=== PATIENT | male | born 1940 | race Caucasian/White ===

== ENCOUNTER → 2019-01-29 11:36 | Outpatient (CLI) | payer MEDICARE, OTHER, SELFPAY ==
--- NOTE | 2019-01-29 11:38 | DI.RAD.S_ITS ---
PROCEDURE: XR WRIST LT MIN 3V INDICATIONS: left wrist pain s/p injury 3 mos ago TECHNIQUE: 4 views of the wrist were acquired. COMPARISON: None. FINDINGS: Bones: No fractures or dislocations. No suspicious bony lesions. There is severe first metacarpal phalangeal joint degeneration. Small ossicles are noted in the ulna aspect of the first metacarpal phalangeal joint, suspicious for small joint bodies or synovial osteochondromatosis. There is mild degenerative disease at the radiocarpal joint, triscaphe joint and first carpal metacarpal joint. Scaphoid view: Scaphoid is intact. Soft tissues: No suspicious soft tissue calcifications. IMPRESSION: 1. No fractures. 1. Severe first metacarpophalangeal joint degeneration. Small ossicles are noted in the ulnar aspect of the first metacarpophalangeal joint, which may be small joint bodies or synovial osteochondromatosis. Dictated by: Lul Cross M.D. on 01/29/2019 at 12:55 Approved by: Lul Cross M.D. on 01/29/2019 at 13:02
== END ==
PROVIDERS: Family Provider Family Medicine; PCP Family Medicine; Visit Provider Nurse Practitioner
DX: M25.532 Pain in left wrist (principal); M19.042 Primary osteoarthritis, left hand; M19.032 Primary osteoarthritis, left wrist
CPT/HCPCS: 73110

== ENCOUNTER → 2019-04-11 09:28 | Outpatient (CLI) | payer MEDICARE, OTHER, SELFPAY ==
[2019-04-11 10:04] LABS: Hematocrit 42.5 % (41-53); Hemoglobin 14.3 g/dL (13.5-17.5); Mean Corpuscular HGB Conc 33.6 % (30-36); Mean Corpuscular Volume 86.4 fL (80-100); Platelet Count 150 X10^3/uL (150-400); Red Blood Cell Count 4.92 X10^6/uL (4.5-5.9); Red Cell Distribution Width 15.1 % (11.6-14.8); White Blood Cell Count 7.3 X10^3/uL (4.5-11.0)
[2019-04-11 10:53] LABS: Alanine Aminotransferase 25 IU/L (21-72); Albumin 4.3 g/dL (3.5-5.0); Albumin Globulin Ratio 1.4 (1.0-2.8); Alkaline Phosphatase 111 U/L (38-126); Aspartate Aminotransferase 22 IU/L (17-59); BUN Creatinine Ratio 11.7 (6-22); Bilirubin Total 0.7 mg/dL (0.2-1.3); Blood Urea Nitrogen 21 mg/dL (9-20); Calcium 9.5 mg/dL (8.4-10.2); Carbon Dioxide 20 mmol/L (22-32); Chloride 106 mmol/L (98-107); Cholesterol 181 mg/dL (140-199); Estimated Glomerular Filt Rate 36.9 mL/min (>60); Globulin 3.1 g/dL (1.7-4.1); Glucose 112 mg/dL (80-110); HDL Cholesterol 45 mg/dL (40-60); HEMOLYSIS < 15 (0-50); LDL Cholesterol Calculated 106 mg/dL (<100); Potassium 5.3 mmol/L (3.4-5.1); Sodium 136 mmol/L (137-145); Total Protein 7.4 g/dL (6.3-8.2); Triglycerides 149 mg/dL (35-150)
[2019-04-11 11:25] LABS: Prostate Specific Antigen Scrn 0.124 ng/mL (0.1-4.0)
[2019-04-11 11:28] LABS: TSH w/ Reflex to FT4 2.48 uIU/mL (0.47-4.68)
== END ==
PROVIDERS: Family Provider Family Medicine; PCP Family Medicine; Visit Provider Nurse Practitioner
DX: I10 Essential (primary) hypertension (principal); N40.0 Benign prostatic hyperplasia without lower urinary tract symptoms; Z00.00 Encounter for general adult medical examination without abnormal findings; Z95.0 Presence of cardiac pacemaker
CPT/HCPCS: 36415; 80053; 80061; 84153; 84443; 85027; G0103

== ENCOUNTER → 2019-05-07 09:56 | Outpatient (CLI) | payer MEDICARE, OTHER, SELFPAY ==
[2019-05-07 11:43] LABS: Microalbumin Urine Random 1.3 mg/dL (0-1.6)
[2019-05-07 11:45] LABS: Creatinine Urine Random 70.6 mg/dL; Microalbumi Creatinin Ratio Ur 18.4 ug/mg CR (<30)
[2019-05-07 11:47] LABS: BUN Creatinine Ratio 15.3 (6-22); Blood Urea Nitrogen 23 mg/dL (9-20); Estimated Glomerular Filt Rate 45.4 mL/min (>60)
== END ==
PROVIDERS: Family Provider Family Medicine; PCP Family Medicine; Visit Provider Nurse Practitioner
DX: I10 Essential (primary) hypertension (principal); N19 Unspecified kidney failure; N18.9 Chronic kidney disease, unspecified
CPT/HCPCS: 36415; 82043; 82565; 82570; 84520

== ENCOUNTER → 2019-06-13 10:01 | Outpatient (CLI) | payer MEDICARE, OTHER, SELFPAY ==
[2019-06-13 11:00] LABS: Hematocrit 42.8 % (41-53); Hemoglobin 14.2 g/dL (13.5-17.5); Mean Corpuscular HGB Conc 33.1 % (30-36); Mean Corpuscular Hemoglobin 29.4 PG (26-34); Mean Corpuscular Volume 88.7 fL (80-100); Platelet Count 146 X10^3/uL (150-400); Red Blood Cell Count 4.82 X10^6/uL (4.5-5.9); Red Cell Distribution Width 14.6 % (11.6-14.8); White Blood Cell Count 7.3 X10^3/uL (4.5-11.0)
[2019-06-13 11:21] LABS: Creatinine Urine Random 80.9 mg/dL; Protein (Total) Urine Random 16 mg/dL (0-12); Protein Creatinine Ratio Urine 0.19 GRAM/24H
[2019-06-13 11:22] LABS: BUN Creatinine Ratio 12.1 (6-22); Blood Urea Nitrogen 17 mg/dL (9-20); Calcium 9.2 mg/dL (8.4-10.2); Carbon Dioxide 21 mmol/L (22-32); Chloride 106 mmol/L (98-107); Estimated Glomerular Filt Rate 49.1 mL/min (>60); Glucose 100 mg/dL (80-110); HEMOLYSIS < 15 (0-50); Potassium 4.1 mmol/L (3.4-5.1); Sodium 139 mmol/L (137-145)
== END ==
PROVIDERS: Family Provider Family Medicine; PCP Family Medicine; Visit Provider Internal Medicine Nephrology
DX: N05.9 Unspecified nephritic syndrome with unspecified morphologic changes (principal); D63.1 Anemia in chronic kidney disease; D70.9 Neutropenia, unspecified; R80.9 Proteinuria, unspecified
CPT/HCPCS: 36415; 80048; 82570; 84156; 85027

== ENCOUNTER → 2019-07-23 08:25 | Outpatient (CLI) | payer MEDICARE, OTHER, SELFPAY ==
--- NOTE | 2019-07-23 08:27 | DI.US.S_ITS ---
PROCEDURE: US MARYSOL LIMITED SINGLE LEVEL INDICATIONS: cladication lower extermity TECHNIQUE: Ankle-brachial indices were obtained bilaterally and recorded. COMPARISONS: FINDINGS: Right ankle brachial index (MARYSOL): 0.91 Left ankle brachial index (MARYSOL): 0.7 IMPRESSION: Abnormal ankle brachial indices bilaterally suggesting mild to moderate disease consistent with claudication, left greater than right; duplex imaging warranted. Dictated by: Kp DOMINGUEZ Interpreted: Lyndsey Parnell MD on 07/23/2019 at 10:02 Approved by: Lyndsey Parnell M.D. on 07/23/2019 at 12:09
--- NOTE | 2019-07-23 08:27 | DI.RAD.S_ITS ---
PROCEDURE: XR LUMBAR SPINE 2-3V INDICATIONS: spinal arthritis TECHNIQUE: 3 views of the lumbar spine were acquired. COMPARISON: None. FINDINGS: Bones: 5 [id number] vertebrae are present. There is normal bony alignment. No vertebral body compression fractures. No suspicious bony lesions. There is degenerative disc disease, moderate to severe at L5-S1, and mild to moderate at other levels. [id number] facet arthropathy at L4-L5 and L5-S1. Soft tissues: Overlying bowel gas pattern is normal. No suspicious soft tissue calcifications. IMPRESSION: Moderate to severe degenerative disc and facet disease. Dictated by: Lul Cross M.D. on 07/23/2019 at 14:41 Approved by: Lul Cross M.D. on 07/23/2019 at 14:42
== END ==
PROVIDERS: Family Provider Family Medicine; PCP Family Medicine; Visit Provider Family Medicine
DX: I70.213 Atherosclerosis of native arteries of extremities with intermittent claudication, bilateral legs (principal); M47.816 Spondylosis without myelopathy or radiculopathy, lumbar region; M47.817 Spondylosis without myelopathy or radiculopathy, lumbosacral region; M51.36 Other intervertebral disc degeneration, lumbar region; M51.37 Other intervertebral disc degeneration, lumbosacral region
CPT/HCPCS: 72100; 93922

== ENCOUNTER → 2019-09-03 11:35 | Outpatient (CLI) | payer MEDICARE, OTHER, SELFPAY | PROVIDERS: PCP Family Medicine; Visit Provider Family Medicine | DX: M79.606 Pain in leg, unspecified (principal); R20.0 Anesthesia of skin; Z53.9 Procedure and treatment not carried out, unspecified reason ==

== ENCOUNTER → 2019-09-05 07:33 | Outpatient (CLI) | payer MEDICARE, OTHER, SELFPAY ==
--- NOTE | 2019-09-05 07:34 | DI.US.S_ITS ---
PROCEDURE: US ARTERIAL DUPLEX LE BI INDICATIONS: Left calf claudication after 3 or 4 blocks. Clinical concern for PERIPHERAL ARTERIAL DISEASE TECHNIQUE: Color and pulse Doppler interrogation was performed of both lower extremity arterial systems, with image documentation. COMPARISON: [facility], , US MARYSOL LIMITED SINGLE LEVEL, 07/23/2019, 8:45. FINDINGS: Right lower extremity: Common femoral artery: 178 cm/sec, with triphasic flow. Deep femoral artery: 161 cm/sec, with monophasic flow. Proximal superficial femoral artery: 164 cm/sec, with biphasic flow. Mid superficial femoral artery: 83 cm/sec, with biphasic flow. Distal superficial femoral artery: 68 cm/sec, with biphasic flow. Popliteal artery: 76 cm/sec, with biphasic flow. Posterior tibial artery: Within its midportion 22 cm/sec, with biphasic flow. The distal right posterior tibial artery is occluded. Anterior tibial artery/dorsalis pedis: Distally 49 cm/sec, with biphasic flow. Pan-scale imaging description: There is occlusion of the distal right posterior tibial artery. Minimal thickening can be seen. Left lower extremity: Common femoral artery proximally: 138 cm/sec, with triphasic flow. Common femoral artery distally: 75 cm/s, with biphasic flow. Deep femoral artery: 139 cm/sec, with biphasic flow. Proximal superficial femoral artery: 69 cm/sec, with biphasic flow. Mid superficial femoral artery: 26 cm/sec, with monophasic flow. Distal superficial femoral artery: 16 cm/sec, with monophasic flow. Popliteal artery: 29 cm/sec, with monophasic flow. Posterior tibial artery: Within its midportion 11 cm/sec, with monophasic flow. The distal left posterior tibial artery is occluded. Anterior tibial artery/dorsalis pedis: Distally 24 cm/sec, with monophasic flow. Pan-scale imaging description: Minimal thickening can be seen. The distal left posterior tibial artery is occluded. 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 Poor flow is seen throughout the left lower extremity. Dictated by: Helio Grande M.D. on 09/05/2019 at 10:14 Approved by: Helio Grande M.D. on 09/05/2019 at 10:18
== END ==
PROVIDERS: PCP Family Medicine; Visit Provider Family Medicine
DX: I70.203 Unspecified atherosclerosis of native arteries of extremities, bilateral legs (principal); R20.0 Anesthesia of skin; M79.606 Pain in leg, unspecified
CPT/HCPCS: 93925

== ENCOUNTER → 2019-09-12 08:13 | Outpatient (CLI) | payer MEDICARE, OTHER, SELFPAY ==
[2019-09-12 09:37] LABS: BUN Creatinine Ratio 16.7 (6-22); Blood Urea Nitrogen 35 mg/dL (9-20); Calcium 9.3 mg/dL (8.4-10.2); Carbon Dioxide 27 mmol/L (22-32); Chloride 103 mmol/L (98-107); Estimated Glomerular Filt Rate 30.8 mL/min (>60); Glucose 113 mg/dL (80-110); HEMOLYSIS < 15 (0-50); Phosphorous 3.3 mg/dL (2.3-3.7); Potassium 4.5 mmol/L (3.4-5.1); Sodium 137 mmol/L (137-145)
[2019-09-12 09:57] LABS: B Type Natriuretic Peptide < 100 (<100)
[2019-09-14 15:09] LABS: Parathyroid Hormone Int 43 pg/mL (14-64)
== END ==
PROVIDERS: PCP Family Medicine; Visit Provider Internal Medicine Nephrology
DX: N05.9 Unspecified nephritic syndrome with unspecified morphologic changes (principal); I50.32 Chronic diastolic (congestive) heart failure; E83.30 Disorder of phosphorus metabolism, unspecified; N25.81 Secondary hyperparathyroidism of renal origin
CPT/HCPCS: 36415; 80048; 83880; 83970; 84100

== ENCOUNTER → 2019-09-19 12:54 | Outpatient (CLI) | payer MEDICARE, OTHER, SELFPAY ==
[2019-09-21 15:49] LABS: Complement C3 137 mg/dL (82-185)
[2019-09-21 19:40] LABS: Albumin 3.7 g/dL (3.8-4.8); Alpha 1 Globulin 0.4 g/dL (0.2-0.3); Beta 1 Globulin 0.4 g/dL (0.4-0.6); Gamma Globulin 0.8 g/dL (0.8-1.7); Protein, Total 6.7 g/dL (6.1-8.1)
[2019-09-22 21:05] LABS: ANCA Screen NEGATIVE (NEGATIVE)
[2019-09-23 09:56] LABS: ANA Screen, IFA NEGATIVE (NEGATIVE)
[2019-09-23 15:00] LABS: Albumin 100 %; Protein/ Creatinine Ratio 169 mg/g creat (22-128); Total Urine Protein 10 mg/dL (5-25); Urine Creatinine, Random 59 mg/dL (20-320)
[2019-09-23 21:46] LABS: DNA (DS) Antibody <1 IU/mL
== END ==
PROVIDERS: Family Provider Family Medicine; PCP Family Medicine; Visit Provider Internal Medicine Nephrology
DX: M31.30 Wegener's granulomatosis without renal involvement (principal); M32.10 Systemic lupus erythematosus, organ or system involvement unspecified; N00.9 Acute nephritic syndrome with unspecified morphologic changes; D89.89 Other specified disorders involving the immune mechanism, not elsewhere classified
CPT/HCPCS: 36415; 83520; 84155; 84156; 84165; 84166; 86021; 86038; 86160; 86225

== ENCOUNTER → 2019-09-19 13:49 | Outpatient (CLI) | payer MEDICARE, OTHER, SELFPAY ==
--- NOTE | 2019-09-19 14:16 | DI.US.S_ITS ---
PROCEDURE: US RENAL COMPLETE INDICATIONS: ACUTE RENAL FAILURE TECHNIQUE: Real-time scanning was performed of the kidneys and bladder, with image documentation. COMPARISON: None. FINDINGS: Kidneys: Kidneys are normal in size. Right kidney measures 8.9 cm long; left kidney measures 12.4 cm long. Right renal cortical thickness is 1.1 cm; left renal cortical thickness is 1.7 cm. Renal cortical echotexture is normal. No hydronephrosis or nephrolithiasis. No suspicious solid mass lesions. 4.3 cm superior pole left renal cyst. Bladder: Pre-void bladder volume is 79 mL. Post-void residual is 60 mL. Pre-void images demonstrate no intraluminal masses or stones. On pre-void images, left ureteral jets are noted with color Doppler interrogation. (Of note, ureteral jets may not be detectable in up to 25% of cases due to insufficient differences in specific gravity between ureteral and bladder urine). Miscellaneous: No free pelvic fluid. IMPRESSION: Left renal cyst; otherwise normal appearance of the kidneys. Dictated by: Kp Hughes [facility] Interpreted: Braeden Vail MD on 09/19/2019 at 14:58 Approved by: Braeden Vail M.D. on 09/19/2019 at 17:23
== END ==
PROVIDERS: PCP Family Medicine; Visit Provider Internal Medicine Nephrology
DX: N17.9 Acute kidney failure, unspecified (principal); N28.1 Cyst of kidney, acquired; M31.30 Wegener's granulomatosis without renal involvement; M32.10 Systemic lupus erythematosus, organ or system involvement unspecified; N00.9 Acute nephritic syndrome with unspecified morphologic changes; D47.2 Monoclonal gammopathy
CPT/HCPCS: 36415; 76770; 83520; 84155; 84156; 84165; 84166; 86021; 86038; 86160; 86225

== ENCOUNTER → 2019-10-02 09:40 | Outpatient (CLI) | payer MEDICARE, OTHER, SELFPAY ==
[2019-10-02 11:13] LABS: Blood Urea Nitrogen 28 mg/dL (9-20); Calcium 9.7 mg/dL (8.4-10.2); Carbon Dioxide 24 mmol/L (22-32); Chloride 104 mmol/L (98-107); Estimated Glomerular Filt Rate 32.6 mL/min (>60); Glucose 109 mg/dL (80-110); HEMOLYSIS < 15 (0-50); Potassium 4.6 mmol/L (3.4-5.1); Sodium 138 mmol/L (137-145)
== END ==
PROVIDERS: PCP Family Medicine; Visit Provider Internal Medicine Nephrology
DX: N05.9 Unspecified nephritic syndrome with unspecified morphologic changes (principal)
CPT/HCPCS: 36415; 80048

== ENCOUNTER → 2019-10-31 10:29 | Outpatient (CLI) | payer MEDICARE, OTHER, SELFPAY ==
[2019-10-31 11:14] LABS: BUN Creatinine Ratio 19.5 (6-22); Blood Urea Nitrogen 37 mg/dL (9-20); Calcium 8.7 mg/dL (8.4-10.2); Carbon Dioxide 25 mmol/L (22-32); Chloride 101 mmol/L (98-107); Estimated Glomerular Filt Rate 34.5 mL/min (>60); Glucose 132 mg/dL (80-110); HEMOLYSIS < 15 (0-50); Potassium 3.9 mmol/L (3.4-5.1); Sodium 137 mmol/L (137-145)
== END ==
PROVIDERS: PCP Family Medicine; Visit Provider Internal Medicine Nephrology
DX: N05.9 Unspecified nephritic syndrome with unspecified morphologic changes (principal)
CPT/HCPCS: 36415; 80048

== ENCOUNTER → 2019-11-29 12:18 | Outpatient (CLI) | payer MEDICARE, OTHER, SELFPAY ==
[2019-11-29 13:20] LABS: BUN Creatinine Ratio 15.8 (6-22); Blood Urea Nitrogen 30 mg/dL (9-20); Calcium 8.7 mg/dL (8.4-10.2); Carbon Dioxide 19 mmol/L (22-32); Chloride 108 mmol/L (98-107); Estimated Glomerular Filt Rate 34.5 mL/min (>60); Glucose 105 mg/dL (80-110); HEMOLYSIS < 15 (0-50); Sodium 138 mmol/L (137-145)
== END ==
PROVIDERS: PCP Family Medicine; Visit Provider Internal Medicine Nephrology
DX: N05.9 Unspecified nephritic syndrome with unspecified morphologic changes (principal); I77.6 Arteritis, unspecified
CPT/HCPCS: 36415; 80048

== ENCOUNTER → 2019-12-25 09:56 | Outpatient (CLI) | payer MEDICARE, OTHER, SELFPAY ==
[2019-12-25 11:48] LABS: BUN Creatinine Ratio 16.8 (6-22); Blood Urea Nitrogen 32 mg/dL (9-20); Calcium 8.9 mg/dL (8.4-10.2); Carbon Dioxide 22 mmol/L (22-32); Chloride 104 mmol/L (98-107); Estimated Glomerular Filt Rate 34.5 mL/min (>60); Glucose 126 mg/dL (80-110); HEMOLYSIS < 15 (0-50); Potassium 4.1 mmol/L (3.4-5.1); Sodium 136 mmol/L (137-145)
== END ==
PROVIDERS: PCP Family Medicine; Referring Provider Internal Medicine Nephrology; Visit Provider Internal Medicine Nephrology
DX: N05.9 Unspecified nephritic syndrome with unspecified morphologic changes (principal)
CPT/HCPCS: 36415; 80048

== ENCOUNTER → 2020-03-05 12:36 | Outpatient (CLI) | payer MEDICARE, OTHER, SELFPAY ==
[2020-03-05 15:58] LABS: BUN Creatinine Ratio 14.8 (6-22); Blood Urea Nitrogen 25 mg/dL (9-20); Calcium 9.4 mg/dL (8.4-10.2); Carbon Dioxide 26 mmol/L (22-32); Chloride 102 mmol/L (98-107); Estimated Glomerular Filt Rate 39.5 mL/min (>60); Glucose 107 mg/dL (80-110); HEMOLYSIS < 15 (0-50); Potassium 3.5 mmol/L (3.4-5.1); Sodium 137 mmol/L (137-145)
== END ==
PROVIDERS: PCP Family Medicine; Referring Provider Internal Medicine Nephrology; Visit Provider Internal Medicine Nephrology
DX: N05.9 Unspecified nephritic syndrome with unspecified morphologic changes (principal)
CPT/HCPCS: 36415; 80048

== ENCOUNTER → 2020-04-13 10:05 | Outpatient (CLI) | payer MEDICARE, OTHER, SELFPAY ==
[2020-04-13 12:49] LABS: BUN Creatinine Ratio 18.9 (6-22); Blood Urea Nitrogen 31 mg/dL (9-20); Calcium 9.3 mg/dL (8.4-10.2); Carbon Dioxide 22 mmol/L (22-32); Chloride 103 mmol/L (98-107); Estimated Glomerular Filt Rate 40.9 mL/min (>60); Glucose 106 mg/dL (80-110); HEMOLYSIS < 15 (0-50); Potassium 4.5 mmol/L (3.4-5.1); Sodium 136 mmol/L (137-145)
== END ==
PROVIDERS: PCP Family Medicine; Referring Provider Internal Medicine Nephrology; Visit Provider Internal Medicine Nephrology
DX: N05.9 Unspecified nephritic syndrome with unspecified morphologic changes (principal)
CPT/HCPCS: 36415; 80048

== ENCOUNTER → 2020-06-11 09:45 | Outpatient (CLI) | payer MEDICARE, OTHER, SELFPAY ==
[2020-06-11 10:51] LABS: BUN Creatinine Ratio 11.1 (6-22); Blood Urea Nitrogen 16 mg/dL (9-20); Calcium 8.8 mg/dL (8.4-10.2); Carbon Dioxide 25 mmol/L (22-32); Chloride 108 mmol/L (98-107); Estimated Glomerular Filt Rate 47.4 mL/min (>60); Glucose 107 mg/dL (80-110); HEMOLYSIS < 15 (0-50); Potassium 4.5 mmol/L (3.4-5.1); Sodium 138 mmol/L (137-145)
== END ==
PROVIDERS: PCP Family Medicine; Referring Provider Internal Medicine Nephrology; Visit Provider Internal Medicine Nephrology
DX: N05.9 Unspecified nephritic syndrome with unspecified morphologic changes (principal)
CPT/HCPCS: 36415; 80048

== ENCOUNTER → 2020-08-17 10:08 | Outpatient (CLI) | payer MEDICARE, OTHER, SELFPAY ==
[2020-08-17 10:27] LABS: Add Manual Diff / Slide Review NO; Basophils Absolute Auto 0 /uL (0-100); Basophils Percent Auto 0.4 % (0-2); Eosinophils Absolute Auto 200 /uL (0-450); Eosinophils Percent Auto 1.8 % (2-4); Hematocrit 41.2 % (41-53); Hemoglobin 13.9 g/dL (13.5-17.5); Lymphocytes Absolute Auto 1400 /uL (1100-4500); Lymphocytes Percent Auto 15.3 % (25-40); Mean Corpuscular HGB Conc 33.8 % (30-36); Mean Corpuscular Hemoglobin 29.3 PG (26-34); Mean Corpuscular Volume 86.8 fL (80-100); Monocytes Absolute Auto 800 /uL (0-900); Monocytes Percent Auto 8.3 % (3-14); Neutrophils Absolute Auto 7000 /uL (1500-7000); Neutrophils Percent Auto 74.2 % (50-75); Platelet Count 199 X10^3/uL (150-400); Red Blood Cell Count 4.75 X10^6/uL (4.5-5.9); Red Cell Distribution Width 14.1 % (11.6-14.8); White Blood Cell Count 9.4 X10^3/uL (4.5-11.0)
[2020-08-17 10:40] LABS: Alanine Aminotransferase 24 IU/L (<50); Albumin 3.7 g/dL (3.5-5.0); Albumin Globulin Ratio 1.2 (1.0-2.8); Alkaline Phosphatase 93 U/L (38-126); Aspartate Aminotransferase 35 IU/L (17-59); BUN Creatinine Ratio 10.3 (6-22); Bilirubin Total 0.4 mg/dL (0.2-1.3); Blood Urea Nitrogen 14 mg/dL (9-20); Calcium 8.6 mg/dL (8.4-10.2); Carbon Dioxide 24 mmol/L (22-32); Chloride 109 mmol/L (98-107); Estimated Glomerular Filt Rate 50.7 mL/min (>60); Globulin 3.1 g/dL (1.7-4.1); Glucose 115 mg/dL (80-110); HEMOLYSIS < 15 (0-50); Potassium 3.9 mmol/L (3.4-5.1); Sodium 136 mmol/L (137-145); Total Protein 6.8 g/dL (6.3-8.2)
== END ==
PROVIDERS: PCP Family Medicine; Referring Provider Family Medicine; Visit Provider Family Medicine
DX: R10.9 Unspecified abdominal pain (principal); R19.7 Diarrhea, unspecified
CPT/HCPCS: 36415; 80053; 85025

== ENCOUNTER → 2021-01-07 11:40 | Outpatient (CLI) | payer MEDICARE, OTHER, SELFPAY ==
[2021-01-07] MEDS: COVID-19 VACC, Ad26(JANSSEN)/PF 0.5 ML IM (12:09)
== END ==
PROVIDERS: PCP Family Medicine; Visit Provider Internal Medicine
DX: Z23 Encounter for immunization (principal)
CPT/HCPCS: 0031A; 91303

== ENCOUNTER → 2021-04-19 11:17 | Outpatient (CLI) | payer MEDICARE, OTHER, SELFPAY ==
[2021-04-19 12:25] LABS: Add Manual Diff / Slide Review NO; Basophils Absolute Auto 0 /uL (0-100); Basophils Percent Auto 0.3 % (0-2); Eosinophils Absolute Auto 200 /uL (0-450); Eosinophils Percent Auto 2.1 % (2-4); Hemoglobin 10.6 g/dL (13.5-17.5); Lymphocytes Absolute Auto 1400 /uL (1100-4500); Lymphocytes Percent Auto 18.9 % (25-40); Mean Corpuscular HGB Conc 33.1 % (30-36); Mean Corpuscular Volume 87.5 fL (80-100); Monocytes Absolute Auto 700 /uL (0-900); Monocytes Percent Auto 8.9 % (3-14); Neutrophils Absolute Auto 5200 /uL (1500-7000); Neutrophils Percent Auto 69.8 % (50-75); Platelet Count 129 X10^3/uL (150-400); Red Blood Cell Count 3.65 X10^6/uL (4.5-5.9); Red Cell Distribution Width 15.6 % (11.6-14.8); White Blood Cell Count 7.4 X10^3/uL (4.5-11.0)
[2021-04-19 12:43] LABS: Alanine Aminotransferase 30 IU/L (<50); Albumin Globulin Ratio 1.4 (1.0-2.8); Alkaline Phosphatase 121 U/L (38-126); Aspartate Aminotransferase 27 IU/L (17-59); BUN Creatinine Ratio 22.3 (6-22); Bilirubin Total 0.4 mg/dL (0.2-1.3); Blood Urea Nitrogen 27 mg/dL (9-20); Calcium 8.8 mg/dL (8.4-10.2); Carbon Dioxide 20 mmol/L (22-32); Chloride 110 mmol/L (98-107); Globulin 2.9 g/dL (1.7-4.1); Glucose 109 mg/dL (80-110); HEMOLYSIS < 15 (0-50); Potassium 4.1 mmol/L (3.4-5.1); Sodium 139 mmol/L (137-145); Total Protein 6.9 g/dL (6.3-8.2)
[2021-04-19 13:18] LABS: TSH w/ Reflex to FT4 2.03 uIU/mL (0.47-4.68)
== END ==
PROVIDERS: PCP Family Medicine; Referring Provider Family Medicine; Visit Provider Family Medicine
DX: K62.5 Hemorrhage of anus and rectum (principal)
CPT/HCPCS: 36415; 80053; 84443; 85025

== ENCOUNTER → 2021-04-23 14:33 | Outpatient (CLI) | payer MEDICARE, OTHER, SELFPAY ==
[2021-04-23 15:02] LABS: COVID19 -Nasal RAPID Negative (Negative)
== END ==
PROVIDERS: PCP Family Medicine; Visit Provider Specialist
DX: Z20.822 Contact with and (suspected) exposure to COVID-19 (principal)
CPT/HCPCS: 87635; 99214

== ENCOUNTER 2021-04-26 06:40 | Observation (INO) | payer MEDICARE, OTHER, SELFPAY ==
[2021-04-26] VITALS (18 sets, daily range): BP systolic 109–154; BP diastolic 43–69; PULSE 59–76; RESP 12–24; TEMP 36.1–37.2; O2SAT 95–100; BMI 25.4
--- NOTE | 2021-04-26 | PATH_ITS ---
[facility] Accession Number: [id number] . 01 Material submitted: . PART A: gastrointestinal site - GASTRIC ANTRUM PART B: colon - CECAL POLYP . 01 Clinical history: . SDC . 02 Diagnosis: A. Stomach, Antrum, Biopsy: Antral mucosa with mild chronic gastritis. Negative for Helicobacter by immunohistochemistry. Negative for intestinal metaplasia. Negative for dysplasia and malignancy. . B. Cecum, Polyp, Biopsy: Tubular adenoma. MRV 04/30/2021 1453 Local . 02 Electronically signed: . Rebecca Carr MD, Pathologist NPI- [id number] . 01 Gross description: . Part A: GASTRIC ANTRUM: Received in formalin is 1 fragment(s) of castillo, soft tissue measuring 0.4 x 0.3 x 0.3 cm submitted entirely in 1 cassette(s) Part B: CECAL POLYP: Received in formalin are multiple fragment(s) of castillo, soft tissue measuring 1.0 x 0.4 x 0.2 cm in aggregate submitted entirely in 1 cassette(s) /UCHE 04/27/2021 0427 Local . 02 Microscopic: . A. An immunohistochemical stain was performed to evaluate for Helicobacter organisms and is negative. The control stain showed appropriate reactivity. . * This test was developed and its performance characteristics determined by [facility]. It has not been cleared or approved by the U.S. Food and Drug Administration. The FDA has determined that such clearance or approval is not necessary. This test is used for clinical purposes. It should not be regarded as investigational or for research. . 02 Pathologist provided ICD-10: R19.5, D12.0 . 02 CPT . 673228, 918106, U05219 Performed at: 01 [facility] [address] [place] [address], [place], [place] [id number] MD Maikel Goff MD Phone: [phone] Performed at: 02 [facility] [address] [place] [id number] MD Rebecca Carr MD Phone: [phone]
[2021-04-26] MEDS: LACTATED RINGERS 1,000 ML 42 ML IV (07:28)
--- NOTE | 2021-04-26 07:51 | PM.PREOP ---
Pre-operative Note COVID-19 COVID-19 status: Negative Result date/Date tested (Pos, Neg/Pending): 04/23/21 Interval Note History & Physical reviewed/Exam performed by Physician: Yes Changes to H&P: No ASA Class (for procedural sedation): III
[2021-04-26] MEDS: fentaNYL 250 MCG/5 ML INJ IV (08:15)
[2021-04-26] MEDS: MIDAZOLAM 5 MG/5 ML VIAL IV (08:15)
[2021-04-26] MEDS: LIDOCAINE 4% SOLN 50 ML 20 ML TOP (08:48)
--- NOTE | 2021-04-26 08:50 | P.OP.ENDO_ITS ---
Operative Date/Time/Diagnoses Date of procedure: 04/26/21 Time of procedure: 08:50 Pre-op diagnosis: Acute blood loss Anemia. Blood per rectum. Post-op diagnosis: same ( mild inflammation of the antrum. Thrombosed external hemorrhoid. Extensive diverticulosis. Small polypoid lesions cecum) Procedure & Clinicians Study performed: EGD with cold biopsy. Colonoscopy with cold biopsy. Same procedure as scheduled: Yes Indications: Determine cause of intestinal bleeding and anemia. Patient had melena and bright red blood per rectum. Surgeon: Luis Salazar Procedure Notes SCOAP/Timeout: performed Procedure in detail: The patient was placed in left lateral decubitus position underwent IV sedation directed by the surgeon consisting fentanyl and Versed. He had gargled with topical lidocaine. A bite block was inserted and the scope was advanced through it into the esophagus. The esophagus was normal. GE junction at 44 cm from the incisors. The stomach insufflated well. The antrum had inflammation but I did not see any ruel ulceration. I passed through it into the duodenum. The duodenum was unremarkable 4th part. The scope was brought back into the stomach and retroflexed. The proximal stomach was normal in appearance. There was a small hiatal hernia. Biopsies were taken in the antrum to rule out H pylori. No blood was noted in the upper tract. The patient was then repositioned. The patient underwent additional IV sedation directed by the surgeon consisting of fentanyl and Versed. Digital exam was remarkable for an increased sphincter tone.. The scope was inserted and advanced through the rectum into the sigmoid, descending, transverse, and ascending colon The patient was noted to have extensive diverticulosis especially in the sigmoid colon but also scattered elsewhere including the cecum. pressure had to be applied and a stiffener inserted to reach the cecum.. The cecum was reached identified by the ileocecal valve and the appendiceal opening. The ileocecal valve was unable to be cannulated despite multiple attempts to do so. the ileocecal valve itself was normal in appearance. There were 2 small polypoid lesions in the cecum which were biopsied and removed. These are very unlikely to be the source of blood loss. The scope was gradually brought out. No other polyps were found. The scope ultimately was retroflexed in the rectum. The appearance was normal. The scope was removed and the patient tolerated the procedure well. The prep was good. There was a small clot in the thrombosed hemorrhoid which was visible and I evacuated it simply by pulling it out. Light maroon colored blood was noted throughout the colon, Making an upper GI source of this blood loss less likely. If bleeding persists consider a small bowel evaluation. If his renal function would allow it would consider an angiogram but certainly a Nuclear medicine bleeding scan might be indicated. Scope withdrawal time: 10 minutes Sedation minutes: 41 Findings: diverticulosis, gastritis and polyp Specimen(s): other ( biopsies of the antrum and cecal polyps.) Complications: none Post-procedure Recommendations: Colonscopy in 5 years, Continue medication(s) ( Omeprazole) a nd Other recommendation ( Do not take Eliquis Until instructed by your family physician to resume it.) Follow up: as needed Disposition: PACU
[2021-04-26 09:20] LABS: Add Manual Diff / Slide Review NO; Basophils Absolute Auto 0 /uL (0-100); Basophils Percent Auto 0.4 % (0-2); Eosinophils Absolute Auto 100 /uL (0-450); Eosinophils Percent Auto 1.2 % (2-4); Lymphocytes Absolute Auto 1000 /uL (1100-4500); Lymphocytes Percent Auto 16.7 % (25-40); Mean Corpuscular HGB Conc 32.3 % (30-36); Mean Corpuscular Hemoglobin 28.3 PG (26-34); Mean Corpuscular Volume 87.7 fL (80-100); Monocytes Absolute Auto 600 /uL (0-900); Monocytes Percent Auto 9.8 % (3-14); Neutrophils Absolute Auto 4400 /uL (1500-7000); Neutrophils Percent Auto 71.9 % (50-75); Platelet Count 119 X10^3/uL (150-400); Red Blood Cell Count 2.33 X10^6/uL (4.5-5.9); White Blood Cell Count 6.1 X10^3/uL (4.5-11.0)
--- NOTE | 2021-04-26 09:21 | SUR.PHASEII ---
critical lab value on H/H 6.6/20.5 received from Mabel in Lab. Dr Salazar notified.
[2021-04-26 09:22] LABS: Hematocrit 20.5 % (41-53); Hemoglobin 6.6 g/dL (13.5-17.5)
--- NOTE | 2021-04-26 10:47 | PC.NURSE ---
Day shift: Pt on unit from PACU at approx 1030. Denies any pain or nausea. Denies any chest pain. HR reg. VS WNL. RA 98%. Spouse in room for support. Awaitng PRBC's to be ready. Oriented to room and call light. Call light in reach.
--- NOTE | 2021-04-26 12:31 | P.HP_ITS ---
History of Present Illness History of Present Illness Date Patient Seen: 04/26/21 Time Patient Seen: 12:31 [place] [facility] [place]: 80-year-old male with a history of atrial fibrillation on chronic anticoagulation pacemaker implantation hypertension BPH and diverticulosis. Patient presented to my office last week complaining of dark colored stools. Patient is on anticoagulation for atrial fibrillation he describes the blue blood is dark stools but also bright red blood. He noticed staining in the toilet. It started just a few days before the office visit. He was healing no dynamically stable and relatively asymptomatic from the standpoint of dizziness lightheadedness. Patient had blood work done which showed a hemoglobin of 10 which was down from his previous normal hemoglobin. He was expedited visit to see the surgeons for a colonoscopy as it had been many years since his last colonoscopy procedure. He is evaluated by them and was scheduled today for a colonoscopy and endoscopy which was done. Patient continued to have rectal bleeding over the we can. Because he was hemodynamically stable because of his atrial fibrillation his blood thinner was not held by me when he saw the surgeons he before his procedure was asked to hold his blood thinner appropriately as he was on Eliquis. Patient did the procedure for clean out yesterday. He says once he had the hard stool removed. He had lots of bright red blood per rectum. Which was pretty consistent throughout the day during the clean out procedure. Other than feeling weak he has no chest pain dizziness lightheadedness no shortness of breath. Patient had the procedure done today. Was called by his surgeon after the colonoscopy and EGD. EGD did not show any significant sources of bleeding. H pylori biopsies were done. During the colonoscopy part patient had extensive sigmoid diverticulosis as well as cecal diverticulosis. There was maroon- colored blood in the colon. Patient had 2 polyps removed from the cecum. Patient had repeat evaluation of his hemoglobin and hematocrit which was quite low. At 6 which was a considerable drop from his last 1 just a few days ago. Due to the recent biopsies in his low hemoglobin hematocrit patient was brought in to the hospital for blood and further evaluation and workup. Patient seen at bedside. He is started on a clear liquid diet. We discussed the findings of the procedure with him. He has not had any further bleeding. He is on his 1st units of blood. His blood pressure and vital signs are stable. Patient History Medical History BPH (benign prostatic hyperplasia) Chronic atrial fibrillation Claudication Diverticular disease Hemorrhoids Lower extremity pain Lumbar spine pain Numbness of foot Urinary incontinence Surgical History History of vasectomy Presence of cardiac pacemaker Family & Social History Family History Father Pneumonia Mother Hypertension Social History: household members spouse Safety & Behavioral: Feels Safe in Current No Environment Been Physically Hurt or No Threatened By a Person Suicidal Ideation Description None Suicide Plan Description No Plan Tobacco & Substance use: Tobacco type cigarettes Smoking Status Current every day smoker alcohol intake former Substance Use Type does not use Meds Home Medications and Allergies Home Medications Medication Instructions Recorded Confirmed Type apixaban 5 mg tablet (Eliquis) 5 mg PO BID 05/06/19 04/26/21 History acetaminophen 650 mg 650 mg PO ONCE PRN 07/15/19 04/26/21 History tablet,extended release (Tylenol Arthritis Pain) atorvastatin 20 mg tablet 20 mg PO DAILY #90 tab 08/01/19 04/26/21 Rx amlodipine 10 mg tablet 10 mg PO DAILY 04/19/21 04/26/21 History carvedilol 25 mg tablet 25 mg PO BID 04/19/21 04/26/21 History omeprazole 40 mg capsule,delayed 40 mg PO BID #60 cap 04/24/21 04/26/21 Rx release Allergies Allergy/AdvReac Type Severity Reaction Status Date / Time Penicillins [PENICILLINS] Allergy Mild RASH Verified 04/26/21 07:06 Exam Vital Signs (past 8 hours): - 04/26/21 07:29 04/26/21 08:52 04/26/21 08:57 Temperature 97.5 F L 97.1 F L Pulse Rate 65 62 60 Respiratory Rate 14 24 12 Blood Pressure 146/66 H 109/59 L 109/59 L Pulse Oximetry 100 97 95 04/26/21 09:01 04/26/21 09:07 04/26/21 09:11 Temperature 97.2 F L Pulse Rate 60 60 60 Respiratory Rate 22 15 20 Blood Pressure 121/56 L 125/43 L 126/49 L Pulse Oximetry 96 97 96 04/26/21 09:16 04/26/21 10:16 04/26/21 10:42 Temperature 97 F L 97.2 F L Pulse Rate 64 67 76 Respiratory Rate 12 14 16 Blood Pressure 120/56 L 124/56 L 133/67 Pulse Oximetry 95 97 95 04/26/21 11:49 04/26/21 12:04 Temperature 97.0 F L 97.3 F L Pulse Rate 60 60 Respiratory Rate 14 14 Blood Pressure 149/65 H 133/56 L Pulse Oximetry Oxygen Delivery Method Room Air Oxygen Flow Rate 0 Narrative Exam Narrative: Gen.: Alert good historian somewhat pale HEENT: pupils equal round and reactive or mucosa is moist neck is supple Cardio: S1-S2 irregular rate and rhythm Respiratory: lungs are clear no wheezes or crackles Abdomen: soft nontender mild distension Extremities: Full range of motion no appreciable weakness no cyanosis or edema Objective Labs Result Diagrams: 04/26/21 09:00 Labs: Laboratory Results - last 24 hr 04/26/21 04/26/21 09:00 09:00 WBC 6.1 RBC 2.33 L Hgb 6.6 L* Hct 20.5 L* MCV 87.7 MCH 28.3 MCHC 32.3 RDW 15.0 H Plt Count 119 L Neut % (Auto) 71.9 Lymph % (Auto) 16.7 L [place] % (Auto) 9.8 Eos % (Auto) 1.2 L Baso % (Auto) 0.4 Neut # (Auto) 4400 Lymph # (Auto) 1000 L [place] # (Auto) 600 Eos # (Auto) 100 Baso # (Auto) 0 Blood Type B Positive Antibody Screen Negative Crossmatch See Detail Assessment & Plan Assessment & Plan narrative: acute gastrointestinal bleed: patient with gastrointestinal bleeding. Acute blood loss anemia. Patient underwent EGD and colonoscopy today. No definitive source found on exam valuation. Hemoglobin his cricket done dipstick. Patient is symptomatic with some weakness and fatigue. Had quite a lot of bright red blood per rectum During the preparation for the colonoscopy and EGD clean out.. Patient is agreed and consented to 2 units of packed red blood cells he is where of the risks of this. Does not have a history of heart failure. Will hold off on Lasix between his units. Will check his hemoglobin hematocrit tomorrow morning. His blood thinner at has been held. It was held before the surgical procedure. Type and screen done. Patient receiving 1 unit of blood as we speak. Blood pressure stable. Tolerating transfusion well. Questionable source of gastrointestinal bleeding diverticular versus other. Acute blood-loss anemia. 2 units of packed red blood cells. Source is gastrointestinal. Anticoagulation on hold. recheck hemoglobin hematocrit after 2 units of packed red blood cells. Essential hypertension patient is on antihypertensive medication will continue his current antihypertensive medications and monitor for extreme elevation of blood pressure or low blood pressure. Chronic atrial fibrillation. Heart rate controlled. Patient is has an irregular rhythm on evaluation. His anticoagulation is held due to the bleeding. BPH. Chronic and stable. Medications will be continued to help control his symptoms. Disposition and plan. Patient is admitted the hospital for symptomatic blood loss anemia and ongoing bleeding from what sounds like a lower gastrointestinal source. 2 units of packed red blood cells. Monitoring vitals. And serial checking of his hemoglobin hematocrit. Quality VTE Deep Vein Thrombosis/Pulmonary Embolism Present on Admission: No
[2021-04-26] MEDS: ATORVASTATIN 20 MG TABLET PO (18:09)
[2021-04-26] MEDS: carvediloL 12.5 MG TABLET 25 MG PO (20:16)
[2021-04-26] MEDS: PANTOPRAZOLE DR 20 MG TABLET PO (20:16)
[2021-04-27 05:17] LABS: Add Manual Diff / Slide Review NO; Basophils Absolute Auto 0 /uL (0-100); Basophils Percent Auto 0.4 % (0-2); Eosinophils Absolute Auto 100 /uL (0-450); Hematocrit 27.8 % (41-53); Hemoglobin 9.3 g/dL (13.5-17.5); Lymphocytes Absolute Auto 1200 /uL (1100-4500); Lymphocytes Percent Auto 16.9 % (25-40); Mean Corpuscular HGB Conc 33.5 % (30-36); Mean Corpuscular Hemoglobin 28.9 PG (26-34); Mean Corpuscular Volume 86.3 fL (80-100); Monocytes Absolute Auto 800 /uL (0-900); Monocytes Percent Auto 10.9 % (3-14); Neutrophils Absolute Auto 4900 /uL (1500-7000); Neutrophils Percent Auto 69.8 % (50-75); Platelet Count 131 X10^3/uL (150-400); Red Blood Cell Count 3.23 X10^6/uL (4.5-5.9); Red Cell Distribution Width 14.4 % (11.6-14.8); White Blood Cell Count 7.1 X10^3/uL (4.5-11.0)
[2021-04-27 05:41] VITALS: BP 137/56; PULSE 64; RESP 16; TEMP 36.9; O2SAT 99
[2021-04-27] MEDS: PANTOPRAZOLE DR 20 MG TABLET PO (06:27)
--- NOTE | 2021-04-27 07:51 | PM.DS.1 ---
History of Present Illness History of Present Illness Chief complaint: [facility] [place] Narrative: 80-year-old male with a history of atrial fibrillation on chronic anticoagulation pacemaker implantation hypertension BPH and diverticulosis. Patient presented to my office last week complaining of dark colored stools. Patient is on anticoagulation for atrial fibrillation he describes the blue blood is dark stools but also bright red blood. He noticed staining in the toilet. It started just a few days before the office visit. He was healing no dynamically stable and relatively asymptomatic from the standpoint of dizziness lightheadedness. Patient had blood work done which showed a hemoglobin of 10 which was down from his previous normal hemoglobin. He was expedited visit to see the surgeons for a colonoscopy as it had been many years since his last colonoscopy procedure. He is evaluated by them and was scheduled today for a colonoscopy and endoscopy which was done. Patient continued to have rectal bleeding over the we can. Because he was hemodynamically stable because of his atrial fibrillation his blood thinner was not held by me when he saw the surgeons he before his procedure was asked to hold his blood thinner appropriately as he was on Eliquis. Patient did the procedure for clean out yesterday. He says once he had the hard stool removed. He had lots of bright red blood per rectum. Which was pretty consistent throughout the day during the clean out procedure. Other than feeling weak he has no chest pain dizziness lightheadedness no shortness of breath. Patient had the procedure done today. Was called by his surgeon after the colonoscopy and EGD. EGD did not show any significant sources of bleeding. H pylori biopsies were done. During the colonoscopy part patient had extensive sigmoid diverticulosis as well as cecal diverticulosis. There was maroon-colored blood in the colon. Patient had 2 polyps removed from the cecum. Patient had repeat evaluation of his hemoglobin and hematocrit which was quite low. At 6 which was a considerable drop from his last 1 just a few days ago. Due to the recent biopsies in his low hemoglobin hematocrit patient was brought in to the hospital for blood and further evaluation and workup. Patient seen at bedside. He is started on a clear liquid diet. We discussed the findings of the procedure with him. He has not had any further bleeding. He is on his 1st units of blood. His blood pressure and vital signs are stable. Discharge Providers Provider Discharge Date: 04/27/21 Primary care physician: Zak Peace MD Discharge provider: Zak Peace MD Summary Hospital Course Discharge Diagnosis: Acute gastrointestinal bleed assumed lower source possible diverticular Acute blood loss anemia requiring 2 units of packed red blood cells Chronic Atrial fibrillation on chronic anticoagulation rate well controlled Essential hypertension blood pressure well controlled Hyperlipidemia on a statin Hospital Course: Patient was admitted to the hospital after an outpatient scheduled endoscopy and colonoscopy for evaluation of rectal bleeding. Patient on anticoagulation due to chronic atrial fibrillation. Patient had had fairly stable hemoglobin and hematocrit. His blood thinners were stopped before the procedure. During the procedure patient was found to have maroon colored blood in his colon. Two polyps were removed and diverticular disease was found throughout his colon. No identifiable bowel source of bleeding identified on colonoscopy. Patient had repeat evaluation of his up blood work. Showed hemoglobin of 6. Patient was quite fatigued. Had no chest pain or shortness of breath Patient was admitted to the hospital after his endoscopy and colonoscopy for blood. Patient received 2 units of packed red blood cells he was tolerating his diet he was eating well. Patient was ambulating well. [place] much better after his blood transfusion. Patient after the procedure had no significant: Output of bright red blood dark red blood. His hemoglobin hematocrit and vital signs are stable at the time of discharge. Exam Vital Signs (past 8 hours): - 04/27/21 05:41 Temperature 98.5 F Pulse Rate 64 Respiratory Rate 16 Blood Pressure 137/56 L Pulse Oximetry 99 Oxygen Delivery Method Room Air Oxygen Flow Rate 0 Objective Labs Result Diagrams: 04/27/21 05:02 Labs: Laboratory Results - last 24 hr 04/26/21 04/26/21 04/27/21 09:00 09:00 05:02 WBC 6.1 7.1 RBC 2.33 L 3.23 L Hgb 6.6 L* 9.3 L Hct 20.5 L* 27.8 L MCV 87.7 86.3 MCH 28.3 28.9 MCHC 32.3 33.5 RDW 15.0 H 14.4 Plt Count 119 L 131 L Neut % (Auto) 71.9 69.8 Lymph % (Auto) 16.7 L 16.9 L [place] % (Auto) 9.8 10.9 Eos % (Auto) 1.2 L 2.0 Baso % (Auto) 0.4 0.4 Neut # (Auto) 4400 4900 Lymph # (Auto) 1000 L 1200 [place] # (Auto) 600 800 Eos # (Auto) 100 100 Baso # (Auto) 0 0 Blood Type B Positive Antibody Screen Negative Crossmatch See Detail PFSH Medical History BPH (benign prostatic hyperplasia) Chronic atrial fibrillation Claudication Diverticular disease Hemorrhoids Lower extremity pain Lumbar spine pain Numbness of foot Urinary incontinence Surgical History History of vasectomy Presence of cardiac pacemaker Family History Father Pneumonia Mother Hypertension Social History marital status: household members: spouse occupational status: previously employed Smoking Status: Current every day smoker quit status: not considering quitting second hand exposure: No alcohol intake: former substance use type: does not use Discharge Plan Discharge Plan Patient Disposition: Home Discharge orders & Medications Discharge Orders: Discharge (Order); Ordered 04/27/21 Ordered By: Zak Peace Prescriptions: Continued acetaminophen [Tylenol Arthritis Pain] 650 mg tablet extended release 650 mg PO ONCE PRN (Reason: pain) RF: 0 atorvastatin 20 mg tablet 20 mg PO DAILY Qty: 90 RF: 0 amlodipine 10 mg tablet 10 mg PO DAILY RF: 0 carvedilol 25 mg tablet 25 mg PO BID RF: 0 Discontinued Eliquis 5 mg tablet 5 mg PO BID RF: 0 omeprazole 40 mg capsule,delayed release(DR/EC) 40 mg PO BID Qty: 60 RF: 0 Follow up/Referrals: Zak Peace MD [Primary Care Provider] - Visit Report/Discharge Packet Stand Alone Forms: Colonoscopy Result: [facility], EGD Result: [facility] Discharge Data Primary Care Provider: Zak Peace Attending Provider: Zak Peace Quality VTE Deep Vein Thrombosis/Pulmonary Embolism Present on Admission: No
[2021-04-27 08:00] VITALS: BP 150/70; PULSE 61; RESP 17; TEMP 37; O2SAT 96
[2021-04-27] MEDS: carvediloL 12.5 MG TABLET 25 MG PO (10:12)
[2021-04-27] MEDS: AMLODIPINE 5 MG TABLET 10 MG PO (10:12)
--- NOTE | 2021-04-27 10:17 | PC.NURSE ---
Day shift: Pt left unit at approx 1025. Paperwork signed and all questions answered. Pt has all personal belongings. Taken to car via WC by CARLEEN Crooks. Pt is driving himself home today. Pt stated I'm happy to be going home today.
--- NOTE | 2021-04-27 10:24 | CM.DANOTE ---
DCP/Assessment: Reviewed chart. Patient is a 80yr old male admitted to [facility] with possible SBO. PCP is Dr. Peace. Primary payor is 1)Medicare 2)[employer]. Met with patient this AM explained CM/SW role. Patient reports that he has been discharged and will be leaving soon. Patient denies any d/c planning needs and reports that he is completely I with all ADL's. P: Home today. KIM Contreras Discharge Planning/Care Management Advanced directive, confirm from FAMILY Start: 04/26/21 10:41 Freq: Q24H Status: Discharge Protocol: Document 04/26/21 10:41 SFP (Rec: 04/26/21 10:41 SFP [id number]) Advance Directive, confirm on record Time 10:41 Person contacted Marcela Ramses received No CM Discharge Assessment Start: 04/27/21 09:26 Freq: Status: Discharge Protocol: Document 04/27/21 10:20 KJS (Rec: 04/27/21 10:24 KJS [id number]) Discharge Planning Assessment Assigned Us Marketing Director KIM Contreras Contact Information Marcela Villareal (spouse) # [phone] Advance Directives? Yes Advance Directives on File No History Provided By Patient Household Members spouse Type of transporation used prior to Drives own vehicle admit Independent with ADL's Yes Is patient alert and oriented? Yes Caregiver for Another No Barriers to Discharge No Discharge Plan Home Transportation Arrangement Spouse to provide transport. Referrals Initiated None needed Whiteboard Updated in Patient Room with Yes name and ext. # of Us Marketing Director Review Status In Process Next Review Type Continued Stay Review
== END 2021-04-27 10:24 | disposition home or self-care (01) ==
LOC: ENDO 06:41 → AC 10:06
PROVIDERS: Specialist; Admitting Provider Family Medicine; PCP Family Medicine; Referring Provider Family Medicine; Visit Provider Family Medicine
PROC: 0DJ08ZZ Inspection of Upper Intestinal Tract, Via Natural or Artificial Opening Endoscopic (ICD-10-PCS; CPT 43235; principal; 2021-04-26 07:45)
PROC: 0DJD8ZZ Inspection of Lower Intestinal Tract, Via Natural or Artificial Opening Endoscopic (ICD-10-PCS; CPT 45378; 2021-04-26 07:45)
DX: K62.5 Hemorrhage of anus and rectum (principal); D62 Acute posthemorrhagic anemia; D12.0 Benign neoplasm of cecum; K64.8 Other hemorrhoids; K29.50 Unspecified chronic gastritis without bleeding; K57.30 Diverticulosis of large intestine without perforation or abscess without bleeding
CPT/HCPCS: 45380; 43239; 36415; 36430; 85025; 86850; 86900; 86901; G0378; P9016; J2250; J3010

== ENCOUNTER → 2021-05-10 11:37 | Outpatient (CLI) | payer MEDICARE, OTHER, SELFPAY ==
[2021-04-26 10:35] VITALS: BMI 25.4
[2021-05-10 13:41] LABS: Add Manual Diff / Slide Review NO; Basophils Absolute Auto 0 /uL (0-100); Basophils Percent Auto 0.3 % (0-2); Eosinophils Absolute Auto 100 /uL (0-450); Eosinophils Percent Auto 1.8 % (2-4); Hemoglobin 10.3 g/dL (13.5-17.5); Lymphocytes Absolute Auto 1200 /uL (1100-4500); Lymphocytes Percent Auto 16.2 % (25-40); Mean Corpuscular HGB Conc 33.1 % (30-36); Mean Corpuscular Volume 84.6 fL (80-100); Monocytes Absolute Auto 600 /uL (0-900); Monocytes Percent Auto 8.1 % (3-14); Neutrophils Absolute Auto 5300 /uL (1500-7000); Neutrophils Percent Auto 73.6 % (50-75); Platelet Count 198 X10^3/uL (150-400); Red Blood Cell Count 3.66 X10^6/uL (4.5-5.9); Red Cell Distribution Width 14.1 % (11.6-14.8); White Blood Cell Count 7.2 X10^3/uL (4.5-11.0)
[2021-05-10 13:59] LABS: BUN Creatinine Ratio 14.4 (6-22); Blood Urea Nitrogen 19 mg/dL (9-20); Calcium 8.8 mg/dL (8.4-10.2); Carbon Dioxide 23 mmol/L (22-32); Chloride 109 mmol/L (98-107); Estimated Glomerular Filt Rate 52.3 mL/min (>60); Glucose 153 mg/dL (80-110); HEMOLYSIS < 15 (0-50); Potassium 3.6 mmol/L (3.4-5.1); Sodium 138 mmol/L (137-145)
[2021-05-10 16:07] LABS: Creatinine Urine Random 139.2 mg/dL; Protein (Total) Urine Random 23 mg/dL (0-12); Protein Creatinine Ratio Urine 0.16 GRAM/24H
== END ==
PROVIDERS: PCP Family Medicine; Referring Provider Internal Medicine Nephrology; Visit Provider Internal Medicine Nephrology
DX: N05.9 Unspecified nephritic syndrome with unspecified morphologic changes (principal); D70.9 Neutropenia, unspecified; D63.1 Anemia in chronic kidney disease; R80.9 Proteinuria, unspecified
CPT/HCPCS: 36415; 80048; 82570; 84156; 85025

== ENCOUNTER → 2021-06-03 08:55 | Outpatient (CLI) | payer MEDICARE, OTHER, SELFPAY ==
[2021-04-26 10:35] VITALS: BMI 25.4
[2021-06-03 09:59] LABS: Hematocrit 36.6 % (41-53); Hemoglobin 11.8 g/dL (13.5-17.5); Mean Corpuscular HGB Conc 32.2 % (30-36); Mean Corpuscular Hemoglobin 26.9 PG (26-34); Mean Corpuscular Volume 83.6 fL (80-100); Platelet Count 144 X10^3/uL (150-400); Red Blood Cell Count 4.38 X10^6/uL (4.5-5.9); White Blood Cell Count 7.4 X10^3/uL (4.5-11.0)
[2021-06-03 11:13] LABS: Ferritin 10 ng/mL (18-464)
== END ==
PROVIDERS: PCP Family Medicine; Referring Provider Family Medicine; Visit Provider Family Medicine
DX: D64.9 Anemia, unspecified (principal); K62.5 Hemorrhage of anus and rectum
CPT/HCPCS: 36415; 82728; 85027

== ENCOUNTER → 2021-08-19 09:53 | Outpatient (CLI) | payer MEDICARE, OTHER, SELFPAY ==
[2021-04-26 10:35] VITALS: BMI 25.4
[2021-08-19 10:46] LABS: Add Manual Diff / Slide Review NO; Basophils Absolute Auto 0 /uL (0-100); Basophils Percent Auto 0.3 % (0-2); Eosinophils Absolute Auto 100 /uL (0-450); Eosinophils Percent Auto 1.6 % (2-4); Hematocrit 37.6 % (41-53); Hemoglobin 12.1 g/dL (13.5-17.5); Lymphocytes Absolute Auto 1300 /uL (1100-4500); Lymphocytes Percent Auto 17.4 % (25-40); Mean Corpuscular HGB Conc 32.1 % (30-36); Monocytes Absolute Auto 700 /uL (0-900); Monocytes Percent Auto 9.5 % (3-14); Neutrophils Absolute Auto 5200 /uL (1500-7000); Neutrophils Percent Auto 71.2 % (50-75); Platelet Count 165 X10^3/uL (150-400); Red Blood Cell Count 4.64 X10^6/uL (4.5-5.9); Red Cell Distribution Width 17.8 % (11.6-14.8); White Blood Cell Count 7.2 X10^3/uL (4.5-11.0)
[2021-08-19 11:08] LABS: BUN Creatinine Ratio 12.6 (6-22); Blood Urea Nitrogen 19 mg/dL (9-20); Calcium 8.9 mg/dL (8.4-10.2); Carbon Dioxide 25 mmol/L (22-32); Chloride 105 mmol/L (98-107); Estimated Glomerular Filt Rate 44.8 mL/min (>60); Glucose 120 mg/dL (80-110); HEMOLYSIS < 15 (0-50); Sodium 139 mmol/L (137-145)
== END ==
PROVIDERS: PCP Family Medicine; Referring Provider Internal Medicine Cardiovascular Disease; Visit Provider Internal Medicine Cardiovascular Disease
DX: I10 Essential (primary) hypertension (principal); I48.0 Paroxysmal atrial fibrillation
CPT/HCPCS: 36415; 80048; 85025

== ENCOUNTER → 2021-10-04 13:47 | Outpatient (CLI) | payer MEDICARE, OTHER, SELFPAY ==
[2021-04-26 10:35] VITALS: BMI 25.4
[2021-10-04 17:05] LABS: COVID19 -Nasal RAPID Negative (Negative)
== END ==
PROVIDERS: PCP Family Medicine; Visit Provider Nurse Practitioner Family
DX: Z20.822 Contact with and (suspected) exposure to COVID-19 (principal)
CPT/HCPCS: 87635; C9803

== ENCOUNTER 2021-10-05 12:44 | Day surgery (SDC) | payer MEDICARE, OTHER, SELFPAY ==
[2021-04-26 10:35] VITALS: BMI 25.4
[2021-10-05 14:58] VITALS: BP 153/78; PULSE 64; RESP 16; TEMP 36.4; O2SAT 99; BMI 25.8
[2021-10-05] MEDS: SODIUM CHLORIDE 0.9% 1,000 ML 84 ML IV (15:16)
--- NOTE | 2021-10-05 16:07 | PM.HP.1 ---
History of Present Illness History of Present Illness Date Patient Seen: 10/05/21 Time Patient Seen: 16:08 Chief complaint: SDC Narrative: Here for push enteroscopy. Unfortunately he has not had the additionally ordered capsule endoscopy. I explained to the patient that I would typically get a capsule endoscopy 1st and then only order an push enteroscopy if there was a proximal lesion identified at capsule endoscopy. Otherwise there is a reasonable chance that the patient will be indicated for double balloon small bowel enteroscopy. He is not having any melena at present and is quite content to wait and get the capsule endoscopy 1st. For the time being he will continue to hold his Eliquis. Patient History Medical History BPH (benign prostatic hyperplasia) Chronic atrial fibrillation Claudication Hemorrhoids Lower extremity pain Lumbar spine pain Numbness of foot Urinary incontinence Surgical History History of vasectomy Presence of cardiac pacemaker Family & Social History Family History Father Pneumonia Mother Hypertension Social History: household members spouse Tobacco & Substance use: Tobacco type cigarettes Smoking Status Current every day smoker Smoking packs per day 8 alcohol intake former Substance Use Type does not use Meds Home Medications and Allergies Home Medications Medication Instructions Recorded Confirmed Type acetaminophen 650 mg 650 mg PO Q6H PRN 07/15/19 10/05/21 History tablet,extended release (Tylenol Arthritis Pain) amlodipine 10 mg tablet 10 mg PO DAILY 04/19/21 10/05/21 History carvedilol 25 mg tablet 25 mg PO BID 04/19/21 10/05/21 History atorvastatin 20 mg tablet 40 mg PO DAILY 10/05/21 10/05/21 History Allergies Allergy/AdvReac Type Severity Reaction Status Date / Time Penicillins [PENICILLINS] Allergy Mild RASH Verified 08/25/21 11:25 Review of Systems Review of Systems ROS: Yes All systems reviewed with the patient and are negative except as otherwise documented Exam Vital Signs (past 8 hours): - 10/05/21 14:58 Temperature 97.6 F Pulse Rate 64 Respiratory Rate 16 Blood Pressure 153/78 H Pulse Oximetry 99 Oxygen Delivery Method Room Air Oxygen Flow Rate 0 Const General: cooperative and comfortable Orientation: alert HENMT Head: normocephalic Ears: external ears normal Nose: external nose normal Face and sinus: normal facial exam Eyes General: appearance normal, both eyes and all related structures Neck Neck: normal visual inspection Chest Chest: normal inspection of the chest Resp Effort & Inspection: normal respiratory effort Cardio Rate: regular rate GI Inspection: normal to inspection Skin General: no rashes or lesions noted and No jaundice Neuro General: patient alert Cognition: normal cognition Speech: speech normal Extrem General: normal to inspection Psych Appearance: grossly normal Assessment & Plan Assessment & Plan narrative: 81-year-old male with atrial fibrillation historically on Eliquis who experienced melena. Conventional EGD colonoscopy did not explain his symptoms. In follow-up he was set to proceed with capsule endoscopy and push enteroscopy. I explained to the patient that from my perspective I would typically get the capsule endoscopy 1st and only pursue a push enteroscopy if there appeared to be a proximal lesion that would be within the reach of a push enteroscope. Otherwise if a bleeding source is identified in mid small bowel or further downstream and alternate procedure such as a double balloon small bowel enteroscopy would be more appropriate. After explaining this to the patient in reviewing the risks of the push enteroscopy the patient declined to proceed with the procedure today he wishes to obtain a capsule endoscopy 1st and has been told this will be made available to him in October. He is not having any melena at this time and I think it is reasonable for him to therefore proceed with a capsule 1st and and decision over push enteroscopy versus double balloon enteroscopy can be made thereafter. The patient expressed excellent understanding of the plan today. Push enteroscopy was therefore canceled for this afternoon. Time Spent With Patient Critical Care time: I spent a total of [] minutes of critical care time on this patient's care today; this time is exclusive of procedural time.
--- NOTE | 2021-10-05 16:16 | SUR.PREOP ---
Procedure dc'ed by . Pt IV dc'ed and leaving ED ambulatory with no difficulty.
== END 2021-10-05 16:17 | disposition home or self-care (01) ==
LOC: ENDO 12:46
PROVIDERS: PCP Family Medicine; Referring Provider Internal Medicine Gastroenterology; Visit Provider Internal Medicine Gastroenterology
DX: Z53.09 Procedure and treatment not carried out because of other contraindication (principal); K92.2 Gastrointestinal hemorrhage, unspecified; Z95.0 Presence of cardiac pacemaker
CPT/HCPCS: 43235

== ENCOUNTER → 2022-01-24 12:20 | Outpatient (CLI) | payer MEDICARE, OTHER, SELFPAY ==
[2021-04-26 10:35] VITALS: BMI 25.4
[2022-01-24 13:23] LABS: Add Manual Diff / Slide Review NO; Basophils Absolute Auto 0 /uL (0-100); Basophils Percent Auto 0.4 % (0-2); Eosinophils Absolute Auto 100 /uL (0-450); Eosinophils Percent Auto 1.5 % (2-4); Hematocrit 39.7 % (41-53); Hemoglobin 13.1 g/dL (13.5-17.5); Lymphocytes Absolute Auto 1600 /uL (1100-4500); Lymphocytes Percent Auto 19.3 % (25-40); Mean Corpuscular HGB Conc 32.9 % (30-36); Mean Corpuscular Hemoglobin 26.8 PG (26-34); Mean Corpuscular Volume 81.4 fL (80-100); Monocytes Absolute Auto 800 /uL (0-900); Monocytes Percent Auto 9.3 % (3-14); Neutrophils Absolute Auto 5600 /uL (1500-7000); Neutrophils Percent Auto 69.5 % (50-75); Platelet Count 140 X10^3/uL (150-400); Red Blood Cell Count 4.88 X10^6/uL (4.5-5.9); Red Cell Distribution Width 16.6 % (11.6-14.8); White Blood Cell Count 8.1 X10^3/uL (4.5-11.0)
[2022-01-24 13:44] LABS: Iron 56 ug/dL (49-181)
[2022-01-24 13:55] LABS: Percent Iron Saturation 19 % (20-50); Total Iron Binding Capacity 294 ug/dL (261-462); Transferrin 231 mg/dL (206-381)
[2022-01-24 14:11] LABS: Ferritin 34 ng/mL (18-464)
== END ==
PROVIDERS: PCP Family Medicine; Referring Provider Physician Assistant; Visit Provider Physician Assistant
DX: K92.2 Gastrointestinal hemorrhage, unspecified (principal)
CPT/HCPCS: 36415; 82728; 83540; 83550; 84466; 85025

== ENCOUNTER → 2022-03-30 09:42 | Outpatient (CLI) | payer MEDICARE, OTHER, SELFPAY ==
[2021-04-26 10:35] VITALS: BMI 25.4
--- NOTE | 2022-03-30 09:45 | DI.RAD.S_ITS ---
PROCEDURE: XR KUB INDICATIONS: Mid lower abdominal pain; possible mass vs stool TECHNIQUE: One view of the abdomen acquired. COMPARISON: None. FINDINGS: Surgical changes and devices: None. Bowel: Moderate amount of stool noted throughout the colon in the rectum. Soft tissues: No suspicious abdominal calcifications. Visualized solid organ contours appear normal in size. Bones: No suspicious bony lesions. IMPRESSION: Moderate colorectal fecal loading concerning for constipation. Dictated by: Kathrine Live MD, PhD on 03/30/2022 at 11:05 Approved by: Kathrine Live MD, PhD on 03/30/2022 at 11:07
[2022-03-30 10:48] LABS: Add Manual Diff / Slide Review NO; Basophils Absolute Auto 100 /uL (0-100); Basophils Percent Auto 0.4 % (0-2); Eosinophils Absolute Auto 0 /uL (0-450); Eosinophils Percent Auto 0.2 % (2-4); Hematocrit 34.4 % (41-53); Hemoglobin 11.1 g/dL (13.5-17.5); Lymphocytes Absolute Auto 700 /uL (1100-4500); Mean Corpuscular HGB Conc 32.2 % (30-36); Mean Corpuscular Hemoglobin 25.6 PG (26-34); Mean Corpuscular Volume 79.3 fL (80-100); Monocytes Absolute Auto 1000 /uL (0-900); Monocytes Percent Auto 7.1 % (3-14); Neutrophils Absolute Auto 12400 /uL (1500-7000); Neutrophils Percent Auto 87.3 % (50-75); Platelet Count 225 X10^3/uL (150-400); Red Blood Cell Count 4.34 X10^6/uL (4.5-5.9); Red Cell Distribution Width 14.9 % (11.6-14.8); White Blood Cell Count 14.2 X10^3/uL (4.5-11.0)
[2022-03-30 11:20] LABS: Alanine Aminotransferase 26 IU/L (<50); Albumin 3.2 g/dL (3.5-5.0); Alkaline Phosphatase 158 U/L (38-126); Aspartate Aminotransferase 25 IU/L (17-59); BUN Creatinine Ratio 13.5 (6-22); Bilirubin Total 0.5 mg/dL (0.2-1.3); Blood Urea Nitrogen 19 mg/dL (9-20); Calcium 8.5 mg/dL (8.4-10.2); Carbon Dioxide 21 mmol/L (22-32); Chloride 103 mmol/L (98-107); Estimated Glomerular Filt Rate 51 mL/min (>60); Globulin 3.1 g/dL (1.7-4.1); Glucose 121 mg/dL (80-110); HEMOLYSIS < 15 (0-50); Potassium 4.4 mmol/L (3.4-5.1); Sodium 134 mmol/L (137-145); Total Protein 6.3 g/dL (6.3-8.2)
== END ==
PROVIDERS: PCP Family Medicine; Referring Provider Physician Assistant; Visit Provider Physician Assistant
DX: K59.00 Constipation, unspecified (principal); R10.31 Right lower quadrant pain; R10.32 Left lower quadrant pain; R11.2 Nausea with vomiting, unspecified
CPT/HCPCS: 36415; 74018; 80053; 85025

== ENCOUNTER 2022-03-30 11:18 | Emergency (ER) | payer MEDICARE, OTHER, SELFPAY ==
[2021-04-26 10:35] VITALS: BMI 25.4
[2022-03-30] VITALS (16 sets, daily range): BP systolic 156–173; BP diastolic 68–83; PULSE 59–86; RESP 14–33; TEMP 36.1; O2SAT 91–99; BMI 25.2
[2022-03-30 12:27] LABS: Add Manual Diff / Slide Review NO; Basophils Absolute Auto 0 /uL (0-100); Basophils Percent Auto 0.3 % (0-2); Eosinophils Absolute Auto 0 /uL (0-450); Eosinophils Percent Auto 0.2 % (2-4); Hematocrit 32.8 % (41-53); Hemoglobin 10.6 g/dL (13.5-17.5); Lymphocytes Absolute Auto 800 /uL (1100-4500); Mean Corpuscular HGB Conc 32.4 % (30-36); Mean Corpuscular Hemoglobin 25.5 PG (26-34); Mean Corpuscular Volume 78.9 fL (80-100); Monocytes Absolute Auto 1300 /uL (0-900); Monocytes Percent Auto 8.6 % (3-14); Neutrophils Absolute Auto 13400 /uL (1500-7000); Neutrophils Percent Auto 85.9 % (50-75); Platelet Count 237 X10^3/uL (150-400); Red Blood Cell Count 4.16 X10^6/uL (4.5-5.9); Red Cell Distribution Width 15.1 % (11.6-14.8); White Blood Cell Count 15.6 X10^3/uL (4.5-11.0)
[2022-03-30 12:44] LABS: Alanine Aminotransferase 27 IU/L (<50); Albumin 3.5 g/dL (3.5-5.0); Alkaline Phosphatase 152 U/L (38-126); Aspartate Aminotransferase 29 IU/L (17-59); BUN Creatinine Ratio 13.8 (6-22); Bilirubin Total 0.5 mg/dL (0.2-1.3); Blood Urea Nitrogen 20 mg/dL (9-20); Calcium 8.5 mg/dL (8.4-10.2); Carbon Dioxide 24 mmol/L (22-32); Chloride 99 mmol/L (98-107); Estimated Glomerular Filt Rate 49 mL/min (>60); Globulin 3.6 g/dL (1.7-4.1); Glucose 134 mg/dL (80-110); HEMOLYSIS < 15 (0-50); Lipase 60 U/L (23-300); Potassium 4.4 mmol/L (3.4-5.1); Sodium 133 mmol/L (137-145); Total Protein 7.1 g/dL (6.3-8.2)
--- NOTE | 2022-03-30 16:06 | ED_ITS ---
HPI - Abdominal Pain General Chief Complaint: Abdominal Pain Stated Complaint: No bowel movement for 5 days- last one was black Time Seen by Provider: 03/30/22 15:02 Source: patient Mode of arrival: Ambulatory Limitations: no limitations History of Present Illness HPI narrative: This is a 81-year-old male who comes emergency department with complaint of lower abdominal discomfort, midline. Patient states it has been several weeks it has been intermittent. Nothing seems to make it worse or better. He has had intermittent constipation is last bowel movement was 5 days ago. He states he had a black stool which was very hard 5 days ago, no bright red blood. Patient has at any syncope. He feels lightheaded when he stands up all the sudden, that is been going on for several months. He has had nausea but no active vomiting. No chest pain or shortness of breath. He has not had similar symptoms in the p ast. He has been and drinking chicken broth and soup but nothing stronger in order to not exacerbate the pain in his abdomen. He denies any thinners, he is has a history of hypertension, dyslipidemia, and is taking appropriate to stop smoking. He denies prior strokes, heart attacks but has had a pacemaker placed. Patient states he had a colonoscopy 2 or 3 years ago he states there were polyps but that they were benign. He lives independently. He is accompanied by his . Related Data Home Medications Medication Instructions Recorded Confirmed acetaminophen 650 mg 650 mg PO Q6H PRN 07/15/19 03/30/22 tablet,extended release (Tylenol Arthritis Pain) amlodipine 10 mg tablet 10 mg PO DAILY 04/19/21 03/30/22 carvedilol 25 mg tablet 25 mg PO BID 04/19/21 03/30/22 atorvastatin 20 mg tablet 40 mg PO DAILY 10/05/21 03/30/22 Previous Rx's Medication Instructions Recorded amoxicillin 875 mg-potassium 1 tab PO Q12H #20 tab 03/30/22 clavulanate 125 mg tablet Allergies Allergy/AdvReac Type Severity Reaction Status Date / Time Penicillins [PENICILLINS] Allergy Mild RASH Verified 03/30/22 11:30 Review of Systems Review of Systems ROS Unobtainable: All systems reviewed & are unremarkable except as noted in HPI and below Patient History Medical History BPH (benign prostatic hyperplasia) Chronic atrial fibrillation Claudication Hemorrhoids Lower extremity pain Lumbar spine pain Numbness of foot Urinary incontinence Surgical History History of vasectomy Presence of cardiac pacemaker Family History Father Pneumonia Mother Hypertension Social History marital status: household members: spouse occupational status: previously employed Smoking Status: Former smoker quit status: not considering quitting second hand exposure: No alcohol intake: former substance use type: does not use Smoking Status: Former smoker alcohol intake frequency: holidays/special occasions only Substance Use Type: does not use Exam Narrative Exam Narrative: GENERAL: Alert and oriented x three, male in mild distress. HEENT: Head normocephalic, atraumatic, EOMI, pupils reactive, face symmetric, moist mucous membranes NECK: Supple, full range of motion CARDIOVASCULAR: Regular rate and rhythm without murmurs, rubs or gallops. RESPIRATORY: Breath sounds equal bilaterally, no wheezes rales or rhonchi. ABDOMEN: Soft, positive for left lower quadrant tenderness.. Normoactive bowel sounds all 4 quadrants. No guarding or rebound, rigidity, no mass : No CVA tenderness EXTREMITIES: Normal range of motion, no clubbing or edema. Neurovascularly intact NEUROLOGICAL: Cranial nerves II through XII grossly intact. Moving all extremities SKIN: Warm, dry, no petechiae, no rashes or lesions. Initial Vital Signs Initial Vital Signs: Vital Signs Temperature 97.0 F L 03/30/22 11:30 Pulse Rate 86 03/30/22 11:30 Respiratory Rate 15 03/30/22 11:30 Blood Pressure 170/75 H 03/30/22 11:30 Pulse Oximetry 99 03/30/22 11:30 Course Orders Ordered: ED Orders 03/30/22 11:33 EKG-12 Lead Stat 03/30/22 12:16 Complete Blood Count AUTO DIFF Stat Comprehensive Metabolic Panel Stat Lipase Stat 03/30/22 16:37 CT abdomen pelvis w con Stat 03/30/22 16:40 Urine Microscopic Stat Discontinued Medications Amoxicillin/Clavulanate Potassium (Amoxicillin/Clav 875/125 Mg) 1 tab PO NOW ONE Stop: 03/30/22 18:02 Last Admin: 03/30/22 18:27 Dose: 1 tab Documented by: WILY Reevaluation(s) Reevaluation #1: Patient's findings today were reviewed. Plan to cover with antibiotics, and have patient follow-up for colonoscopy and repeat imaging to evaluate for underlying malignancy. Patient and I discussed that he will need to call to set up colonscopy. Referral was given. Patient aware of importance of follow up. Time: 17:48 Consultations Consultation #1: Dr. Escalona, PCP with help with follow up and referral if needed. Vital Signs Vital signs: Vital Signs - 8 hr 03/30/22 11:30 03/30/22 12:19 03/30/22 12:30 Temperature 97.0 F L Pulse Rate 86 59 L 61 Respiratory Rate 15 20 Blood Pressure 170/75 H 156/69 H 163/71 H Pulse Oximetry 99 91 97 03/30/22 13:00 03/30/22 13:30 03/30/22 14:00 Temperature Pulse Rate 61 62 60 Respiratory Rate 20 19 14 Blood Pressure 167/72 H 159/70 H 157/68 H Pulse Oximetry 96 99 99 03/30/22 14:30 03/30/22 15:00 03/30/22 15:01 Temperature Pulse Rate 62 67 67 Respiratory Rate 24 27 H 21 Blood Pressure 172/74 H 163/83 H Pulse Oximetry 97 99 98 03/30/22 15:30 03/30/22 16:00 03/30/22 17:15 Temperature Pulse Rate 62 64 74 Respiratory Rate 17 25 H Blood Pressure 159/71 H 157/70 H Pulse Oximetry 98 97 99 03/30/22 17:30 03/30/22 18:00 03/30/22 18:30 Temperature Pulse Rate 63 67 63 Respiratory Rate 21 33 H Blood Pressure 173/76 H Pulse Oximetry 96 97 91 03/30/22 18:31 Temperature Pulse Rate Respiratory Rate 16 Blood Pressure 173/76 H Pulse Oximetry 99 MDM - Abdominal Pain Lab Data Result diagrams: 03/30/22 12:16 03/30/22 12:16 Labs: Lab Results 03/30/22 03/30/22 03/30/22 Range/Units 12:16 12:16 16:40 WBC 15.6 H (4.5-11.0) X10^3/uL RBC 4.16 L (4.5-5.9) X10^6/uL Hgb 10.6 L (13.5-17.5) g/dL Hct 32.8 L (41-53) % MCV 78.9 L (80-100) fL MCH 25.5 L (26-34) PG MCHC 32.4 (30-36) % RDW 15.1 H (11.6-14.8) % Plt Count 237 (150-400) X10^3/uL Neut % (Auto) 85.9 H (50-75) % Lymph % (Auto) 5.0 L (25-40) % [place] % (Auto) 8.6 (3-14) % Eos % (Auto) 0.2 L (2-4) % Baso % (Auto) 0.3 (0-2) % Neut # (Auto) 25413 H (2771-3453) /uL Lymph # (Auto) 800 L (7284-7667) /uL [place] # (Auto) 1300 H (0-900) /uL Eos # (Auto) 0 (0-450) /uL Baso # (Auto) 0 (0-100) /uL Sodium 133 L (137-145) mmol/L Potassium 4.4 (3.4-5.1) mmol/L Chloride 99 (98-107) mmol/L Carbon Dioxide 24 (22-32) mmol/L BUN 20 (9-20) mg/dL Creatinine 1.45 H (0.66-1.25) mg/dL Estimated GFR 49 L (>60) mL/min BUN/Creatinine Ratio 13.8 (6-22) Glucose 134 H (80-110) mg/dL Calcium 8.5 (8.4-10.2) mg/dL Total Bilirubin 0.5 (0.2-1.3) mg/dL AST 29 (17-59) IU/L ALT 27 (<50) IU/L Alkaline Phosphatase 152 H (38-126) U/L Total Protein 7.1 (6.3-8.2) g/dL Albumin 3.5 (3.5-5.0) g/dL Globulin 3.6 (1.7-4.1) g/dL Albumin/Globulin Ratio 1.0 (1.0-2.8) Lipase 60 (23-300) U/L Urine RBC None seen (0-5/HPF) Urine WBC None seen (0-5/HPF) Ur Squamous Epith Cells None seen (0-5/HPF) Urine Bacteria None seen (None) Urine Mucus 1+ H (Negative) Ur Culture Indicated? Cult not indicated Point of care testing: Urine Dip Bedside Urine Glucose Negative Bedside Urine Bilirubin - Negative Bedside Urine Ketone - Negative Urine Specific [place] 1.015 Bedside Urine Occult Blood - Negative Bedside Urine pH 6.5 Bedside Urine Protein + 30 Bedside Urine Urobilinogen 0.2 Bedside Urine Nitrite - Negative Bedside Urine Leukocytes - Negative Esterase Imaging Data Abdominal x-ray: Radiologist's Impression: Launch?[address] [address] XRay Report Signed Patient: Peter Villareal MR#: [id number] : 1940 Acct:[id number] Age/Sex: 81 / M Date of Service: 03/30/22 Loc: RAD Accession Number: [id number] ?? Procedure: XR KUB Ordering Provider: Delia Crump P.A-C PROCEDURE:? XR KUB ? INDICATIONS:? Mid lower abdominal pain; possible mass vs stool ? TECHNIQUE:? One view of the abdomen acquired.? ? COMPARISON:? None. ? FINDINGS:? ? Surgical changes and devices:? None.? ? Bowel:? Moderate amount of stool noted throughout the colon in the rectum. ? Soft tissues:? No suspicious abdominal calcifications.? Visualized solid organ contours appear normal in size.? ? Bones:? No suspicious bony lesions.? ? IMPRESSION:? Moderate colorectal fecal loading concerning for constipation. ? ? Dictated by: Kathrine Live MD, PhD on 03/30/2022 at 11:05 ? ? Approved by: Kathrine Live MD, PhD on 03/30/2022 at 11:07?? ECG Data Attestation: I personally reviewed and interpreted this ECG as follows: Interpretation: This is atrial paced rhythm, rate of 60 2p are 188 QRS 82 and QTC of 418. No acute ST elevation depression noted. No priors for comparison. MDM Narrative Medical decision making narrative: This is a pleasant 81-year-old male comes in with complaint of left-sided and central lower abdominal pain for the past several days and intermittently even before. Patient has diverticulitis on CT imaging, he does not have any significant changes to his anemia. There is concern for underlying malignancy with his imaging and recommended to have colonoscopy and follow-up, patient and family is aware of the importance of this follow-up. He had colonoscopy here [facility] in the last several years and he can follow up with the same group. Referral was given again and I spoke with his primary care service who will also help with follow-up. He is allergic to penicillin, his allergy is rash with no other involvement. Patient is unsure if he has had amoxicillin or Augmentin in the past. Discussed that he would be taking 1 tablet twice daily versus 2 different antibiotic prescriptions and he prefers to attempt the Augmentin. Discussed if he has any symptoms to stop the antibiotics, take a dose of Benadryl and come to the emergency department if it is continuing to worsen or has any airway involvement. Discharge Plan Departure Patient Disposition: Home Clinical Impression: Diverticulitis, Abdominal pain Instructions: Diverticulitis Activity Restrictions/Additional Instructions: Follow up with your physician for recheck. Your imaging today shows diverticulitis but is also concerning for potential malignancy and you need a colonoscopy to fully evaluate. I spoke with Dr. Escalona today for your physician and they can help with follow up. Call to set up colonoscopy, referrals below with the General surgery team. Take antibiotics until gone. You may take Tylenol up to a 1000 mg every 6 hours as needed. Prescription sent to [facility] in [place]. Please return for fevers, worsening abdominal, back or flank pain, persistent vomiting, recurrent black or bloody stools, passing out or other new or concerning symptoms. Prescriptions: New amoxicillin-pot clavulanate 875-125 mg tablet 1 tab PO Q12H Qty: 20 0RF No Action acetaminophen [Tylenol Arthritis Pain] 650 mg tablet extended release 650 mg PO Q6H PRN (Reason: pain) 0RF amlodipine 10 mg tablet 10 mg PO DAILY 0RF carvedilol 25 mg tablet 25 mg PO BID 0RF Rx Instructions: must administer with a meal/food atorvastatin 20 mg tablet 40 mg PO DAILY 0RF Referrals: Maik Bowman MD [Physician] - Zak Peace MD [Primary Care Provider] - Visit Report Forms: Patient Portal/API
--- NOTE | 2022-03-30 16:37 | DI.CT.S_ITS ---
PROCEDURE: CT ABDOMEN PELVIS W CON INDICATIONS: LLQ/central pain TECHNIQUE: After the administration of intravenous contrast, axial sections acquired from the lung bases to the pubic symphysis. Coronal and sagittal reformats were performed. For radiation dose reduction, the following was used: automated exposure control, adjustment of mA and/or kV according to patient size. COMPARISON: None. FINDINGS: Image quality: Excellent. Lung bases: Unremarkable. Heart: No significant findings. ABDOMEN: Liver: Multiple heterogeneously enhancing somewhat lobulated hypodense masses within the liver measuring up to 6.8 x 5.3 cm in axial cross-sectional dimension (image 14/series 2) within the left hepatic lobe. These are incompletely characterized and may represent hemangiomas versus possible primary neoplastic or metastatic lesions. Gallbladder: Unremarkable. Biliary ducts:No intrahepatic or extrahepatic biliary ductal dilatation identified. Pancreas:Homogeneous enhancement without focal lesions or pancreatic ductal dilatation. No peripancreatic inflammation or organized fluid collections. Spleen: Unremarkable. Adrenal Glands: Unremarkable. Kidneys and Ureters: Right kidney appears atrophic. Small incompletely characterized right renal hypodensities likely representing cysts. Right ureter is normal in course and caliber. Left ureter is normal in course and caliber. No right-sided hydronephrosis. Multiple cortical and partially exophytic hypodense lesions are noted in the left kidney measuring up to 4.5 cm in diameter and measuring fluid attenuation. These likely represent renal cysts. Stomach and Bowel: Stomach, small bowel loops are unremarkable. Scattered colonic diverticulosis with moderate circumferential thickening of the proximal sigmoid colon extending to the mid sigmoid colon with associated inflammatory stranding. Suggestion of possible areas of more asymmetric wall thickening. No evidence for perforation or organized fluid collection. Large amount of fecal material noted in the distal sigmoid colon and rectum. Peritoneum: No abnormal intraperitoneal fluid. No free air. Ventral Wall: No hernias. Abdominal Nodes: No retroperitoneal or mesenteric adenopathy by size criteria. Vessels: Scattered atherosclerotic calcifications of the abdominal aorta and iliac vessels without aneurysmal dilatation. The inferior vena cava appears patent. Intramural hematoma noted. No evidence for penetrating ulcers or periaortic inflammatory changes. Findings are most pronounced in the distal abdominal aorta and aortic bifurcation at the proximal common iliac arteries. PELVIS: Pelvic Organs: Unremarkable. Bladder: Unremarkable. Pelvic Nodes: No enlarged lymph nodes. Miscellaneous: No hernias are seen. Bones: No acute vertebral body compression fractures. Multilevel spondylitic changes throughout the imaged spine. No suspicious osseous lesions. IMPRESSION: 1. Scattered colonic diverticulosis most prominent in the sigmoid colon. There is associated acute diverticulitis without evidence for perforation or abscess formation. Additionally, there is moderate wall thickening of the involved segment of sigmoid colon with a few areas demonstrating possible asymmetric wall thickening. Recommend outpatient colonoscopy to exclude underlying neoplastic process as there are numerous heterogeneously enhancing hypodense masses within the liver. These are incompletely characterized and may represent hemangiomas versus possible primary or metastatic liver masses. No evidence for adenopathy. 2. Moderate atherosclerotic vascular disease. 3. Large amount of fecal material noted in the distal sigmoid colon and rectum. Findings were discussed with Dr. Akers at 1740hrs. Dictated by: Pancho Du M.D. on 03/30/2022 at 17:28 Approved by: Pancho Du M.D. on 03/30/2022 at 17:40
[2022-03-30 17:39] LABS: Bacteria Urine None Seen; Culture Indicated Urine Cult Not Indicated; Mucus Urine 1+ (Negative); RBC Urine None Seen (0-5/HPF); Squamous Epithelial Cell Urine None Seen (0-5/HPF); WBC Urine None Seen (0-5/HPF)
[2022-03-30] MEDS: AMOXICILLIN/CLAV 875/125 MG 1 TAB PO (18:27)
== END 2022-03-30 18:36 | disposition home or self-care (01) ==
PROVIDERS: Emergency Provider Emergency Medicine; PCP Family Medicine; Referring Provider Physician Assistant
DX: K57.92 Diverticulitis of intestine, part unspecified, without perforation or abscess without bleeding (principal); K59.00 Constipation, unspecified; R10.31 Right lower quadrant pain; R10.32 Left lower quadrant pain; R11.2 Nausea with vomiting, unspecified
CPT/HCPCS: 36415; 74018; 74177; 80053; 81003; 81015; 83690; 85025; 93005; 99284; Q9967

== ENCOUNTER 2022-04-21 08:22 | Emergency (ER) | payer MEDICARE, OTHER, SELFPAY ==
[2022-04-15 15:18] VITALS: BMI 25.4
[2022-04-21] VITALS (15 sets, daily range): BP systolic 129–148; BP diastolic 62–66; PULSE 61–86; RESP 17–26; TEMP 36.7; O2SAT 95–100; BMI 23.9
[2022-04-21 09:11] LABS: Add Manual Diff / Slide Review NO; Basophils Absolute Auto 100 /uL (0-100); Basophils Percent Auto 0.4 % (0-2); Eosinophils Absolute Auto 0 /uL (0-450); Eosinophils Percent Auto 0.1 % (2-4); Hematocrit 23.8 % (41-53); Hemoglobin 7.7 g/dL (13.5-17.5); Lymphocytes Absolute Auto 600 /uL (1100-4500); Mean Corpuscular HGB Conc 32.6 % (30-36); Mean Corpuscular Hemoglobin 25.3 PG (26-34); Mean Corpuscular Volume 77.7 fL (80-100); Monocytes Absolute Auto 1300 /uL (0-900); Monocytes Percent Auto 8.1 % (3-14); Neutrophils Absolute Auto 14300 /uL (1500-7000); Neutrophils Percent Auto 87.4 % (50-75); Platelet Count 276 X10^3/uL (150-400); Red Blood Cell Count 3.06 X10^6/uL (4.5-5.9); Red Cell Distribution Width 15.9 % (11.6-14.8); White Blood Cell Count 16.4 X10^3/uL (4.5-11.0)
--- NOTE | 2022-04-21 09:16 | ED_ITS ---
HPI - General Adult General Chief complaint: Abdominal Pain Stated complaint: Abd pain not going away Time Seen by Provider: 04/21/22 08:28 Source: patient Mode of arrival: Ambulatory Limitations: no limitations History of Present Illness HPI narrative: Patient is a 81-year-old male who earlier this month was seen here in this department for lower abdominal discomfort. He had a CT scan performed was diagnosed with diverticulitis. He completed a course of antibiotics. He states since that time his abdominal pain has not worsened but also has not gone away. He was also told he was constipated at that time. He did take some MiraLax afterwards and had several large bowel movements. He now states he is having normal bowel movements. No fevers. Since his last visit he did have a vascular surgery to his left lower extremity which is why he has not followed up with his primary care doctor. He does state he is having urinary issues and does not empty his bladder completely but this is not new for him. No fevers. Related Data Home Medications Medication Instructions Recorded Confirmed acetaminophen 650 mg 650 mg PO Q6H PRN pain 07/15/19 04/21/22 tablet,extended release (Tylenol Arthritis Pain) amlodipine 10 mg tablet 10 mg PO DAILY 04/19/21 04/21/22 carvedilol 25 mg tablet 25 mg PO BID 04/19/21 04/21/22 atorvastatin 20 mg tablet 40 mg PO DAILY 10/05/21 04/21/22 Previous Rx's Medication Instructions Recorded amoxicillin 875 mg-potassium 1 tab PO Q12H #20 tabs 03/30/22 clavulanate 125 mg tablet amoxicillin-potassium clavulanate 1 tab PO BID 10 days #20 tabs 04/21/22 1,000 mg-62.5 mg tablet,ext.rel 12hr (Augmentin XR) Allergies Allergy/AdvReac Type Severity Reaction Status Date / Time Penicillins [PENICILLINS] Allergy Mild RASH Verified 04/21/22 08:03 Review of Systems Review of Systems ROS Unobtainable: All systems reviewed & are unremarkable except as noted in HPI and below Patient History Medical History BPH (benign prostatic hyperplasia) Chronic atrial fibrillation Claudication Hemorrhoids Lower extremity pain Lumbar spine pain Numbness of foot Urinary incontinence Surgical History History of vasectomy Presence of cardiac pacemaker Family History Father Pneumonia Mother Hypertension Social History marital status: household members: spouse occupational status: previously employed Smoking Status: Former smoker quit status: not considering quitting second hand exposure: No alcohol intake: former substance use type: does not use Smoking Status: Former smoker alcohol intake frequency: holidays/special occasions only Substance Use Type: does not use Exam Initial Vital Signs Initial Vital Signs: Vital Signs Blood Pressure 135/64 04/21/22 08:27 Const General: cooperative and comfortable HENMT Head: normal to inspection and normocephalic Resp Effort & Inspection: normal respiratory effort Cardio Rate: regular rate GI Inspection: normal to inspection Palpation: soft, No firm and tender (Lower abdomen, left lower quadrant) Skin General: no rashes or lesions noted Neuro General: patient alert, patient awake, patient oriented x3 and moves all extremities Extrem General: normal to inspection and capillary refill normal Psych Appearance: grossly normal and well kempt Course Orders Ordered: ED Orders 04/21/22 09:18 CT abdomen pelvis wo con Stat 04/21/22 10:58 Urine Culture Stat Urine Microscopic Stat Vital Signs Vital signs: Vital Signs - 8 hr 04/21/22 10:30 04/21/22 10:31 04/21/22 10:31 Pulse Rate 77 75 Respiratory Rate 26 H Blood Pressure 144/65 H Pulse Oximetry 98 98 04/21/22 11:02 04/21/22 11:18 04/21/22 11:19 Pulse Rate 65 Respiratory Rate Blood Pressure 141/64 H Pulse Oximetry 98 99 Medical Decision Making Lab Data Lab results reviewed: Yes I reviewed the patient's lab results. Result diagrams: 04/21/22 09:00 04/21/22 09:00 Labs: Lab Results 04/21/22 04/21/22 04/21/22 Range/Units 09:00 09:00 10:58 WBC 16.4 H (4.5-11.0) X10^3/uL RBC 3.06 L (4.5-5.9) X10^6/uL Hgb 7.7 L (13.5-17.5) g/dL Hct 23.8 L (41-53) % MCV 77.7 L (80-100) fL MCH 25.3 L (26-34) PG MCHC 32.6 (30-36) % RDW 15.9 H (11.6-14.8) % Plt Count 276 (150-400) X10^3/uL Neut % (Auto) 87.4 H (50-75) % Lymph % (Auto) 4.0 L (25-40) % Monona % (Auto) 8.1 (3-14) % Eos % (Auto) 0.1 L (2-4) % Baso % (Auto) 0.4 (0-2) % Neut # (Auto) 30595 H (2618-0112) /uL Lymph # (Auto) 600 L (4150-3191) /uL Monona # (Auto) 1300 H (0-900) /uL Eos # (Auto) 0 (0-450) /uL Baso # (Auto) 100 (0-100) /uL Sodium 130 L (137-145) mmol/L Potassium 4.1 (3.4-5.1) mmol/L Chloride 100 (98-107) mmol/L Carbon Dioxide 23 (22-32) mmol/L BUN 15 (9-20) mg/dL Creatinine 1.07 (0.66-1.25) mg/dL Estimated GFR > 60 (>60) mL/min BUN/Creatinine Ratio 14.0 (6-22) Glucose 130 H (80-110) mg/dL Calcium 7.6 L (8.4-10.2) mg/dL Total Bilirubin 0.6 (0.2-1.3) mg/dL AST 36 (17-59) IU/L ALT 40 (<50) IU/L Alkaline Phosphatase 189 H (38-126) U/L Total Protein 6.3 (6.3-8.2) g/dL Albumin 3.0 L (3.5-5.0) g/dL Globulin 3.3 (1.7-4.1) g/dL Albumin/Globulin Ratio 0.9 L (1.0-2.8) Lipase 89 (23-300) U/L Urine RBC None seen (0-5/HPF) Urine WBC 1-5/hpf (0-5/HPF) Ur Squamous Epith Cells 0-1 /hpf (0-5/HPF) Ur Transition Epith Cell 0-1/hpf (0-5/HPF) Urine Bacteria None seen (None) Urine Mucus 1+ H (Negative) Ur Culture Indicated? Specimen cultured Urine Dip Bedside Urine Glucose Negative Bedside Urine Bilirubin - Negative Bedside Urine Ketone - Negative Urine Specific [place] 1.020 Bedside Urine Occult Blood - Negative Bedside Urine pH 6 Bedside Urine Protein + 30 Bedside Urine Urobilinogen +/- 1mg Bedside Urine Nitrite - Negative Bedside Urine Leukocytes - Negative Esterase Point of care testing: Urine Dip Bedside Urine Glucose Negative Bedside Urine Bilirubin - Negative Bedside Urine Ketone - Negative Urine Specific [place] 1.020 Bedside Urine Occult Blood - Negative Bedside Urine pH 6 Bedside Urine Protein + 30 Bedside Urine Urobilinogen +/- 1mg Bedside Urine Nitrite - Negative Bedside Urine Leukocytes - Negative Esterase Imaging Data CT scan - abdomen/pelvis: Radiologist's Impression: [address] [address] [address] Scan Report Signed Patient: Peter Villareal MR#: [id number] : 1940 Acct:[id number] Age/Sex: 81 / M Date of Service: 04/21/22 Loc: ED Accession Number: [id number] ?? Procedure: CT abdomen pelvis wo con Ordering Provider: Toni Kamara D.O. PROCEDURE:? CT ABDOMEN PELVIS WO CON ? INDICATIONS:? Left lower quadrant abdominal pain history of diverticulitis ? TECHNIQUE:? Noncontrast 5 mm thick sections acquired from the diaphragms to the symphysis.? 5 mm coronal and sagittal reformats were then performed.? For radiation dose reduction, the following was used:? automated exposure control, adjustment of mA and/or kV according to patient size.? ? COMPARISON:? [facility], CT, CT ABDOMEN PELVIS W CON, 03/30/2022, 17:06. ? FINDINGS:? Image quality:? Excellent.? ? ABDOMEN:? Lung bases:? Lung bases are clear.? Heart size is normal.? Partially visualized cardiac pacer leads.? ? Solid organs:? Multiple hypoattenuating lesions noted in the liver concerning have increased slightly in size compared to March 30, 2022 and are concerning for me tastatic lesions.? Gallbladder is within normal limits.? Pancreas is normal in contours.? Spleen is normal in size.? No adrenal nodules.? Right renal atrophy.? Left renal cyst is stable. ? Peritoneum and bowel:? Numerous diverticuli noted in the colon.? Circumferential wall thickening involving the sigmoid colon and inflammatory stranding in the sigmoid mesocolon in the region of multiple diverticuli most compatible with diverticulitis.? No Camille diverticular abscess.? Metallic density foreign body identified in the distal left colon which is stable compared to the prior exam and of uncertain etiology.? Moderate amount of stool noted in the left colon, sigmoid colon and rectum.? No free fluid or air. ?The appendix is normal.? ? Nodes and vessels:? No retroperitoneal or mesenteric adenopathy by size criteria.? Aorta and inferior vena cava are normal in caliber. Scattered atherosclerotic soft plaque and calcifications involving the abdominal and pelvic vasculature. ? ? Miscellaneous:? No ventral hernias.? ? ? PELVIS:? Genitourinary:? Bladder wall thickness is normal.? Single air locule noted in the urinary bladder which could be related to recent catheterization, infection with gas-fo rming organism or fistulous connection with bowel.? ? Miscellaneous:? No inguinal hernias 2.9 x 4.3 centimeter left belkis mass is developed in the interval since the prior exam. ? Bones:? No suspicious bony lesions.? No vertebral body compression fractures. Spine degenerative disc disease and facet arthropathy. ? IMPRESSION:? ? 1. Sigmoid colon circumferential wall thickening and sigmoid mesocolon inflammatory stranding.? Findings may be related to diverticulitis, however underlying neoplastic process is not excluded by this study.? Recommend gastroenterology consultation for colonoscopy evaluation. ? 2. Multiple hepatic hypoattenuating lesions slightly increased in size compared to March 30, 2022 concerning for metastatic disease. ? 3. New 2.9 by 4.3 centimeter left inguinal belkis mass concerning for metastatic disease. ? 4. Metallic density foreign body in the distal left colon of uncertain etiology.? Object is unchanged in position compared to March 30, 2022. ? 5. No free intraperitoneal fluid or air. ? 6. Right renal atrophy.? ? ? Dictated by: Kathrine Live MD, PhD on 04/21/2022 at 9:32 ? ? Approved by: Kathrine Live MD, PhD on 04/21/2022 at 9:42?? MDM Narrative Medical decision making narrative: Patient's CT scan today is concerning for potential diverticulitis. He does have a leukocytosis. Plan will be is to treat with another course of antibiotics however I do have a very strong concern that this may be malignancy given the other findings on his CT scan. He has a follow-up scheduled next week with his primary doctor. We did discuss the findings of the CT scan of the importance of following up with his primary doctor regarding this. He expressed understanding of this. His is at bedside for this discussion. There is no indication for emergent surgical consultation however he was also given a phone number that he can contact for this. He once again expressed understand ing and agreement. He is anemic today but he did just recently have a vascular procedure to his left lower extremity which sounds somewhat like a fem-pop however I am not 100% sure this. No indication for emergent blood transfusion. Discharge Plan Departure Patient Disposition: Home Clinical Impression: Abdominal pain, Anemia, Diverticulitis, Lesion of liver Activity Restrictions/Additional Instructions: The findings of the CT scan today could be the result of diverticulitis however there is also a very high concern that this may be malignancy. It is important that you keep your follow-up appointment with your primary doctor next . Also recommend that you contact the general surgery department at the number provided below for a follow-up. We will start you on another course of antibiotics. Please take it as directed. Return to the emergency department for any new or worsening symptoms. Prescriptions: New amoxicillin-pot clavulanate [Augmentin XR] 1,000-62.5 mg tablet extended release 12 hr 1 tab PO BID 10 Days Qty: 20 0RF No Action acetaminophen [Tylenol Arthritis Pain] 650 mg tablet extended release 650 mg PO Q6H PRN (Reason: pain) amlodipine 10 mg tablet 10 mg PO DAILY carvedilol 25 mg tablet 25 mg PO BID Rx Instructions: must administer with a meal/food atorvastatin 20 mg tablet 40 mg PO DAILY amoxicillin-pot clavulanate 875-125 mg tablet 1 tab PO Q12H Qty: 20 0RF Referrals: Maik Bowman MD [Physician] - Zak Peace MD [Primary Care Provider] - Visit Report Forms: Patient Portal/API
--- NOTE | 2022-04-21 09:18 | DI.CT.S_ITS ---
PROCEDURE: CT ABDOMEN PELVIS WO CON INDICATIONS: Left lower quadrant abdominal pain history of diverticulitis TECHNIQUE: Noncontrast 5 mm thick sections acquired from the diaphragms to the symphysis. 5 mm coronal and sagittal reformats were then performed. For radiation dose reduction, the following was used: automated exposure control, adjustment of mA and/or kV according to patient size. COMPARISON: [facility], CT, CT ABDOMEN PELVIS W CON, 03/30/2022, 17:06. FINDINGS: Image quality: Excellent. ABDOMEN: Lung bases: Lung bases are clear. Heart size is normal. Partially visualized cardiac pacer leads. Solid organs: Multiple hypoattenuating lesions noted in the liver concerning have increased slightly in size compared to March 30, 2022 and are concerning for metastatic lesions. Gallbladder is within normal limits. Pancreas is normal in contours. Spleen is normal in size. No adrenal nodules. Right renal atrophy. Left renal cyst is stable. Peritoneum and bowel: Numerous diverticuli noted in the colon. Circumferential wall thickening involving the sigmoid colon and inflammatory stranding in the sigmoid mesocolon in the region of multiple diverticuli most compatible with diverticulitis. No Camille diverticular abscess. Metallic density foreign body identified in the distal left colon which is stable compared to the prior exam and of uncertain etiology. Moderate amount of stool noted in the left colon, sigmoid colon and rectum. No free fluid or air. The appendix is normal. Nodes and vessels: No retroperitoneal or mesenteric adenopathy by size criteria. Aorta and inferior vena cava are normal in caliber. Scattered atherosclerotic soft plaque and calcifications involving the abdominal and pelvic vasculature. Miscellaneous: No ventral hernias. PELVIS: Genitourinary: Bladder wall thickness is normal. Single air locule noted in the urinary bladder which could be related to recent catheterization, infection with gas-forming organism or fistulous connection with bowel. Miscellaneous: No inguinal hernias 2.9 x 4.3 centimeter left belkis mass is developed in the interval since the prior exam. Bones: No suspicious bony lesions. No vertebral body compression fractures. Spine degenerative disc disease and facet arthropathy. IMPRESSION: 1. Sigmoid colon circumferential wall thickening and sigmoid mesocolon inflammatory stranding. Findings may be related to diverticulitis, however underlying neoplastic process is not excluded by this study. Recommend gastroenterology consultation for colonoscopy evaluation. 2. Multiple hepatic hypoattenuating lesions slightly increased in size compared to March 30, 2022 concerning for metastatic disease. 3. New 2.9 by 4.3 centimeter left inguinal belkis mass concerning for metastatic disease. 4. Metallic density foreign body in the distal left colon of uncertain etiology. Object is unchanged in position compared to March 30, 2022. 5. No free intraperitoneal fluid or air. 6. Right renal atrophy. Dictated by: Kathrine Live MD, PhD on 04/21/2022 at 9:32 Approved by: Kathrine Live MD, PhD on 04/21/2022 at 9:42
[2022-04-21 09:25] LABS: Alanine Aminotransferase 40 IU/L (<50); Albumin Globulin Ratio 0.9 (1.0-2.8); Alkaline Phosphatase 189 U/L (38-126); Aspartate Aminotransferase 36 IU/L (17-59); Bilirubin Total 0.6 mg/dL (0.2-1.3); Blood Urea Nitrogen 15 mg/dL (9-20); Calcium 7.6 mg/dL (8.4-10.2); Carbon Dioxide 23 mmol/L (22-32); Chloride 100 mmol/L (98-107); Estimated Glomerular Filt Rate > 60 mL/min (>60); Globulin 3.3 g/dL (1.7-4.1); Glucose 130 mg/dL (80-110); HEMOLYSIS < 15 (0-50); Lipase 89 U/L (23-300); Potassium 4.1 mmol/L (3.4-5.1); Sodium 130 mmol/L (137-145); Total Protein 6.3 g/dL (6.3-8.2)
[2022-04-21 11:41] LABS: Bacteria Urine None Seen; Culture Indicated Urine Specimen Cultured; Mucus Urine 1+ (Negative); RBC Urine None Seen (0-5/HPF); Squamous Epithelial Cell Urine 0-1 /HPF (0-5/HPF); Transitional Epi Cells Urine 0-1/HPF (0-5/HPF); WBC Urine 1-5/HPF (0-5/HPF)
== END 2022-04-21 11:25 | disposition home or self-care (01) ==
PROVIDERS: Emergency Provider Emergency Medicine; PCP Family Medicine
DX: R10.30 Lower abdominal pain, unspecified (principal); D64.9 Anemia, unspecified; K57.92 Diverticulitis of intestine, part unspecified, without perforation or abscess without bleeding; K76.9 Liver disease, unspecified
CPT/HCPCS: 36415; 51798; 74176; 80053; 81003; 81015; 83690; 85025; 87086; 99283; 99284

== ENCOUNTER → 2022-04-25 15:59 | Outpatient (CLI) | payer MEDICARE, OTHER, SELFPAY ==
[2022-04-15 15:18] VITALS: BMI 25.4
[2022-04-25 16:39] LABS: Add Manual Diff / Slide Review NO; Basophils Absolute Auto 100 /uL (0-100); Basophils Percent Auto 0.3 % (0-2); Eosinophils Absolute Auto 100 /uL (0-450); Eosinophils Percent Auto 0.5 % (2-4); Hematocrit 27.9 % (41-53); Lymphocytes Absolute Auto 800 /uL (1100-4500); Lymphocytes Percent Auto 4.6 % (25-40); Mean Corpuscular HGB Conc 32.2 % (30-36); Mean Corpuscular Hemoglobin 25.2 PG (26-34); Mean Corpuscular Volume 78.4 fL (80-100); Monocytes Absolute Auto 1200 /uL (0-900); Monocytes Percent Auto 6.6 % (3-14); Neutrophils Absolute Auto 15300 /uL (1500-7000); Platelet Count 340 X10^3/uL (150-400); Red Blood Cell Count 3.56 X10^6/uL (4.5-5.9); Red Cell Distribution Width 16.5 % (11.6-14.8); White Blood Cell Count 17.4 X10^3/uL (4.5-11.0)
[2022-04-25 17:03] LABS: Alanine Aminotransferase 31 IU/L (<50); Albumin 3.3 g/dL (3.5-5.0); Albumin Globulin Ratio 0.9 (1.0-2.8); Alkaline Phosphatase 176 U/L (38-126); Aspartate Aminotransferase 27 IU/L (17-59); BUN Creatinine Ratio 11.1 (6-22); Bilirubin Total 0.8 mg/dL (0.2-1.3); Blood Urea Nitrogen 15 mg/dL (9-20); Calcium 8.2 mg/dL (8.4-10.2); Carbon Dioxide 21 mmol/L (22-32); Chloride 103 mmol/L (98-107); Estimated Glomerular Filt Rate 53 mL/min (>60); Globulin 3.6 g/dL (1.7-4.1); Glucose 111 mg/dL (80-110); HEMOLYSIS < 15 (0-50); Potassium 4.2 mmol/L (3.4-5.1); Sodium 134 mmol/L (137-145); Total Protein 6.9 g/dL (6.3-8.2)
== END ==
PROVIDERS: PCP Family Medicine; Referring Provider Surgery; Visit Provider Surgery
DX: K57.92 Diverticulitis of intestine, part unspecified, without perforation or abscess without bleeding (principal)
CPT/HCPCS: 36415; 80053; 85025; 99215

== ENCOUNTER → 2022-04-29 11:15 | Outpatient (CLI) | payer MEDICARE, OTHER, SELFPAY ==
[2022-04-15 15:18] VITALS: BMI 25.4
--- NOTE | 2022-04-29 11:16 | DI.CT.S_ITS ---
PROCEDURE: CT ABDOMEN PELVIS W CON INDICATIONS: Diverticulitis TECHNIQUE: After the administration of intravenous contrast, axial sections acquired from the lung bases to the pubic symphysis. Coronal and sagittal reformats were performed. For radiation dose reduction, the following was used: automated exposure control, adjustment of mA and/or kV according to patient size. COMPARISON: [facility], CT, CT ABDOMEN PELVIS WO CON, 04/21/2022, 9:19. [facility], CT, CT ABDOMEN PELVIS W CON, 03/30/2022, 17:06. FINDINGS: Lower thorax: The lung bases are clear. Heart size normal. No hiatal hernia. Liver: Multiple irregular hepatic mass lesions, strongly suspicious for metastatic disease is again noted, similar to the prior. Largest lesion is in the left hepatic lobe measuring 6.7 cm Biliary system: No calcified cholelithiasis or pericholecystic inflammation. No intra or extrahepatic bile duct dilatation. Pancreas: Unremarkable without mass or inflammation evident. Spleen: Normal in size and density. Adrenals: Normal morphology and density. Reproductive system: Unremarkable as visualized. Urinary system: Right renal atrophy. Left renal simple cyst measures 5.2 cm. No hydronephrosis. Gastrointestinal system: Bulky circumferential irregular wall thickening noted in the mid sigmoid with upstream fecal retention mild. No local mesenteric adenopathy present. There is mild pericolonic edema, similar to the prior. Superimposed colonic diverticula noted. Persistent moderate rectal fecal bolus present. Previously described metallic density in the distal colon has resolved Appendix: Normal appendix identified. No evidence of appendicitis. Peritoneal spaces: No mesenteric or retroperitoneal adenopathy. No free air. No free fluid. Vasculature: Aortic atherosclerotic vascular calcification noted without evidence of aneurysm. Abdominal wall: Abdominal wall intact without evidence of ventral or inguinal hernias. Musculoskeletal: Normal bone mineralization. No acute fractures. Inguinal seroma has improved from the most recent prior. Some skin graeme noted overlying. IMPRESSION: 1. 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 Hepatic lesions would be amendable to percutaneous image-guided biopsy. Less likely differential would include diverticulitis with multifocal cryptogenic hepatic abscesses. 2. Superimposed colonic diverticulosis. 3. Persistent but resolving left inguinal james-vascular seroma Approved by: Buddy Moore M.D. on 04/29/2022 at 15:37
== END ==
PROVIDERS: PCP Family Medicine; Referring Provider Surgery; Visit Provider Surgery
DX: C18.7 Malignant neoplasm of sigmoid colon (principal); C78.7 Secondary malignant neoplasm of liver and intrahepatic bile duct; K57.90 Diverticulosis of intestine, part unspecified, without perforation or abscess without bleeding
CPT/HCPCS: 74177

== ENCOUNTER → 2022-05-09 09:23 | Outpatient (CLI) | payer MEDICARE, OTHER, SELFPAY ==
[2022-04-15 15:18] VITALS: BMI 25.4
[2022-05-09 12:45] LABS: COVID19 -Nasal RAPID Negative (Negative)
== END ==
PROVIDERS: PCP Family Medicine; Visit Provider Surgery
DX: Z20.822 Contact with and (suspected) exposure to COVID-19 (principal); Z01.812 Encounter for preprocedural laboratory examination
CPT/HCPCS: 87635

== ENCOUNTER 2022-05-11 06:24 | Inpatient (IN) | payer MEDICARE, OTHER, SELFPAY ==
[2022-04-15 15:18] VITALS: BMI 25.4
[2022-05-04 12:57] VITALS: BMI 23.9
[2022-05-11] VITALS (15 sets, daily range): BP systolic 98–149; BP diastolic 47–78; PULSE 59–95; RESP 15–27; TEMP 35.4–37.9; O2SAT 92–98; BMI 23.9
--- NOTE | 2022-05-11 | PATH_ITS ---
[facility] Accession Number: [id number] . 01 Material submitted: . PART A: liver - LIVER MASS PART B: colon - SIGMOID COLON . 01 Diagnosis: A. 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 . B. Sigmoid Colon, Segmental Resection: Invasive adenocarcinoma, moderately differentiated. Please see summary data below. Diverticulitis. . Procedure: Segmental resection. Tumor site: Sigmoid colon. Histologic type: Adenocarcinoma. Histologic grade: G2-G3 moderately to poorly differentiated. Tumor size: Cannot be determined due to extensive inflammation. Measures up to 9 mm on microscopic slide. Tumor extent: Invades through muscularis propria into the pericolonic tissue. Macroscopic tumor perforation: Not identified. Lymphovascular invasion: Not identified. Perineural invasion: Not identified. Type of polyp in which invasive carcinoma arose: Not identified. Treatment effect: No known presurgical therapy. . Margins Margin status for invasive carcinoma: All margins negative for invasive carcinoma. Regional lymph node status: Regional lymph nodes present. All regional lymph nodes negative for tumor. Number of lymph nodes examined: Four. Tumor deposits: Not identified. Regional lymph node comment: Only four small regional lymph nodes are identified. The pericolonic fat is reexamined, and no additional lymph nodes are identified. Distant metastasis: Liver (part A). . Pathologic stage classification (AJCC 8th ed.) pT category: pT3. pN category: pN0. pM category: pM1a. . Additional findings: Diverticulosis and diverticulitis with pericolonic abscesses. . Special studies: No loss of expression of mismatch repair proteins MLH1, MSH2, PMS2, or MSH6. MR 05/16/2022 1646 Local . 01 Comment: A part of routine supervisor type disk quality control, Dr. Goff reviewed H/E slides on A and B, and agrees with the diagnosis. Dr. Carr discussed preliminary results with Lisette in Dr. Bowman's office on 05/13/2022. . 01 Electronically signed: . Rebecca Carr MD, Pathologist NPI- [id number] . 01 Gross description: . A. Received in formalin in a specimen container labeled with the patient's name and medical record number, liver mass, is an aggregate of four cylindrical castillo-pink needle biopsies that measure in aggregate 2.0 x 0.4 x 0.1 cm. The specimen is entirely submitted in cassette A1. A6-A19 - Additional phlebotomy services representative of colon surrounded by fibrotic soft tissue. . B. Received in formalin in a specimen container labeled with the patient's name and medical record number, sigmoid colon, is an unoriented segment of colon with stapled resection margin that measures 23.0 cm in length and 6.5 cm in maximum dimension. The attached mesentery measures 19.0 x 4.0 x 2.0 cm. The serosal surface is focally hyperemic, rigid on touch with multiple slightly hemorrhagic fibrinous exudate adhesions. The specimen is opened to reveal ligated pink, focally hyperemic mucosa with a focally thickened, rigid wall that measures in maximum thickness 0.8 cm. Multiple diverticula are identified within the rigid aspect of the colonic wall, and some of the diverticula are extending to mesentery. No distinct perforations are identified present in the colonic wall or on the mesentery surface. The colonic mucosa is castillo-pink There is a 0.2 cm in diameter castillo-pink polyp identified within the colonic mucosa. Wallpaperer sections are submitted as follows: B1: Both resection margins en face. B2-B4: Diverticula phlebotomy services representative. B5: Polyp in random full-thickness colonic wall grossly unremarkable, phlebotomy services representative. (KV:[id number]) B6-19: Additional phlebotomy services representative sections, including pericolonic adipose tissue. /R 05/16/2022 1646 Local . 01 Microscopic: . A. Immunohistochemical stains were performed to characterize cells of interest. Call control stains showed appropriate reactivity. . RESULTS: CDX2: Positive. SATB2: Positive. CK20: Rare cells positive. . INTERPRETATION: This limited immunophenotype is compatible with metastatic colonic adenocarcinoma. . Block B: IMMUNOHISTOCHEMISTRY TESTING FOR MISMATCH REPAIR PROTEINS: . MLH1: Intact nuclear expression. MSH2: Intact nuclear expression. MSH6: Intact nuclear expression. PMS2: Intact nuclear expression. Background nonneoplastic tissue/internal control with intact nuclear expression. . INTERPRETATION: No loss of nuclear expression of MMR proteins: low probability of microsatellite instability-high (MSI-H)* . * There are exceptions to the above IHC interpretations. These results should not be considered in isolation, and clinical correlation with genetic counseling is recommended to assess the need for germline testing. . * This test was developed and its performance characteristics determined by [employer]. It has not been cleared or approved by the U.S. Food and Drug Administration. The FDA has determined that such clearance or approval is not necessary. This test is used for clinical purposes. It should not be regarded as investigational or for research. . 01 Pathologist provided ICD-10: C18.9 . 01 CPT . 404368, 780598, [id number], [id number] Specimen Comment: A courtesy copy of this report has been sent to [phone] Performed at: 01 [facility] [address] [place] [address], [place], [place] [id number] MD Maikel Goff MD Phone: [phone]
--- NOTE | 2022-05-11 | DI.RAD.S_ITS ---
PROCEDURE: XR CHEST 1V INDICATIONS: INTRA-OP PORT A CATH PLACEMENT TECHNIQUE: One view of the chest was acquired. COMPARISON: None. FINDINGS: Intraoperative fluoroscopic image demonstrates a right port placement with distal tip projecting over the proximal SVC. Endotracheal tube is noted. IMPRESSION: Port placement as above. Dictated by: Lyndsey Parnell M.D. on 05/11/2022 at 10:19 Approved by: Lyndsey Parnell M.D. on 05/11/2022 at 10:29
--- NOTE | 2022-05-11 | DI.RAD.S_ITS ---
PROCEDURE: XR CHEST 1V INDICATIONS: POST OPERATIVE PORT A CATH PLACEMENT TECHNIQUE: One view of the chest was acquired. COMPARISON: [facility], CR, XR CHEST 1V, 05/11/2022, 9:55. FINDINGS: Surgical changes and devices: Right chest wall Port-A-Cath tip is in SVC. Left chest wall pacemaker leads are in the region of right atrium and right ventricle. Lungs and pleura: Lungs are clear. No pleural effusions or pneumothorax. Mediastinum: Mediastinal contours appear normal. Heart size is normal. Bones and chest wall: No suspicious bony lesions. Overlying soft tissues appear unremarkable. IMPRESSION: Right-sided Port-A-Cath tip is in SVC. No focal infiltrate, pleural effusion or pneumothorax. Dictated by: Braeden Vail M.D. on 05/11/2022 at 13:24 Approved by: Braeden Vail M.D. on 05/11/2022 at 13:25
[2022-05-11] MEDS: LACTATED RINGERS 1,000 ML 42 ML IV ×2 (07:07→09:20)
--- NOTE | 2022-05-11 07:47 | PM.PREOP ---
Pre-operative Note COVID-19 COVID-19 status: Negative Result date/Date tested (Pos, Neg/Pending): 05/10/22 Interval Note History & Physical reviewed/Exam performed by Physician: Yes Changes to H&P: No ASA Class (for procedural sedation): III
[2022-05-11] MEDS: AMPICILLIN/SULBACTAM 3 GM 3 GM in SODIUM CHLORIDE 0.9% 100 ML IV (09:22)
[2022-05-11] MEDS: FENT 2MCG/ML BUPIV 0.125% EPI 200 MCG/100 ML PLAST..BAG 8 MCG EPIDURAL ×3 (10:30→18:37)
--- NOTE | 2022-05-11 11:04 | SUR.OPER ---
Kelly inserted with ease, no resistance experienced, coude placed due to medical Hx. Clear yellow urine was visualized in tubing prior to balloon inflation. Secured during surgery.
--- NOTE | 2022-05-11 11:07 | SUR.OPER ---
Port A Cath procedure completed first Start: 923 End: 952 Positioning: Supine with arms padded with foam and tucked at sides. Head on gel donut. Heels on gelpad. Safety strap at thighs. Directed and approved by surgeon. Exploratory lap completed second Start: 9 Site confirmed prior to second site start Positioning: Low lithotomy on pink pad positioner. Head on gel donut. Arms padded with foam and tucked at sides. Legs in yellow fins at appropriate angle/position per surgeon preference. Jean Claude hugger applied to upper torso. Shoulder and neck alignment approved by anesthesia. Positioning directed and approved by surgeon.
[2022-05-11] MEDS: BUPIVACAINE 0.5% (PF) VIAL 30 ML INJ (11:28)
[2022-05-11] MEDS: LIDOCAINE 1% W/EPI 20 ML INJ (11:28)
--- NOTE | 2022-05-11 12:43 | PM.OP.1 ---
Operative Date/Time/Diagnoses Date of procedure: 05/11/22 Time of procedure: 12:43 Pre-op diagnosis: Metastatic colon cancer Post-op diagnosis: same Procedure & Clinicians Procedure: 1. Port-A-Cath 2. Open sigmoid colon resection with end colostomy 3. Splenic flexure mobilization 4. Liver biopsy Same procedure as scheduled: Yes Surgeon: Maik Bowman Customer Service Representative Teller: Jud Romero Anesthesia Type: General, Epidural and Local Operative Notes Procedure in detail: The patient was brought to the operating room, placed on the table in the supine position with the arms tucked. Unasyn was administered. An epidural catheter was placed. General endotracheal anesthesia was induced. A Kelly catheter was placed. A time-out was performed. The right chest and neck were prepped and draped in the usual fashion. An ultrasound was used to identify the right internal jugular vein. The vein was noted to be patent. An image was saved and printed and placed in the chart. The right internal jugular vein was accessed via the Seldinger technique under ultrasound guidance. The guidewire was inserted into the superior vena cava. C-arm was used to confirm proper position of the guidewire in the superior vena cava and no ectopy was noted. The needle was removed and the wire was clamped to the drape. Next, a port pocket was created just inferior to the right clavicle using a 15 blade scalpel. Dissection was carried down to the pectoral fascia. A subcutaneous pocket was created using a combination of cautery and blunt dissection. Next, the port which was primed with injectable saline, was secured to the fascia with 3-0 PDS sutures left untied and clamped. The neck incision was extended with an 11 blade scalpel to approximately 5 mm. The dilator and peel-away sheath were inserted over the wire without resistance. The catheter was passed from the neck incision to the chest incision in the subcutaneous tissue using the tunnelling device. The wire and dilator were then removed and the catheter inserted through the peel-away sheath to deliver it into the superior vena cava. The depth of the device was checked using the C-arm and the tip of the device was noted to be in the distal superior vena cava. The exterior portion of the catheter was then trimmed and attached to the port using the strain relief collar. A final image showed good position of the catheter with no kinks. The port was then tucked into the subcutaneous pocket and the sutures were tied to secure the device. The port was then accessed using the Minaya needle and it was noted that the device debbie and flushed easily without resistance. Approximately 4 mL of heparinized saline were injected into the device. The skin incisions were closed with 3-0 Vicryl and 4-0 Monocryl. Steri-Strips were applied patient was awakened and brought to recovery room Ultrasound: The right internal jugular vein was patent. The right carotid artery was visualized adjacent to the vein. Venipuncture was visualized in real-time using the ultrasound. Fluoroscopy: The device was positioned appropriately with the distal end of the catheter near the atriocaval junction. There were no kinks in the catheter. Next the patient was positioned in low lithotomy and the abdomen was prepped and draped in the usual fashion. Midline incision was made from 4 fingerbreadths above the umbilicus to the pubis. We entered the abdomen under direct vision. There was a large mass in the proximal sigmoid colon. Mass appeared to be invading directly into the peritoneum in the left lower quadrant. There was a loop of small bowel that was adherent the mass which was finger fractured off of the mass. The small bowel appeared to be intact with no leakage of enteric contents despite manipulation. These sigmoid mass had some necrotic tissue which drained from small hole where the small bowel had been adherent. This was suctioned until it stopped draining. We then focused on resecting the sigmoid colon the mass. Some of the peritoneum was resected along with the mass and we seemed to be coming through tumor-like material while excising the mass from the left lower quadrant abdominal wall. Once the mass was dissected off the abdominal wall we were able to finger fracture the mass until we were able to get to the white line of Toldt and dissect the mesentery off the retroperitoneum. The left ureter was visualized and protected. We then created a window in the mesentery in the distal sigmoid colon and divided the colon here with a single firing of the 75 mm linear JOHNATHAN cutting stapler with a blue load. We used the LigaSure to take down the mesentery around the mass and divided the proximal sigmoid just above the mass with another firing of the 75 mm linear JOHNATHAN cutting stapler. The mass was passed off the field. We then mobilized the descending colon all the way up to the splenic flexure and take down the splenic flexure using a combination of cautery, blunt dissection and LigaSure. The colon was noted to easily reach the anterior abdominal wall. We brought out the colostomy through the left abdominal wall just superior to the umbilicus. We placed a 19 round Rick drain along the left lower quadrant abdominal wall and brought it out through a right lower quadrant stab incision. The drain was secured to the skin with a stitch. We felt some large, hard white masses in the liver. We performed 2 biopsies of a liver mass in the inferior left lobe of liver with a Jameel-Cut needle. There was no bleeding or visible bile leak. We then changed gloves and closed the fascia with running 0 PDS suture reinforced with multiple interrupted 0 Vicryl internal retention sutures. We irrigated the wound and closed the skin with graeme. We then covered they wounds and matured the colostomy in a Kavya fashion with 3-0 Vicryl sutures. A colostomy appliance was applied The patient was then awakened and brought to recovery. EBL: 50 mL Specimens: Sigmoid colon, liver mass Post-operative Condition: stable Disposition: PACU
--- NOTE | 2022-05-11 13:14 | SUR.PHASEI ---
1230: Handoff of Epidural drip from Dr. Allred. Fentanyl2 mcg/ml with Bupivacaine 125mg/100mL Cont rate 8mL PCEA: 4 mL PCEA LO: 15 min 1 hour limit: 20mL
--- NOTE | 2022-05-11 13:20 | SUR.PHASEI ---
1315: Pt drowsy, but responding appropriately. VSS, appears comfortable and ready to transfer to room. Attempt to call report RN busy at this time, will return call when available. CARLEEN Lockhart x [phone]
--- NOTE | 2022-05-11 13:29 | SUR.PHASEI ---
Report given to receiving RN using SBAR with time allowed for questions, pt to be transferred to room 229.
[2022-05-11] MEDS: LACTATED RINGERS 1,000 ML 75 ML IV (13:59)
--- NOTE | 2022-05-11 14:46 | PC.NURSE ---
Addendum entered by Nancy Beck R.N. 05/11/22 19:26: No sensation loss for dermatone assessment. Pt in having worse pain this afternoon. PO and IV pain control started, Dr Dewey into see Pt and believes epidural is potentially dislodged and will leave in overnight, for any pain control benefit, but turn off @ 0600 with plan to DC. Kelly is to stay in as Pt has not ambulated OOB yet. Increased pain control ordered. Instruction for splinting given for coughing. Original Note: Admit: Pt arrived from PACU with 3L NC reporting pain, epidural in place Fent/bupivicaine at 8mls/hr. Able to move all ext. Midline dressing is CDI, scant shadow outlined at proximal end of dressing. Colostomy to L ABD with beefy stoma serosang. drainage to bag. Pt Spo2 3L 94% VSS, bandiaid to R chest portacath placed. Epidural started downstairs for pain control Fent/bupivicaine @ 8mls/hr. Pt is moving all ext. well. Some c/o nausea/heartburn. HOB elevated with some improvement. Skin check completed. Pt easy to wake, cont pulse ox in place. Call light in reach.
[2022-05-11] MEDS: ONDANSETRON 4 MG/2 ML INJ IV (15:31)
[2022-05-11] MEDS: LACTATED RINGERS 1,000 ML 100 ML IV (16:07)
[2022-05-11] MEDS: HYDROCODONE/ACET 5/325 TABLET 1 TAB PO (16:08)
[2022-05-11] MEDS: IBUPROFEN 600 MG TABLET PO (17:21)
[2022-05-11] MEDS: HYDROMORPHONE 0.5 MG INJ 0.25 MG IV (17:28)
[2022-05-11] MEDS: carvediloL 12.5 MG TABLET 25 MG PO (22:12)
[2022-05-11] MEDS: AMLODIPINE 5 MG TABLET 10 MG PO (22:12)
[2022-05-12] VITALS (25 sets, daily range): BP systolic 83–125; BP diastolic 45–60; PULSE 60–75; RESP 15–20; TEMP 35.9–37; O2SAT 90–98
[2022-05-12] MEDS: LACTATED RINGERS 1,000 ML 100 ML IV ×3 (00:17→20:15)
[2022-05-12 05:29] LABS: Add Manual Diff / Slide Review NO; Basophils Absolute Auto 0 /uL (0-100); Basophils Percent Auto 0.2 % (0-2); Eosinophils Absolute Auto 0 /uL (0-450); Eosinophils Percent Auto 0.3 % (2-4); Hematocrit 22.6 % (41-53); Hemoglobin 7.2 g/dL (13.5-17.5); Lymphocytes Absolute Auto 800 /uL (1100-4500); Mean Corpuscular HGB Conc 32.1 % (30-36); Mean Corpuscular Hemoglobin 25.1 PG (26-34); Mean Corpuscular Volume 78.2 fL (80-100); Monocytes Absolute Auto 500 /uL (0-900); Monocytes Percent Auto 3.3 % (3-14); Neutrophils Absolute Auto 14100 /uL (1500-7000); Neutrophils Percent Auto 91.2 % (50-75); Platelet Count 200 X10^3/uL (150-400); Red Blood Cell Count 2.88 X10^6/uL (4.5-5.9); Red Cell Distribution Width 18.1 % (11.6-14.8); White Blood Cell Count 15.5 X10^3/uL (4.5-11.0)
[2022-05-12 05:34] LABS: BUN Creatinine Ratio 14.8 (6-22); Blood Urea Nitrogen 17 mg/dL (9-20); Calcium 7.1 mg/dL (8.4-10.2); Carbon Dioxide 27 mmol/L (22-32); Chloride 100 mmol/L (98-107); Estimated Glomerular Filt Rate > 60 mL/min (>60); Glucose 101 mg/dL (80-110); HEMOLYSIS < 15 (0-50); Potassium 3.2 mmol/L (3.4-5.1); Sodium 135 mmol/L (137-145)
[2022-05-12] MEDS: carvediloL 12.5 MG TABLET 25 MG PO (08:27)
[2022-05-12] MEDS: HYDROMORPHONE 0.5 MG INJ IV ×2 (09:51→17:34)
[2022-05-12] MEDS: POTASSIUM CHLORIDE 20 MEQ/15 ML UDC 40 MEQ PO ×2 (09:54→15:44)
[2022-05-12] MEDS: OXYCODONE/ACETAMINOPHEN 5/325 TABLET 1 TAB PO ×2 (12:14→16:47)
--- NOTE | 2022-05-12 13:18 | CM.DANOTE ---
Initial DCP Assessment Note Pt is an 82 yo male, resident of [place], presents w/suspected metastatic colon cancer now POD#1 from: 1. Port-A-Cath 2. Open sigmoid colon resection with end colostomy 3. Splenic flexure mobilization 4. Liver biopsy by Dr Bowman PCP: Zak Peace Payer: MEHNAZ/Collin Reviewed chart, pt discussed in multidisciplinary rounds this morning. Patient expected to return home w/spouse once medically stable. Patient/spouse would benefit from teaching bedside by wound CARLEEN Haque. Likely HH and close outpatient f/u w/surgery and oncology CM team will plan to follow closely as medical plan of care unfolds, will discuss above w/patient/family KIM Demarco Discharge Planning/Care Management CM Discharge Assessment Start: 05/12/22 13:03 Freq: Status: Active Protocol: Document 05/12/22 13:07 PEDRO (Rec: 05/12/22 13:18 PEDRO [id number]) Discharge Planning Assessment Assigned Fish Rod Maker KIM Mcclendon DPOA/Assigned Designee Name Marcela Villareal spouse Contact Information [phone] Advance Directives? Yes Advance Directives on File No History Provided By Patient,Medical Record Comment ER visits 6.1.22 and 6.23.22 Prior Living Arrangements House Household Members spouse Type of transportation used prior to Drives own vehicle admit Independent with ADL's Yes Is patient alert and oriented? Yes Barriers to Discharge No Comment At this time, expecting patient will return home w/ spouse and HH. Patient/spouse will benefit from teaching from wound CARLEEN Haque re caring for new colostomy Discharge Plan Home with Home Health Transportation Arrangement Spouse to provide transport. Referrals Initiated Home Health Additional Comment Will discuss with patient and spouse. Patient is POD#1 from: Procedure: 1. Port-A-Cath 2. Open sigmoid colon resection with end colostomy 3. Splenic flexure mobilization 4. Liver biopsy
--- NOTE | 2022-05-12 13:41 | PC.RNWOUND ---
Patient resting in bed, colostomy stoma is reddish pink, moist, edematous, small amount of serosanguineous drainage in pouch, which is intact at this time with no leakage. Patient is given [facility] new ostomy booklet, [facility] pamphlet and ostomy home skills kit. Ostomy nurse encourages patient to look over materials in the next couple days. Patient is receptive. Plan is to check back and give more education Monday, 05/23.
--- NOTE | 2022-05-12 16:09 | P.PN_ITS ---
Subjective Subjective Date Patient Seen: 05/12/22 Time Patient Seen: 16:09 Interval history: Doing well. Minimal complaints of pain. Tolerating some clear liquids. The epidural was removed today. Exam Vital Signs (past 8 hours): - 05/12/22 08:38 05/12/22 08:27 05/12/22 08:26 Temperature Pulse Rate 75 Respiratory Rate Blood Pressure 121/60 121/60 Pulse Oximetry 94 Oxygen Delivery Method Nasal Cannula Oxygen Flow Rate 1 05/12/22 08:26 05/12/22 12:17 05/12/22 12:30 Temperature Pulse Rate 75 70 61 Respiratory Rate Blood Pressure Pulse Oximetry 92 90 L 92 Oxygen Delivery Method Oxygen Flow Rate 05/12/22 13:00 05/12/22 13:43 Temperature 97.8 F Pulse Rate 61 63 Respiratory Rate 15 Blood Pressure 88/52 L Pulse Oximetry 93 93 Oxygen Delivery Method Oxygen Flow Rate 1 Oxygen Delivery Method Nasal Cannula Oxygen Flow Rate 1 Narrative Exam Narrative: Abdomen soft Drain output is serous Colostomy is well perfused with no output yet Objective Labs Result Diagrams: 05/12/22 04:59 05/12/22 04:59 Labs: Laboratory Results - last 24 hr 05/12/22 05/12/22 04:59 04:59 WBC 15.5 H RBC 2.88 L Hgb 7.2 L Hct 22.6 L MCV 78.2 L MCH 25.1 L MCHC 32.1 RDW 18.1 H Plt Count 200 Neut % (Auto) 91.2 H Lymph % (Auto) 5.0 L Schuyler % (Auto) 3.3 Eos % (Auto) 0.3 L Baso % (Auto) 0.2 Neut # (Auto) 51940 H Lymph # (Auto) 800 L Schuyler # (Auto) 500 Eos # (Auto) 0 Baso # (Auto) 0 Sodium 135 L Potassium 3.2 L Chloride 100 Carbon Dioxide 27 BUN 17 Creatinine 1.15 Estimated GFR > 60 BUN/Creatinine Ratio 14.8 Glucose 101 Calcium 7.1 L PFSH Medical History (Updated 05/12/22 @ 16:10 by Maik Bowman MD) BPH (benign prostatic hyperplasia) Chronic atrial fibrillation Claudication Enlarged prostate Hemorrhoids Lower extremity pain Lumbar spine pain Numbness of foot Urinary incontinence Surgical History (Updated 05/04/22 @ 13:19 by Teri De La Cruz RN) History of vasectomy Hx of bilateral cataract extraction Hx of vascular surgery (04/11/22) Presence of cardiac pacemaker (11/24/11) Family History Father Pneumonia Mother Hypertension Social History marital status: household members: spouse occupational status: previously employed Smoking Status: Current every day smoker quit status: not considering quitting second hand exposure: No alcohol intake: former substance use type: does not use Assessment & Plan Assessment and plan (1) Postoperative examination: Status: Acute Plan Doing well postop day 1 following sigmoid colon resection with end colostomy, port placement and liver biopsy Epidural is out DC Kelly Advanced to full liquids Awaiting bowel function Will start Lovenox tonight. Time Spent With Patient Critical Care time: I spent a total of [] minutes of critical care time on this patient's care today; this time is exclusive of procedural time.
[2022-05-12] MEDS: IBUPROFEN 600 MG TABLET PO (16:46)
--- NOTE | 2022-05-12 17:07 | DIET.CONS2 ---
Dietary Inpatient Consultation Note Admission Date: 05/11/2022 06:24 82y M admitted for planned hemicolectamy with colostomy for colon cancer. Pt seen by RD for ERAS prior to surgery. Pt tolerating clear liquid diet with ONS last evening and today without s/sx N/V. Met c pt at bedside with d/c Colostomy Nutrition Therapy packet. Educated pt on foods to consume and those to avoid c new colostomy. Left packet for pts spouse to review. Pt inquiring about the use of protein drinks once home. Pt appropriate for daily ONS at home to support nutrition status and teaching. Please request low fiber diet c no skins/seeds once pt advanced to textured diet. Diet: 05/12/22 Dinner Full Liquid Diet Diet Modifications: ensure surgery bid Nutrition Percent Meal Consumed 100% 05/12/22 13:00 Percent Meal Consumed 100% 05/12/22 09:55 Percent Meal Consumed 100% 05/11/22 18:48 Electronically Signed by: Josefina Cevallos 05/12/22 17:07 Clinical Dietitian [address] [id number]
[2022-05-13] VITALS (10 sets, daily range): BP systolic 111–138; BP diastolic 53–87; PULSE 63–85; RESP 18–20; TEMP 36.1–37.1; O2SAT 92–96
[2022-05-13] MEDS: carvediloL 12.5 MG TABLET 25 MG PO (08:58)
[2022-05-13] MEDS: ENOXAPARIN 40 MG/0.4 ML SYRINGE SUBCUT (08:59)
[2022-05-13 12:21] LABS: Add Manual Diff / Slide Review NO; Basophils Absolute Auto 0 /uL (0-100); Basophils Percent Auto 0.2 % (0-2); Eosinophils Absolute Auto 100 /uL (0-450); Eosinophils Percent Auto 0.8 % (2-4); Hematocrit 24.2 % (41-53); Hemoglobin 7.6 g/dL (13.5-17.5); Lymphocytes Absolute Auto 400 /uL (1100-4500); Lymphocytes Percent Auto 2.8 % (25-40); Mean Corpuscular HGB Conc 31.5 % (30-36); Mean Corpuscular Volume 79.4 fL (80-100); Monocytes Absolute Auto 500 /uL (0-900); Monocytes Percent Auto 3.4 % (3-14); Neutrophils Absolute Auto 14500 /uL (1500-7000); Neutrophils Percent Auto 92.8 % (50-75); Platelet Count 233 X10^3/uL (150-400); Red Blood Cell Count 3.05 X10^6/uL (4.5-5.9); Red Cell Distribution Width 18.6 % (11.6-14.8); White Blood Cell Count 15.7 X10^3/uL (4.5-11.0)
--- NOTE | 2022-05-13 13:11 | PM.PNPO.1 ---
Subjective Subjective Date Patient Seen: 05/13/22 Time Patient Seen: 13:11 Interval history: Epidural is out. Stool measured in chart. Exam Vital Signs (past 8 hours): - 05/13/22 07:00 05/13/22 08:58 05/13/22 09:12 Temperature 97.1 F L Pulse Rate 75 75 Respiratory Rate 20 Blood Pressure 127/64 127/62 Pulse Oximetry 92 Oxygen Delivery Method Nasal Cannula Oxygen Flow Rate 2 05/13/22 10:47 Temperature Pulse Rate Respiratory Rate Blood Pressure Pulse Oximetry 93 Oxygen Delivery Method Nasal Cannula Oxygen Flow Rate 2 Oxygen Delivery Method Nasal Cannula Oxygen Flow Rate 2 Narrative Exam Narrative: abdomen is soft, not distended. wound intact Objective Labs Result Diagrams: 05/13/22 12:11 05/12/22 04:59 Labs: Laboratory Results - last 24 hr 05/13/22 12:11 WBC 15.7 H RBC 3.05 L Hgb 7.6 L Hct 24.2 L MCV 79.4 L MCH 25.0 L MCHC 31.5 RDW 18.6 H Plt Count 233 Neut % (Auto) 92.8 H Lymph % (Auto) 2.8 L Centre % (Auto) 3.4 Eos % (Auto) 0.8 L Baso % (Auto) 0.2 Neut # (Auto) 65739 H Lymph # (Auto) 400 L Centre # (Auto) 500 Eos # (Auto) 100 Baso # (Auto) 0 PFSH Medical History (Updated 05/12/22 @ 16:10 by Maik Bowman MD) BPH (benign prostatic hyperplasia) Chronic atrial fibrillation Claudication Enlarged prostate Hemorrhoids Lower extremity pain Lumbar spine pain Numbness of foot Urinary incontinence Surgical History (Updated 05/04/22 @ 13:19 by Teri De La Cruz RN) History of vasectomy Hx of bilateral cataract extraction Hx of vascular surgery (04/11/22) Presence of cardiac pacemaker (11/24/11) Family History Father Pneumonia Mother Hypertension Social History marital status: household members: spouse occupational status: previously employed Smoking Status: Current every day smoker quit status: not considering quitting second hand exposure: No alcohol intake: former substance use type: does not use Assessment & Plan Post-op Postoperative Procedures: Procedures Operation Date: 05/11/22 07:45 Actual Procedure Side Surgeon p Exploratory Laparotomy, partial colon resection colostomy, liver mass biopsy Miak Bowman MD p Port-A-Cath Insertion Maik Bowman MD Postoperative status: doing well Postoperative status narrative: urinary incontinence. Postoperative plan: routine post-op care and ambulate Time Spent With Patient Time with patient: 15-24 minutes
[2022-05-13] MEDS: PRENATAL VIT,CALC/IRON/FOLIC 1 TABLET 1 TAB PO (14:09)
[2022-05-13] MEDS: SIMETHICONE 80 MG TABLET PO (14:10)
[2022-05-13] MEDS: CELECOXIB 200 MG CAPSULE PO ×2 (14:10→22:17)
[2022-05-13] MEDS: OXYCODONE/ACETAMINOPHEN 5/325 TABLET 1 TAB PO ×2 (14:29→21:09)
[2022-05-13] MEDS: SODIUM CHLORIDE 0.9% FLUSH 10 ML IV (21:08)
[2022-05-13] MEDS: ACETAMINOPHEN 325 MG TABLET 650 MG PO (21:09)
[2022-05-13] MEDS: HYDROMORPHONE 0.5 MG INJ IV (22:17)
[2022-05-14] VITALS (8 sets, daily range): BP systolic 109–146; BP diastolic 51–77; PULSE 61–74; RESP 16–19; TEMP 36.6–38; O2SAT 95–98
[2022-05-14] MEDS: SIMETHICONE 80 MG TABLET PO (01:21)
[2022-05-14] MEDS: ACETAMINOPHEN 325 MG TABLET 650 MG PO (06:24)
[2022-05-14] MEDS: OXYCODONE/ACETAMINOPHEN 5/325 TABLET 1 TAB PO ×2 (06:24→19:49)
[2022-05-14] MEDS: CELECOXIB 200 MG CAPSULE PO ×2 (08:54→19:50)
[2022-05-14] MEDS: carvediloL 12.5 MG TABLET 25 MG PO (08:54)
[2022-05-14] MEDS: PRENATAL VIT,CALC/IRON/FOLIC 1 TABLET 1 TAB PO (08:54)
[2022-05-14] MEDS: ENOXAPARIN 40 MG/0.4 ML SYRINGE SUBCUT (08:55)
[2022-05-14] MEDS: HYDROMORPHONE 0.5 MG INJ IV (08:56)
[2022-05-14] MEDS: SODIUM CHLORIDE 0.9% FLUSH 10 ML IV ×2 (08:56→19:52)
--- NOTE | 2022-05-14 10:09 | PM.PNPO.1 ---
Subjective Subjective Date Patient Seen: 05/14/22 Time Patient Seen: 10:09 Interval history: s/p Ryan's for metastatic colon cancer. No issues except pain with cough. Exam Vital Signs (past 8 hours): - 05/14/22 05:00 05/14/22 07:00 05/14/22 08:47 Temperature 98.3 F 98 F Pulse Rate 62 66 Respiratory Rate 18 17 Blood Pressure 132/63 125/59 L Pulse Oximetry 96 97 Oxygen Delivery Method Room Air Nasal Cannula Oxygen Flow Rate 2 0 05/14/22 08:54 Temperature Pulse Rate 74 Respiratory Rate Blood Pressure 125/51 L Pulse Oximetry Oxygen Delivery Method Oxygen Flow Rate Oxygen Delivery Method Room Air,Nasal Cannula Oxygen Flow Rate 0 Narrative Exam Narrative: Stoma functional. Incision intact. No evidence of infection. Persistent WBC. Objective Labs Result Diagrams: 05/13/22 12:11 05/12/22 04:59 Labs: Laboratory Results - last 24 hr 05/13/22 12:11 WBC 15.7 H RBC 3.05 L Hgb 7.6 L Hct 24.2 L MCV 79.4 L MCH 25.0 L MCHC 31.5 RDW 18.6 H Plt Count 233 Neut % (Auto) 92.8 H Lymph % (Auto) 2.8 L Labette % (Auto) 3.4 Eos % (Auto) 0.8 L Baso % (Auto) 0.2 Neut # (Auto) 48447 H Lymph # (Auto) 400 L Labette # (Auto) 500 Eos # (Auto) 100 Baso # (Auto) 0 PFSH Medical History (Updated 05/12/22 @ 16:10 by Maik Bowman MD) BPH (benign prostatic hyperplasia) Chronic atrial fibrillation Claudication Enlarged prostate Hemorrhoids Lower extremity pain Lumbar spine pain Numbness of foot Urinary incontinence Surgical History (Updated 05/04/22 @ 13:19 by Teri De La Cruz RN) History of vasectomy Hx of bilateral cataract extraction Hx of vascular surgery (04/11/22) Presence of cardiac pacemaker (11/24/11) Family History Father Pneumonia Mother Hypertension Social History marital status: household members: spouse occupational status: previously employed Smoking Status: Current every day smoker quit status: not considering quitting second hand exposure: No alcohol intake: former substance use type: does not use Assessment & Plan Post-op Postoperative Procedures: Procedures Operation Date: 05/11/22 07:45 Actual Procedure Side Surgeon p Exploratory Laparotomy, partial colon resection colostomy, liver mass biopsy aMik Bowman MD p Port-A-Cath Insertion Maik Bowman MD Postoperative status: doing well Postoperative status narrative: Elevated WBC is concerning. O/w doing well. Postoperative plan narrative: Restart Zosyn Anemia is stable CXR Time Spent With Patient Time with patient: less than 15 minutes
--- NOTE | 2022-05-14 10:12 | DI.RAD.S_ITS ---
PROCEDURE: XR CHEST 1V INDICATIONS: cough TECHNIQUE: One view of the chest was acquired. COMPARISON: [facility], CR, XR CHEST 1V, 05/11/2022, 13:00. FINDINGS: Surgical changes and devices: Right-sided Port-A-Cath and left-sided dual-chamber pacemaker present. Lungs and pleura: Lungs are clear. No pleural effusions or pneumothorax. Mediastinum: Mediastinal contours appear normal. Heart size is normal. Atherosclerotic vascular calcification noted in the aortic arch. Generalized decrease in osseous mineralization noted. Bones and chest wall: No suspicious bony lesions. Overlying soft tissues appear unremarkable. IMPRESSION: No acute cardiopulmonary findings Osteopenia and aortic atherosclerosis Approved by: Buddy Moore M.D. on 05/14/2022 at 14:00
[2022-05-14] MEDS: GABAPENTIN 300 MG CAPSULE PO ×2 (10:44→19:50)
[2022-05-14] MEDS: PIPERACILLIN/TAZO 3.375 GM in SODIUM CHLORIDE 0.9% 100 ML IV ×2 (10:44→18:32)
--- NOTE | 2022-05-14 13:35 | PT.IIE ---
Current Diagnoses Diverticulitis of large intestine without perforation or abscess without bleeding (05/11/22) Disease of intestine, unspecified (05/11/22) Encounter for follow-up examination after completed treatment for conditions other than malignant neoplasm (05/11/22) Surgery Performed Operation Date: 05/11/22 07:45 Actual Procedures p Exploratory Laparotomy, partial colon resection colostomy, liver mass biopsy - Maik Bowman MD p Port-A-Cath Insertion - Maik Bowman MD Surgical History (Last Updated 05/04/22 @ 13:19 by Teri De La Cruz RN) History of vasectomy Hx of bilateral cataract extraction Hx of vascular surgery (04/11/22) Presence of cardiac pacemaker (11/24/11) Medical History (Last Reviewed 05/11/22 @ 07:03 by Jose C Chance RN) BPH (benign prostatic hyperplasia) Chronic atrial fibrillation Claudication Enlarged prostate Hemorrhoids Lower extremity pain Lumbar spine pain Numbness of foot Urinary incontinence Physical Therapy Inpatient Evaluation/Re-Eval M1 PT/OT-IP Prior Functional Status Start: 05/14/22 14:06 Freq: NEEDED Status: Active Protocol: Document 05/14/22 13:35 AB (Rec: 05/14/22 14:16 AB [id number]) Medical Review Prior Functional Status Medical History Reviewed Yes Communication able to make needs known Mobility and Gait pt stated that he is modified independent with all mobilities and ambulation without AD; had vascular sx last march and used a SPC but now does not use any AD Social History Household Members spouse Living Arrangements House Number of Floors (Floors) One Floor Number of Stairs To Enter/Railing? 3 steps B rails to enter Home Environment High Toilet,Walk in Shower Home Equipment Straight Cane,Shower Seat without Backrest M2 PT-IP Current Condition Start: 05/14/22 14:06 Freq: NEEDED Status: Active Protocol: Document 05/14/22 13:35 AB (Rec: 05/14/22 14:16 AB [email or web address]) Physical Therapy Current Condition Current Condition Evaluation Date 05/14/22 Treatment Diagnosis Colon CA s/p colostomy; difficulty in walking Onset Date 05/11/22 M3 PT-IP Subjective Start: 05/14/22 14:06 Freq: NEEDED Status: Active Protocol: Document 05/14/22 13:35 AB (Rec: 05/14/22 14:16 [email or web address]) Subjective Physical Therapy Visit Type Type Initial Evaluation Visit Start Time 13:35 Visit Stop Time 14:05 Total Visit Minutes 30 Number of CAPACITOR REPAIRER Visits 0 Physical Therapy Visit Comments Patient Comments agreeable to do PT Therapy Pain Assessment Pain When Pain Assessed coughing Pain Present Pain Present Pain Reported Location Abdomen Intensity 9 Scale Used 2/10 at rest Pain Management Techniques Modification of Treatment,Re- positioning,Timing of Activity with Medications M4 PT-IP Mobility and Gait Start: 05/14/22 14:06 Freq: NEEDED Status: Active Protocol: Document 05/14/22 13:35 AB (Rec: 05/14/22 14:16 [email or web address]) PT-Bed Mobility Assessment Rolling Type of Rolling Log Rolling Level of Assist Standby Assistance Supine to Sit Supine to Sit Standby Assistance Sit to Supine Sit to Supine Standby Assistance PT-Transfer Assessment Sit to and From Stand Sit to and from Stand Contact Guard Assistance,1 Person Assistance,Use of Upper Extremities Equipment Transfer Assistive Device Gait Belt,Front Wheeled Walker Orthotic/Prosthetic Devices or Brace: No Comments Mobility Comments educated pt on abdominal precautions and log roll bed mobility. BP: 132/69 ; O2 sat with o2 on 94% at room air: 94 % completed supine to sit log roll SBA. able to sit on EOB SBA. completed sit to stand CGA and ambulated in room ~ 75 ft using FWW CGA to min A with unsteady gait and decrease step width. pt requested to go back to bed. O2 sat after ambulation: 90% after a few deep breaths 93%. pt stated it is hard to take a deep breath without coughing and coughing increases abdominal pain. completed log roll sit to supine SBA. positioned pt in bed. call light and table placed within reach. Gait Assessment Gait Gait Assistance Required: Contact Guard Assist,Minimum Assistance Distance (Feet) 75 Able to Maintain Weight Bearing Status Yes During Gait Assistive Devices Assistive Device Gait Belt,Front Wheeled Walker Orthotic/Prosthetic Devices or Brace: No Gait Deviations General Gait Pattern Decreased Stride Length, Decreased Feet Clearance,Step- to Gait Factors Limiting Gait Function Factors Limiting Gait Function Decreased Activity Tolerance, Decreased Strength,Limited Range of Motion,Pain,Poor Balance,Poor Safety Awareness, Respiratory Distress PT-Balance Assessment Sitting Balance and Reactions Static Sitting Balance Ability Normal Dynamic Sitting Balance Ability Good Standing Balance and Reactions Static Standing Balance Ability Fair Dynamic Standing Balance Ability Fair Device Used FWW M5 PT-IP Objective Assessments Start: 05/14/22 14:06 Freq: NEEDED Status: Active Protocol: Document 05/14/22 13:35 AB (Rec: 05/14/22 14:16 AB [email or web address]) Orientation Orientation/Cognition Level of Alertness Alert Orientation Name,Place,Situation Language Function Ability No Deficits Noted Safety Awareness Understands Safety Issues Memory Description No Deficits Noted Gross Range of Motion Lower Extremity ROM Assessment Within Functional Limits Strength Lower Extremity Strength Assessment Within Functional Limits Coordination Assessment Gross Coordination Gross Coordination WNL Sensation Assessment Sensation Gross Sensation WNL Muscle Tone Muscle Tone WNL Yes M6 PT-IP Treatment Start: 05/14/22 14:06 Freq: NEEDED Status: Active Protocol: Document 05/14/22 13:35 AB (Rec: 05/14/22 14:16 AB [email or web address]) Physical Therapy Treatment Education Education Provided Precautions,Post-Op Packet, Safety M7 PT-IP Assessment and Plan Start: 05/14/22 14:06 Freq: NEEDED Status: Active Protocol: Document 05/14/22 13:35 AB (Rec: 05/14/22 14:16 AB [email or web address]) PT Summary Assessment and Plan Potential Rehabilitation Potential Good Status of Condition at Evaluation Stable Summary Impairments Pain,ROM,Strength,Balance, Coordination,Sensation,Tone, Cognition,Bed Mobility, Transfers,Gait,Activity Tolerance Assessment Summary pt requiring CGA to min A with ambulation using FWW but with decrease activity tolerance affecting mobility independence. pt plans to go home and spouse to assist him. will continue to assess progress. pt will benefit from HHPT vs outpt PT depending on progress. pt also needs to complete stair climbing training prior to dc and if appropriate, conduct caregiver training. Goals Bed Mobility Goal Independent Transfer Goal Independent,Front Wheeled Walker Gait Goal Independent,Front Wheel Walker Gait Distance 200 Other Goals improve ambulation SPC/without AD 300 ft SBA up/down 3 steps B rails SBA Days to Meet Goals 10 Frequency of Treatment Frequency Of Treatment Once a Day Treatment Plan Physical Therapy Treatment Plan Bed Mobility Training,Transfer Training,Gait Training, Therapeutic Exercise,Balance Retraining,Post Op Education, Discharge Planning,Hot or Cold Pack,Neuromuscular Re-ed, Coordination Retraining,Manual Therapy Precautions Abdominal Surgery Precautions Log Roll,Lifting Restrictions, Gait Belt above Incisional Area Recommendations To Nursing Amount of Assist Needed 1 Person Assist Discharge Recommendations PT Discharge Recommendations Home with Assistance,Home Health,Outpatient PT Equipment Needed for Home Before FWW if not safe with SPC/ Discharge without AD Transportation Needs at Discharge Private Vehicle
--- NOTE | 2022-05-14 13:45 | CM.DPNOTE ---
DCP Note Met w/patient to review DCP; patient finishing up his lunch. Patient lives with spouse Marcela, patient states she has stage 2 Alzheimer's and stage 4 pancreatic cancer. Spouse is currently undergoing chemo therapy and patient says she doesn't like people in the house. 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 Patient's sister lives a few blocks away, she is able bodied, and patient thinks she can assist patient/spouse upon DC Overall, patient is not forthcoming with information during this visit and difficult to plan with Patient unsure how he or his spouse will care for patient's new Ostomy. Patient unsure whether spouse will allow home health RN because she doesn't like people in the house In addition- Patient doesn't know how his would be cared for if patient was not capable. 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
[2022-05-15] VITALS (9 sets, daily range): BP systolic 134–166; BP diastolic 60–73; PULSE 65–69; RESP 15–17; TEMP 36–37.6; O2SAT 96–99
[2022-05-15] MEDS: PIPERACILLIN/TAZO 3.375 GM in SODIUM CHLORIDE 0.9% 100 ML IV ×3 (02:24→18:56)
[2022-05-15] MEDS: CELECOXIB 200 MG CAPSULE PO (08:50)
[2022-05-15] MEDS: carvediloL 12.5 MG TABLET 25 MG PO ×2 (08:50→21:07)
[2022-05-15] MEDS: PRENATAL VIT,CALC/IRON/FOLIC 1 TABLET 1 TAB PO (08:50)
[2022-05-15] MEDS: ENOXAPARIN 40 MG/0.4 ML SYRINGE SUBCUT (08:51)
[2022-05-15] MEDS: SODIUM CHLORIDE 0.9% FLUSH 10 ML IV (08:51)
[2022-05-15] MEDS: GABAPENTIN 300 MG CAPSULE PO (08:51)
--- NOTE | 2022-05-15 09:34 | P.PN_ITS ---
Subjective Subjective Date Patient Seen: 05/15/22 Time Patient Seen: 09:34 Interval history: Patient reports hurting only when he coughs. CXR is WNL. Exam Vital Signs (past 8 hours): - 05/15/22 05:56 05/15/22 08:35 05/15/22 08:50 Temperature 99.1 F 97.8 F Pulse Rate 69 68 Respiratory Rate 17 16 Blood Pressure 148/65 H 148/67 H 148/67 H Pulse Oximetry 97 98 Oxygen Flow Rate 2 2 Oxygen Delivery Method Nasal Cannula Oxygen Flow Rate 2 Narrative Exam Narrative: Abdomen is soft, stoma is healthy and working. Drain is serous. Objective Labs Result Diagrams: 05/13/22 12:11 05/12/22 04:59 PFS Medical History (Updated 05/12/22 @ 16:10 by Maik Bowman MD) BPH (benign prostatic hyperplasia) Chronic atrial fibrillation Claudication Enlarged prostate Hemorrhoids Lower extremity pain Lumbar spine pain Numbness of foot Urinary incontinence Surgical History (Updated 05/04/22 @ 13:19 by Teri De La Cruz RN) History of vasectomy Hx of bilateral cataract extraction Hx of vascular surgery (04/11/22) Presence of cardiac pacemaker (11/24/11) Family History Father Pneumonia Mother Hypertension Social History marital status: household members: spouse occupational status: previously employed Smoking Status: Current every day smoker quit status: not considering quitting second hand exposure: No alcohol intake: former substance use type: does not use Assessment & Plan Post-op Postoperative Procedures: Procedures Operation Date: 05/11/22 07:45 Actual Procedure Side Surgeon p Exploratory Laparotomy, partial colon resection colostomy, liver mass biopsy Maik Bowman MD p Port-A-Cath Insertion Maik Bowman MD Postoperative status: doing well Postoperative plan: routine post-op care Postoperative plan narrative: Needs ostomy training tomorrow with the e xpectation he will go home tomorrow.
--- NOTE | 2022-05-15 12:40 | PC.RNWOUND ---
Patient resting in bed, colostomy putting out soft brown effluent into pouch. Patient is shown/ given education on removing appliance, cleansing stoma and peristomal skin, applying new appliance, showering with appliance, emptying appliance, diet after discharge. Patient verbalizes understanding of instruction- return demonstrates applying pouch onto barrier and closing pouch. Patient says he has not looked over printed materials given previously, but says my took them home to read over them. Colostomy stoma is red and moist, edematous, MCJ is intact, periwound skin intact. Stoma measures 1 and 1/2 inches or 38mm, is round, os in center, effluent comes out at about 10clock and patient is instructed to make sure of a good seal around stoma with barrier to protect skin at this area. Midline sutures are intact and well-approximated, no drainage noted. Patient says he does not need home health for continued ostomy teaching. Ostomy nurse recommends home health for continued teaching and patient says he would be open to that.
--- NOTE | 2022-05-15 15:41 | CM.DPC ---
DCP Cont: It is noted that patient should be medically ready for discharge tomorrow. Shabnam, wound nurse, was in to see patient. Met with patient. Asked him if he would be interested in home health nurse coming to his home to assess stoma, as originally, he was worried about his spouse letting anyone in the home. Patient indicated he is interested in home health. He resides in [place], has no preference on agencies. [facility] is listed on calendar for this week, but they do not go to [place]. Spoke to Loki at [facility], and they are booked until the . Was unable to reach Stacey at [facility], but can fax referral and follow up tomorrow as far as when they can see patient. P: DCP to follow. Plan is home with home health, will need signature on face to face from surgeon, and will start with [facility] referral. Mildred Barker RN/Addictions Counselor Assistant
--- NOTE | 2022-05-15 16:18 | PT.IPTN ---
Current Diagnoses Diverticulitis of large intestine without perforation or abscess without bleeding (05/11/22) Disease of intestine, unspecified (05/11/22) Encounter for follow-up examination after completed treatment for conditions other than malignant neoplasm (05/11/22) Surgery Performed Operation Date: 05/11/22 07:45 Actual Procedures p Exploratory Laparotomy, partial colon resection colostomy, liver mass biopsy - Maik Bowman MD p Port-A-Cath Insertion - Maik Bowman MD Physical Therapy Treatment Note M2 PT-IP Current Condition Start: 05/14/22 14:06 Freq: NEEDED Status: Active Protocol: Document 05/14/22 13:35 AB (Rec: 05/14/22 14:16 AB [id number]) Physical Therapy Current Condition Current Condition Evaluation Date 05/14/22 Treatment Diagnosis Colon CA s/p colostomy; difficulty in walking Onset Date 05/11/22 M3 PT-IP Subjective Start: 05/14/22 14:06 Freq: NEEDED Status: Active Protocol: Document 05/15/22 16:18 AW (Rec: 05/15/22 17:08 AW [id number]) Subjective Physical Therapy Visit Type Type Treatment Note Visit Start Time 16:04 Visit Stop Time 16:18 Total Visit Minutes 14 Number of CHIEF LIBRARIAN CIRCULATION DEPARTMENT Visits 0 Physical Therapy Visit Comments Patient Comments agreeable to do PT Patient Goals Pt hopes to return home tomorrow Therapy Pain Assessment Pain When Pain Assessed During Mobility Pain Present Pain Present Allowed to Sleep Location Abdomen Intensity 2 Scale Used Numeric (0 - 10) M4 PT-IP Mobility and Gait Start: 05/14/22 14:06 Freq: NEEDED Status: Active Protocol: Document 05/15/22 16:18 AW (Rec: 05/15/22 17:08 AW [id number]) PT-Bed Mobility Assessment Rolling Type of Rolling Log Rolling Level of Assist Standby Assistance Supine to Sit Supine to Sit Standby Assistance Scooting Scooting to Edge of Bed Standby Assistance PT-Transfer Assessment Sit to and From Stand Sit to and from Stand Standby Assistance,1 Person Assistance,Use of Upper Extremities Equipment Transfer Assistive Device Gait Belt,Front Wheeled Walker Orthotic/Prosthetic Devices or Brace: No Transfers Transfer Destination Bed,Toilet Transfer Technique pt ambulated with FWW Comments Mobility Comments Pt completed log roll to his right side SBA and stood from the bed. Using FWW, he ambulated the halls a total of 180 feet SBA. Gait was notable for slight forward lean at the hips but pt responded well to cues for upright posture. He completed stairs assessment before returning to the room. He used the toilet, transferring SBA, and then sat EOB to make some phone calls. Gait Assessment Gait Gait Assistance Required: Standby Assistance Distance (Feet) 180 Able to Maintain Weight Bearing Status Yes During Gait Assistive Devices Assistive Device Gait Belt,Front Wheeled Walker Gait Deviations General Gait Pattern Decreased Stride Length, Decreased Feet Clearance, Flexed Trunk,Step-to Gait Factors Limiting Gait Function Factors Limiting Gait Function Decreased Activity Tolerance, Decreased Strength,Limited Range of Motion,Pain,Poor Safety Awareness Comments Gait Comments See mobility comments for details. Stair Climbing Assessment Evaluation Level of Assist On Stairs Standby Assistance Devices Stair Climbing Assistive Devices Left Railing,Right Railing Technique/Endurance Stair Climbing Direction Ascend and Descend Stair Climbing Technique Step Over Step Number of Steps Climbed 10 Stair Climbing Set # Repetitions (reps) 1 Comments Stair Climbing Comments Pt descended and ascended ICU stairs with B rails SBA. M5 PT-IP Objective Assessments Start: 05/14/22 14:06 Freq: NEEDED Status: Active Protocol: Document 05/14/22 13:35 AB (Rec: 05/14/22 14:16 AB [id number]) Orientation Orientation/Cognition Level of Alertness Alert Orientation Name,Place,Situation Language Function Ability No Deficits Noted Safety Awareness Understands Safety Issues Memory Description No Deficits Noted Gross Range of Motion Lower Extremity ROM Assessment Within Functional Limits Strength Lower Extremity Strength Assessment Within Functional Limits Coordination Assessment Gross Coordination Gross Coordination WNL Sensation Assessment Sensation Gross Sensation WNL Muscle Tone Muscle Tone WNL Yes M6 PT-IP Treatment Start: 05/14/22 14:06 Freq: NEEDED Status: Active Protocol: Document 05/15/22 16:18 AW (Rec: 05/15/22 17:08 AW [id number]) Physical Therapy Treatment Education Education Provided Precautions,Safety M7 PT-IP Assessment and Plan Start: 05/14/22 14:06 Freq: NEEDED Status: Active Protocol: Document 05/15/22 16:18 AW (Rec: 05/15/22 17:08 AW [id number]) PT Summary Assessment and Plan Summary Impairments Pain,ROM,Strength,Balance, Coordination,Sensation,Tone, Cognition,Bed Mobility, Transfers,Gait,Activity Tolerance Progress Towards Goals Progressing Toward Goals Assessment Summary Pt requiring only SBA today with all mobilities including stair navigation. Pt plans to go home with spouse assist. Pt would benefit from HH vs OP PT to progress strength and mobility independence. Goals Bed Mobility Goal Independent Transfer Goal Independent,Front Wheeled Walker Gait Goal Independent,Front Wheel Walker Gait Distance 200 Other Goals improve ambulation SPC/without AD 300 ft SBA up/down 3 steps B rails SBA Days to Meet Goals 10 Frequency of Treatment Frequency Of Treatment Once a Day Treatment Plan Physical Therapy Treatment Plan Bed Mobility Training,Transfer Training,Gait Training, Therapeutic Exercise,Balance Retraining,Post Op Education, Discharge Planning,Hot or Cold Pack,Neuromuscular Re-ed, Coordination Retraining,Manual Therapy Precautions Abdominal Surgery Precautions Log Roll,Lifting Restrictions, Gait Belt above Incisional Area Recommendations To Nursing Amount of Assist Needed Standby Assistance Discharge Recommendations PT Discharge Recommendations Home with Assistance, Outpatient PT Equipment Needed for Home Before FWW if not safe with SPC/ Discharge without AD Transportation Needs at Discharge Private Vehicle
[2022-05-15] MEDS: AMLODIPINE 5 MG TABLET 10 MG PO (21:06)
[2022-05-16 01:00] VITALS: BP 152/67; PULSE 63; RESP 14; TEMP 37.1; O2SAT 92
[2022-05-16] MEDS: PIPERACILLIN/TAZO 3.375 GM in SODIUM CHLORIDE 0.9% 100 ML IV (03:08)
[2022-05-16 03:20] VITALS: BP 145/67; PULSE 73; RESP 16; O2SAT 93
[2022-05-16 05:14] LABS: Add Manual Diff / Slide Review NO; Basophils Absolute Auto 0 /uL (0-100); Basophils Percent Auto 0.3 % (0-2); Eosinophils Absolute Auto 100 /uL (0-450); Eosinophils Percent Auto 1.3 % (2-4); Hematocrit 22.9 % (41-53); Hemoglobin 7.1 g/dL (13.5-17.5); Lymphocytes Absolute Auto 700 /uL (1100-4500); Lymphocytes Percent Auto 5.5 % (25-40); Mean Corpuscular HGB Conc 30.9 % (30-36); Mean Corpuscular Hemoglobin 24.7 PG (26-34); Mean Corpuscular Volume 80.1 fL (80-100); Monocytes Absolute Auto 600 /uL (0-900); Monocytes Percent Auto 4.9 % (3-14); Neutrophils Absolute Auto 10400 /uL (1500-7000); Platelet Count 169 X10^3/uL (150-400); Red Blood Cell Count 2.86 X10^6/uL (4.5-5.9); Red Cell Distribution Width 19.2 % (11.6-14.8); White Blood Cell Count 11.8 X10^3/uL (4.5-11.0)
--- NOTE | 2022-05-16 08:28 | PC.RNWOUND ---
Patient sitting up in bed eating breakfast. Patient is given three appliance changes to take home to use as needed around home health coming out, verbalizes understanding of ostomy care instructions already given and denies any questions at this time.
[2022-05-16 09:00] VITALS: BP 161/70; PULSE 69; RESP 26; TEMP 35.7; O2SAT 95
[2022-05-16 09:25] VITALS: BP 145/67; PULSE 73
[2022-05-16] MEDS: carvediloL 12.5 MG TABLET 25 MG PO (09:25)
[2022-05-16] MEDS: CELECOXIB 200 MG CAPSULE PO (09:25)
[2022-05-16] MEDS: PRENATAL VIT,CALC/IRON/FOLIC 1 TABLET 1 TAB PO (09:25)
[2022-05-16] MEDS: GABAPENTIN 300 MG CAPSULE PO (09:25)
[2022-05-16] MEDS: AMOXICILLIN/CLAV 875/125 MG 1 TAB PO (09:25)
[2022-05-16] MEDS: ENOXAPARIN 40 MG/0.4 ML SYRINGE SUBCUT (09:25)
[2022-05-16] MEDS: SODIUM CHLORIDE 0.9% FLUSH 10 ML IV (09:27)
--- NOTE | 2022-05-16 10:51 | CM.DPC ---
DCP Discharge Home with HH Per Surgeon, pt medically stable to d/c home today with no ostomy and will be bedside later this AM and agreeable with signing F2F for HH RN for new ostomy and wound care. PEG placed F2F on pt chart for signature and referral faxed yesterday to [facility]. SW spoke to Wound RN Shabnam and she confirms that she already completed teaching with pt and provided a couple days worth of supplies and comfortable with plan of home with HH. PEG also placed FWW orders per PT request. PT recommending home with assist and HH vs Outpt PT. Plan: SW following for Surgeon signature on F2F and then to fax F2F, HH orders, and d/c summary to [facility] today for discharge home today. KIM Manzanares
--- NOTE | 2022-05-16 11:28 | PT-IP ANOTE ---
Cleared with RN to see pt (H&H low) - pt declined PT. Offered FWW DME which pt declined stating he has a walker at home.
--- NOTE | 2022-05-16 11:53 | PC.NURSE ---
Pt is dressed and ready for discharge home with Family Member. IV has been removed. Home Health has been set up for Pt and they will be contacting Pt to set up visits. Went over d/c instructions-discussed d/c meds, time of last dose, reviewed stroke education, no lifting greater than 15 pounds, observe surgical site for signs of infection, drink plenty of fluids to prevent constipation or dehydration, no driving while on narcotics, and follow up as directed. Pt denied further questions and was taken out via w/c by RN to pov with family member and all belongings.
--- NOTE | 2022-05-16 15:28 | P.DS_ITS ---
History of Present Illness History of Present Illness Date Patient Seen: 05/16/22 Time Patient Seen: 11:00 Chief complaint: INPT Narrative: S/p Angelo's and port a cath placement. No complications post op. Pathology still pending. Anemia of chronic disease. Discharge Providers Provider Date of admission: 05/11/22 06:24 Discharge Date: 05/16/22 Primary care physician: Zak Peace MD Consults: 05/11/22 07:03 Consult to Respiratory Therapy Evaluate & Treat Comment: Physician Instructions: Evaluate and treat 05/11/22 15:44 Consult to Respiratory Therapy Evaluate & Treat Comment: Physician Instructions: Evaluate and treat 05/12/22 13:19 Consult to Inpatient Wound Care Nurse Routine Comment: Reason for consultation: new colostomy 05/12/22 17:20 Consult to Home Health Routine Comment: Reason For Exam: colostomy 05/14/22 10:12 Consult to Physical Therapy Evaluate & Treat Comment: weakness Physician Instructions: Evaluate and Treat 05/16/22 10:39 Consult to Home Health Routine Comment: new colostomy, metastatic colon cancer Reason For Exam: FWW for home use Discharge provider: Jud Romero MD Summary Hospital Course Discharge Diagnosis: Gross appearance of metastatic colon cancer. locally advance as well as liver mets. Pathology pending. Anemia of chronic disease Hospital Course: S/p Angelo's and port a cath placement. No complications post op. Needs H/h for continued colostomy and port care teaching MVI w iron for anemia 5 days Augmentin for leukocytosis postop w/o etiology that resolved with antibiotics No heavy lifting for 2 weeks Status at Discharge Cognitive/behavioral status at discharge: at baseline, oriented Functional status at discharge: independent ambulation Overall status at discharge: patient is progressing back to baseline Time Spent with Patient Time spent: Less than 30 minutes Exam Vital Signs (past 8 hours): - 05/16/22 09:25 05/16/22 09:00 Temperature 96.3 F L Pulse Rate 73 69 Respiratory Rate 26 H Blood Pressure 145/67 H 161/70 H Pulse Oximetry 95 Oxygen Flow Rate 0 Oxygen Delivery Method Nasal Cannula Oxygen Flow Rate 0 Narrative Exam Narrative: Wound intact w/o infection. Stoma is healthy and functioning. Port site normal. Minimal pain. Objective Labs Result Diagrams: 05/16/22 04:45 05/12/22 04:59 Labs: Laboratory Results - last 24 hr 05/16/22 04:45 WBC 11.8 H RBC 2.86 L Hgb 7.1 L Hct 22.9 L MCV 80.1 MCH 24.7 L MCHC 30.9 RDW 19.2 H Plt Count 169 Neut % (Auto) 88.0 H Lymph % (Auto) 5.5 L [place] % (Auto) 4.9 Eos % (Auto) 1.3 L Baso % (Auto) 0.3 Neut # (Auto) 31461 H Lymph # (Auto) 700 L [place] # (Auto) 600 Eos # (Auto) 100 Baso # (Auto) 0 PFSH Medical History (Updated 05/12/22 @ 16:10 by Maik Bowman MD) BPH (benign prostatic hyperplasia) Chronic atrial fibrillation Claudication Enlarged prostate Hemorrhoids Lower extremity pain Lumbar spine pain Numbness of foot Urinary incontinence Surgical History (Updated 05/04/22 @ 13:19 by Teri De La Cruz RN) History of vasectomy Hx of bilateral cataract extraction Hx of vascular surgery (04/11/22) Presence of cardiac pacemaker (11/24/11) Family History Father Pneumonia Mother Hypertension Social History marital status: household members: spouse occupational status: previously employed Smoking Status: Current every day smoker quit status: not considering quitting second hand exposure: No alcohol intake: former substance use type: does not use Discharge Assessment & Plan Assessment and Plan Assessment: s/p angelo's and port a cath placement. Awaiting final pathology Plan of Treatment: Home with H/H, follow up [place] 1-2 weeks. No restrictions on diet but needs high protein MVI w iron No heavy lifting for 2-4 weeks Discharge Plan Discharge Plan Patient Disposition: Home Provider Discharge Comment: after colostomy teaching is complete Discharge orders & Medications Prescriptions: New celecoxib [Celebrex] 200 mg Capsule 200 mg PO BID Qty: 10 0RF amoxicillin-pot clavulanate 875-125 mg Tablet 1 tab PO BID Qty: 10 0RF Prenatabs Rx 29 mg iron- 1 mg Tablet 1 tab PO DAILY Qty: 30 0RF oxycodone 5 mg tablet 5 mg PO Q4H PRN (Reason: pain) Qty: 20 0RF Continued acetaminophen [Tylenol Arthritis Pain] 650 mg tablet extended release 650 mg PO Q6H PRN (Reason: pain) amlodipine 10 mg tablet 10 mg PO BEDTIME carvedilol 25 mg tablet 25 mg PO BID Rx Instructions: must administer with a meal/food aspirin 81 mg Tablet,Delayed Release (Dr/Ec) 81 mg PO DAILY Discontinued neomycin 500 mg tablet 1 g PO TID Qty: 6 0RF Rx Instructions: administer at 1 PM, 2 PM, and 10 PM the day prior to surgery metronidazole 500 mg tablet 500 mg PO TID Qty: 3 0RF Rx Instructions: administer at 1 PM, 2 PM, and 10 PM the day prior to surgery Follow up/Referrals: Maik Bowman MD [Physician] - Zak Peace MD [Primary Care Provider] - Diet/Activity/Treatments Diet: Diet as Tolerated Activity: no lifting greater than 15 lbs for 2 weeks Skin/Wound/Dressing Care Dressing: may remove dressing and replace for comfort or drainage Visit Report/Discharge Packet Instructions: DI for Colectomy, DI for Prescription Opioid Use, Oxycodone, DI for Implanted Venous Access Port, [facility]: Wound Care Stand Alone Forms: Surgery Discharge Discharge Data Primary Care Provider: Zak Peace
== END 2022-05-16 11:58 | disposition home health service (06) | DRG 330 ==
LOC: AC 08:00 → ICU 08:48
PROVIDERS: Surgery; Admitting Provider Surgery; PCP Family Medicine; Referring Provider Surgery; Visit Provider Surgery
PROC: 0DTN0ZZ Resection of Sigmoid Colon, Open Approach (ICD-10-PCS; CPT 44140; principal; 2022-05-11 07:45)
PROC: 0DTN0ZZ Resection of Sigmoid Colon, Open Approach (ICD-10-PCS; 2022-05-11 07:45)
DX: C18.7 Malignant neoplasm of sigmoid colon (principal); C78.7 Secondary malignant neoplasm of liver and intrahepatic bile duct; I48.20 Chronic atrial fibrillation, unspecified; D63.0 Anemia in neoplastic disease; I10 Essential (primary) hypertension; F17.200 Nicotine dependence, unspecified, uncomplicated; N40.0 Benign prostatic hyperplasia without lower urinary tract symptoms; Z20.822 Contact with and (suspected) exposure to COVID-19
CPT/HCPCS: 00790; 36415; 36561; 44139; 44146; 47000; 71045; 76000; 80048; 85025; 87635; 87797; 94762; 97116; 97161; 99406; C9803; C1788; J0295; J1170; J1644; J1650; J2250; J2405; J2543; J2704; J3010

== ENCOUNTER 2022-08-14 08:29 | Inpatient (IN) | payer MEDICARE, OTHER, SELFPAY ==
[2022-05-11 06:34] VITALS: BMI 23.9
[2022-08-14] VITALS (27 sets, daily range): BP systolic 121–199; BP diastolic 42–88; PULSE 59–107; RESP 15–22; TEMP 35.8–37.7; O2SAT 98–100; BMI 23.1
--- NOTE | 2022-08-14 09:13 | ED.GIBLEED ---
HPI - GI Bleed General Chief complaint: GI Bleed Stated complaint: colstomy bag is filling w/blood Time Seen by Provider: 08/14/22 09:07 Source: patient Mode of arrival: Ambulatory Limitations: no limitations History of Present Illness HPI Narrative: This is an 82-year-old male who has known colon cancer. Patient has had chemotherapy, he is had colostomy he did not have radiation. He has also medication for hypertension and has a pacemaker. Patient presents today with 24 hours of black stool with small amounts of dark red. Patient states no syncope, occasional dizziness but he states that is normal for him when he stands up too quickly, no chest pain, no shortness of breath, no nausea or vomiting. He feels like his stool output has a little bit increased it is black and discoloration, patient denies any dysuria urgency or frequency. He notes that he just started a new medication, Plavix and has had 3 doses. He is on aspirin daily, Plavix, amlodipine and carvedilol. Patient did have some bleeding in the past he had a video scope and was found to have some blood vessels in his stomach at that time. Patient states Dr. Peace is his primary care, Dr. Massey is his oncologist and Dr. Bowman did his colostomy here at [facility]. Patient has had blood transfusions in the past. Related Data Home Medications Medication Instructions Recorded Confirmed acetaminophen 650 mg 650 mg PO QPM PRN Pain (Scale 07/15/19 08/14/22 tablet,extended release (Tylenol Score 1-3) Arthritis Pain) amlodipine 10 mg tablet 10 mg PO BEDTIME 04/19/21 08/14/22 carvedilol 25 mg tablet 25 mg PO BID 04/19/21 08/14/22 aspirin 81 mg tablet,delayed 81 mg PO DAILY 05/04/22 08/14/22 release Previous Rx's Medication Instructions Recorded fluorouracil 2.5 gram/50 mL See Rx Instructions .Route 05/30/22 intravenous solution .COMPLEX CHEMOTHERAPY #1 device lidocaine-prilocaine 2.5 %-2.5 % 1 applic topical PRN PRN 06/08/22 topical cream Port/Catheter Care #300 grams fluorouracil 2.5 gram/50 mL See Rx Instructions .Route 06/20/22 intravenous solution .COMPLEX CHEMOTHERAPY #1 device fluorouracil 2.5 gram/50 mL See Rx Instructions .Route 07/11/22 intravenous solution .COMPLEX CHEMOTHERAPY #1 device fluorouracil 2.5 gram/50 mL See Rx Instructions .Route 07/25/22 intravenous solution .COMPLEX CHEMOTHERAPY #1 device fluorouracil 2.5 gram/50 mL See Rx Instructions .Route 08/08/22 intravenous solution .COMPLEX CHEMOTHERAPY #1 device Allergies Allergy/AdvReac Type Severity Reaction Status Date / Time Penicillins [PENICILLINS] Allergy Mild RASH Verified 05/23/22 16:12 Review of Systems Review of Systems ROS Unobtainable: All systems reviewed & are unremarkable except as noted in HPI and below Patient History Medical History BPH (benign prostatic hyperplasia) Chronic atrial fibrillation Claudication Enlarged prostate Hemorrhoids Lower extremity pain Lumbar spine pain Numbness of foot Urinary incontinence Surgical History History of vasectomy Hx of bilateral cataract extraction Hx of vascular surgery (04/11/22) Presence of cardiac pacemaker (11/24/11) Family History Father Pneumonia Mother Hypertension Social History marital status: household members: spouse occupational status: previously employed Smoking Status: Current every day smoker quit status: not considering quitting second hand exposure: No alcohol intake: former substance use type: does not use Smoking Status: Current every day smoker alcohol intake frequency: holidays/special occasions only Substance Use Type: does not use Exam Narrative Exam Narrative: GENERAL: Alert and oriented x three, male in mild distress. Patient does appear pale. HEENT: Head normocephalic, atraumatic, EOMI, pupils reactive, face symmetric, moist mucous membranes NECK: Supple, full range of motion CARDIOVASCULAR: Regular rate and rhythm without murmurs, rubs or gallops. RESPIRATORY: Breath sounds equal bilaterally, no wheezes rales or rhonchi. Patient has colostomy on the left lower, there is blackish discolored stool which is guaiac positive no bright red blood or large clots. ABDOMEN: Soft, nontender. Normoactive bowel sounds all 4 quadrants. No guarding or rebound, rigidity, no mass : No CVA tenderness EXTREMITIES: Normal range of motion, no clubbing or edema. Neurovascularly intact NEUROLOGICAL: Cranial nerves II through XII grossly intact. Moving all extremities SKIN: Warm, dry, no petechiae, no rashes or lesions. Initial Vital Signs Initial Vital Signs: Vital Signs Temperature 97.6 F 08/14/22 08:30 Pulse Rate 106 H 08/14/22 08:30 Respiratory Rate 18 08/14/22 08:30 Blood Pressure 196/81 H 08/14/22 08:30 Pulse Oximetry 100 08/14/22 08:30 Oxygen Delivery Method 08/14/22 08:30 Course Orders Ordered: ED Orders 08/14/22 08:45 CBC Auto Diff [Complete Blood Count AUTO DIFF] Stat CMP [Comprehensive Metabolic Panel] Stat Lactate (Lactic Acid) Stat Lipase Stat PRBC [Packed Cells] Stat Type and Screen Stat 08/14/22 08:48 COVID19 -Nasal RAPID/Pre-Proc Stat 08/14/22 09:14 CT abdomen pelvis w con Stat Carvedilol (Carvedilol 12.5 Mg Tablet) 25 mg PO BID [facility] Last Admin: 08/14/22 12:25 Dose: 25 mg Documented By: EM Discontinued Medications Sodium Chloride (Normal Saline 0.9%) 1,000 mls @ 1,000 mls/hr IV BOLUS ONE Stop: 08/14/22 10:13 Last Infusion: 08/14/22 10:58 Dose: 0 mls/hr Documented By: Admin: 08/14/22 09:40 Dose: 1,000 mls/hr Documented By: JUANA(2) Pantoprazole Sodium (Pantoprazole 40 Mg Vial) 80 mg IV NOW ONE Stop: 08/14/22 09:30 Last Admin: 08/14/22 09:38 Dose: 80 mg Documented By: JUANA(2) Pantoprazole Sodium (Pantoprazole 40 Mg Vial) 40 mg IV DAILY [facility] Consultations Consultation #1: Dr. Romero, will see patient. Reviewed recent medical issues and current findings. Being transfused but appears hemodynamically stable at the moment. Plan for admisison to medicine. Time: 10:33 Consultation #2: Dr. Umanzor, accepts for admission. Vital Signs Vital signs: Vital Signs - 8 hr 08/14/22 08:30 08/14/22 08:36 08/14/22 08:37 Temperature 97.6 F Pulse Rate 106 H 107 H 102 H Respiratory Rate 18 Blood Pressure 196/81 H Pulse Oximetry 100 100 100 Oxygen Delivery Method Room Air 08/14/22 08:37 08/14/22 09:00 08/14/22 09:01 Temperature Pulse Rate 87 Respiratory Rate Blood Pressure 196/81 H 167/75 H Pulse Oximetry 99 Oxygen Delivery Method 08/14/22 09:01 08/14/22 09:30 08/14/22 09:30 Temperature Pulse Rate 80 78 Respiratory Rate Blood Pressure 175/73 H Pulse Oximetry 99 100 Oxygen Delivery Method 08/14/22 09:41 08/14/22 09:41 08/14/22 09:44 Temperature Pulse Rate 78 75 Respiratory Rate Blood Pressure 170/74 H Pulse Oximetry 99 99 Oxygen Delivery Method 08/14/22 09:45 08/14/22 10:21 08/14/22 10:38 Temperature 97.0 F L 100 F H Pulse Rate 74 74 Respiratory Rate 18 18 Blood Pressure 185/84 H 184/79 H 170/74 H Pulse Oximetry Oxygen Delivery Method 08/14/22 10:38 08/14/22 09:45 08/14/22 10:00 Temperature 97.4 F L Pulse Rate 75 78 80 Respiratory Rate 20 17 Blood Pressure 170/76 H Pulse Oximetry 100 100 Oxygen Delivery Method 08/14/22 10:01 08/14/22 10:01 08/14/22 10:16 Temperature Pulse Rate 79 Respiratory Rate 15 Blood Pressure 195/79 H 199/81 H Pulse Oximetry 100 Oxygen Delivery Method 08/14/22 10:16 08/14/22 10:22 08/14/22 10:22 Temperature Pulse Rate 76 75 Respiratory Rate 15 16 Blood Pressure 184/79 H Pulse Oximetry 100 100 Oxygen Delivery Method 08/14/22 10:30 08/14/22 10:30 Temperature Pulse Rate 75 Respiratory Rate 21 Blood Pressure 182/79 H Pulse Oximetry 100 Oxygen Delivery Method MDM - GI Bleed Lab Data Result diagrams: 08/14/22 08:45 08/14/22 08:45 Labs: Lab Results 08/14/22 08/14/22 08/14/22 Range/Units 08:45 08:45 08:45 WBC 5.7 (4.5-11.0) X10^3/uL RBC 2.28 L (4.5-5.9) X10^6/uL Hgb 5.8 L* (13.5-17.5) g/dL Hct 18.6 L* (41-53) % MCV 81.2 (80-100) fL MCH 25.3 L (26-34) PG MCHC 31.2 (30-36) % RDW 22.3 H (11.6-14.8) % Plt Count 253 (150-400) X10^3/uL Neut % (Auto) 66.9 (50-75) % Lymph % (Auto) 17.6 L (25-40) % Mineral % (Auto) 13.4 (3-14) % Eos % (Auto) 1.3 L (2-4) % Baso % (Auto) 0.8 (0-2) % Neut # (Auto) 3800 (7398-6989) /uL Lymph # (Auto) 1000 L (1622-0314) /uL Mineral # (Auto) 800 (0-900) /uL Eos # (Auto) 100 (0-450) /uL Baso # (Auto) 0 (0-100) /uL RBC Morphology See below Anisocytosis 1+ H Sodium 138 (137-145) mmol/L Potassium 3.9 (3.4-5.1) mmol/L Chloride 106 (98-107) mmol/L Carbon Dioxide 22 (22-32) mmol/L BUN 20 (9-20) mg/dL Creatinine 1.21 (0.66-1.25) mg/dL Estimated GFR > 60 (>60) mL/min BUN/Creatinine Ratio 16.5 (6-22) Glucose 116 H (80-110) mg/dL Lactate 1.5 (0.7-2.1) mmol/L Calcium 8.1 L (8.4-10.2) mg/dL Total Bilirubin 0.2 (0.2-1.3) mg/dL AST 22 (17-59) IU/L ALT 13 (<50) IU/L Alkaline Phosphatase 137 H (38-126) U/L Total Protein 7.0 (6.3-8.2) g/dL Albumin 3.3 L (3.5-5.0) g/dL Globulin 3.7 (1.7-4.1) g/dL Albumin/Globulin Ratio 0.9 L (1.0-2.8) Lipase 276 (23-300) U/L SARS-CoV-2 (PCR) (Negative) Blood Type Antibody Screen Crossmatch 08/14/22 08/14/22 Range/Units 08:45 08:48 WBC (4.5-11.0) X10^3/uL RBC (4.5-5.9) X10^6/uL Hgb (13.5-17.5) g/dL Hct (41-53) % MCV (80-100) fL MCH (26-34) PG MCHC (30-36) % RDW (11.6-14.8) % Plt Count (150-400) X10^3/uL Neut % (Auto) (50-75) % Lymph % (Auto) (25-40) % Mineral % (Auto) (3-14) % Eos % (Auto) (2-4) % Baso % (Auto) (0-2) % Neut # (Auto) (4700-8939) /uL Lymph # (Auto) (2728-0842) /uL Mineral # (Auto) (0-900) /uL Eos # (Auto) (0-450) /uL Baso # (Auto) (0-100) /uL RBC Morphology Anisocytosis Sodium (137-145) mmol/L Potassium (3.4-5.1) mmol/L Chloride (98-107) mmol/L Carbon Dioxide (22-32) mmol/L BUN (9-20) mg/dL Creatinine (0.66-1.25) mg/dL Estimated GFR (>60) mL/min BUN/Creatinine Ratio (6-22) Glucose (80-110) mg/dL Lactate (0.7-2.1) mmol/L Calcium (8.4-10.2) mg/dL Total Bilirubin (0.2-1.3) mg/dL AST (17-59) IU/L ALT (<50) IU/L Alkaline Phosphatase (38-126) U/L Total Protein (6.3-8.2) g/dL Albumin (3.5-5.0) g/dL Globulin (1.7-4.1) g/dL Albumin/Globulin Ratio (1.0-2.8) Lipase (23-300) U/L SARS-CoV-2 (PCR) Negative (Negative) Blood Type B Positive Antibody Screen Negative Crossmatch See Detail Point of Care Testing Stool Occult Blood Positive Imaging Data CT scan - abdomen/pelvis: Radiologist's Impression: Close Abdomen/Pelvis CT (Signed) Helio Grande - 08/14/22 Launch?Image [address] [address] [address] Scan Report Signed Patient: Peter Villareal MR#: [id number] : 1940 Acct:[id number] Age/Sex: 82 / M Date of Service: 08/14/22 Loc: ED Accession Number: [id number] ?? Procedure: CT abdomen pelvis w con Ordering Provider: Vita Akers D.O. PROCEDURE:? CT ABDOMEN PELVIS W CON ? INDICATIONS:? bleeding into colstomy, hx colon ca ? TECHNIQUE:? After the administration of oral and IV contrast, axial sections were acquired from the lung bases to the pubic symphysis.? Coronal and sagittal reformats were performed.? For radiation dose reduction, the following was used:? automated exposure control, adjustment of mA and/or kV according to patient size. ? COMPARISON:? [facility], CT, CT ABDOMEN PELVIS WO CON, 04/21/2022, 9:19.? [facility], CT, CT ABDOMEN PELVIS W CON, 03/30/2022, 17:06.? [facility], CT, CT ABDOMEN PELVIS W CON, 04/29/2022, 12:54. ? FINDINGS:? Image quality:? Excellent.? ? Lung bases:? Unremarkable.? ? Heart:? No significant findings. ? ? ABDOMEN: Liver:? Numerous liver metastases are seen, which are similar to the 04/29/2022 examination. Gallbladder:? A gallstone is seen within the gallbladder.? ? Biliary ducts:? Unremarkable.? ? Pancreas:? Unremarkable.? ? Spleen:? Unremarkable.? ? Adrenal Glands:? Unremarkable.? ? Kidneys and Ureters:? The right kidney is atrophic.? The left kidney demonstrates simple appearing cysts.? No hydronephrosis is seen on either side. ? Stomach and Bowel:? There is a distal colectomy, with a left-sided colostomy.? No colonic masses or focal inflammatory change is seen to explain the patient's presenting history of bleeding into the colostomy. Colonic diverticulosis is seen, without findings of active diverticulitis. No dilated loops of small bowel are seen. The stomach is relatively decompressed Peritoneum:? No abnormal intraperitoneal fluid.? No free air.? ? Ventral Wall: ? No hernia.? Abdominal Nodes:? No retroperitoneal or mesenteric adenopathy by size criteria.? Vessels:? Aorta and inferior vena cava are normal in size.? Atherosclerotic calcification and irregularity can be seen.? Mural thrombus is seen involving the distal aorta, with approximately 50% luminal narrowing, as on series 2, image 35. There is a patent left common iliac stent. ? PELVIS: Pelvic Organs:? Unremarkable.? ? Bladder:? Unremarkable.? ? Pelvic Nodes: No enlarged lymph nodes.? Miscellaneous: No inguinal hernias are seen. ? ? Postoperative change of the left groin is seen.? The previously seen left groin seroma has resolved. ? Bones:? Focal L5-S1 degenerative change is seen.? Milder degenerative changes are seen elsewhere.? ? ? IMPRESSION:? No imaging explanation is found for this patient's presenting symptoms.? ? Distal colectomy with left-sided colostomy. ? Numerous stable liver metastases are seen. ? Approximately 50% narrowing seen of the distal aorta.? ? ? Incidental note is made of: Gallstone Atrophic right kidney Simple left renal cysts Patent left common iliac stent Diverticulosis, without active diverticulitis Focal L5-S1 degenerative change Postoperative change of the left groin ? Dictated by: Helio Grande M.D. on 08/14/2022 at 9:03 ? ? Approved by: Helio Grande M.D. on 08/14/2022 at 9:09?? [facility] Narrative Medical decision making narrative: This is an 82-year-old male who presents with melanotic stools from his colostomy bag 3 days after starting Plavix. Patient states he was started on Plavix for vascular issues in his legs and is supposed to follow-up to have a stent placed in his leg to open up 1 of the vessels. Patient's hemoglobin today is in the 5 range he was most recently in the 7, slice asymptomatic with dizziness, he is not hypotensive or tachycardic at this time. Suspect be on aspirin Plavix combination increase his likelihood for bleed he is never had an EGD but had video camera in the past which showed possible vessels in his stomach. Plan for CT abdomen pelvis as patient has had a colostomy and has known colon cancer to check for any obvious bleeding lesions or changes. He currently appears to be hemodynamically stable at the moment. Critical Care Time Critical Care Time Critical Care Time: Yes Total Critical Care Time: 25 Attestation: The high probability of a clinically significant, sudden or life threatening deterioration of the [] system(s) required my full and direct attention, intervention and personal management. The aggregate critical care time was [] minutes. This time is in addition to time spent performing reported procedures but includes the following: [x] Data Review and interpretation [x] Patient assessment and monitoring of vital signs [x] Documentation [x] Medication orders and management Discharge Plan Departure Patient Disposition: Admitted As Inpatient Clinical Impression: GI bleed, Symptomatic anemia, Malignant neoplasm metastatic to colon Admit Date/Time: 08/14/22 10:38 Admit Provider: Mario Gray
--- NOTE | 2022-08-14 09:14 | DI.CT.S_ITS ---
PROCEDURE: CT ABDOMEN PELVIS W CON INDICATIONS: bleeding into colstomy, hx colon ca TECHNIQUE: After the administration of oral and IV contrast, axial sections were acquired from the lung bases to the pubic symphysis. Coronal and sagittal reformats were performed. For radiation dose reduction, the following was used: automated exposure control, adjustment of mA and/or kV according to patient size. COMPARISON: [facility], CT, CT ABDOMEN PELVIS WO CON, 04/21/2022, 9:19. [facility], CT, CT ABDOMEN PELVIS W CON, 03/30/2022, 17:06. [facility], CT, CT ABDOMEN PELVIS W CON, 04/29/2022, 12:54. FINDINGS: Image quality: Excellent. Lung bases: Unremarkable. Heart: No significant findings. ABDOMEN: Liver: Numerous liver metastases are seen, which are similar to the 04/29/2022 examination. Gallbladder: A gallstone is seen within the gallbladder. Biliary ducts: Unremarkable. Pancreas: Unremarkable. Spleen: Unremarkable. Adrenal Glands: Unremarkable. Kidneys and Ureters: The right kidney is atrophic. The left kidney demonstrates simple appearing cysts. No hydronephrosis is seen on either side. Stomach and Bowel: There is a distal colectomy, with a left-sided colostomy. No colonic masses or focal inflammatory change is seen to explain the patient's presenting history of bleeding into the colostomy. Colonic diverticulosis is seen, without findings of active diverticulitis. No dilated loops of small bowel are seen. The stomach is relatively decompressed Peritoneum: No abnormal intraperitoneal fluid. No free air. Ventral Wall: No hernia. Abdominal Nodes: No retroperitoneal or mesenteric adenopathy by size criteria. Vessels: Aorta and inferior vena cava are normal in size. Atherosclerotic calcification and irregularity can be seen. Mural thrombus is seen involving the distal aorta, with approximately 50% luminal narrowing, as on series 2, image 35. There is a patent left common iliac stent. PELVIS: Pelvic Organs: Unremarkable. Bladder: Unremarkable. Pelvic Nodes: No enlarged lymph nodes. Miscellaneous: No inguinal hernias are seen. Postoperative change of the left groin is seen. The previously seen left groin seroma has resolved. Bones: Focal L5-S1 degenerative change is seen. Milder degenerative changes are seen elsewhere. IMPRESSION: No imaging explanation is found for this patient's presenting symptoms. Distal colectomy with left-sided colostomy. Numerous stable liver metastases are seen. Approximately 50% narrowing seen of the distal aorta. Incidental note is made of: Gallstone Atrophic right kidney Simple left renal cysts Patent left common iliac stent Diverticulosis, without active diverticulitis Focal L5-S1 degenerative change Postoperative change of the left groin Dictated by: Helio Grande M.D. on 08/14/2022 at 9:03 Approved by: Helio Grande M.D. on 08/14/2022 at 9:09
[2022-08-14 09:27] LABS: Add Manual Diff / Slide Review NO; Basophils Absolute Auto 0 /uL (0-100); Basophils Percent Auto 0.8 % (0-2); Eosinophils Absolute Auto 100 /uL (0-450); Eosinophils Percent Auto 1.3 % (2-4); Lymphocytes Absolute Auto 1000 /uL (1100-4500); Lymphocytes Percent Auto 17.6 % (25-40); Mean Corpuscular HGB Conc 31.2 % (30-36); Mean Corpuscular Hemoglobin 25.3 PG (26-34); Mean Corpuscular Volume 81.2 fL (80-100); Monocytes Absolute Auto 800 /uL (0-900); Monocytes Percent Auto 13.4 % (3-14); Neutrophils Absolute Auto 3800 /uL (1500-7000); Neutrophils Percent Auto 66.9 % (50-75); Platelet Count 253 X10^3/uL (150-400); Red Blood Cell Count 2.28 X10^6/uL (4.5-5.9); Red Cell Distribution Width 22.3 % (11.6-14.8); White Blood Cell Count 5.7 X10^3/uL (4.5-11.0)
[2022-08-14 09:29] LABS: Lactate (Lactic Acid) 1.5 mmol/L (0.7-2.1)
[2022-08-14 09:30] LABS: Alanine Aminotransferase 13 IU/L (<50); Albumin 3.3 g/dL (3.5-5.0); Albumin Globulin Ratio 0.9 (1.0-2.8); Alkaline Phosphatase 137 U/L (38-126); Aspartate Aminotransferase 22 IU/L (17-59); BUN Creatinine Ratio 16.5 (6-22); Bilirubin Total 0.2 mg/dL (0.2-1.3); Blood Urea Nitrogen 20 mg/dL (9-20); Calcium 8.1 mg/dL (8.4-10.2); Carbon Dioxide 22 mmol/L (22-32); Chloride 106 mmol/L (98-107); Estimated Glomerular Filt Rate > 60 mL/min (>60); Globulin 3.7 g/dL (1.7-4.1); Glucose 116 mg/dL (80-110); HEMOLYSIS < 15 (0-50); Hematocrit 18.6 % (41-53); Hemoglobin 5.8 g/dL (13.5-17.5); Lipase 276 U/L (23-300); Potassium 3.9 mmol/L (3.4-5.1); Sodium 138 mmol/L (137-145)
[2022-08-14] MEDS: PANTOPRAZOLE 40 MG VIAL 80 MG IV (09:38)
[2022-08-14] MEDS: SODIUM CHLORIDE 0.9% 1,000 ML 1000 ML IV (09:40)
[2022-08-14 10:08] LABS: Anisocytosis 1+
[2022-08-14 10:15] LABS: COVID19 -Nasal RAPID Negative (Negative)
--- NOTE | 2022-08-14 11:01 | PC.NURSE ---
Blood continues to transfuse upon transferring pt to acute care bed 216. Report given to Arlene @ 1100.
--- NOTE | 2022-08-14 11:47 | PM.HP.1 ---
History of Present Illness History of Present Illness Date Patient Seen: 08/14/22 Time Patient Seen: 11:48 Date of Onset of Symptoms: 08/13/22 Chief complaint: colstomy bag is filling w/blood Narrative: Patient is an 82-year-old male patient of Dr. Peace with recent diagnosis of metastatic colon cancer with colostomy in April. No other significant new complaints or problems. Patient was feeling relatively well has a longstanding history of anemia secondary to his chemotherapy. Has been getting transfusions intermittently. But has never had active bleeding. Apparently patient also was diagnosed with peripheral vascular disease this year had vascular procedure earlier this year. Recently saw his vascular surgeon who placed him on Plavix and baby aspirin. Patient had already been on aspirin. Patient had started the Plavix approximately 3 days ago and then noticed yesterday he was starting to have black probable blood. Had 3 episodes last night and came to the emergency room today. Drove himself. His overall feeling well. Having no abdominal pain. No nausea no vomiting no other changes. No fevers. Did have some chills but no other complaint. Urinary symptoms have been normal. No other changes. Patient History Medical History BPH (benign prostatic hyperplasia) Chronic atrial fibrillation Claudication Enlarged prostate Hemorrhoids Lower extremity pain Lumbar spine pain Numbness of foot Urinary incontinence Surgical History History of vasectomy Hx of bilateral cataract extraction Hx of vascular surgery (04/11/22) Presence of cardiac pacemaker (11/24/11) Family & Social History Family History Father Pneumonia Mother Hypertension Social History: household members spouse Safety & Behavioral: Feels Safe in Current Yes Environment Been Physically Hurt or No Threatened By a Person Tobacco & Substance use: Tobacco type cigarettes Smoking Status Current every day smoker alcohol intake former alcohol intake frequency holiday/special occasion Substance Use Type does not use Meds Home Medications and Allergies Home Medications Medication Instructions Recorded Confirmed Type acetaminophen 650 mg 650 mg PO Q6H PRN pain 07/15/19 08/08/22 History tablet,extended release (Tylenol Arthritis Pain) amlodipine 10 mg tablet 10 mg PO BEDTIME 04/19/21 08/08/22 History carvedilol 25 mg tablet 25 mg PO BID 04/19/21 08/08/22 History aspirin 81 mg tablet,delayed 81 mg PO DAILY 05/04/22 08/08/22 History release fluorouracil 2.5 gram/50 mL See Rx Instructions .Route 05/30/22 08/08/22 Rx intravenous solution .COMPLEX CHEMOTHERAPY #1 device lidocaine-prilocaine 2.5 %-2.5 % 1 applic topical PRN PRN 06/08/22 08/08/22 Rx topical cream Port/Catheter Care #300 grams fluorouracil 2.5 gram/50 mL See Rx Instructions .Route 06/20/22 08/08/22 Rx intravenous solution .COMPLEX CHEMOTHERAPY #1 device fluorouracil 2.5 gram/50 mL See Rx Instructions .Route 07/11/22 08/08/22 Rx intravenous solution .COMPLEX CHEMOTHERAPY #1 device fluorouracil 2.5 gram/50 mL See Rx Instructions .Route 07/25/22 08/08/22 Rx intravenous solution .COMPLEX CHEMOTHERAPY #1 device fluorouracil 2.5 gram/50 mL See Rx Instructions .Route 08/08/22 Rx intravenous solution .COMPLEX CHEMOTHERAPY #1 device Allergies Allergy/AdvReac Type Severity Reaction Status Date / Time Penicillins [PENICILLINS] Allergy Mild RASH Verified 05/23/22 16:12 Review of Systems Review of Systems Narrative: See above Exam Vital Signs (past 8 hours): - 08/14/22 08:30 08/14/22 08:36 08/14/22 08:37 Temperature 97.6 F Pulse Rate 106 H 107 H 102 H Respiratory Rate 18 Blood Pressure 196/81 H Pulse Oximetry 100 100 100 Oxygen Delivery Method Room Air 08/14/22 08:37 08/14/22 09:00 08/14/22 09:01 Temperature Pulse Rate 87 Respiratory Rate Blood Pressure 196/81 H 167/75 H Pulse Oximetry 99 Oxygen Delivery Method 08/14/22 09:01 08/14/22 09:30 08/14/22 09:30 Temperature Pulse Rate 80 78 Respiratory Rate Blood Pressure 175/73 H Pulse Oximetry 99 100 Oxygen Delivery Method 08/14/22 09:41 08/14/22 09:41 08/14/22 09:44 Temperature Pulse Rate 78 75 Respiratory Rate Blood Pressure 170/74 H Pulse Oximetry 99 99 Oxygen Delivery Method 08/14/22 09:45 08/14/22 10:21 08/14/22 10:38 Temperature 97.0 F L 100 F H Pulse Rate 74 74 Respiratory Rate 18 18 Blood Pressure 185/84 H 184/79 H 170/74 H Pulse Oximetry Oxygen Delivery Method 08/14/22 10:38 08/14/22 09:45 08/14/22 10:00 Temperature 97.4 F L Pulse Rate 75 78 80 Respiratory Rate 20 17 Blood Pressure 170/76 H Pulse Oximetry 100 100 Oxygen Delivery Method 08/14/22 10:01 08/14/22 10:01 08/14/22 10:16 Temperature Pulse Rate 79 Respiratory Rate 15 Blood Pressure 195/79 H 199/81 H Pulse Oximetry 100 Oxygen Delivery Method 08/14/22 10:16 08/14/22 10:22 08/14/22 10:22 Temperature Pulse Rate 76 75 Respiratory Rate 15 16 Blood Pressure 184/79 H Pulse Oximetry 100 100 Oxygen Delivery Method 08/14/22 10:30 08/14/22 10:30 08/14/22 10:41 Temperature Pulse Rate 75 75 Respiratory Rate 21 22 Blood Pressure 182/79 H Pulse Oximetry 100 100 Oxygen Delivery Method 08/14/22 10:41 08/14/22 10:45 08/14/22 10:45 Temperature Pulse Rate 73 Respiratory Rate 19 Blood Pressure 170/76 H 170/74 H Pulse Oximetry 100 Oxygen Delivery Method Oxygen Delivery Method Room Air Narrative Exam Narrative: Alert elderly male in no acute distress. Mucous membranes moist. Bulbar conjunctiva pale. Neck supple without adenopathy lungs are clear heart regular rate and rhythm abdomen with positive bowel sounds. No definitive tenderness or masses. Previous surgical scar in ostomy appears normal. Extremities normal. Neurologic exam unremarkable Objective Labs Result Diagrams: 08/14/22 08:45 08/14/22 08:45 Labs: Laboratory Results - last 24 hr 08/14/22 08/14/22 08/14/22 08:45 08:45 08:45 WBC 5.7 RBC 2.28 L Hgb 5.8 L* Hct 18.6 L* MCV 81.2 MCH 25.3 L MCHC 31.2 RDW 22.3 H Plt Count 253 Neut % (Auto) 66.9 Lymph % (Auto) 17.6 L [place] % (Auto) 13.4 Eos % (Auto) 1.3 L Baso % (Auto) 0.8 Neut # (Auto) 3800 Lymph # (Auto) 1000 L [place] # (Auto) 800 Eos # (Auto) 100 Baso # (Auto) 0 RBC Morphology See below Anisocytosis 1+ H Sodium 138 Potassium 3.9 Chloride 106 Carbon Dioxide 22 BUN 20 Creatinine 1.21 Estimated GFR > 60 BUN/Creatinine Ratio 16.5 Glucose 116 H Lactate 1.5 Calcium 8.1 L Total Bilirubin 0.2 AST 22 ALT 13 Alkaline Phosphatase 137 H Total Protein 7.0 Albumin 3.3 L Globulin 3.7 Albumin/Globulin Ratio 0.9 L Lipase 276 SARS-CoV-2 (PCR) Blood Type Antibody Screen Crossmatch 08/14/22 08/14/22 08:45 08:48 WBC RBC Hgb Hct MCV MCH MCHC RDW Plt Count Neut % (Auto) Lymph % (Auto) [place] % (Auto) Eos % (Auto) Baso % (Auto) Neut # (Auto) Lymph # (Auto) [place] # (Auto) Eos # (Auto) Baso # (Auto) RBC Morphology Anisocytosis Sodium Potassium Chloride Carbon Dioxide BUN Creatinine Estimated GFR BUN/Creatinine Ratio Glucose Lactate Calcium Total Bilirubin AST ALT Alkaline Phosphatase Total Protein Albumin Globulin Albumin/Globulin Ratio Lipase SARS-CoV-2 (PCR) Negative Blood Type B Positive Antibody Screen Negative Crossmatch See Detail Assessment & Plan Assessment & Plan narrative: GI bleed. Probably upper. Probably secondary to Plavix. Will place on Protonix. Dr. Romero consulted. Seems to have slowed down as per patient and will follow. NPO for now. Blood-loss anemia complicated by chronic anemia. Significantly low. 2 units given. Recheck hematocrit later this afternoon. After his 2 units given. Re-evaluate and decide at that point whether he needs more blood given some of which will be dictated by whether he continues to bleed. Patient understands. Questions answered. Metastatic colon cancer. Appears stable. Peripheral vascular disease. Will need to stop both his aspirin and his Plavix for now. Patient is stable and will follow. Hypertension. Blood pressure stable. Will hold Norvasc but add and continue metoprolol. DVT prophylaxis will use mechanics. Contraindicated at this time for medication treatment. Code status no code. Patient very comfortable with this decision. GI prophylaxis will be on Protonix. Disposition. Will depend on how quickly stops breathing and how quickly his hematocrit is stable. At least be here 24 hours. Maybe longer will see. Patient understands questions answered Time Spent With Patient Critical Care time: I spent a total of [] minutes of critical care time on this patient's care today; this time is exclusive of procedural time.
[2022-08-14] MEDS: carvediloL 12.5 MG TABLET 25 MG PO ×2 (12:25→20:34)
--- NOTE | 2022-08-14 12:48 | TAR.TRANSNT ---
patient vitals were already entered prev. for start of second transfusion. Step was skipped while verifying and beginning second unit.
[2022-08-14 17:14] LABS: Hematocrit 21.5 % (41-53)
--- NOTE | 2022-08-14 20:09 | PC.NURSE ---
Received call from lab stating there is no B+ blood available in lab until delivery tomorrow between [id number], but have O+. Notified Dr Waleska Gray of above, stated to wait on blood transfusion until we receive the B+ tomorrow, unless pt's condition worsens then call. Lab notified of MDs decision.
[2022-08-15] VITALS (15 sets, daily range): BP systolic 125–158; BP diastolic 45–78; PULSE 62–79; RESP 15–17; TEMP 35.9–37.2; O2SAT 97–100
[2022-08-15 06:13] LABS: Add Manual Diff / Slide Review NO; Basophils Absolute Auto 0 /uL (0-100); Basophils Percent Auto 0.8 % (0-2); Eosinophils Absolute Auto 100 /uL (0-450); Eosinophils Percent Auto 1.4 % (2-4); Hematocrit 21.5 % (41-53); Lymphocytes Absolute Auto 1100 /uL (1100-4500); Lymphocytes Percent Auto 25.6 % (25-40); Mean Corpuscular HGB Conc 32.1 % (30-36); Mean Corpuscular Hemoglobin 26.8 PG (26-34); Mean Corpuscular Volume 83.6 fL (80-100); Monocytes Absolute Auto 600 /uL (0-900); Monocytes Percent Auto 13.5 % (3-14); Neutrophils Absolute Auto 2500 /uL (1500-7000); Neutrophils Percent Auto 58.7 % (50-75); Platelet Count 185 X10^3/uL (150-400); Red Blood Cell Count 2.57 X10^6/uL (4.5-5.9); Red Cell Distribution Width 20.6 % (11.6-14.8); White Blood Cell Count 4.3 X10^3/uL (4.5-11.0)
[2022-08-15 06:17] LABS: Alanine Aminotransferase 11 IU/L (<50); Albumin 2.9 g/dL (3.5-5.0); Albumin Globulin Ratio 0.9 (1.0-2.8); Alkaline Phosphatase 110 U/L (38-126); Aspartate Aminotransferase 21 IU/L (17-59); BUN Creatinine Ratio 14.8 (6-22); Bilirubin Total 0.3 mg/dL (0.2-1.3); Blood Urea Nitrogen 18 mg/dL (9-20); Calcium 7.8 mg/dL (8.4-10.2); Carbon Dioxide 21 mmol/L (22-32); Chloride 111 mmol/L (98-107); Estimated Glomerular Filt Rate 60 mL/min (>60); Globulin 3.3 g/dL (1.7-4.1); Glucose 86 mg/dL (80-110); HEMOLYSIS < 15 (0-50); Sodium 139 mmol/L (137-145); Total Protein 6.2 g/dL (6.3-8.2)
[2022-08-15 06:26] LABS: Hemoglobin 6.9 g/dL (13.5-17.5)
[2022-08-15 06:36] LABS: Anisocytosis 1+
--- NOTE | 2022-08-15 07:53 | PM.PN.1 ---
Subjective Subjective Date Patient Seen: 08/15/22 Time Patient Seen: 07:53 Interval history: Patient seen and evaluated this morning. Patient resting comfortably in bed. Patient seen and evaluated this morning. Patient doing well and resting comfortably in bed. Said he slept well last night no pain or discomfort. No fevers or chills. Received 2 units of packed red blood cells. Hemoglobin hematocrit still quite low. Trying to get additional blood for him for blood services today. He is not actively be bleeding. He is NPO General surgery Dr. Romero was consulted over the weekend. Exam Vital Signs (past 8 hours): - 08/15/22 05:00 Temperature 98.7 F Pulse Rate 67 Respiratory Rate 15 Blood Pressure 137/58 L Pulse Oximetry 98 Oxygen Flow Rate 0 Oxygen Delivery Method Room Air Oxygen Flow Rate 0 Narrative Exam Narrative: Gen.: Alert arousable good historian HEENT: Pupils equal round and reactive or mucosa is moist Cardio: Regular rate and rhythm Respiratory: Normal respiratory effort lungs are clear Abdomen: Soft nontender Extremities: No edema warm dry perfused Objective Labs Result Diagrams: 08/15/22 05:35 08/15/22 05:35 Labs: Laboratory Results - last 24 hr 08/14/22 08/14/22 08/14/22 08:45 08:45 08:45 WBC 5.7 RBC 2.28 L Hgb 5.8 L* Hct 18.6 L* MCV 81.2 MCH 25.3 L MCHC 31.2 RDW 22.3 H Plt Count 253 Neut % (Auto) 66.9 Lymph % (Auto) 17.6 L [place] % (Auto) 13.4 Eos % (Auto) 1.3 L Baso % (Auto) 0.8 Neut # (Auto) 3800 Lymph # (Auto) 1000 L [place] # (Auto) 800 Eos # (Auto) 100 Baso # (Auto) 0 RBC Morphology See below Anisocytosis 1+ H Sodium 138 Potassium 3.9 Chloride 106 Carbon Dioxide 22 BUN 20 Creatinine 1.21 Estimated GFR > 60 BUN/Creatinine Ratio 16.5 Glucose 116 H Lactate 1.5 Calcium 8.1 L Total Bilirubin 0.2 AST 22 ALT 13 Alkaline Phosphatase 137 H Total Protein 7.0 Albumin 3.3 L Globulin 3.7 Albumin/Globulin Ratio 0.9 L Lipase 276 SARS-CoV-2 (PCR) Blood Type Antibody Screen Crossmatch 08/14/22 08/14/22 08/14/22 08:45 08:48 17:05 WBC RBC Hgb 7.0 L Hct 21.5 L MCV MCH MCHC RDW Plt Count Neut % (Auto) Lymph % (Auto) [place] % (Auto) Eos % (Auto) Baso % (Auto) Neut # (Auto) Lymph # (Auto) [place] # (Auto) Eos # (Auto) Baso # (Auto) RBC Morphology Anisocytosis Sodium Potassium Chloride Carbon Dioxide BUN Creatinine Estimated GFR BUN/Creatinine Ratio Glucose Lactate Calcium Total Bilirubin AST ALT Alkaline Phosphatase Total Protein Albumin Globulin Albumin/Globulin Ratio Lipase SARS-CoV-2 (PCR) Negative Blood Type B Positive Antibody Screen Negative Crossmatch See Detail 08/15/22 08/15/22 05:35 05:35 WBC 4.3 L RBC 2.57 L Hgb 6.9 L* Hct 21.5 L MCV 83.6 MCH 26.8 MCHC 32.1 RDW 20.6 H Plt Count 185 Neut % (Auto) 58.7 Lymph % (Auto) 25.6 [place] % (Auto) 13.5 Eos % (Auto) 1.4 L Baso % (Auto) 0.8 Neut # (Auto) 2500 Lymph # (Auto) 1100 [place] # (Auto) 600 Eos # (Auto) 100 Baso # (Auto) 0 RBC Morphology See below Anisocytosis 1+ H Sodium 139 Potassium 4.0 Chloride 111 H Carbon Dioxide 21 L BUN 18 Creatinine 1.22 Estimated GFR 60 BUN/Creatinine Ratio 14.8 Glucose 86 Lactate Calcium 7.8 L Total Bilirubin 0.3 AST 21 ALT 11 Alkaline Phosphatase 110 Total Protein 6.2 L Albumin 2.9 L Globulin 3.3 Albumin/Globulin Ratio 0.9 L Lipase SARS-CoV-2 (PCR) Blood Type Antibody Screen Crossmatch COUNTS INCLUDE 234 BEDS AT THE [facility] Medical History BPH (benign prostatic hyperplasia) Chronic atrial fibrillation Claudication Enlarged prostate Hemorrhoids Lower extremity pain Lumbar spine pain Numbness of foot Urinary incontinence Surgical History History of vasectomy Hx of bilateral cataract extraction Hx of vascular surgery (04/11/22) Presence of cardiac pacemaker (11/24/11) Family History Father Pneumonia Mother Hypertension Social History marital status: household members: spouse occupational status: previously employed Smoking Status: Current every day smoker quit status: not considering quitting second hand exposure: No alcohol intake: former substance use type: does not use Assessment & Plan Assessment and plan (1) Anemia: Status: Chronic Plan Acute blood loss anemia with chronic anemia patient has chronic anemia due to colon cancer and chemotherapy presents with acute blood loss anemia and dark stools. Question upper GI source. Patient is on aspirin was recently recommended Plavix by his vascular surgeon. His hemoglobin hematocrit is quite low again today. Recommend 2 additional units of packed red blood cells. Evaluation by General surgery for potential upper endoscopy for evaluation of source.. Gastrointestinal bleeding. Patient with positive guaiac stools. Potential source upper gastrointestinal source. Patient has colon cancer as well as a colectomy with colostomy. Generally surgery consultation for possible endoscopy. Colon cancer metastatic to liver stage IV. Currently being evaluated by General surgery and Oncology. Undergoing chemotherapy. Requiring outpatient blood transfusions to support hemoglobin hematocrit. Peripheral arterial disease with bypass graft of left leg. Patient has narrowing of his sick grafting site. Recently saw vascular surgery who recommended further angiogram procedure. His aspirin and Plavix are on hold. Will continue with his statin. Patient with sick sinus syndrome permanent dual-chamber pacemaker with short bursts of atrial fibrillation. Off his Eliquis due to gastrointestinal bleeding. Continue with beta-rocío. Chronic kidney disease stage 3. Stable at this point with no significant changes. Monitor closely electrolytes hypotension and kidney function. History of atrial fibrillation currently not on anticoagulation heart rhythm is normal sinus rhythm. Hypertension. Reinstitute his calcium channel rocío continued on his beta-rocío. Monitor closely his blood pressure. Hyperlipidemia. Moderate dose statin will be started he will be started at Lipitor 40 mg daily. DVT prophylaxis with SCDs Time Spent With Patient Critical Care time: I spent a total of [] minutes of critical care time on this patient's care today; this time is exclusive of procedural time.
[2022-08-15] MEDS: carvediloL 12.5 MG TABLET 25 MG PO ×2 (08:31→21:40)
[2022-08-15] MEDS: PANTOPRAZOLE 40 MG VIAL IV ×3 (08:32→21:40)
[2022-08-15] MEDS: FUROSEMIDE 20 MG/2 ML VIAL IV (08:32)
[2022-08-15] MEDS: AMLODIPINE 5 MG TABLET PO (08:32)
--- NOTE | 2022-08-15 09:28 | CM.DANOTE ---
DCP: Case received, EMR reviewed and met with patient. Introduced self and role. Was able to obtain information regarding patient's baseline activity level at home prior to hospitalization. DCP assessment completed with information currently available. Patient is an 82 year old male who admitted yesterday morning to the care of the hospitalist team. PCP: Dr. Peace. Payer: confirmed: Medicare/[employer]. Patient came to the hospital via private vehicle secondary to having 24 hours of black stool with amounts of red stools. Patient has a colostomy, he has history of colon cancer, and is getting treatment from oncology, his oncologist is Dr. Bourgeois. Patient did start a new medication, Plavix. He is also on daily aspirin. Patient was admitted for GI Bleed, also, blood-loss anemia complicated by chronic anemia, low H&H. Patient has been transfused. Met with patient in his room. He is alert and oriented, and resides in [place] with his spouse, Marcela. Patient is independent, drives, had driven himself here. He confirmed that he does go to [facility] for [facility]. P: DCP to continue to follow. Patient should be able to go home when deemed medically stable. Mildred Barker RN/[facility] Practitioner Discharge Planning/Care Management Advanced directive, confirm from FAMILY Start: 08/14/22 11:23 Freq: Q24H Status: Active Protocol: Document 08/14/22 11:27 EM (Rec: 08/14/22 11:28 EM [id number]) Advance Directive, confirm on record Time 11:28 Person contacted self Copy received No CM Discharge Assessment Start: 08/15/22 09:20 Freq: Status: Active Protocol: Document 08/15/22 09:21 (Rec: 08/15/22 09:22 [id number]) Discharge Planning Assessment Assigned Warehouse Hand Mildred Barker RN/[facility] Practitioner Advance Directives? Yes Advance Directives on File No History Provided By Patient,Medical Record Prior Living Arrangements House Household Members spouse Type of transporation used prior to Drives own vehicle admit Independent with ADL's Yes Is patient alert and oriented? Yes Caregiver for Another No Barriers to Discharge No Discharge Plan Home Transportation Arrangement Spouse to provide transport. Referrals Initiated Home Health Whiteboard Updated in Patient Room with Yes name and ext. # of Warehouse Hand Review Status In Process Next Review Type Continued Stay Review
--- NOTE | 2022-08-15 13:20 | DIET.CONS2 ---
Dietary Inpatient Consultation Note Admission Date: 08/14/2022 10:38 RD and kitchen aware of colostomy though pt currently NPO awaiting surgical consult. RD following for surgical plan. Pt with non-severe weight loss, 5% in 4mo and 13% in 10mo with BMI 22.7 adequate for age. Pt at high risk for malnutrition secondary to metastatic colon cancer. Diet: 08/14/22 11:47 NPO Diet Diet Modifications: May Advance Diet as Tolerated: No Safety Tray needed?: No NPO Type: Strict Electronically Signed by: Josefina Cevallos 08/15/22 13:20 Clinical Dietitian [address] [id number]
[2022-08-15 14:23] LABS: Hematocrit 22.8 % (41-53); INR 1.1 (0.9-1.3)
--- NOTE | 2022-08-15 15:23 | PM.CN ---
History of Present Illness Consult details Date Patient Seen: 08/15/22 Time Patient Seen: 12:00 Chief complaint: colstomy bag is filling w/blood Reason for consult: GI bleed Requesting provider: Zak Peace Narrative: Recent Ryan's with sigmoid colon resection for metastatic colon cancer. Now in chemo, sudden onset of blood filling his colostomy bag. Anemia w/o tachycardia or hypotension. No pain. Started on PPI daily and continues to have dark stool output, no ruel blood. Labs show neutropenia Meds Home Medications and Allergies Home Medications Medication Instructions Recorded Confirmed Type acetaminophen 650 mg 650 mg PO QPM PRN Pain (Scale 07/15/19 08/14/22 History tablet,extended release (Tylenol Score 1-3) Arthritis Pain) amlodipine 10 mg tablet 10 mg PO BEDTIME 04/19/21 08/14/22 History carvedilol 25 mg tablet 25 mg PO BID 04/19/21 08/14/22 History aspirin 81 mg tablet,delayed 81 mg PO DAILY 05/04/22 08/14/22 History release fluorouracil 2.5 gram/50 mL See Rx Instructions .Route 05/30/22 08/14/22 Rx intravenous solution .COMPLEX CHEMOTHERAPY #1 device lidocaine-prilocaine 2.5 %-2.5 % 1 applic topical PRN PRN 06/08/22 08/14/22 Rx topical cream Port/Catheter Care #300 grams fluorouracil 2.5 gram/50 mL See Rx Instructions .Route 06/20/22 08/14/22 Rx intravenous solution .COMPLEX CHEMOTHERAPY #1 device fluorouracil 2.5 gram/50 mL See Rx Instructions .Route 07/11/22 08/14/22 Rx intravenous solution .COMPLEX CHEMOTHERAPY #1 device fluorouracil 2.5 gram/50 mL See Rx Instructions .Route 07/25/22 08/14/22 Rx intravenous solution .COMPLEX CHEMOTHERAPY #1 device fluorouracil 2.5 gram/50 mL See Rx Instructions .Route 08/08/22 08/14/22 Rx intravenous solution .COMPLEX CHEMOTHERAPY #1 device Allergies Allergy/AdvReac Type Severity Reaction Status Date / Time Penicillins [PENICILLINS] Allergy Mild RASH Verified 05/23/22 16:12 Review of Systems Review of Systems ROS: Yes All systems reviewed with the patient and are negative except as otherwise documented Exam Vital Signs (past 8 hours): - 08/15/22 08:22 08/15/22 08:31 08/15/22 11:29 Temperature 97.2 F L 96.8 F L Pulse Rate 65 65 66 Respiratory Rate 16 16 Blood Pressure 158/68 H 158/68 H 132/60 Pulse Oximetry 98 99 Oxygen Delivery Method Oxygen Flow Rate 0 0 08/15/22 11:51 Temperature Pulse Rate Respiratory Rate Blood Pressure Pulse Oximetry 99 Oxygen Delivery Method Room Air Oxygen Flow Rate Oxygen Delivery Method Room Air Oxygen Flow Rate 0 Const General: cooperative and disheveled Orientation: alert and oriented x3 HENMT Head: normocephalic and atraumatic Eyes General: appearance normal, both eyes and all related structures Sclera: sclerae normal Neck Neck: trachea midline Chest Chest: normal inspection of the chest Resp Effort & Inspection: normal respiratory effort and able to speak in complete sentences Cardio Rate: regular rate Rhythm: abnormal rhythm GI Palpation: soft Other: non tender. Dark stool in bag Skin General: atrophy and ecchymosis Hair: brittle and general thinning Neuro General: patient alert, patient awake and patient oriented x3 Cognition: normal cognition Extrem General: normal to inspection Psych Mental Status: mental status grossly normal Affect: normal affect Judgment: judgment good Objective Labs Result Diagrams: 08/15/22 14:06 08/15/22 05:35 Labs: Laboratory Results - last 24 hr 08/14/22 08/14/22 08/15/22 08:45 17:05 05:35 WBC 4.3 L RBC 2.57 L Hgb 7.0 L 6.9 L* Hct 21.5 L 21.5 L MCV 83.6 MCH 26.8 MCHC 32.1 RDW 20.6 H Plt Count 185 Neut % (Auto) 58.7 Lymph % (Auto) 25.6 [place] % (Auto) 13.5 Eos % (Auto) 1.4 L Baso % (Auto) 0.8 Neut # (Auto) 2500 Lymph # (Auto) 1100 [place] # (Auto) 600 Eos # (Auto) 100 Baso # (Auto) 0 RBC Morphology See below Anisocytosis 1+ H PT INR Sodium Potassium Chloride Carbon Dioxide BUN Creatinine Estimated GFR BUN/Creatinine Ratio Glucose Calcium Total Bilirubin AST ALT Alkaline Phosphatase Total Protein Albumin Globulin Albumin/Globulin Ratio Crossmatch See Detail 08/15/22 08/15/22 08/15/22 05:35 14:06 14:06 WBC RBC Hgb Hct 22.8 L MCV MCH MCHC RDW Plt Count Neut % (Auto) Lymph % (Auto) [place] % (Auto) Eos % (Auto) Baso % (Auto) Neut # (Auto) Lymph # (Auto) [place] # (Auto) Eos # (Auto) Baso # (Auto) RBC Morphology Anisocytosis PT 13.0 H INR 1.1 Sodium 139 Potassium 4.0 Chloride 111 H Carbon Dioxide 21 L BUN 18 Creatinine 1.22 Estimated GFR 60 BUN/Creatinine Ratio 14.8 Glucose 86 Calcium 7.8 L Total Bilirubin 0.3 AST 21 ALT 11 Alkaline Phosphatase 110 Total Protein 6.2 L Albumin 2.9 L Globulin 3.3 Albumin/Globulin Ratio 0.9 L Crossmatch [facility] Medical History BPH (benign prostatic hyperplasia) Chronic atrial fibrillation Claudication Enlarged prostate Hemorrhoids Lower extremity pain Lumbar spine pain Numbness of foot Urinary incontinence Surgical History History of vasectomy Hx of bilateral cataract extraction Hx of vascular surgery (04/11/22) Presence of cardiac pacemaker (11/24/11) Family History Father Pneumonia Mother Hypertension Social History marital status: household members: spouse occupational status: previously employed Tobacco & Substance Use Smoking Status: Current every day smoker quit status: not considering quitting second hand exposure: No alcohol intake: former substance use type: does not use Assessment & Plan Assessment & Plan narrative: Upper GI bleed. Neutropenic Plan: try to avoid EGD due to neutopenia and treat medically with BID PPI. restart clear diet. Hct stable for now. If stool doesn't turn to brown in a reasonable time, consider proceding with EGD. Time Spent With Patient Critical Care time: I spent a total of [] minutes of critical care time on this patient's care today; this time is exclusive of procedural time.
[2022-08-15] MEDS: ATORVASTATIN 20 MG TABLET 40 MG PO (21:40)
[2022-08-16] VITALS (19 sets, daily range): BP systolic 122–154; BP diastolic 48–83; PULSE 60–71; RESP 15–18; TEMP 36.1–36.7; O2SAT 95–100
[2022-08-16 00:44] LABS: Hematocrit 25.1 % (41-53); Hemoglobin 8.2 g/dL (13.5-17.5)
[2022-08-16 06:24] LABS: Add Manual Diff / Slide Review NO; Basophils Absolute Auto 0 /uL (0-100); Basophils Percent Auto 0.8 % (0-2); Eosinophils Absolute Auto 100 /uL (0-450); Eosinophils Percent Auto 1.7 % (2-4); Hematocrit 26.5 % (41-53); Hemoglobin 8.5 g/dL (13.5-17.5); Lymphocytes Absolute Auto 900 /uL (1100-4500); Lymphocytes Percent Auto 20.6 % (25-40); Mean Corpuscular HGB Conc 32.1 % (30-36); Mean Corpuscular Hemoglobin 27.2 PG (26-34); Mean Corpuscular Volume 84.7 fL (80-100); Monocytes Absolute Auto 600 /uL (0-900); Monocytes Percent Auto 12.7 % (3-14); Neutrophils Absolute Auto 2800 /uL (1500-7000); Neutrophils Percent Auto 64.2 % (50-75); Platelet Count 154 X10^3/uL (150-400); Red Blood Cell Count 3.13 X10^6/uL (4.5-5.9); Red Cell Distribution Width 19.4 % (11.6-14.8); White Blood Cell Count 4.3 X10^3/uL (4.5-11.0)
[2022-08-16 06:25] LABS: INR 1.1 (0.9-1.3); Prothrombin Time 12.8 SECONDS (10.1-12.7)
[2022-08-16 06:28] LABS: PTT Partial Thromboplastin Tim 24 SECONDS (26-36)
[2022-08-16 06:32] LABS: Alanine Aminotransferase 11 IU/L (<50); Albumin 2.9 g/dL (3.5-5.0); Albumin Globulin Ratio 0.9 (1.0-2.8); Alkaline Phosphatase 106 U/L (38-126); Aspartate Aminotransferase 25 IU/L (17-59); BUN Creatinine Ratio 14.7 (6-22); Bilirubin Total 0.4 mg/dL (0.2-1.3); Blood Urea Nitrogen 17 mg/dL (9-20); Calcium 7.7 mg/dL (8.4-10.2); Carbon Dioxide 20 mmol/L (22-32); Chloride 111 mmol/L (98-107); Estimated Glomerular Filt Rate > 60 mL/min (>60); Globulin 3.4 g/dL (1.7-4.1); Glucose 87 mg/dL (80-110); HEMOLYSIS < 15 (0-50); Sodium 138 mmol/L (137-145); Total Protein 6.3 g/dL (6.3-8.2)
[2022-08-16] MEDS: carvediloL 12.5 MG TABLET 25 MG PO ×2 (09:23→22:02)
[2022-08-16] MEDS: PANTOPRAZOLE 40 MG VIAL IV ×2 (09:24→22:03)
[2022-08-16] MEDS: AMLODIPINE 5 MG TABLET PO (09:25)
--- NOTE | 2022-08-16 09:34 | PM.PN.1 ---
Subjective Subjective Date Patient Seen: 08/16/22 Time Patient Seen: 09:34 Interval history: Still having bloody BMs. Hemodynamics are stable. No pain. Got 3 units PRBC last night. Had a recent pill camera in [place] that just showed PUD. (received 30 days of PPI treatment). Exam Vital Signs (past 8 hours): - 08/16/22 04:20 08/16/22 08:25 Temperature 97.4 F L 97.5 F L Pulse Rate 71 65 Respiratory Rate 18 18 Blood Pressure 136/64 143/56 H Pulse Oximetry 100 98 Oxygen Flow Rate 0 0 Oxygen Delivery Method Room Air Oxygen Flow Rate 0 Narrative Exam Narrative: abdomen is soft and non tender, bloody stool in bag. CBC has continued neutropenia, hct 21 went up to 26% with 3 units. Objective Labs Result Diagrams: 08/16/22 05:46 08/16/22 05:46 Labs: Laboratory Results - last 24 hr 08/14/22 08/15/22 08/15/22 08:45 14:06 14:06 WBC RBC Hgb Hct 22.8 L MCV MCH MCHC RDW Plt Count Neut % (Auto) Lymph % (Auto) [place] % (Auto) Eos % (Auto) Baso % (Auto) Neut # (Auto) Lymph # (Auto) [place] # (Auto) Eos # (Auto) Baso # (Auto) PT 13.0 H INR 1.1 APTT Sodium Potassium Chloride Carbon Dioxide BUN Creatinine Estimated GFR BUN/Creatinine Ratio Glucose Calcium Total Bilirubin AST ALT Alkaline Phosphatase Total Protein Albumin Globulin Albumin/Globulin Ratio Blood Type B Positive Antibody Screen Negative Crossmatch See Detail 08/16/22 08/16/22 08/16/22 00:22 05:46 05:46 WBC 4.3 L RBC 3.13 L Hgb 8.2 L 8.5 L Hct 25.1 L 26.5 L MCV 84.7 MCH 27.2 MCHC 32.1 RDW 19.4 H Plt Count 154 Neut % (Auto) 64.2 Lymph % (Auto) 20.6 L [place] % (Auto) 12.7 Eos % (Auto) 1.7 L Baso % (Auto) 0.8 Neut # (Auto) 2800 Lymph # (Auto) 900 L [place] # (Auto) 600 Eos # (Auto) 100 Baso # (Auto) 0 PT 12.8 H INR 1.1 APTT 24 L Sodium Potassium Chloride Carbon Dioxide BUN Creatinine Estimated GFR BUN/Creatinine Ratio Glucose Calcium Total Bilirubin AST ALT Alkaline Phosphatase Total Protein Albumin Globulin Albumin/Globulin Ratio Blood Type Antibody Screen Crossmatch 08/16/22 05:46 WBC RBC Hgb Hct MCV MCH MCHC RDW Plt Count Neut % (Auto) Lymph % (Auto) [place] % (Auto) Eos % (Auto) Baso % (Auto) Neut # (Auto) Lymph # (Auto) [place] # (Auto) Eos # (Auto) Baso # (Auto) PT INR APTT Sodium 138 Potassium 4.0 Chloride 111 H Carbon Dioxide 20 L BUN 17 Creatinine 1.16 Estimated GFR > 60 BUN/Creatinine Ratio 14.7 Glucose 87 Calcium 7.7 L Total Bilirubin 0.4 AST 25 ALT 11 Alkaline Phosphatase 106 Total Protein 6.3 Albumin 2.9 L Globulin 3.4 Albumin/Globulin Ratio 0.9 L Blood Type Antibody Screen Crossmatch [facility] Medical History BPH (benign prostatic hyperplasia) Chronic atrial fibrillation Claudication Enlarged prostate Hemorrhoids Lower extremity pain Lumbar spine pain Numbness of foot Urinary incontinence Surgical History History of vasectomy Hx of bilateral cataract extraction Hx of vascular surgery (04/11/22) Presence of cardiac pacemaker (11/24/11) Family History Father Pneumonia Mother Hypertension Social History marital status: household members: spouse occupational status: previously employed Smoking Status: Current every day smoker quit status: not considering quitting second hand exposure: No alcohol intake: former substance use type: does not use Assessment & Plan Assessment & Plan narrative: Continued GI bleed most likely gastric origins, remains neutropenic. Plan: Suppliment his coagulation system with 2 units FFP and 2 pkt platelets. TXA injection and continue PPI. Tums for the Calcium needed in coagulation. Still trying to avoid EGD due to neutropenia and a slow ooze GI bleed. Time Spent With Patient Time with patient: 30 to 49 minutes with 50% spent counseling/coordinating care Critical Care time: I spent a total of [] minutes of critical care time on this patient's care today; this time is exclusive of procedural time.
--- NOTE | 2022-08-16 11:19 | PM.PN.1 ---
Subjective Subjective Date Patient Seen: 08/16/22 Time Patient Seen: 11:20 Interval history: Patient seen this morning. Says he is doing fine. On a liquid diet says he would like some food more substantial. Still having dark red blood output from his colostomy. Hemoglobin hematocrit stable at this point. Received 3 units of packed red blood cells last evening. Vital signs are stable. Afebrile. Discussed case with patient. Reviewed unknown source of bleeding at this point presumed upper gastrointestinal. Discussed about EGD procedure and why were holding off. Reviewed additional medication will be provided today. Discussed case with Dr. Romero surgeon. Exam Vital Signs (past 8 hours): - 08/16/22 04:20 08/16/22 08:25 Temperature 97.4 F L 97.5 F L Pulse Rate 71 65 Respiratory Rate 18 18 Blood Pressure 136/64 143/56 H Pulse Oximetry 100 98 Oxygen Flow Rate 0 0 Oxygen Delivery Method Room Air Oxygen Flow Rate 0 Narrative Exam Narrative: General: Alert good historian mildly pale HEENT: Pupils equal round and reactive or mucosa is moist neck is supple Cardio: S1-S2 regular rate and rhythm systolic murmur present Respiratory: Lungs are clear to auscultation no wheezes or crackles normal respiratory effort Abdomen: Soft nontender colostomy functioning Extremities: warm dry perfused Objective Labs Result Diagrams: 08/16/22 05:46 08/16/22 05:46 Labs: Laboratory Results - last 24 hr 08/14/22 08/15/22 08/15/22 08:45 14:06 14:06 WBC RBC Hgb Hct 22.8 L MCV MCH MCHC RDW Plt Count Neut % (Auto) Lymph % (Auto) [place] % (Auto) Eos % (Auto) Baso % (Auto) Neut # (Auto) Lymph # (Auto) [place] # (Auto) Eos # (Auto) Baso # (Auto) PT 13.0 H INR 1.1 APTT Sodium Potassium Chloride Carbon Dioxide BUN Creatinine Estimated GFR BUN/Creatinine Ratio Glucose Calcium Total Bilirubin AST ALT Alkaline Phosphatase Total Protein Albumin Globulin Albumin/Globulin Ratio Blood Type B Positive Antibody Screen Negative Crossmatch See Detail 08/16/22 08/16/22 08/16/22 00:22 05:46 05:46 WBC 4.3 L RBC 3.13 L Hgb 8.2 L 8.5 L Hct 25.1 L 26.5 L MCV 84.7 MCH 27.2 MCHC 32.1 RDW 19.4 H Plt Count 154 Neut % (Auto) 64.2 Lymph % (Auto) 20.6 L [place] % (Auto) 12.7 Eos % (Auto) 1.7 L Baso % (Auto) 0.8 Neut # (Auto) 2800 Lymph # (Auto) 900 L [place] # (Auto) 600 Eos # (Auto) 100 Baso # (Auto) 0 PT 12.8 H INR 1.1 APTT 24 L Sodium Potassium Chloride Carbon Dioxide BUN Creatinine Estimated GFR BUN/Creatinine Ratio Glucose Calcium Total Bilirubin AST ALT Alkaline Phosphatase Total Protein Albumin Globulin Albumin/Globulin Ratio Blood Type Antibody Screen Crossmatch 08/16/22 05:46 WBC RBC Hgb Hct MCV MCH MCHC RDW Plt Count Neut % (Auto) Lymph % (Auto) [place] % (Auto) Eos % (Auto) Baso % (Auto) Neut # (Auto) Lymph # (Auto) [place] # (Auto) Eos # (Auto) Baso # (Auto) PT INR APTT Sodium 138 Potassium 4.0 Chloride 111 H Carbon Dioxide 20 L BUN 17 Creatinine 1.16 Estimated GFR > 60 BUN/Creatinine Ratio 14.7 Glucose 87 Calcium 7.7 L Total Bilirubin 0.4 AST 25 ALT 11 Alkaline Phosphatase 106 Total Protein 6.3 Albumin 2.9 L Globulin 3.4 Albumin/Globulin Ratio 0.9 L Blood Type Antibody Screen Crossmatch [facility] Medical History BPH (benign prostatic hyperplasia) Chronic atrial fibrillation Claudication Enlarged prostate Hemorrhoids Lower extremity pain Lumbar spine pain Numbness of foot Urinary incontinence Surgical History History of vasectomy Hx of bilateral cataract extraction Hx of vascular surgery (04/11/22) Presence of cardiac pacemaker (11/24/11) Family History Father Pneumonia Mother Hypertension Social History marital status: household members: spouse occupational status: previously employed Smoking Status: Current every day smoker quit status: not considering quitting second hand exposure: No alcohol intake: former substance use type: does not use Assessment & Plan Assessment and plan (1) GI bleed: Status: Acute Plan Ongoing acute blood loss anemia patient received 3 additional packed units of red blood cell. Discussed with Dr. Romero this morning. Additional packed red blood cells. And hep provide FFP. Patient had tranexamic acid ordered. Monitoring serial hemoglobin hematocrit PT and INR. Patient care complicated by chemotherapy for metastatic colon cancer. Still neutropenia good. Continue with 40 mg of IV proton pump inhibitor twice a day. Clear liquid diet. Monitor closely for acute decompensation with blood pressure monitoring and monitoring closely output from colostomy. Appreciate Dr. Romero's help. Anticipate needing additional blood today. Gastrointestinal bleeding presumably from stomach. Dark blood in colostomy. Ongoing. General surgery evaluation underway. Colon cancer stage IV with liver metastases. He was anticipating chemotherapy this week. This has been changed obviously. Certainly complicating his underlying care. Required outpatient blood transfusions to keep his hemoglobin hematocrit stable during the chemotherapy process. Peripheral arterial disease. Left leg stenting. With minor inclusion. Anticipation of stent angiogram procedure as an outpatient. Was started on aspirin and Plavix may have contributed to his gastrointestinal bleeding these are on hold. Certainly concerning for stent occlusion. Also with all the blood products that he is receiving and active cancer concerning thrombosis risk. Mechanical compression stockings. Certainly not a candidate for heparin or Lovenox. Sick sinus syndrome history with permanent pacemaker implantation. Pulse rate is good here in the hospital. Chronic kidney disease stage 3. Stable at this point no significant changes. Atrial fibrillation. Patient risk of atrial fibrillation history of. No currently in atrial fibrillation off anticoagulation because of his bleeding and history of bleeding. Hypertension. Blood pressure is moderately well controlled continue with calcium channel rocío and beta-rocío Hyperlipidemia. Patient needs to be on a statin because of peripheral arterial disease and he was started on this. Disposition and plan. Patient still requiring hospitalization due to active ongoing bleeding. Additional blood products will be provided today including blood FFP trans hemic acid. EGD on hold due to neutropenia status due to recent chemotherapy. Antiplatelets on hold. Continue IV proton pump inhibitor. Time Spent With Patient Critical Care time: I spent a total of [] minutes of critical care time on this patient's care today; this time is exclusive of procedural time.
[2022-08-16] MEDS: CALCIUM CARBONATE 500 MG TAB PO (11:23)
[2022-08-16] MEDS: TRANEXAMIC ACID 1,000 MG in SODIUM CHLORIDE 0.9% 100 ML 200 MG IV (12:41)
--- NOTE | 2022-08-16 16:15 | DIET.CONS ---
Dietary Consultation Note Admission Date: 08/14/2022 10:38 Assessment: 82y M admitted for bleeding colostomy c anemia requiring transfusion referred to nutrition for malnutrition and supplements while on clear liquid diet. RD met c pt at bedside. Pt reports significant unintentional weight loss since March 2022, pt had 22% unintentional weight loss but over the past month has been drinking 3-4 ONS daily in addition to regular diet but remains 11% below his UBW. Pt with metastatic colon cancer s/p sigmoid resection with colostomy from May 2022. Pt currently on clear liquid diet but reports to RD he is hungry hope to eat a whopper. Ht: 175.26 cm Wt: 69.6 kg BMI: 23.1 UBW: 84.5kg Last BM: 08/16/22 (08/16/22 11:54) MNA: 11 Favio Score: 15 Diet: 08/15/22 Dinner Clear Liquid Diet Diet Modifications: ensure clear tid + xtra chix broth c collagen tid Nutrition Percent Meal Consumed 100% 08/16/22 12:56 Labs: RBC 3.13 X10^6/uL (4.5-5.9) L 08/16/22 05:46 Hgb 8.5 g/dL (13.5-17.5) L 08/16/22 05:46 Hct 26.5 % (41-53) L 08/16/22 05:46 Creatinine 1.16 mg/dL (0.66-1.25) 08/16/22 05:46 Lactate 1.5 mmol/L (0.7-2.1) 08/14/22 08:45 Interventions: 1. To support protein and kcal needs while on clear liquid diet sending ONS Ensure Clear tid as well as an extra chicken broth with collagen protein added. 2. Educated pt on slow advancement of diet with high pro low residue choices for first day or two. Pt understands and agrees. Electronically Signed by: Josefina Cevallos 08/16/22 16:15 Clinical Diet[address] [id number]
--- NOTE | 2022-08-16 18:33 | PC.NURSE ---
continues to have blood in stool via ostomy. self-managing ostomy. independant BRP, has steady gait. denies dizziness. TXA IV ordered, infusing RFA PIV infiltrated. this was d/c'd. new PIV placed in LFA, TXA infused. R chest port-0-cath accessed, per Dr Romero order. (not to have TXA put thru it, blood products are ok.) FFP 2 units ordered, 1 is complete, 2nd is currently transfusing via Port-cath.
[2022-08-16] MEDS: ATORVASTATIN 20 MG TABLET 40 MG PO (22:02)
[2022-08-17] VITALS (14 sets, daily range): BP systolic 140–158; BP diastolic 57–78; PULSE 61–85; RESP 16–18; TEMP 36.1–37; O2SAT 97–100
[2022-08-17 06:00] LABS: Add Manual Diff / Slide Review NO; Basophils Absolute Auto 0 /uL (0-100); Basophils Percent Auto 0.6 % (0-2); Eosinophils Absolute Auto 100 /uL (0-450); Eosinophils Percent Auto 2.2 % (2-4); Hematocrit 25.8 % (41-53); Hemoglobin 8.4 g/dL (13.5-17.5); Lymphocytes Absolute Auto 800 /uL (1100-4500); Lymphocytes Percent Auto 18.4 % (25-40); Mean Corpuscular HGB Conc 32.5 % (30-36); Mean Corpuscular Hemoglobin 27.3 PG (26-34); Mean Corpuscular Volume 84.1 fL (80-100); Monocytes Absolute Auto 500 /uL (0-900); Monocytes Percent Auto 12.6 % (3-14); Neutrophils Absolute Auto 2800 /uL (1500-7000); Neutrophils Percent Auto 66.2 % (50-75); Platelet Count 161 X10^3/uL (150-400); Red Blood Cell Count 3.07 X10^6/uL (4.5-5.9); Red Cell Distribution Width 18.6 % (11.6-14.8); White Blood Cell Count 4.3 X10^3/uL (4.5-11.0)
[2022-08-17 06:07] LABS: INR 1.1 (0.9-1.3); Prothrombin Time 12.9 SECONDS (10.1-12.7)
[2022-08-17 06:10] LABS: PTT Partial Thromboplastin Tim 30 SECONDS (26-36)
[2022-08-17 06:19] LABS: Alanine Aminotransferase 15 IU/L (<50); Albumin Globulin Ratio 0.9 (1.0-2.8); Alkaline Phosphatase 107 U/L (38-126); Aspartate Aminotransferase 26 IU/L (17-59); BUN Creatinine Ratio 11.3 (6-22); Bilirubin Total 0.5 mg/dL (0.2-1.3); Blood Urea Nitrogen 12 mg/dL (9-20); Calcium 7.7 mg/dL (8.4-10.2); Carbon Dioxide 20 mmol/L (22-32); Chloride 112 mmol/L (98-107); Estimated Glomerular Filt Rate > 60 mL/min (>60); Globulin 3.4 g/dL (1.7-4.1); Glucose 94 mg/dL (80-110); HEMOLYSIS < 15 (0-50); Potassium 3.4 mmol/L (3.4-5.1); Sodium 140 mmol/L (137-145); Total Protein 6.4 g/dL (6.3-8.2)
[2022-08-17] MEDS: carvediloL 12.5 MG TABLET 25 MG PO ×2 (08:17→20:42)
[2022-08-17] MEDS: AMLODIPINE 5 MG TABLET PO (08:17)
[2022-08-17] MEDS: PANTOPRAZOLE 40 MG VIAL IV ×2 (08:17→20:43)
[2022-08-17] MEDS: CALCIUM CARBONATE 500 MG TAB PO (08:17)
--- NOTE | 2022-08-17 08:51 | P.PN_ITS ---
Subjective Subjective Date Patient Seen: 08/17/22 Time Patient Seen: 08:51 Interval history: Patient seen and evaluated this morning says he is feeling good. Still a clear liquid diet. Significant decrease of output of blood from his colostomy. Really he says he has not had any significant problem since yesterday afternoon. Hemoglobin hematocrit stable. Feeling strong wants to get up and move a little bit. Would like to talk about advancing his diet. Urination is doing well. No complaints of pain. Exam Vital Signs (past 8 hours): - 08/17/22 01:16 08/17/22 01:31 08/17/22 01:54 Temperature 97.8 F 97.8 F 97.5 F L Pulse Rate 61 63 65 Respiratory Rate 18 18 16 Blood Pressure 140/62 149/62 H 151/68 H Pulse Oximetry Oxygen Delivery Method Oxygen Flow Rate 08/17/22 03:55 08/17/22 08:06 08/17/22 08:17 Temperature 98.6 F Pulse Rate 70 74 Respiratory Rate 16 Blood Pressure 158/75 H 150/78 H Pulse Oximetry 98 Oxygen Delivery Method Room Air Oxygen Flow Rate 0 08/17/22 07:59 Temperature 98.2 F Pulse Rate 74 Respiratory Rate 18 Blood Pressure 150/78 H Pulse Oximetry 98 Oxygen Delivery Method Oxygen Flow Rate 0 Oxygen Delivery Method Room Air Oxygen Flow Rate 0 Narrative Exam Narrative: Gen.: Alert no apparent distress HEENT: Pupils equal round and reactive or mucosa is moist Cardio: Regular rate and rhythm systolic murmur present Respiratory: Normal respiratory effort Abdomen: Soft no significant tenderness colostomy bag in place mild amount a red liquid in his colostomy but he says that it has been there since yesterday. Extremities: Warm dry perfused Neurologic: Grossly intact Objective Labs Result Diagrams: 08/17/22 05:15 08/17/22 05:15 Labs: Laboratory Results - last 24 hr 08/14/22 08/17/22 08/17/22 08:45 05:15 05:15 WBC 4.3 L RBC 3.07 L Hgb 8.4 L Hct 25.8 L MCV 84.1 MCH 27.3 MCHC 32.5 RDW 18.6 H Plt Count 161 Neut % (Auto) 66.2 Lymph % (Auto) 18.4 L [place] % (Auto) 12.6 Eos % (Auto) 2.2 Baso % (Auto) 0.6 Neut # (Auto) 2800 Lymph # (Auto) 800 L [place] # (Auto) 500 Eos # (Auto) 100 Baso # (Auto) 0 PT 12.9 H INR 1.1 APTT 30 D Sodium Potassium Chloride Carbon Dioxide BUN Creatinine Estimated GFR BUN/Creatinine Ratio Glucose Calcium Total Bilirubin AST ALT Alkaline Phosphatase Total Protein Albumin Globulin Albumin/Globulin Ratio Blood Type B Positive Antibody Screen Negative Crossmatch See Detail 08/17/22 05:15 WBC RBC Hgb Hct MCV MCH MCHC RDW Plt Count Neut % (Auto) Lymph % (Auto) [place] % (Auto) Eos % (Auto) Baso % (Auto) Neut # (Auto) Lymph # (Auto) [place] # (Auto) Eos # (Auto) Baso # (Auto) PT INR APTT Sodium 140 Potassium 3.4 Chloride 112 H Carbon Dioxide 20 L BUN 12 Creatinine 1.06 Estimated GFR > 60 BUN/Creatinine Ratio 11.3 Glucose 94 Calcium 7.7 L Total Bilirubin 0.5 AST 26 ALT 15 Alkaline Phosphatase 107 Total Protein 6.4 Albumin 3.0 L Globulin 3.4 Albumin/Globulin Ratio 0.9 L Blood Type Antibody Screen Crossmatch [facility] Medical History BPH (benign prostatic hyperplasia) Chronic atrial fibrillation Claudication Enlarged prostate Hemorrhoids Lower extremity pain Lumbar spine pain Numbness of foot Urinary incontinence Surgical History History of vasectomy Hx of bilateral cataract extraction Hx of vascular surgery (04/11/22) Presence of cardiac pacemaker (11/24/11) Family History Father Pneumonia Mother Hypertension Social History marital status: household members: spouse occupational status: previously employed Smoking Status: Current every day smoker quit status: not considering quitting second hand exposure: No alcohol intake: former substance use type: does not use Assessment & Plan Assessment and plan (1) Gastrointestinal hemorrhage with melena: Status: Suspected Plan Gastrointestinal bleed presumed upper source. Seems to have decreased output from yesterday. Received high-dose proton pump inhibitor trexamic acid EGD on hold recommendation from General surgery due to neutropenia. Patient interested in advancing his diet. Continue with high-dose proton pump inhibitor dye recommendations per General surgery and further evaluation per General surgery. Acute blood loss anemia due to gastrointestinal bleed. Received multiple units of blood FFP. Seems to be decreased bleeding output in hemoglobin hematocrit stable at this point. Stage IV colon cancer with metastatic disease to the liver. Patient undergoing chemotherapy. This is on hold due to his recent hospitalization following closely with Hematology-Oncology. Patient previously required out plate since blood transfusion to maintain his hemoglobin hematocrit. Prefer arterial disease with left leg bypass grafting. Patient may need further stenting. Continue with statin. Off his aspirin and Plavix at this time due to intestinal bleeding. Certainly at risk for reocclusion of stent but critical bleeding needed to be addressed 1st. Sick sinus syndrome with pacemaker implantation. Heart rhythm looks good history of atrial fibrillation currently not on anticoagulation in normal sinus rhythm due to underlying gastrointestinal bleeding. Chronic kidney disease stage 3 stable. Hypertension blood pressure is well controlled Hyperlipidemia on a statin. Disposition plan. Last blood transfusion 24 hours ago. Hemoglobin hematocrit stable at this point. Continue high-dose proton pump inhibitor. Continue observation for further bleeding hopefully it stopped. Time Spent With Patient Critical Care time: I spent a total of [] minutes of critical care time on this patient's care toda y; this time is exclusive of procedural time.
--- NOTE | 2022-08-17 08:57 | PM.EVENT ---
Event Note Date Patient Seen: 08/17/22 Time Patient Seen: 08:57 Event Note (Rapid Response, Code, or fall): Chart review, patient not seen. Stable Hct/Hgb. Advanced to soft diet.
--- NOTE | 2022-08-17 11:34 | CM.DPC ---
DCP Cont: Per MD, pt seems to be stabilizing with his bleed and yesterday received plasma but currently no signs of active bleed and prior scope did not identify source of bleed and pt and Surgeon likely would not want to scope again at this time. feels pt needs 1-2 days to confirm no active bleed due to his comorbidities prior to discharge. PEG spoke to Pt Navigator Hollie KIM at Oncology stating she is familiar with pt and his spouse as spouse also has cancer and receiving tx and pt is primary CG for spouse as she also has dementia. Hollie plans to have further termite inspector care discussion with pt and spouse for likely future need of including more family members or hiring caregivers. Hollie feels HH would be beneficial at d/c. SW met bedside with pt and explained role and he confirms he is feeling better and hopeful for d/c home tomorrow if stable and states his car is in the parking lot but likely spouse or friend would transport him home at d/c. SW discussed HH services and supports and pt states he used HH RN when he initially discharged home with new ostomy and does not feel that HH needed at this time. Pt states he is ambulating steady and independent and feels he will get d/c instructions from RN and MD prior to discharge to understand any medication changes and declines HH at this time. Plan: SW to follow for likely d/c home in 1-2 days if bleeding is stable and to confirm pt still declines HH and any further identified discharge planning needs. KIM Manzanares
[2022-08-17] MEDS: POTASSIUM CHLORIDE 20 MEQ TAB 40 MEQ PO (12:03)
[2022-08-17] MEDS: ATORVASTATIN 20 MG TABLET 40 MG PO (20:42)
[2022-08-18 00:38] VITALS: BP 138/66; PULSE 67; RESP 18; TEMP 36.7; O2SAT 98
[2022-08-18 04:00] VITALS: BP 155/70; PULSE 66; RESP 18; TEMP 36.5; O2SAT 98
[2022-08-18 05:55] LABS: BUN Creatinine Ratio 14.2 (6-22); Blood Urea Nitrogen 16 mg/dL (9-20); Calcium 7.7 mg/dL (8.4-10.2); Carbon Dioxide 18 mmol/L (22-32); Chloride 112 mmol/L (98-107); Estimated Glomerular Filt Rate > 60 mL/min (>60); Glucose 131 mg/dL (80-110); HEMOLYSIS < 15 (0-50); Potassium 3.6 mmol/L (3.4-5.1); Sodium 140 mmol/L (137-145)
[2022-08-18 07:00] VITALS: O2SAT 96
--- NOTE | 2022-08-18 07:45 | PM.DS.1 ---
History of Present Illness History of Present Illness Chief complaint: colstomy bag is filling w/blood Discharge Providers Provider Date of admission: 08/14/22 10:38 Discharge Date: 08/18/22 Primary care physician: Zak Peace MD Consults: 08/14/22 11:22 Consult to Dietitian, Adult Routine Comment: Reason For Exam: weight loss, colostomy placement 08/14/22 11:46 Consult to Physician Routine Comment: Consulting Provider: Jud Romero Reason for consultation: gi bleed Has provider been notified: Yes 08/15/22 08:06 Consult to General Surgery Routine Comment: Consulting Provider: Jud Romero Reason for consultation: ?? UGI bleed Has provider been notified: Yes 08/16/22 09:31 Consult to Dietitian, Adult Routine Comment: do you have a clear Ensure for this elisha. 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 Patient has a colostomy. Undergoing chemotherapy requiring outpatient blood transfusions. He is admitted to the hospital with acute gastrointestinal bleeding which has been present on and off over the last 6 months he has had an endoscopic evaluation previously and capsule study by GI. Source of bleeding has been on found. Patient's hemoglobin hematocrit was quite low requiring a blood transfusion x2 and FFP. General surgery is consulted for possible evaluation upper endoscopy. There was reluctance to do this due to his foot looked ongoing chemotherapy and previous workup. Patient was placed on proton pump inhibitor IV fluids his anti-platelet medication were unfortunately stopped. He previously was on anticoagulation as well this is been stopped. Certainly concerning at high risk for venous thromboembolism due to his active cancer. And also re occlusion of his left leg stent which has a mottled occlusion. During his hospital stay was started and continued on his antihypertensive medications statin medication. The time of discharge his hemoglobin had a good with stable. And patient will follow-up as an outpatient with Oncology me. Recommended to continue high-dose proton pump inhibitor. Status at Discharge Cognitive/behavioral status at discharge: oriented Time Spent with Patient Time spent: Greater than 30 minutes Exam Vital Signs (past 8 hours): - 08/18/22 00:38 08/18/22 04:00 Temperature 98.1 F 97.7 F Pulse Rate 67 66 Respiratory Rate 18 18 Blood Pressure 138/66 155/70 H Pulse Oximetry 98 98 Oxygen Flow Rate 0 0 Oxygen Delivery Method Room Air Oxygen Flow Rate 0 Objective Labs Result Diagrams: 08/17/22 05:15 08/18/22 05:26 Labs: Laboratory Results - last 24 hr 08/18/22 05:26 Sodium 140 Potassium 3.6 Chloride 112 H Carbon Dioxide 18 L BUN 16 Creatinine 1.13 Estimated GFR > 60 BUN/Creatinine Ratio 14.2 Glucose 131 H Calcium 7.7 L PFSH Medical History BPH (benign prostatic hyperplasia) Chronic atrial fibrillation Claudication Enlarged prostate Hemorrhoids Lower extremity pain Lumbar spine pain Numbness of foot Urinary incontinence Surgical History History of vasectomy Hx of bilateral cataract extraction Hx of vascular surgery (04/11/22) Presence of cardiac pacemaker (11/24/11) Family History Father Pneumonia Mother Hypertension Social History marital status: household members: spouse occupational status: previously employed Smoking Status: Current every day smoker quit status: not considering quitting second hand exposure: No alcohol intake: former substance use type: does not use Discharge Plan Discharge Plan Patient Disposition: Home Discharge orders & Medications Prescriptions: New atorvastatin [Lipitor] 20 mg Tablet 40 mg PO BEDTIME Qty: 30 0RF pantoprazole [Protonix] 40 mg tablet,delayed release (DR/EC) 40 mg PO BID Qty: 60 3RF Continued acetaminophen [Tylenol Arthritis Pain] 650 mg tablet extended release 650 mg PO QPM PRN (Reason: Pain (Scale Score 1-3)) amlodipine 10 mg tablet 10 mg PO BEDTIME carvedilol 25 mg tablet 25 mg PO BID Rx Instructions: must administer with a meal/food lidocaine-prilocaine 2.5-2.5 % Cream 1 applic topical PRN PRN (Reason: Port/Catheter Care) Qty: 300 1RF Rx Instructions: apply generous amount over port 1-2 hours prior to port use Discontinued fluorouracil 2.5 gram/50 mL Solution See Rx Instructions .ROUTE .COMPLEX Qty: 1 0RF Rx Instructions: continuous infusion over 46 hours every 3 weeks fluorouracil 2.5 gram/50 mL Solution See Rx Instructions .ROUTE .COMPLEX Qty: 1 0RF Rx Instructions: continuous infusion over 46 hours fluorouracil 2.5 gram/50 mL Solution See Rx Instructions .ROUTE .COMPLEX Qty: 1 0RF Rx Instructions: continuous infusion over 46 hours fluorouracil 2.5 gram/50 mL Solution See Rx Instructions .ROUTE .COMPLEX Qty: 1 0RF Rx Instructions: continuous infusion over 46 hours fluorouracil 2.5 gram/50 mL Solution See Rx Instructions .ROUTE .COMPLEX Qty: 1 0RF Rx Instructions: continuous infusion over 46 hours aspirin 81 mg Tablet,Delayed Release (Dr/Ec) 81 mg PO DAILY Follow up/Referrals: Zak Peace MD [Primary Care Provider] - Diet/Activity/Treatments Diet: Diet as Tolerated Skin/Wound/Dressing Care Dressing: Colostomy care as previously instructed Discharge Data Primary Care Provider: Zak Peace
[2022-08-18 08:01] LABS: Hematocrit 28.1 % (41-53); Hemoglobin 9.2 g/dL (13.5-17.5)
--- NOTE | 2022-08-18 08:37 | CM.DPC ---
DCP Cont: Pt medically stable for discharge per MD. Pt to discharge home via family POV. No other needs. Luzma Crump RN/DCP
[2022-08-18 09:07] VITALS: BP 158/63; PULSE 62; RESP 16; TEMP 36.4; O2SAT 99
[2022-08-18] MEDS: AMLODIPINE 5 MG TABLET PO (09:37)
[2022-08-18 09:38] VITALS: BP 158/63; PULSE 62
[2022-08-18] MEDS: CALCIUM CARBONATE 500 MG TAB PO (09:38)
[2022-08-18] MEDS: carvediloL 12.5 MG TABLET 25 MG PO (09:38)
[2022-08-18] MEDS: PANTOPRAZOLE 40 MG VIAL IV (09:39)
== END 2022-08-18 11:30 | disposition home or self-care (01) | DRG 812 ==
LOC: ED 10:37 → AC 10:41
PROVIDERS: Surgery; Admitting Provider Family Medicine; Emergency Provider Emergency Medicine; PCP Family Medicine; Referring Provider Emergency Medicine; Visit Provider Family Medicine
DX: D62 Acute posthemorrhagic anemia (principal); C18.9 Malignant neoplasm of colon, unspecified; K92.1 Melena; C78.7 Secondary malignant neoplasm of liver and intrahepatic bile duct; D63.0 Anemia in neoplastic disease; I49.5 Sick sinus syndrome; D70.9 Neutropenia, unspecified; I10 Essential (primary) hypertension; D64.81 Anemia due to antineoplastic chemotherapy; T45.1X5A Adverse effect of antineoplastic and immunosuppressive drugs, initial encounter; E78.5 Hyperlipidemia, unspecified; I77.9 Disorder of arteries and arterioles, unspecified; F17.210 Nicotine dependence, cigarettes, uncomplicated; Z93.3 Colostomy status; Z95.0 Presence of cardiac pacemaker; Z79.01 Long term (current) use of anticoagulants; Z20.822 Contact with and (suspected) exposure to COVID-19
CPT/HCPCS: 36415; 36430; 74177; 80048; 80053; 82272; 83605; 83690; 85014; 85018; 85025; 85610; 85730; 86850; 86900; 86901; 86927; 87635; 96374; 99231; 99232; 99233; 99238; 99284; 99285; C9803; P9016; C9113; J1642; J1940; P9035; Q9967

== ENCOUNTER 2022-12-10 20:30 | Emergency (ER) | payer MEDICARE, OTHER, SELFPAY ==
[2022-08-14 11:17] VITALS: BMI 23.1
[2022-12-10 20:43] VITALS: BP 138/63; PULSE 83; RESP 16; TEMP 36.8; O2SAT 99; BMI 25.1
[2022-12-10] MEDS: PROPARACAINE 0.5% OPHTH SOL 1 DROPS EYE-RIGHT (21:31)
--- NOTE | 2022-12-10 21:31 | ED.EYEPROB ---
HPI - Eye Problem General Chief complaint: Eye Problems Stated complaint: Rt eye pain Time Seen by Provider: 12/10/22 21:21 Source: patient Mode of arrival: Ambulatory History of Present Illness HPI Narrative: Patient is a 82-year-old male history of colon cancer, atrial fibrillation, peripheral vascular disease presenting today with right eye pain and swelling. Reports that it was little bit more swollen yesterday but he is having some gross drainage. His eyelid is swollen and painful. He denies any fever flu vision or double vision but is quite painful to touch. There is some mild erythema around the any feels like the bone around it hurts as well. Related Data Home Medications Medication Instructions Recorded Confirmed diphenhydramine 25 1 tab PO BEDTIME PRN 08/25/22 09/29/22 mg-acetaminophen 500 mg tablet (Tylenol PM Extra Strength) Previous Rx's Medication Instructions Recorded lidocaine-prilocaine 2.5 %-2.5 % 1 applic topical PRN PRN 06/08/22 topical cream Port/Catheter Care #300 grams amlodipine 10 mg tablet 10 mg PO BEDTIME #90 tabs 09/29/22 carvedilol 25 mg tablet 25 mg PO BID #180 tabs 09/29/22 clopidogrel 75 mg tablet (Plavix) 75 mg PO DAILY #90 tabs 09/29/22 fluorouracil 2.5 gram/50 mL See Rx Instructions .Route 09/29/22 intravenous solution .COMPLEX CHEMOTHERAPY #1 device atorvastatin 20 mg tablet (Lipitor) 20 mg PO BEDTIME #90 tabs 10/13/22 pantoprazole 40 mg tablet,delayed 40 mg PO BID #180 tabs 12/01/22 release (Protonix) cefdinir 300 mg capsule 300 mg PO Q12H #14 caps 12/10/22 erythromycin 5 mg/gram (0.5 %) eye 0.5 inch EYE-RIGHT Q4HRWA 7 days 12/10/22 ointment #3.5 grams Allergies Allergy/AdvReac Type Severity Reaction Status Date / Time Penicillins [PENICILLINS] Allergy Mild RASH Verified 09/29/22 13:34 Review of Systems Review of Systems ROS Unobtainable: All systems reviewed & are unremarkable except as noted in HPI and below Patient History Medical History BPH (benign prostatic hyperplasia) Chronic atrial fibrillation Claudication Enlarged prostate Hemorrhoids Lower extremity pain Lumbar spine pain Numbness of foot Urinary incontinence Surgical History History of vasectomy Hx of bilateral cataract extraction Hx of vascular surgery (04/11/22) Presence of cardiac pacemaker (11/24/11) Family History Father Pneumonia Mother Hypertension Social History marital status: household members: spouse occupational status: previously employed Smoking Status: Current every day smoker quit status: not considering quitting second hand exposure: No alcohol intake: former substance use type: does not use Smoking Status: Current every day smoker alcohol intake frequency: holidays/special occasions only Substance Use Type: does not use Exam Initial Vital Signs Initial Vital Signs: Vital Signs Temperature 98.2 F 12/10/22 20:43 Pulse Rate 83 12/10/22 20:43 Respiratory Rate 16 12/10/22 20:43 Blood Pressure 138/63 12/10/22 20:43 Pulse Oximetry 99 12/10/22 20:43 Oxygen Delivery Method 12/10/22 20:43 GENERAL: Alert very pleasant 82-year-old male EYE: Right eye mild erythema superior orbital area involving eyelid. Slightly tender around the periorbital bone able to open eye. There is gross drainage minimal irritation. Eyelid is inverted for exam no obvious stye. I stained with proparacaine and fluorescein there is no dye uptake. CARDIOVASCULAR: peripheral pulses in tact, cap refill <2 sec RESPIRATORY: No respiratory distress, speaks in full sentences without difficulty EXTREMITIES: Normal range of motion, no clubbing or edema. Neurovascularly intact NEUROLOGICAL: Cranial nerves II through XII grossly intact. Normal gait and speech. SKIN: Warm, dry, no petechiae, no rashes or lesions. Course Orders Ordered: Discontinued Medications Cefdinir (Cefdinir 300 Mg Capsule) 300 mg PO NOW ONE Stop: 12/10/22 21:33 Last Admin: 12/10/22 21:47 Dose: 300 mg Documented By: PEPIOT Erythromycin (Erythromycin Ophth 1 Gm Oint) 1 applic EYE-RIGHT NOW ONE Stop: 12/10/22 21:33 Last Admin: 12/10/22 21:40 Dose: 1 applic Documented By: PEPITO Fluorescein Sodium (Fluorescein 1 Mg Strip) 1 mg EYE-RIGHT NOW ONE Stop: 12/10/22 21:07 Last Admin: 12/10/22 21:32 Dose: 1 mg Documented By: PEPITO Proparacaine HCl (Proparacaine 0.5% Ophth Patricia) 1 drops EYE-RIGHT NOW ONE Stop: 12/10/22 21:07 Last Admin: 12/10/22 21:31 Dose: 1 drop Documented By: PEPITO Vital Signs Vital signs: Vital Signs - 8 hr 12/10/22 20:43 12/10/22 21:49 Temperature 98.2 F Pulse Rate 83 76 Respiratory Rate 16 18 Blood Pressure 138/63 133/60 Pulse Oximetry 99 99 Oxygen Delivery Method Room Air Room Air MDM - Eye Problem MDM Narrative Medical decision making narrative: Patient 82-year-old male history of colon cancer currently on chemotherapy atrial fibrillation cor peripheral vascular disease on Plavix presenting today with right eye pain swelling and irritation. He does have some some moderate swelling periorbital region especially superiorly tender to touch with gross discharge. Differential diagnosis will include conjunctivitis versus preseptal cellulitis at this time no sign of septal cellulitis. Due to his immunocompromised state would start him on antibiotics for preseptal cellulitis and antibiotic ointment. He is allergic to amoxicillin he is given cefdinir. He is a mild allergic reaction to penicillin causing rash only no anaphylaxis reactions. Discharge Plan Departure Patient Disposition: Home Clinical Impression: Preseptal cellulitis of right eye, Conjunctivitis Instructions: Conjunctivitis, Orbital Cellulitis Activity Restrictions/Additional Instructions: *You have been diagnosed with preseptal cellulitis and conjunctivitis *What to do: Expect IV a little bit more swollen in the morning while you are up swelling should improve. You can apply ice 20 minutes at a time to help with swelling. *Continue to take medications as directed Erythromycin ointment every 4 hours while awake Cefdinir 300 mg twice a day for 7 days *Follow up with your primary care provider in 2-3 days or call [phone] *Return to ER if you should have increasing redness swelling pain drainage or any new, worsening or concerning symptoms Prescriptions: New erythromycin 5 mg/gram (0.5 %) ointment 0.5 inch EYE-RIGHT Q4HRWA 7 Days Qty: 3.5 0RF cefdinir 300 mg capsule 300 mg PO Q12H Qty: 14 0RF No Action clopidogrel [Plavix] 75 mg tablet 75 mg PO DAILY Qty: 90 0RF amlodipine 10 mg tablet 10 mg PO BEDTIME Qty: 90 2RF carvedilol 25 mg tablet 25 mg PO BID Qty: 180 2RF Rx Instructions: must administer with a meal/food diphenhydramine-acetaminophen [Tylenol PM Extra Strength] 25-500 mg tablet 1 tab PO BEDTIME PRN atorvastatin [Lipitor] 20 mg tablet 20 mg PO BEDTIME Qty: 90 3RF pantoprazole [Protonix] 40 mg tablet,delayed release (DR/EC) 40 mg PO BID Qty: 180 3RF lidocaine-prilocaine 2.5-2.5 % Cream 1 applic topical PRN PRN (Reason: Port/Catheter Care) Qty: 300 1RF Rx Instructions: apply generous amount over port 1-2 hours prior to port use fluorouracil 2.5 gram/50 mL Solution See Rx Instructions .ROUTE .COMPLEX Qty: 1 0RF Rx Instructions: continuous infusion over 46 hours Referrals: Zak Peace MD [Primary Care Provider] - Stand Alone Forms: Patient Portal/API
[2022-12-10] MEDS: FLUORESCEIN 1 MG STRIP EYE-RIGHT (21:32)
[2022-12-10] MEDS: ERYTHROMYCIN OPHTH 1 GM OINT 1 APPLIC EYE-RIGHT (21:40)
[2022-12-10] MEDS: CEFDINIR 300 MG CAPSULE PO (21:47)
[2022-12-10 21:49] VITALS: BP 133/60; PULSE 76; RESP 18; O2SAT 99
== END 2022-12-10 21:52 | disposition home or self-care (01) ==
PROVIDERS: Emergency Provider Emergency Medicine; PCP Family Medicine
DX: L03.213 Periorbital cellulitis (principal)
CPT/HCPCS: 99283

== ENCOUNTER → 2022-12-28 09:53 | Outpatient (CLI) | payer MEDICARE, OTHER, SELFPAY ==
[2022-08-14 11:17] VITALS: BMI 23.1
--- NOTE | 2022-12-28 09:55 | DI.CT.S_ITS ---
PROCEDURE: CT ABDOMEN PELVIS W CON INDICATIONS: metastatic colon cancer TECHNIQUE: After the administration of oral and intravenous contrast, axial sections were acquired from the lung bases to the pubic symphysis. Coronal and sagittal reformats were performed. For radiation dose reduction, the following was used: automated exposure control, adjustment of mA and/or kV according to patient size. COMPARISON:[facility], CT, CT ABDOMEN PELVIS W CON, 08/14/2022, 9:51. FINDINGS: Image quality: Excellent. Lung bases: Lung bases are clear. Heart size is normal. Solid organs: Liver: Multiple ill-defined masses are seen, progressive since the prior CT on 08/14/2022 for example a right middle lobe mass which previously measured 1.8 cm now measures 2.6 cm. The largest masses measure 7 cm. The portal vein and hepatic veins are patent. Biliary: The gallbladder has no gallstones, pericholecystic fluid, gallbladder wall thickening, or surrounding inflammatory change. Previously seen gallstone is not seen. Pancreas: The pancreas has no mass or ductal dilatation. There is no surrounding inflammation. Spleen: Normal size. There are no masses. Adrenals: No hypertrophy or nodules. Kidneys: No obstructive calculus or hydronephrosis. The right kidney is atrophic. No solid mass. The left kidney measures 6 cm. Peritoneum and bowel: The distal esophagus and stomach are normal. The small bowel has a normal caliber and appearance. The large bowel has diverticulosis without evidence of diverticulitis. The appendix is normal. No free fluid or air. Nodes and vessels: No retroperitoneal or mesenteric adenopathy by size criteria. The aorta has atherosclerosis with no aneurysmal dilatation. There is stenosis of the aorta just proximal to the bifurcation of approximately 50%. A left common iliac stent is present. Miscellaneous: No abdominal wall mass or hernia. PELVIS: Genitourinary: The bladder has no wall thickening or mass. No bladder calcifications. Bones: No suspicious bony lesions. No vertebral body compression fractures. Degenerative disc disease at L5-S1. IMPRESSION: 1. Multiple ill-defined hepatic masses consistent with metastatic disease are larger compared to the prior CT on 08/14/2022. 2. Atrophy of the right kidney. 3. Simple left renal cyst. 4. Diverticulosis without evidence of diverticulitis. Dictated by: Diaz Hart M.D. on 12/28/2022 at 12:57 Approved by: Diaz Hart M.D. on 12/28/2022 at 13:10
== END ==
PROVIDERS: PCP Family Medicine; Referring Provider Internal Medicine Hematology & Oncology; Visit Provider Internal Medicine Hematology & Oncology
DX: C18.9 Malignant neoplasm of colon, unspecified (principal); C78.7 Secondary malignant neoplasm of liver and intrahepatic bile duct; K92.2 Gastrointestinal hemorrhage, unspecified; N26.1 Atrophy of kidney (terminal); N28.1 Cyst of kidney, acquired
CPT/HCPCS: 74177; 99214; Q9967

== ENCOUNTER → 2023-02-23 10:29 | Outpatient (CLI) | payer MEDICARE, OTHER, SELFPAY ==
[2022-08-14 11:17] VITALS: BMI 23.1
--- NOTE | 2023-02-23 10:30 | DI.CT.S_ITS ---
PROCEDURE: CT CHEST ABD PEL WO CON INDICATIONS: evaluation of disease progression TECHNIQUE: After the administration of oral contrast, 5 mm thick sections acquired from the lung apices to the symphysis pubis. 5 mm thick coronal and sagittal reformats acquired, with additional 7 mm coronal MIP reformats through the lungs. For radiation dose reduction, the following was used: automated exposure control, adjustment of mA and/or kV according to patient size. COMPARISON: [facility], CT, CT ABDOMEN PELVIS W CON, 03/30/2022, 17:06. [facility], CT, CT ABDOMEN PELVIS W CON, 12/28/2022, 11:37. FINDINGS: Image quality: Excellent. CHEST: Lungs and pleura: No acute pulmonary opacities. No pleural effusions or pneumothorax. Central and peripheral airways are patent are normal in caliber. Mediastinum: Heart size is normal. No pericardial effusion. No mediastinal adenopathy by CT size criteria. Thoracic aorta and central pulmonary arteries are normal in size. Esophagus is normal in caliber. No hiatal hernia. Chest wall: No axillary or supraclavicular adenopathy by size criteria. Thyroid gland is unremarkable . ABDOMEN: Solid organs: Liver demonstrates multiple low-attenuation hepatic foci. They are better delineated on prior exam of 12/28/2022 given presence of IV contrast. The largest focus in the mid aspect of the right lobe on series 2, image 78 measures approximately 9.8 x 5.6 cm compared to 8.6 x 5.8 cm. The posterior lateral right lobe lesion has also increased in size and become more confluent with also enlarging adjacent masses now measuring 8.2 x 4.9 cm with previous measurement of 5.2 x 4.6 cm of the more isolated focal mass. Overall, there does not appear to be new lesions identified. . Gallbladder is unremarkable . Pancreas is normal in contours. Spleen is normal in size. No adrenal nodules. There is marked atrophy of the right kidney. Bilateral simple renal cysts are present. Peritoneum and bowel: Left lower quadrant ostomy is present. Postsurgical changes reflecting left hemicolectomy is present. Colonic diverticula are noted. Nodes and vessels: No retroperitoneal or mesenteric adenopathy by size criteria. There is approximate 50% narrowing of the distal aorta immediately superior to the iliac bifurcation. Left common iliac stent is patent. Miscellaneous: No ventral hernias. PELVIS: Genitourinary: Bladder wall thickness is normal. Miscellaneous: No inguinal hernias or adenopathy. Bones: No suspicious bony lesions. No vertebral body compression fractures. IMPRESSION: Metastatic hepatic disease demonstrates interval increase in size of lesions suggestive of disease progression as above. Diverticulosis. Dictated by: Lyndsey Parnell M.D. on 02/23/2023 at 12:41 Approved by: Lyndsey Parnell M.D. on 02/23/2023 at 12:48
== END ==
PROVIDERS: PCP Family Medicine; Referring Provider Internal Medicine Hematology & Oncology; Visit Provider Internal Medicine Hematology & Oncology
DX: C18.7 Malignant neoplasm of sigmoid colon (principal); C78.7 Secondary malignant neoplasm of liver and intrahepatic bile duct; K57.90 Diverticulosis of intestine, part unspecified, without perforation or abscess without bleeding
CPT/HCPCS: 71250; 74176

== ENCOUNTER → 2023-03-13 11:21 | Outpatient (CLI) | payer MEDICARE, OTHER, SELFPAY ==
[2022-08-14 11:17] VITALS: BMI 23.1
--- NOTE | 2023-03-13 11:21 | DI.RAD.S_ITS ---
PROCEDURE: XR CHEST 2V INDICATIONS: shortness of breath TECHNIQUE: 2 views of the chest were acquired. COMPARISON: [facility], CT, CT CHEST ABD PEL WO CON, 02/23/2023, 12:14. [facility], CR, XR CHEST 1V, 05/14/2022, 10:32. [facility], CR, XR CHEST 1V, 05/11/2022, 13:00. FINDINGS: Surgical changes and devices: Left pacemaker. Right-sided port with the catheter tip at the upper 3rd of the SVC. Lungs and pleura: Prominent lung volumes. Increased pulmonary markings. No pleural effusions or pneumothorax. Mediastinum: Mediastinal contours are normal. Heart size is normal. Bones and chest wall: No suspicious bony abnormalities. Soft tissues appear unremarkable. IMPRESSION: Prominent pulmonary markings. Suspect pulmonary vasculature engorgement/mild fluid overload/CHF. Prominent lung volumes. Dictated by: Deep Brown M.D. on 03/13/2023 at 11:52 Approved by: Deep Brown M.D. on 03/13/2023 at 11:55
== END ==
PROVIDERS: PCP Family Medicine; Referring Provider Internal Medicine Hematology & Oncology; Visit Provider Internal Medicine Hematology & Oncology
DX: C18.9 Malignant neoplasm of colon, unspecified (principal); R06.02 Shortness of breath
CPT/HCPCS: 71046

== ENCOUNTER 2023-04-27 09:31 | Emergency (ER) | payer MEDICARE, OTHER, SELFPAY ==
[2022-08-14 11:17] VITALS: BMI 23.1
[2023-04-27] VITALS (12 sets, daily range): BP systolic 103–129; BP diastolic 51–60; PULSE 60–90; RESP 14–23; TEMP 35.9; O2SAT 96–100; BMI 22.8
--- NOTE | 2023-04-27 09:40 | DI.RAD.S_ITS ---
PROCEDURE: XR CHEST 1V INDICATIONS: chest pain TECHNIQUE: One view of the chest was acquired. COMPARISON: [facility], CR, XR CHEST 2V, 03/13/2023, 11:17. [facility], CT, CT CHEST ABD PEL WO CON, 02/23/2023, 12:14. FINDINGS: Surgical changes and devices: Pacemaker, Port-A-Cath Lungs and pleura: Lungs are clear. No pleural effusions or pneumothorax. Question new pulmonary nodule, right mid lung field. Mediastinum: Mediastinal contours appear normal. Heart size is normal. Bones and chest wall: No suspicious bony lesions. Overlying soft tissues appear unremarkable. IMPRESSION: Question new pulmonary nodule, right mid lung field. No acute infiltrates. Comment: It is noted that patient is scheduled to undergo CT chest abdomen and pelvis today. Dictated by: Herminio Smith M.D. on 04/27/2023 at 10:23 Approved by: Herminio Smith M.D. on 04/27/2023 at 10:24
--- NOTE | 2023-04-27 09:40 | DI.CT.S_ITS ---
PROCEDURE: CT CHEST ABD PEL W CON INDICATIONS: vomiting with colon cancer mets to liver TECHNIQUE: After the administration of intravenous contrast, axial sections acquired from the supraclavicular neck to the pubic symphysis. Coronal and sagittal reformats were performed. For radiation dose reduction, the following was used: automated exposure control, adjustment of mA and/or kV according to patient size. COMPARISON: [facility], CT, CT CHEST ABD PEL WO CON, 02/23/2023, 12:14. FINDINGS: Image quality: Excellent. CHEST: Lower Neck: No enlarged lymph nodes. Thyroid: Within normal limits. Axillae: No enlarged lymph nodes. Chest Wall: Right chest wall Port-A-Cath tip is in SVC.. Left chest wall pacemaker is seen. Lungs and Airways: There is [id number] centrilobular emphysema. Ill-defined airspace opacities are noted in anterior and medial aspect of right upper lobe new since 02/23/2023 study concerning for patchy right upper lobe infiltrates. Dependent atelectasis and scarring in posterior periphery of bilateral lower lobes are seen with mild associated bronchiectasis. Pleura: No pneumothorax or pleural effusions. Heart: Heart size is enlarged. No pericardial effusion. Pacemaker leads are in the region of right atrium and right ventricle. Thoracic Vessels: The aorta and pulmonary arteries demonstrate normal size. Moderate atherosclerotic calcifications are seen in coronary vessels and thoracic aorta. Mediastinum and Griselda: No enlarged lymph nodes. Esophagus: No wall thickening. No hiatal hernia. ABDOMEN: Liver: There is hepatomegaly. Multiple lobulated hypodense lesions are again seen scattered in liver parenchyma measures up to 6.7 x 7.2 cm in size in left hepatic lobe series 3, image 64 and 7.5 x 10 cm in size in right hepatic lobe series 3, image 76 increased in size compared to previous study. Gallbladder: Gallbladder is contracted and contains a calcified stone in its dependent portion. Trace amount of pericholecystic fluid is noted. Biliary ducts: No gross biliary ductal dilatation.. Pancreas: Unremarkable. Spleen: There is splenomegaly, no discrete splenic lesion.. Adrenal Glands: Unremarkable. Kidneys and Ureters: Atrophic right kidney is again seen. Multiple left renal cysts are noted measures up to 5.3 x 4.8 cm in size in upper pole left kidney. No hydronephrosis or hydroureter. No gross solid appearing renal mass. Stomach and Bowel: Again noted is prior partial colectomy with left-sided colostomy in place. There is suggestion of diffuse gastric wall thickening which may be due to under distension. Gastritis cannot be excluded. No evidence of bowel obstruction. No gross small bowel or colon wall thickening. No abscess collection. Peritoneum: No abnormal intraperitoneal fluid. No free air. Ventral Wall: Left peristomal hernia is noted containing fat only. Abdominal Nodes: No retroperitoneal or mesenteric adenopathy by size criteria. Vessels: Aorta and inferior vena cava are normal in size. PELVIS: Pelvic Organs: Mildly enlarged prostate gland is seen with mass effect on floor of urinary bladder. Bladder: Diffuse bladder wall thickening is noted. No discrete bladder wall mass is seen. Pelvic Nodes: No enlarged lymph nodes. Miscellaneous: No inguinal hernias are seen. Bones: No suspicious bony lesion. No acute vertebral body compression fracture. IMPRESSION: 1. Interval slight increase in size of patient's known liver metastases as described above. 2. Interval development of ill-defined patchy airspace opacities in anterior medial aspect of right upper lobe concerning for right upper lobe infiltrates. No definite pulmonary nodule or mass is seen. COPD. Bibasilar dependent atelectasis as above. 3. Prior partial colectomy with left-sided colostomy in place. No evidence of bowel obstruction. No gross small bowel or colonic wall thickening. No abscess collection. Questionable gastric wall thickening which may be due to under distension. Gastritis cannot be excluded. 4. Stable peristomal hernia adjacent to left colostomy site containing fat only. Dictated by: Braeden Vail M.D. on 04/27/2023 at 11:53 Approved by: Braeden Vail M.D. on 04/27/2023 at 12:03
[2023-04-27] MEDS: ONDANSETRON 4 MG/2 ML INJ IV (09:56)
[2023-04-27] MEDS: SODIUM CHLORIDE 0.9% 1,000 ML 1000 ML IV (09:56)
--- NOTE | 2023-04-27 09:59 | ED_ITS ---
HPI - Weakness General Chief complaint: Dizziness Stated complaint: Nausea, weakness, low BP Time Seen by Provider: 04/27/23 09:39 Source: patient Mode of arrival: Wheelchair History of Present Illness HPI Narrative: Patient 82-year-old male history of metastatic sigmoid colon cancer currently on Lonsurf with Avastin presenting today from PCP office with hypotension dizziness and weakness. He has been taking his blood pressure medication for hypertension and atrial fibrillation. Leary by PCP that he is over medicated. Patient report s that he generally feels weak. He vomited just prior to her arrival in the PCP office. He reports now he feels better. He has no specific abdominal pain no chest pain or shortness of breath. Blood pressure here slightly low 105/57. He has no diarrhea he is not had fever or chills. He is generally feeling weak. He is previously been anemic and required blood transfusions as well. Anemia se condary to chemotherapy. Related Data Home Medications Medication Instructions Recorded Confirmed atorvastatin 40 mg tablet 40 mg PO BEDTIME 04/13/23 04/13/23 Previous Rx's Medication Instructions Recorded lidocaine-prilocaine 2.5 %-2.5 % 1 applic topical PRN PRN 06/08/22 topical cream Port/Catheter Care #300 grams amlodipine 10 mg tablet 10 mg PO BEDTIME #90 tabs 12/15/22 carvedilol 25 mg tablet 25 mg PO BID #180 tabs 12/15/22 clopidogrel 75 mg tablet (Plavix) 75 mg PO DAILY #90 tabs 12/15/22 pantoprazole 40 mg tablet,delayed 40 mg PO BID #180 tabs 12/15/22 release (Protonix) trifluridine 20 mg-tipiracil 8.19 3 tab PO DIRECTED metastatic 02/27/23 mg tablet (Lonsurf) colon cancer #60 tabs ondansetron 4 mg disintegrating 4 mg PO Q6H PRN Nausea And 04/06/23 tablet Vomiting #30 tabs Allergies Allergy/AdvReac Type Severity Reaction Status Date / Time Penicillins [PENICILLINS] Allergy Mild RASH Verified 04/27/23 09:38 Review of Systems Review of Systems ROS Unobtainable: All systems reviewed & are unremarkable except as noted in HPI and below Patient History Medical History BPH (benign prostatic hyperplasia) Chronic atrial fibrillation Claudication Enlarged prostate Hemorrhoids Lower extremity pain Lumbar spine pain Numbness of foot Urinary incontinence Surgical History History of vasectomy Hx of bilateral cataract extraction Hx of vascular surgery (04/11/22) Presence of cardiac pacemaker (11/24/11) Family History Father Pneumonia Mother Hypertension Social History marital status: details: October 2022 household members: none lives independently: Yes occupational status: other Smoking Status: Current every day smoker quit status: not considering quitting second hand exposure: No alcohol intake: former substance use type: does not use Smoking Status: Current every day smoker alcohol intake frequency: holidays/special occasions only Substance Use Type: does not use Exam Initial Vital Signs Initial Vital Signs: Vital Signs Temperature 96.7 F L 04/27/23 09:32 Pulse Rate 83 04/27/23 09:32 Respiratory Rate 20 04/27/23 09:32 Blood Pressure 105/57 L 04/27/23 09:32 Pulse Oximetry 96 04/27/23 09:32 Oxygen Delivery Method Room Air 04/27/23 09:32 GENERAL: Weak alert pleasant 82-year-old male and in no acute distress. HEENT: Head atraumatic,EOMI, pupils reactive, face symmetric, moist mucous m embranes CARDIOVASCULAR: Regular rate and rhythm without murmurs, rubs or gallops. RESPIRATORY: Breath sounds equal bilaterally, no wheezes rales or rhonchi. ABDOMEN: Soft, nontender. Ostomy with good output normal bowel sounds no distention : No CVA tenderness EXTREMITIES: Normal range of motion, no clubbing or edema. Neurovascularly intact NEUROLOGICAL: Alert and oriented x4.Normal gait and speech. SKIN: Warm, dry, no laceration, no petechiae, no rashes or lesions. Course Orders Ordered: ED Orders 04/27/23 09:40 CT chest abd pel w con Stat XR chest 1V Stat 04/27/23 10:00 Comprehensive Metabolic Panel Stat Lipase Stat Troponin & CK Cardiac Panel Stat 04/27/23 10:28 Complete Blood Count AUTO DIFF Stat 04/27/23 11:10 EKG-12 Lead Stat Discontinued Medications Sodium Chloride (Normal Saline 0.9%) 1,000 mls @ 1,000 mls/hr IV BOLUS ONE Stop: 04/27/23 10:39 Last Admin: 04/27/23 11:00 Dose: Not Given Documented By: JUANA Sodium Chloride (Normal Saline 0.9%) 1,000 mls @ 1,000 mls/hr IV CONT ANDRES Last Infusion: 04/27/23 11:39 Dose: 0 mls/hr Documented By: Admin: 04/27/23 09:56 Dose: 1,000 mls/hr Documented By: JUANA(2) Ondansetron HCl (Ondansetron 4 Mg/2 Ml Inj) 4 mg IV NOW ONE Stop: 04/27/23 09:41 Last Admin: 04/27/23 09:56 Dose: 4 mg Documented By: JUAAN(2) Vital Signs Vital signs: Vital Signs - 8 hr 04/27/23 09:32 04/27/23 09:36 04/27/23 09:37 Temperature 96.7 F L Pulse Rate 83 79 Respiratory Rate 20 Blood Pressure 105/57 L 105/57 L Pulse Oximetry 96 97 Oxygen Delivery Method Room Air 04/27/23 10:00 04/27/23 10:30 04/27/23 10:50 Temperature Pulse Rate 63 61 90 Respiratory Rate 23 21 21 Blood Pressure Pulse Oximetry 99 99 99 Oxygen Delivery Method 04/27/23 10:50 04/27/23 10:51 04/27/23 10:51 Temperature Pulse Rate 84 Respiratory Rate 22 Blood Pressure 129/59 L 126/59 L Pulse Oximetry 100 Oxygen Delivery Method 04/27/23 11:00 04/27/23 11:00 04/27/23 11:30 Temperature Pulse Rate 60 Respiratory Rate 14 Blood Pressure 127/60 103/51 L Pulse Oximetry 99 Oxygen Delivery Method 04/27/23 11:30 04/27/23 11:36 04/27/23 11:36 Temperature Pulse Rate 60 64 Respiratory Rate 19 21 Blood Pressure 128/60 Pulse Oximetry 97 98 Oxygen Delivery Method 04/27/23 12:00 04/27/23 12:00 04/27/23 12:03 Temperature Pulse Rate 60 62 Respiratory Rate 21 19 Blood Pressure 123/57 L Pulse Oximetry 97 98 Oxygen Delivery Method 04/27/23 12:03 Temperature Pulse Rate Respiratory Rate Blood Pressure 122/58 L Pulse Oximetry Oxygen Delivery Method MDM - Weakness Lab Data 04/27/23 10:28 04/27/23 10:00 Labs: Lab Results 04/27/23 04/27/23 Range/Units 10:00 10:28 WBC 2.3 L (4.5-11.0) X10^3/uL RBC 2.96 L (4.5-5.9) X10^6/uL Hgb 7.9 L (13.5-17.5) g/dL Hct 24.2 L (41-53) % MCV 81.9 (80-100) fL MCH 26.6 (26-34) PG MCHC 32.5 (30-36) % RDW 20.8 H (11.6-14.8) % Plt Count 112 L (150-400) X10^3/uL Neut % (Auto) Not Reportable Lymph % (Auto) Not Reportable [place] % (Auto) Not Reportable Eos % (Auto) Not Reportable Baso % (Auto) Not Reportable Lymph # (Auto) Not Reportable [place] # (Auto) Not Reportable Baso # (Auto) Not Reportable Total Counted 100 Seg Neutrophils % 52.0 (38-70) % Band Neutrophils % 9.0 H (3-7) % Lymphocytes % (Manual) 22.0 L (25-45) % Monocytes % (Manual) 11.0 (2-11) % Eosinophils % (Manual) 1.0 L (2-4) % Metamyelocytes % 3.0 H (-0) % Myelocytes % 2.0 H (-0) % Neutrophils # (Manual) 1403 L (4233-9105) /uL RBC Morphology See below Anisocytosis 2+ H Sodium 133 L (137-145) mmol/L Potassium 4.5 (3.4-5.1) mmol/L Chloride 103 (98-107) mmol/L Carbon Dioxide 23 (22-32) mmol/L BUN 15 (9-20) mg/dL Creatinine 1.21 (0.66-1.25) mg/dL Estimated GFR > 60 (>60) mL/min BUN/Creatinine Ratio 12.4 (6-22) Glucose 111 H (80-110) mg/dL Calcium 8.0 L (8.4-10.2) mg/dL Total Bilirubin 0.3 (0.2-1.3) mg/dL AST 32 (17-59) IU/L ALT 23 (<50) IU/L Alkaline Phosphatase 263 H (38-126) U/L Total Creatine Kinase 25 L (55-170) U/L CK-MB (CK-2) TNP CK-MB (CK-2) Rel Index TNP Troponin I < 0.012 (0.01-0.034) ng/mL Total Protein 7.4 (6.3-8.2) g/dL Albumin 3.0 L (3.5-5.0) g/dL Globulin 4.4 H (1.7-4.1) g/dL Albumin/Globulin Ratio 0.7 L (1.0-2.8) Lipase 68 (23-300) U/L Imaging Data Chest x-ray: Radiologist Impression: PROCEDURE:? XR CHEST 1V ? INDICATIONS:? chest pain ? TECHNIQUE:? One view of the chest was acquired.? ? COMPARISON:? [facility], CR, XR CHEST 2V, 03/13/2023, 11:17.? [facility], CT, CT CHEST ABD PEL WO CON, 02/23/2023, 12:14. ? FINDINGS:? ? Surgical changes and devices:? Pacemaker, Port-A-Cath ? Lungs and pleura:? Lungs are clear.? No pleural effusions or pneumothorax.? Question new pulmonary nodule, right mid lung field. ? Mediastinum:? Mediastinal contours appear normal.? Heart size is normal.? ? Bones and chest wall:? No suspicious bony lesions.? Overlying soft tissues appear unremarkable.? ? IMPRESSION:? Question new pulmonary nodule, right mid lung field.? No acute infiltrates. ? Comment:? It is noted that patient is scheduled to undergo CT chest abdomen and pelvis today. ? ? Dictated by: Herminio Smith M.D. on 04/27/2023 at 10:23 ? ? Approved by: Herminio Smith M.D. on 04/27/2023 at 10:24 ? CT scan - abdomen/pelvis: Radiologist Impression: PROCEDURE:? CT CHEST ABD PEL W CON ? INDICATIONS:? vomiting with colon cancer mets to liver ? TECHNIQUE:? After the administration of intravenous contrast, axial sections acquired from the supraclavicular neck to the pubic symphysis.? Coronal and sagittal reformats were performed.? For radiation dose reduction, the following was used:? automated exposure control, adjustment of mA and/or kV according to patient size.? ? COMPARISON: ? [facility], CT, CT CHEST ABD PEL WO CON, 02/23/2023, 12:14. ? FINDINGS:? Image quality:? Excellent.? ? CHEST: Lower Neck: No enlarged lymph nodes.? Thyroid:? Within normal limits. Axillae: No enlarged lymph nodes. Chest Wall:? Right chest wall Port-A-Cath tip is in SVC..? Left chest wall pacemaker is seen. ? Lungs and Airways:? There is [id number] centrilobular emphysema.? Ill- defined airspace opacities are noted in anterior and medial aspect of right upper lobe new since 02/23/2023 study concerning for patchy right upper lobe infiltrates.? Dependent atelectasis and scarring in posterior periphery of bilateral lower lobes are seen with mild associated bronchiectasis. Pleura: No pneumothorax or pleural effusions.? ? Heart: Heart size is enlarged.? No pericardial effusion.? Pacemaker leads are in the region of right atrium and right ventricle. Thoracic Vessels: The aorta and pulmonary arteries demonstrate normal size.? Moderate atherosclerotic calcifications are seen in coronary vessels and thoracic aorta. Mediastinum and Griselda: No enlarged lymph nodes.? Esophagus: No wall thickening.? No hiatal hernia. ? ABDOMEN: Liver:? There is hepatomegaly.? Multiple lobulated hypodense lesions are again seen scattered in liver parenchyma measures up to 6.7 x 7.2 cm in size in left hepatic lobe series 3, image 64 and 7.5 x 10 cm in size in right hepatic lobe series 3, image 76 increased in size compared to previous study. Gallbladder:? Gallbladder is contracted and contains a calcified stone in its dependent portion.? Trace amount of pericholecystic fluid is noted. Biliary ducts:? No gross biliary ductal dilatation..? ? Pancreas:? Unremarkable.? ? Spleen:? There is splenomegaly, no discrete splenic lesion..? ? Adrenal Glands:? Unremarkable.? ? Kidneys and Ureters:? Atrophic right kidney is again seen.? Multiple left renal cysts are noted measures up to 5.3 x 4.8 cm in size in upper pole left kidney.? No hydronephrosis or hydroureter.? No gross solid appearing renal mass. ? Stomach and Bowel:? Again noted is prior partial colectomy with left-sided colostomy in place.? There is suggestion of diffuse gastric wall thickening which may be due to under distension.? Gastritis cannot be excluded.? No evidence of bowel obstruction.? No gross small bowel or colon wall thickening.? No abscess collection. Peritoneum:? No abnormal intraperitoneal fluid.? No free air.? ? Ventral Wall: ? Left peristomal hernia is noted containing fat only. Abdominal Nodes:? No retroperitoneal or mesenteric adenopathy by size criteria.? Vessels:? Aorta and inferior vena cava are normal in size.? ? PELVIS: Pelvic Organs:? Mildly enlarged prostate gland is seen with mass effect on floor of urinary bladder. Bladder:? Diffuse bladder wall thickening is noted.? ? No discrete bladder wall mass is seen. Pelvic Nodes: No enlarged lymph nodes.? Miscellaneous: No inguinal hernias are seen. ? ? ? Bones:? No suspicious bony lesion.? No acute vertebral body compression fracture. ? IMPRESSION:? ? 1.? Interval slight increase in size of patient's known liver metastases as described above. ? 2.? Interval development of ill-defined patchy airspace opacities in anterior medial aspect of right upper lobe concerning for right upper lobe infiltrates.? No definite pulmonary nodule or mass is seen.? COPD.? Bibasilar dependent atelectasis as above. ? 3.? Prior partial colectomy with left-sided colostomy in place.? No evidence of bowel obstruction.? No gross small bowel or colonic wall thickening.? No abscess collection.? Questionable gastric wall thickening which may be due to under distension.? Gastritis cannot be excluded. ? 4. Stable peristomal hernia adjacent to left colostomy site containing fat only. ? Dictated by: Braeden Vail M.D. on 04/27/2023 at 11:53 ECG Data Interpretation: Sinus rhythm rate 60 WA interval 206 QRS [address] changes T-wave inversion noted in lead 3 paced rhythm MDM Narrative Medical decision making narrative: Patient 82-year-old male presenting today with weakness some dizziness lightheadedness. Overall appears well blood pressure is never significantly low he received a L of fluid. He is chronically anemic with an increased hemoglobin hematocrit today 7.9 and 24.2 respectively previously 7.1 and 22.3. White count is 2.3 without evidence of neutropenia or evidence of infection. No electrolyte abnormality or evidence of DOTTIE. CT shows stable disease blood pressures remain stable he has been ambulatory in the ED without any problems. At this time there is no admission criteria Discharge Plan Departure Patient Disposition: Home Clinical Impression: Dehydration Instructions: DI for Dehydration -- Adult Activity Restrictions/Additional Instructions: *You have been diagnosed with dehydration *What to do: Please hold blood pressure medications as Dr. Peace previously recommended. Stay hydrated. Follow-up with oncology as scheduled *Continue to take medications as directed *Follow up with your primary care provider in 2-3 days or call [phone] Dr. Peace andDr. Bourgeois *Return to ER if you should have increased dizziness lightheadedness weakness fever or any new, worsening or concerning symptoms Prescriptions: No Action clopidogrel [Plavix] 75 mg tablet 75 mg PO DAILY Qty: 90 3RF pantoprazole [Protonix] 40 mg tablet,delayed release (DR/EC) 40 mg PO BID Qty: 180 3RF amlodipine 10 mg tablet 10 mg PO BEDTIME Qty: 90 2RF carvedilol 25 mg tablet 25 mg PO BID Qty: 180 2RF Rx Instructions: must administer with a meal/food lidocaine-prilocaine 2.5-2.5 % Cream 1 applic topical PRN PRN (Reason: Port/Catheter Care) Qty: 300 1RF Rx Instructions: apply generous amount over port 1-2 hours prior to port use Lonsurf 20-8.19 mg Tablet 3 tab PO DIRECTED Qty: 60 11RF Rx Instructions: Take 3 pills by mouth twice daily, on days 1-5 and 8-12, every 28-day cycle. Must take within 1 hr after completion of meal ondansetron 4 mg Tablet,Disintegrating 4 mg PO Q6H PRN (Reason: Nausea And Vomiting) Qty: 30 1RF atorvastatin 40 mg Tablet 40 mg PO BEDTIME Referrals: Zak ePace MD [Primary Care Provider] - Keith Bourgeois MD [Physician] - Stand Alone Forms: Patient Portal/API
[2023-04-27 10:32] LABS: Alanine Aminotransferase 23 IU/L (<50); Albumin Globulin Ratio 0.7 (1.0-2.8); Alkaline Phosphatase 263 U/L (38-126); Aspartate Aminotransferase 32 IU/L (17-59); BUN Creatinine Ratio 12.4 (6-22); Bilirubin Total 0.3 mg/dL (0.2-1.3); Blood Urea Nitrogen 15 mg/dL (9-20); Carbon Dioxide 23 mmol/L (22-32); Chloride 103 mmol/L (98-107); Creatine Kinase 25 U/L (55-170); Estimated Glomerular Filt Rate > 60 mL/min (>60); Globulin 4.4 g/dL (1.7-4.1); Glucose 111 mg/dL (80-110); Lipase 68 U/L (23-300); Potassium 4.5 mmol/L (3.4-5.1); Sodium 133 mmol/L (137-145); Total Protein 7.4 g/dL (6.3-8.2)
[2023-04-27 10:42] LABS: Hematocrit 24.2 % (41-53); Hemoglobin 7.9 g/dL (13.5-17.5); Mean Corpuscular HGB Conc 32.5 % (30-36); Mean Corpuscular Hemoglobin 26.6 PG (26-34); Mean Corpuscular Volume 81.9 fL (80-100); Platelet Count 112 X10^3/uL (150-400); Red Blood Cell Count 2.96 X10^6/uL (4.5-5.9); Red Cell Distribution Width 20.8 % (11.6-14.8); White Blood Cell Count 2.3 X10^3/uL (4.5-11.0)
[2023-04-27 10:43] LABS: Add Manual Diff / Slide Review YES
[2023-04-27 10:44] LABS: Troponin I < 0.012 ng/mL (0.01-0.034)
[2023-04-27 11:24] LABS: Anisocytosis 2+; Neutrophils Absolute Manual 1403 /uL (3000-5900); Total Cells Counted 100
[2023-04-27 14:39] LABS: HEMOLYSIS 22 (0-50)
== END 2023-04-27 12:18 | disposition home or self-care (01) ==
PROVIDERS: Emergency Provider Emergency Medicine; PCP Family Medicine
DX: E86.0 Dehydration (principal); Z51.12 Encounter for antineoplastic immunotherapy; C18.7 Malignant neoplasm of sigmoid colon; C78.7 Secondary malignant neoplasm of liver and intrahepatic bile duct; D63.0 Anemia in neoplastic disease; I12.9 Hypertensive chronic kidney disease with stage 1 through stage 4 chronic kidney disease, or unspecified chronic kidney disease; N18.30 Chronic kidney disease, stage 3 unspecified; E78.5 Hyperlipidemia, unspecified; I48.20 Chronic atrial fibrillation, unspecified; Z93.3 Colostomy status; Z95.828 Presence of other vascular implants and grafts; F17.210 Nicotine dependence, cigarettes, uncomplicated
CPT/HCPCS: 36415; 71045; 71260; 74177; 80053; 81001; 82378; 82550; 82570; 83690; 84156; 84484; 85007; 85025; 87086; 93005; 93010; 96361; 96374; 96413; 99214; 99284; J2405; Q5118; Q9967

== ENCOUNTER 2023-05-10 12:11 | Emergency (ER) | payer MEDICARE, OTHER, SELFPAY ==
[2022-08-14 11:17] VITALS: BMI 23.1
[2023-05-10 12:14] VITALS: BP 115/56; PULSE 69; RESP 16; TEMP 36.1; O2SAT 100; BMI 23.4
--- NOTE | 2023-05-10 12:24 | DI.RAD.S_ITS ---
PROCEDURE: XR CHEST 1V INDICATIONS: chest pain TECHNIQUE: One view of the chest was acquired. COMPARISON: [facility], CT, CT CHEST ABD PEL W CON, 04/27/2023, 10:45. [facility], CR, XR CHEST 1V, 04/27/2023, 9:45. FINDINGS: Surgical changes and devices: There is a cardiac pacemaker in expected position. Port-A-Cath in the right anterior chest. Lungs and pleura: Mild infiltrate in the right midlung zone suspicious for pneumonia. No pleural effusions or pneumothorax. Mediastinum: Mediastinal contours appear normal. Heart size is normal. Bones and chest wall: No suspicious bony lesions. Overlying soft tissues appear unremarkable. IMPRESSION: Pneumonia in the right midlung zone. Dictated by: Lul Cross M.D. on 05/10/2023 at 12:39 Approved by: Lul Cross M.D. on 05/10/2023 at 12:40
[2023-05-10 12:41] LABS: INR 1.3 (0.9-1.3)
[2023-05-10 12:44] LABS: PTT Partial Thromboplastin Tim 28 SECONDS (26-36)
[2023-05-10 12:49] LABS: Basophils Absolute Auto 0 /uL (0-100); Basophils Percent Auto 0.7 % (0-2); Eosinophils Absolute Auto 0 /uL (0-450); Eosinophils Percent Auto 0.5 % (2-4); Hemoglobin 7.5 g/dL (13.5-17.5); Lymphocytes Absolute Auto 600 /uL (1100-4500); Lymphocytes Percent Auto 19.8 % (25-40); Mean Corpuscular HGB Conc 32.5 % (30-36); Mean Corpuscular Hemoglobin 26.3 PG (26-34); Mean Corpuscular Volume 81.1 fL (80-100); Monocytes Absolute Auto 100 /uL (0-900); Monocytes Percent Auto 3.3 % (3-14); Neutrophils Absolute Auto 2200 /uL (1500-7000); Neutrophils Percent Auto 75.7 % (50-75); Platelet Count 54 X10^3/uL (150-400); Red Blood Cell Count 2.83 X10^6/uL (4.5-5.9); Red Cell Distribution Width 19.8 % (11.6-14.8); White Blood Cell Count 2.8 X10^3/uL (4.5-11.0)
[2023-05-10 13:00] LABS: Alanine Aminotransferase 18 IU/L (<50); Albumin 3.2 g/dL (3.5-5.0); Albumin Globulin Ratio 0.7 (1.0-2.8); Alkaline Phosphatase 186 U/L (38-126); Aspartate Aminotransferase 24 IU/L (17-59); BUN Creatinine Ratio 14.6 (6-22); Bilirubin Total 0.5 mg/dL (0.2-1.3); Blood Urea Nitrogen 18 mg/dL (9-20); Carbon Dioxide 21 mmol/L (22-32); Chloride 104 mmol/L (98-107); Creatine Kinase 28 U/L (55-170); Estimated Glomerular Filt Rate 59 mL/min (>60); Globulin 4.5 g/dL (1.7-4.1); Glucose 91 mg/dL (80-110); HEMOLYSIS < 15 (0-50); Lipase 64 U/L (23-300); Magnesium 2.2 mg/dL (1.6-2.3); Potassium 4.3 mmol/L (3.4-5.1); Sodium 135 mmol/L (137-145); Total Protein 7.7 g/dL (6.3-8.2)
[2023-05-10 13:06] LABS: Add Manual Diff / Slide Review SLIDE REVIEW
[2023-05-10 13:08] LABS: Platelet Estimate Decreased on smear; RBC Morphology Normal Morphology
[2023-05-10 13:11] LABS: Troponin I < 0.012 ng/mL (0.01-0.034)
[2023-05-10 13:29] VITALS: BP 147/67; PULSE 76; O2SAT 100
[2023-05-10 13:30] VITALS: BP 146/64; PULSE 68; RESP 20; O2SAT 100
--- NOTE | 2023-05-10 13:39 | PC.NURSE ---
States he has been having lightheaded with walking. I can only got about 10 feet. Has been here for fluid/blood infusions in the past. Also started new PO med and has noticed nausea more frequent in the mornings. Takes zofran for it. Reports last time he got fluids was 3 weeks ago and feeling like he needs another one today. Denies pain currently. Took zofran before coming in today.
[2023-05-10 14:00] VITALS: BP 157/69; PULSE 61; RESP 21; O2SAT 100
--- NOTE | 2023-05-10 14:32 | ED_ITS ---
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 Who did feel very weak the other day on the toilet his leg sort of gave out. He caught himself. Has not had any other falls or injuries. Patient states no fevers, no cold cough or congestion. He denies any chest pain or shortness of breath, occasional nausea in the morning but states he takes Zofran which was prescribed by his oncologist. Denies abdominal back or flank pain. Denies any dysuria urgency or frequency but does have some difficulty with starting urine at times. He states this is not new. He has a colostomy normal stool output no diarrhea or constipation. No black or bloody stools. No new swelling in extremities. Patient states he has had transfusions 1 or 2 months ago but states none since then. Patient states he often seems to get a little dehydrated and often improves with a L of fluids. He is had prior colonoscopy, pacemaker. Reported allergy to penicillin. Does still use tobacco, half to 3/4 pack , no alcohol. No illicit. He is accompanied by a friend. Primary care physician is Dr. Peace, his oncologist is Dr. Bourgeois. Related Data Home Medications Medication Instructions Recorded Confirmed atorvastatin 40 mg tablet 40 mg PO BEDTIME 04/13/23 04/27/23 Previous Rx's Medication Instructions Recorded lidocaine-prilocaine 2.5 %-2.5 % 1 applic topical PRN PRN 06/08/22 topical cream Port/Catheter Care #300 grams amlodipine 10 mg tablet 10 mg PO BEDTIME #90 tabs 12/15/22 carvedilol 25 mg tablet 25 mg PO BID #180 tabs 12/15/22 clopidogrel 75 mg tablet (Plavix) 75 mg PO DAILY #90 tabs 12/15/22 pantoprazole 40 mg tablet,delayed 40 mg PO BID #180 tabs 12/15/22 release (Protonix) trifluridine 20 mg-tipiracil 8.19 3 tab PO DIRECTED metastatic 02/27/23 mg tablet (Lonsurf) colon cancer #60 tabs ondansetron 4 mg disintegrating 4 mg PO Q6H PRN Nausea And 04/06/23 tablet Vomiting #30 tabs levofloxacin 500 mg tablet 500 mg PO Q24H uti #10 tabs 05/04/23 Allergies Allergy/AdvReac Type Severity Reaction Status Date / Time Penicillins [PENICILLINS] Allergy Mild RASH Verified 05/10/23 12:14 Review of Systems Review of Systems ROS Unobtainable: All systems reviewed & are unremarkable except as noted in HPI and below Patient History Medical History BPH (benign prostatic hyperplasia) Chronic atrial fibrillation Claudication Enlarged prostate Hemorrhoids Lower extremity pain Lumbar spine pain Numbness of foot Urinary incontinence Surgical History History of vasectomy Hx of bilateral cataract extraction Hx of vascular surgery (04/11/22) Presence of cardiac pacemaker (11/24/11) Family History Father Pneumonia Mother Hypertension Social History marital status: details: October 2022 household members: none lives independently: Yes occupational status: other Smoking Status: Current every day smoker quit status: not considering quitting second hand exposure: No alcohol intake: former substance use type: does not use Smoking Status: Current every day smoker alcohol intake frequency: holidays/special occasions only Substance Use Type: does not use Exam Narrative Exam Narrative: GENERAL: Alert and oriented x three, chronically ill appearing elderly male HEENT: Head normocephalic, atraumatic, EOMI, pupils reactive, face symmetric, mo ist mucous membranes NECK: Supple, full range of motion CARDIOVASCULAR: Regular rate and rhythm without murmurs, rubs or gallops. No JVD. No swelling bilateral lower extremities RESPIRATORY: Breath sounds equal bilaterally, no wheezes rales or rhonchi. No tachypnea or accessory muscle use. ABDOMEN: Soft, nontender. Normoactive bowel sounds all 4 quadrants. No guarding or rebound, rigidity, no mass, patient has colostomy on left lower abdomen. Ostomy site has good pink tissue. Brown stool present, no melena or hematochezia. : No CVA tenderness EXTREMITIES: Normal range of motion, no clubbing or edema. Neurovascularly intact NEUROLOGICAL: Cranial nerves II through XII grossly intact. Moving all extremities SKIN: Warm, dry, no petechiae, no rashes or lesions. Initial Vital Signs Initial Vital Signs: Vital Signs Temperature 97.0 F L 05/10/23 12:14 Pulse Rate 69 05/10/23 12:14 Respiratory Rate 16 05/10/23 12:14 Blood Pressure 115/56 L 05/10/23 12:14 Pulse Oximetry 100 05/10/23 12:14 Oxygen Delivery Method Room Air 05/10/23 12:14 Course Orders Ordered: ED Orders 05/10/23 12:05 Complete Blood Count AUTO DIFF Stat Comprehensive Metabolic Panel Stat Lipase Stat Magnesium Stat PTT Partial Thromboplastin Thompson Stat Prothrombin Time INR Stat Troponin & CK Cardiac Panel Stat 05/10/23 12:24 XR chest 1V Stat 05/10/23 15:00 EKG-12 Lead Stat 05/10/23 15:12 BNP [NT-proBNP (BNP-Adult 18+)] Stat 05/10/23 16:12 UA Complete [Urinalysis and Microscopic] Stat Discontinued Medications Sodium Chloride (Normal Saline 0.9%) 1,000 mls @ 1,000 mls/hr IV BOLUS ONE Stop: 05/10/23 15:51 Last Infusion: 05/10/23 16:11 Dose: 0 mls/hr Documented By: Admin: 05/10/23 14:56 Dose: 1,000 mls/hr Documented By: KEYANNA Vital Signs Vital signs: Vital Signs - 8 hr 05/10/23 12:14 05/10/23 13:29 05/10/23 13:29 Temperature 97.0 F L Pulse Rate 69 76 Respiratory Rate 16 Blood Pressure 115/56 L 147/67 H Pulse Oximetry 100 100 Oxygen Delivery Method Room Air Room Air 05/10/23 13:30 05/10/23 13:30 05/10/23 14:00 Temperature Pulse Rate 68 Respiratory Rate 20 Blood Pressure 146/64 H 157/69 H Pulse Oximetry 100 Oxygen Delivery Method Room Air 05/10/23 14:00 Temperature Pulse Rate 61 Respiratory Rate 21 Blood Pressure Pulse Oximetry 100 Oxygen Delivery Method Room Air MDM - Weakness Lab Data 05/10/23 12:05 05/10/23 12:05 Labs: Lab Results 05/10/23 05/10/23 05/10/23 Range/Units 12:05 12:05 12:05 WBC 2.8 L (4.5-11.0) X10^3/uL RBC 2.83 L (4.5-5.9) X10^6/uL Hgb 7.5 L (13.5-17.5) g/dL Hct 23.0 L (41-53) % MCV 81.1 (80-100) fL MCH 26.3 (26-34) PG MCHC 32.5 (30-36) % RDW 19.8 H (11.6-14.8) % Plt Count 54 L (150-400) X10^3/uL Neut % (Auto) 75.7 H (50-75) % Lymph % (Auto) 19.8 L (25-40) % Ferry % (Auto) 3.3 (3-14) % Eos % (Auto) 0.5 L (2-4) % Baso % (Auto) 0.7 (0-2) % Neut # (Auto) 2200 (8873-3196) /uL Lymph # (Auto) 600 L (6034-2878) /uL Ferry # (Auto) 100 (0-900) /uL Eos # (Auto) 0 (0-450) /uL Baso # (Auto) 0 (0-100) /uL Platelet Estimate Decreased on smear RBC Morphology Normal morphology PT 15.0 H (10.1-12.7) SECONDS INR 1.3 (0.9-1.3) APTT 28 (26-36) SECONDS Sodium 135 L (137-145) mmol/L Potassium 4.3 (3.4-5.1) mmol/L Chloride 104 (98-107) mmol/L Carbon Dioxide 21 L (22-32) mmol/L BUN 18 (9-20) mg/dL Creatinine 1.23 (0.66-1.25) mg/dL Estimated GFR 59 L (>60) mL/min BUN/Creatinine Ratio 14.6 (6-22) Glucose 91 (80-110) mg/dL Calcium 8.0 L (8.4-10.2) mg/dL Magnesium 2.2 (1.6-2.3) mg/dL Total Bilirubin 0.5 (0.2-1.3) mg/dL AST 24 (17-59) IU/L ALT 18 (<50) IU/L Alkaline Phosphatase 186 H (38-126) U/L Total Creatine Kinase 28 L (55-170) U/L Troponin I < 0.012 (0.01-0.034) ng/mL NT-Pro-B Natriuret Pep (<450) pg/mL Total Protein 7.7 (6.3-8.2) g/dL Albumin 3.2 L (3.5-5.0) g/dL Globulin 4.5 H (1.7-4.1) g/dL Albumin/Globulin Ratio 0.7 L (1.0-2.8) Lipase 64 (23-300) U/L Urine Color Urine Appearance Urine pH (4.5-8.0) Ur Specific [place] (1.000-1.035) Urine Protein (Negative) Urine Glucose (UA) (Negative) g/dL Urine Ketones (NEGATIVE) Urine Occult Blood (Negative) Urine Nitrate (Negative) Urine Bilirubin (NEGATIVE) Urine Urobilinogen (0.2) E.U./dL Ur Leukocyte Esterase (NEGATIVE) Urine RBC (0-5/HPF) Urine WBC (0-5/HPF) Ur Squamous Epith Cells (0-5/HPF) Urine Bacteria (None) Ur Culture Indicated? 05/10/23 05/10/23 Range/Units 15:12 16:12 WBC (4.5-11.0) X10^3/uL RBC (4.5-5.9) X10^6/uL Hgb (13.5-17.5) g/dL Hct (41-53) % MCV (80-100) fL MCH (26-34) PG MCHC (30-36) % RDW (11.6-14.8) % Plt Count (150-400) X10^3/uL Neut % (Auto) (50-75) % Lymph % (Auto) (25-40) % Ferry % (Auto) (3-14) % Eos % (Auto) (2-4) % Baso % (Auto) (0-2) % Neut # (Auto) (4873-8836) /uL Lymph # (Auto) (1266-1206) /uL Ferry # (Auto) (0-900) /uL Eos # (Auto) (0-450) /uL Baso # (Auto) (0-100) /uL Platelet Estimate RBC Morphology PT (10.1-12.7) SECONDS INR (0.9-1.3) APTT (26-36) SECONDS Sodium (137-145) mmol/L Potassium (3.4-5.1) mmol/L Chloride (98-107) mmol/L Carbon Dioxide (22-32) mmol/L BUN (9-20) mg/dL Creatinine (0.66-1.25) mg/dL Estimated GFR (>60) mL/min BUN/Creatinine Ratio (6-22) Glucose (80-110) mg/dL Calcium (8.4-10.2) mg/dL Magnesium (1.6-2.3) mg/dL Total Bilirubin (0.2-1.3) mg/dL AST (17-59) IU/L ALT (<50) IU/L Alkaline Phosphatase (38-126) U/L Total Creatine Kinase (55-170) U/L Troponin I (0.01-0.034) ng/mL NT-Pro-B Natriuret Pep 617 H (<450) pg/mL Total Protein (6.3-8.2) g/dL Albumin (3.5-5.0) g/dL Globulin (1.7-4.1) g/dL Albumin/Globulin Ratio (1.0-2.8) Lipase (23-300) U/L Urine Color Yellow Urine Appearance Clear Urine pH 6.5 (4.5-8.0) Ur Specific [place] <=1.005 (1.000-1.035) Urine Protein Negative (Negative) Urine Glucose (UA) Negative (Negative) g/dL Urine Ketones Negative (NEGATIVE) Urine Occult Blood 2+ H (Negative) Urine Nitrate Negative (Negative) Urine Bilirubin Negative (NEGATIVE) Urine Urobilinogen 0.2 (0.2) E.U./dL Ur Leukocyte Esterase Negative (NEGATIVE) Urine RBC 1-5/hpf (0-5/HPF) Urine WBC None seen (0-5/HPF) Ur Squamous Epith Cells 0-1 /hpf (0-5/HPF) Urine Bacteria None seen (None) Ur Culture Indicated? Cult not indicated ECG Data Attestation: I personally reviewed and interpreted this ECG as follows: Interpretation: Atrial paced rhythm rate of 60 1p are 2 castillo QRS is [address] QTC [address] No acute [address] elevation depression noted. MDM Narrative Medical decision making narrative: This is a pleasant 83-year-old male with lightheadedness, generalized weakness fatigue that has been progressing, patient states he also responds to fluids. He is noted to have a pancytopenia white count is 2.8 hemoglobin 7.5 and platelets are 54. Patient's hemoglobin actually appears quite consistent with priors as far back as February. Patient's platelets have been dropping over time, white count was 2.3 at the end of March was 6.8 that is beginning of March. Sod ium 135 CO2 is 21 BUN 18 renal functions 1.23, normal potassium calcium slightly low at 8 but appears with consistent with priors LFTs show an alk-phos of 186 consistent with no cancer, no other LFT changes. Troponin was negative. BNP is Patient had urine sample from 04/27/2023 positive urine culture with Enterococcus faecalis 70,000-80,000 CFU. Patient states he has been on antibiotics for the last 6 days, appears to be on levaquin currently which would be appropriate coverage. Patient feels much better after fluids. He ambulated to the bathroom. He is still on antibiotics await for urine culture but will send. Patient feels comfortable returning home. We reviewed his lab work findings he has follow-up this Monday with his oncologist, given a copy of his labs and asked to follow up in the short term with strict return precautions. Discharge Plan Departure Patient Disposition: Home Clinical Impression: Pancytopenia, Fatigue Activity Restrictions/Additional Instructions: Follow up with Oncology at your appointment on Monday. Talk with Dr. Bourgeois, your hemoglobin appears stable but your white blood cell count and platelets have both dropped. There is a copy of your labs included. These should be rechecked in the next several days or week. Your urine sample is pending if the culture returns with signs of persistent infection will call intact you to see about changing your antibiotic. This usually takes 48-72 hours. You can continue your home medications as prescribed. Please return if you are feeling worse, if you are having new lightheadedness, increasing fatigue, chest pain, shortness of breath if you see any new bleeding, abnormal bruising, nausea or vomiting, black or bloody stools, frequent diarrhea or other new or concerning changes. Prescriptions: No Action clopidogrel [Plavix] 75 mg tablet 75 mg PO DAILY Qty: 90 3RF pantoprazole [Protonix] 40 mg tablet,delayed release (DR/EC) 40 mg PO BID Qty: 180 3RF amlodipine 10 mg tablet 10 mg PO BEDTIME Qty: 90 2RF carvedilol 25 mg tablet 25 mg PO BID Qty: 180 2RF Rx Instructions: must administer with a meal/food lidocaine-prilocaine 2.5-2.5 % Cream 1 applic topical PRN PRN (Reason: Port/Catheter Care) Qty: 300 1RF Rx Instructions: apply generous amount over port 1-2 hours prior to port use [place]urf 20-8.19 mg Tablet 3 tab PO DIRECTED Qty: 60 11RF Rx Instructions: Take 3 pills by mouth twice daily, on days 1-5 and 8-12, every 28-day cycle. Must take within 1 hr after completion of meal ondansetron 4 mg Tablet,Disintegrating 4 mg PO Q6H PRN (Reason: Nausea And Vomiting) Qty: 30 1RF atorvastatin 40 mg Tablet 40 mg PO BEDTIME levofloxacin 500 mg Tablet 500 mg PO Q24H Qty: 10 0RF Referrals: Zak Peace MD [Primary Care Provider] - Stand Alone Forms: Patient Portal/API
[2023-05-10] MEDS: SODIUM CHLORIDE 0.9% 1,000 ML 1000 ML IV (14:56)
[2023-05-10 15:44] LABS: NT-proBNP (BNP-Adult 18+) 617 pg/mL (<450)
[2023-05-10 16:19] LABS: Appearance Urine UA CLEAR; Bilirubin Urine UA NEGATIVE (NEGATIVE); Color Urine UA YELLOW; Glucose Urine UA NEGATIVE (Negative); Ketones Urine UA NEGATIVE (NEGATIVE); Leukocyte Esterase Urine UA NEGATIVE (NEGATIVE); Nitrite Urine UA NEGATIVE (Negative); Occult Blood Urine UA 2+ (Negative); Protein Urine UA NEGATIVE (Negative); Specific Gravity Urine UA <=1.005 (1.000-1.035); Urobilinogen Urine UA 0.2 E.U./dL (0.2); pH Urine UA 6.5 (4.5-8.0)
[2023-05-10 16:38] LABS: Bacteria Urine None Seen; Culture Indicated Urine Cult Not Indicated; Squamous Epithelial Cell Urine 0-1 /HPF (0-5/HPF); WBC Urine None Seen (0-5/HPF)
[2023-05-10 16:39] LABS: RBC Urine 1-5/HPF (0-5/HPF)
== END 2023-05-10 16:43 | disposition home or self-care (01) ==
PROVIDERS: Emergency Provider Emergency Medicine; PCP Family Medicine
DX: D61.818 Other pancytopenia (principal); R53.83 Other fatigue; R03.0 Elevated blood-pressure reading, without diagnosis of hypertension
CPT/HCPCS: 36415; 71045; 80053; 81001; 82550; 83690; 83735; 83880; 84484; 85025; 85610; 85730; 93005; 99284

== ENCOUNTER 2023-08-04 09:26 | Emergency (ER) | payer MEDICARE, OTHER, SELFPAY ==
[2022-08-14 11:17] VITALS: BMI 23.1
[2023-08-04] VITALS (50 sets, daily range): BP systolic 164–225; BP diastolic 70–96; PULSE 60–96; RESP 13–28; TEMP 36.4–36.6; O2SAT 97–100; BMI 23.0
--- NOTE | 2023-08-04 09:49 | DI.CT.S_ITS ---
PROCEDURE: CT ANGIO ABDOMEN PELVIS INDICATIONS: GI bleed/IV contrast TECHNIQUE: After the administration of intravenous contrast, 2.5 mm thick sections acquired from the diaphragm to the symphysis. 10 mm maximum-intensity projection (MIP) reformats were then acquired. For radiation dose reduction, the following was used: automated exposure control. COMPARISON: [facility], CT, CT CHEST ABD PEL W CON, 04/27/2023, 10:45. [facility], CR, XR CHEST 1V, 05/10/2023, 12:22. FINDINGS: Image quality: Excellent. Aorta: Atherosclerotic calcifications are present as well as mural thrombus most severe in the distal aorta with luminal narrowing measuring 1.0 cm. Mesenteric arteries: Celiac trunk, superior and inferior mesenteric arteries appear patent. Right pelvic arteries: Atherosclerotic calcification is present without hemodynamically significant stenosis. Left pelvic arteries: Atherosclerotic calcification is present without hemodynamically significant stenosis. Extravascular soft tissues: 4 mm posterior left pleural based nodule series 6, image 13, unchanged. Heart size is normal. Liver is enlarged measuring 19.2 cm. Multiple low-attenuation hepatic foci are present stable compared to prior exam. Gallbladder demonstrates a luminal calcification without wall thickening, unchanged. Biliary system is non dilated. Pancreas enhances normally. Spleen demonstrates patchy and confluent areas of low attenuation comprising significant portions of the spleen, new compared to prior exam. No adrenal nodules. Marked right asymmetric renal atrophy is present. Simple left renal cysts are present.. Non opacified bowel loops are normal in wall thickness and caliber. Left lower quadrant ostomy with peristomal fat hernia is present, unchanged. There is mild appearance of thickening at the rectum without surrounding inflammatory change. Partial colectomy changes are present. Scattered areas of diverticula are present. No free fluid or air. No retroperitoneal or mesenteric adenopathy. No ventral hernias. No suspicious bony lesions. No vertebral body compression fractures. IMPRESSION: Atherosclerotic changes within the arterial vasculature as described above. Mesenteric vasculature appears patent. Diverticulosis. No bowel inflammatory change. Unchanged appearance of hepatic low-attenuation foci consistent with known hepatic metastatic disease. Interval marked low-attenuation foci within the spleen. While this could be sales representative meats of contrast injection timing, it is felt to be cysts more significant than typically seen and raises concern for splenic metastatic disease or potentially significant areas of infection/infarction. Dictated by: Lyndsey Parnell M.D. on 08/04/2023 at 11:14 Approved by: Lyndsey Parnell M.D. on 08/04/2023 at 11:21
--- NOTE | 2023-08-04 09:50 | ED_ITS ---
HPI - GI Bleed General Chief complaint: GI Bleed Stated complaint: blood in colostomy bag Time Seen by Provider: 08/04/23 09:39 Source: patient Mode of arrival: Ambulatory History of Present Illness HPI Narrative: Patient here from home. Complains of bright red blood in his ostomy/colostomy bag since this past Monday, 4 days ago. Denies denies abdominal pain. No dizziness no syncope no shortness of breath. Patient has history of colon cancer, metastatic, with anemia. Patient seen here this past summer for anemia and blood transfusions. Patient sees primary care Dr. Zak Peace. Patient sees Oncology Dr. Bourgeois. He does get chemo every 3 months. Denies any dizziness or near-syncope or syncope. Patient in no distress at this time. Patient was supposed to get endoscopy this past summer, Dr. Bowman, general surgery however symptoms resolved. Related Data Home Medications Medication Instructions Recorded Confirmed atorvastatin 40 mg tablet 40 mg PO BEDTIME 04/13/23 06/29/23 Previous Rx's Medication Instructions Recorded lidocaine-prilocaine 2.5 %-2.5 % 1 applic topical PRN PRN 06/08/22 topical cream Port/Catheter Care #300 grams amlodipine 10 mg tablet 10 mg PO BEDTIME #90 tabs 12/15/22 carvedilol 25 mg tablet 25 mg PO BID #180 tabs 12/15/22 clopidogrel 75 mg tablet (Plavix) 75 mg PO DAILY #90 tabs 12/15/22 pantoprazole 40 mg tablet,delayed 40 mg PO BID #180 tabs 12/15/22 release (Protonix) ondansetron 4 mg disintegrating 4 mg PO Q6H PRN Nausea And 04/06/23 tablet Vomiting #30 tabs trifluridine 20 mg-tipiracil 8.19 2 tab PO DIRECTED #40 tabs 05/18/23 mg tablet Disabled Parking Placard #1 ea 06/20/23 Allergies Allergy/AdvReac Type Severity Reaction Status Date / Time Penicillins [PENICILLINS] Allergy Mild RASH Verified 06/29/23 13:42 Review of Systems Review of Systems Narrative: GENERAL: negative chills, fatigue, malaise, fever, sweats. HEENT: negative sinus pain, ear pain, sore throat RESPIRATORY: negative dyspnea, cough CARDIOVASCULAR: negative chest pain, palpitations GASTROINTESTINAL: negative nausea, vomiting, abdominal pain, positive GI bleed : negative dysuria, frequency, hematuria MUSCULOSKELETAL: negative muscle or bony pain SKIN: negative rash, skin lesions NEUROLOGIC: negative weakness, numbness ROS Unobtainable: All systems reviewed & are unremarkable except as noted in HPI and below Patient History Medical History BPH (benign prostatic hyperplasia) Chronic atrial fibrillation Claudication Enlarged prostate Hemorrhoids Lower extremity pain Lumbar spine pain Numbness of foot Urinary incontinence Surgical History History of vasectomy Hx of bilateral cataract extraction Hx of vascular surgery (04/11/22) Presence of cardiac pacemaker (11/24/11) Family History Father Pneumonia Mother Hypertension Social History marital status: details: October 2022 household members: none lives independently: Yes occupational status: other Smoking Status: Current every day smoker quit status: not considering quitting second hand exposure: No alcohol intake: former substance use type: does not use Smoking Status: Current every day smoker tobacco type: cigarettes alcohol intake frequency: holidays/special occasions only Substance Use Type: does not use Exam Narrative Exam Narrative: GENERAL: in no distress, not toxic not dyspneic HEAD: Normocephalic. EYES: Pupils equal round, pink conjunctiva ENT: Mucous membranes moist. NECK: Trachea midline. CARDIOVASCULAR: Regular rate and rhythm RESPIRATORY: Clear to auscultation. Breath sounds equal bilaterally. No wheezes, rales, or rhonchi. GASTROINTESTINAL: Abdomen soft, non-tender, no peritoneal signs bowel sounds are present. Ostomy bag does show what appears to be dark blood. Hemoccult is positive EXTREMITIES: No gross deformities. BACK: No flank tenderness. NEURO: AOx4. SKIN: Warm and dry PSYCH: Not anxious, is cooperative Initial Vital Signs Initial Vital Signs: Vital Signs Pulse Rate 70 08/04/23 09:39 Pulse Oximetry 100 08/04/23 09:39 Course Orders Ordered: ED Orders 08/04/23 09:49 CT angio abdomen pelvis Stat 08/04/23 10:32 Complete Blood Count AUTO DIFF Stat Comprehensive Metabolic Panel Stat PT [Prothrombin Time INR] Stat PTT Partial Thromboplastin Thompson Stat Type and Screen Stat transfuse [Packed Cells] Stat 08/04/23 11:40 Urine Culture Stat Urine Microscopic Stat Discontinued Medications Carvedilol (Carvedilol 12.5 Mg Tablet) 25 mg PO NOW ONE Stop: 08/04/23 14:12 Last Admin: 08/04/23 14:17 Dose: 25 mg Documented By: JUANA Hydralazine HCl (Hydralazine 20 Mg/Ml Vial) 10 mg IV NOW ONE Stop: 08/04/23 16:35 Last Admin: 08/04/23 16:43 Dose: 10 mg Documented By: JUANA Sodium Chloride (Normal Saline 0.9%) 500 mls @ 1,000 mls/hr IV BOLUS ONE Stop: 08/04/23 10:17 Last Admin: 08/04/23 11:16 Dose: Not Given Documented By: KARLA Sodium Chloride (Normal Saline 0.9%) 500 mls @ 1,000 mls/hr IV BOLUS ONE Stop: 08/04/23 12:15 Last Infusion: 08/04/23 12:53 Dose: Infused Documented By: Admin: 08/04/23 12:10 Dose: 1,000 mls/hr Documented By: KARLA Vital Signs Vital signs: Vital Signs - 8 hr 08/04/23 10:38 08/04/23 10:38 08/04/23 11:05 Temperature Pulse Rate 64 96 H Respiratory Rate Blood Pressure 175/74 H Pulse Oximetry 99 98 08/04/23 11:06 08/04/23 11:06 08/04/23 11:20 Temperature Pulse Rate 90 Respiratory Rate Blood Pressure 172/79 H 175/77 H Pulse Oximetry 100 08/04/23 11:20 08/04/23 11:30 08/04/23 11:40 Temperature Pulse Rate 60 60 Respiratory Rate 18 24 Blood Pressure 193/85 H Pulse Oximetry 100 99 08/04/23 11:40 08/04/23 12:00 08/04/23 12:01 Temperature Pulse Rate 66 61 Respiratory Rate 13 13 Blood Pressure 181/78 H Pulse Oximetry 100 99 08/04/23 12:01 08/04/23 12:23 08/04/23 12:23 Temperature Pulse Rate 68 84 Respiratory Rate 18 23 Blood Pressure 195/94 H Pulse Oximetry 100 100 08/04/23 12:30 08/04/23 12:40 08/04/23 12:40 Temperature Pulse Rate 61 60 Respiratory Rate 16 17 Blood Pressure 225/91 H Pulse Oximetry 100 99 08/04/23 12:42 08/04/23 12:42 08/04/23 13:00 Temperature Pulse Rate 61 62 Respiratory Rate 14 24 Blood Pressure 204/88 H Pulse Oximetry 99 99 08/04/23 13:01 08/04/23 13:01 08/04/23 13:20 Temperature Pulse Rate 61 Respiratory Rate 24 Blood Pressure 182/78 H 207/86 H Pulse Oximetry 99 08/04/23 13:20 08/04/23 13:24 08/04/23 13:30 Temperature 97.6 F Pulse Rate 61 62 60 Respiratory Rate 21 18 23 Blood Pressure 207/86 H Pulse Oximetry 98 98 08/04/23 13:41 08/04/23 13:41 08/04/23 13:45 Temperature 97.8 F Pulse Rate 61 60 Respiratory Rate 19 18 Blood Pressure 176/74 H 176/74 H Pulse Oximetry 98 08/04/23 14:00 08/04/23 14:01 08/04/23 14:05 Temperature 97.6 F Pulse Rate 63 64 Respiratory Rate 18 Blood Pressure 176/74 H 216/96 H Pulse Oximetry 08/04/23 14:05 08/04/23 14:15 08/04/23 14:16 Temperature Pulse Rate 61 61 Respiratory Rate 16 24 Blood Pressure 193/78 H Pulse Oximetry 98 99 08/04/23 14:16 08/04/23 14:17 08/04/23 14:30 Temperature Pulse Rate 62 62 60 Respiratory Rate 24 17 Blood Pressure 216/78 H Pulse Oximetry 100 99 08/04/23 14:31 08/04/23 14:31 08/04/23 14:45 Temperature Pulse Rate 60 60 Respiratory Rate 21 24 Blood Pressure 214/92 H Pulse Oximetry 99 98 08/04/23 14:46 08/04/23 14:46 08/04/23 14:50 Temperature Pulse Rate 60 Respiratory Rate 23 Blood Pressure 223/95 H 201/91 H Pulse Oximetry 98 08/04/23 14:50 08/04/23 15:00 08/04/23 15:00 Temperature Pulse Rate 61 60 Respiratory Rate 23 22 Blood Pressure 211/95 H Pulse Oximetry 98 98 08/04/23 15:22 08/04/23 15:28 08/04/23 15:29 Temperature 97.9 F Pulse Rate 65 68 Respiratory Rate 18 22 Blood Pressure 201/70 H 210/94 H Pulse Oximetry 99 08/04/23 15:29 08/04/23 15:30 08/04/23 15:30 Temperature Pulse Rate 65 71 Respiratory Rate 23 24 Blood Pressure 204/92 H Pulse Oximetry 98 97 08/04/23 15:45 08/04/23 15:46 08/04/23 15:46 Temperature Pulse Rate 73 68 Respiratory Rate 22 28 H Blood Pressure 193/78 H Pulse Oximetry 98 98 08/04/23 16:00 08/04/23 16:01 08/04/23 16:01 Temperature Pulse Rate 61 65 Respiratory Rate 23 23 Blood Pressure 220/86 H Pulse Oximetry 98 98 08/04/23 16:15 08/04/23 16:16 08/04/23 16:16 Temperature Pulse Rate 63 62 Respiratory Rate 22 23 Blood Pressure 191/84 H Pulse Oximetry 97 98 08/04/23 16:30 08/04/23 16:30 08/04/23 16:43 Temperature Pulse Rate 60 66 Respiratory Rate 23 Blood Pressure 188/84 H 212/76 H Pulse Oximetry 99 MDM - GI Bleed Lab Data 08/04/23 10:32 08/04/23 10:32 Labs: Lab Results 08/04/23 08/04/23 Range/Units 10:32 11:40 WBC 1.7 L* (4.5-11.0) X10^3/uL RBC 2.30 L (4.5-5.9) X10^6/uL Hgb 7.4 L (13.5-17.5) g/dL Hct 22.2 L (41-53) % MCV 96.2 (80-100) fL MCH 32.1 (26-34) PG MCHC 33.3 (30-36) % RDW 23.3 H (11.6-14.8) % Plt Count 51 L (150-400) X10^3/uL Neut % (Auto) Not Reportable Lymph % (Auto) Not Reportable [place] % (Auto) Not Reportable Eos % (Auto) Not Reportable Baso % (Auto) Not Reportable Lymph # (Auto) Not Reportable [place] # (Auto) Not Reportable Baso # (Auto) Not Reportable Total Counted 50 Seg Neutrophils % 56.0 (38-70) % Band Neutrophils % 6.0 (3-7) % Lymphocytes % (Manual) 34.0 (25-45) % Monocytes % (Manual) 4.0 (2-11) % Neutrophils # (Manual) 1054 L (3975-7451) /uL RBC Morphology See below Anisocytosis 1+ H PT 14.8 H (10.1-12.7) SECONDS INR 1.3 (0.9-1.3) APTT 30 (26-36) SECONDS Sodium 135 L (137-145) mmol/L Potassium 4.1 (3.4-5.1) mmol/L Chloride 109 H (98-107) mmol/L Carbon Dioxide 24 (22-32) mmol/L BUN 13 (9-20) mg/dL Creatinine 1.17 (0.66-1.25) mg/dL Estimated GFR > 60 (>60) mL/min BUN/Creatinine Ratio 11.1 (6-22) Glucose 146 H (80-110) mg/dL Calcium 8.3 L (8.4-10.2) mg/dL Total Bilirubin 0.4 (0.2-1.3) mg/dL AST 26 (17-59) IU/L ALT 17 (<50) IU/L Alkaline Phosphatase 153 H (38-126) U/L Total Protein 6.5 (6.3-8.2) g/dL Albumin 2.8 L (3.5-5.0) g/dL Globulin 3.7 (1.7-4.1) g/dL Albumin/Globulin Ratio 0.8 L (1.0-2.8) Urine RBC None seen (0-5/HPF) Urine WBC 1-5/hpf (0-5/HPF) Ur Squamous Epith Cells 1-5 /hpf (0-5/HPF) Urine Bacteria None seen (None) Ur Culture Indicated? Specimen cultured Blood Type B Positive Antibody Screen Negative Crossmatch See Detail Point of Care Testing Stool Occult Blood Positive Urine Dip Bedside Urine Glucose Negative Bedside Urine Bilirubin - Negative Bedside Urine Ketone - Negative Urine Specific [place] 1.010 Bedside Urine Occult Blood + Bedside Urine pH 6.0 Bedside Urine Protein - Negative Bedside Urine Urobilinogen - Negative Bedside Urine Nitrite - Negative Bedside Urine Leukocytes - Negative Esterase MDM Narrative Medical decision making narrative: Patient here from home. Complains of bright red blood in his ostomy/colostomy bag since this past Monday, 4 days ago. Denies denies abdominal pain. No dizziness no syncope no shortness of breath. Patient has history of colon cancer, metastatic, with anemia. Patient seen here this past summer for anemia and blood transfusions. Patient sees primary care Dr. Zak Peace. Patient sees Oncology Dr. Bourgeois. He does get chemo every 3 months. Denies any dizziness or near-syncope or syncope. Patient in no distress at this time. Patient was supposed to get endoscopy this past summer, Dr. Bowman, general surgery however symptoms resolved. After history and exam CBC CMP PT PTT CT abdomen pelvis angiogram normal saline MDM CC: GI bleed Complicating co-morbidities: Metastatic colon cancer with anemia Data collected from: Patient Medical records reviewed: Seen here ER April 2023 for anemia Differential considered: Includes but not limited to colon cancer/anemia/GI bleed/diverticulosis/diverticulitis Exam documented above, pertinent findings include: Nontender abdomen Lab Test results independently reviewed as above. Pertinent findings: WBC 1.7 hemoglobin 7.4 hematocrit 22 platelets 51 Sodium 135 potassium 4.1 BUN 13 creatinine 1.17 GFR greater than 60 INR 1.3 Imaging studies independently reviewed: CT abdomen pelvis athletics changes within the arterial vasculature mesenteric vasculature appears patent. Diverticulosis no bowel inflammatory change. Consultations: 12:[address] Hill, general surgeon. Endoscopy colonoscopy EGD can be done outpatient. He did review patient's labs. At this time patient is hemodynamically stable. 12:53 p.m.. Spoke with primary care physician Dr. Zak Peace, no indication for admission. Do not transfuse for platelets. However please do transfuse 1 unit of red blood cells and discharge home and he will follow up with patient on Monday. He will help to arrange for outpatient endoscopy with Dr. Hill. 1:26 p.m.. Spoke with patient's oncologist, Dr. Bourgeois, I did review laboratory studies CBC with him. This is likely related to chemotherapy. No platelet transfusion. Agrees 1 unit red blood cells and discharge home. He will follow up in the clinic. 4:41 p.m.. Spoke with primary care Dr. Zak Peace, blood pressure was elevated after blood transfusion. He agreed with hydralazine IV and follow up with him on Monday for re-evaluation. Treatments: Normal saline packed red blood cell Re-evaluations: Reviewed results with patient. At this time they are reassuring. Discussion: Appropriate for discharge home. Exam is reassuring. Patient likely has diverticular bleed. I did review with general surgery and recommends outpatient endoscopy. I did review with primary care as well as with oncology services Diagnosis: GI bleed Critical Care Time Critical Care Time Attestation: Critical Care Time minutes: Critical care time is separate from other billable procedures. This critical care time includes consultation with family and other consulting doctors, review of records, and interpretation of data from labs, EKGs, imaging, etc. Patient required blood transfusion Discharge Plan Departure Patient Disposition: Home Clinical Impression: Diverticulosis of intestine, Lower gastrointestinal hemorrhage Instructions: Gastrointestinal Bleeding, DI for Diverticulosis Activity Restrictions/Additional Instructions: Please see your family doctor next week for re-evaluation into scheduled for endoscopy of your colon. Please see your oncology doctor next week as well. You were transfused and given 1 unit of blood. Your blood count was low. Prescriptions: No Action clopidogrel [Plavix] 75 mg tablet 75 mg PO DAILY Qty: 90 3RF pantoprazole [Protonix] 40 mg tablet,delayed release (DR/EC) 40 mg PO BID Qty: 180 3RF amlodipine 10 mg tablet 10 mg PO BEDTIME Qty: 90 2RF carvedilol 25 mg tablet 25 mg PO BID Qty: 180 2RF Rx Instructions: must administer with a meal/food (DME) Disabled Parking Placard See Rx Instructions .Route .MEDSUPPLY Qty: 1 0RF Rx Instructions: As directed lidocaine-prilocaine 2.5-2.5 % Cream 1 applic topical PRN PRN (Reason: Port/Catheter Care) Qty: 300 1RF Rx Instructions: apply generous amount over port 1-2 hours prior to port use ondansetron 4 mg Tablet,Disintegrating 4 mg PO Q6H PRN (Reason: Nausea And Vomiting) Qty: 30 1RF atorvastatin 40 mg Tablet 40 mg PO BEDTIME trifluridine-tipiracil 20-8.19 mg Tablet 2 tab PO DIRECTED Qty: 40 0RF Rx Instructions: Must take within 1 hr after completion of meal; take 2 tabs twice daily on days 1 to 5 and days 8 through 12 of 28-day cycle Referrals: Zak Peace MD [Primary Care Provider] - Stand Alone Forms: Patient Portal/API
[2023-08-04 10:51] LABS: Hematocrit 22.2 % (41-53); Hemoglobin 7.4 g/dL (13.5-17.5); Mean Corpuscular HGB Conc 33.3 % (30-36); Mean Corpuscular Hemoglobin 32.1 PG (26-34); Mean Corpuscular Volume 96.2 fL (80-100); Platelet Count 51 X10^3/uL (150-400); Red Cell Distribution Width 23.3 % (11.6-14.8)
[2023-08-04 10:55] LABS: INR 1.3 (0.9-1.3); Prothrombin Time 14.8 SECONDS (10.1-12.7)
[2023-08-04 10:56] LABS: White Blood Cell Count 1.7 X10^3/uL (4.5-11.0)
[2023-08-04 10:57] LABS: Add Manual Diff / Slide Review YES; PTT Partial Thromboplastin Tim 30 SECONDS (26-36)
[2023-08-04 10:59] LABS: Alanine Aminotransferase 17 IU/L (<50); Albumin 2.8 g/dL (3.5-5.0); Albumin Globulin Ratio 0.8 (1.0-2.8); Alkaline Phosphatase 153 U/L (38-126); Aspartate Aminotransferase 26 IU/L (17-59); BUN Creatinine Ratio 11.1 (6-22); Bilirubin Total 0.4 mg/dL (0.2-1.3); Blood Urea Nitrogen 13 mg/dL (9-20); Calcium 8.3 mg/dL (8.4-10.2); Carbon Dioxide 24 mmol/L (22-32); Chloride 109 mmol/L (98-107); Estimated Glomerular Filt Rate > 60 mL/min (>60); Globulin 3.7 g/dL (1.7-4.1); Glucose 146 mg/dL (80-110); HEMOLYSIS < 15 (0-50); Potassium 4.1 mmol/L (3.4-5.1); Sodium 135 mmol/L (137-145); Total Protein 6.5 g/dL (6.3-8.2)
--- NOTE | 2023-08-04 11:01 | PC.NURSE ---
[address]
[2023-08-04] MEDS: SODIUM CHLORIDE 0.9% 500 ML 1000 ML IV (12:10)
[2023-08-04 12:17] LABS: Anisocytosis 1+; Neutrophils Absolute Manual 1054 /uL (3000-5900); Total Cells Counted 50
[2023-08-04 12:26] LABS: Bacteria Urine None Seen; Culture Indicated Urine Specimen Cultured; RBC Urine None Seen (0-5/HPF); Squamous Epithelial Cell Urine 1-5 /HPF (0-5/HPF); WBC Urine 1-5/HPF (0-5/HPF)
[2023-08-04] MEDS: carvediloL 12.5 MG TABLET 25 MG PO (14:17)
--- NOTE | 2023-08-04 15:54 | PC.NURSE ---
Pt hypertensive prior to and after blood product infusion. Pt given 25mg Coreg, no improvement in BP. ED physician consulting pts physician, Dr. Peace.
[2023-08-04] MEDS: HYDRALAZINE 20 MG/ML VIAL 10 MG IV (16:43)
--- NOTE | 2023-08-04 16:46 | PC.NURSE ---
Pt given a turkey sandwich and gingerale to eat prior to D/C. Pt lives alone.
== END 2023-08-04 16:55 | disposition home or self-care (01) ==
PROVIDERS: Emergency Provider Emergency Medicine; PCP Family Medicine
DX: K57.91 Diverticulosis of intestine, part unspecified, without perforation or abscess with bleeding (principal)
CPT/HCPCS: 36415; 36430; 74174; 80053; 81003; 81015; 82272; 85007; 85025; 85610; 85730; 86850; 86900; 86901; 87086; 96361; 96374; 99285; 99291; P9016; J0360; Q9967

== ENCOUNTER 2023-08-15 12:02 | Day surgery (SDC) | payer MEDICARE, OTHER, SELFPAY ==
[2022-08-14 11:17] VITALS: BMI 23.1
[2023-08-15] VITALS (11 sets, daily range): BP systolic 91–164; BP diastolic 40–72; PULSE 60–81; RESP 7–18; TEMP 36–36.4; O2SAT 96–99; BMI 22.8
--- NOTE | 2023-08-15 14:17 | PM.HP.1 ---
History of Present Illness History of Present Illness Date Patient Seen: 08/15/23 Time Patient Seen: 14:17 [place] [facility] [place]: Peter is an 83-year-old with history of metastatic colon cancer who had a sigmoid colectomy and colostomy performed last year. He continues to see Dr. Massey for chemotherapy. Recently he has noticed bright red blood filling up his colostomy bag. He takes Plavix. [facility] Medical History BPH (benign prostatic hyperplasia) Chronic atrial fibrillation Claudication Enlarged prostate Hemorrhoids Lower extremity pain Lumbar spine pain Numbness of foot Urinary incontinence Surgical History History of vasectomy Hx of bilateral cataract extraction Hx of vascular surgery (04/11/22) Presence of cardiac pacemaker (11/24/11) Family History Father Pneumonia Mother Hypertension Social History marital status: details: October 2022 household members: none lives independently: Yes occupational status: other Smoking Status: Current every day smoker quit status: not considering quitting second hand exposure: No alcohol intake: former substance use type: does not use Meds Home Medications and Allergies Home Medications Medication Instructions Recorded Confirmed Type lidocaine-prilocaine 2.5 %-2.5 % 1 applic topical PRN PRN 06/08/22 08/15/23 Rx topical cream Port/Catheter Care #300 grams amlodipine 10 mg tablet 10 mg PO BEDTIME #90 tabs 12/15/22 08/15/23 Rx carvedilol 25 mg tablet 25 mg PO BID #180 tabs 12/15/22 08/15/23 Rx clopidogrel 75 mg tablet (Plavix) 75 mg PO DAILY #90 tabs 12/15/22 08/15/23 Rx pantoprazole 40 mg tablet,delayed 40 mg PO BID #180 tabs 12/15/22 08/15/23 Rx release (Protonix) ondansetron 4 mg disintegrating 4 mg PO Q6H PRN Nausea And 04/06/23 08/15/23 Rx tablet Vomiting #30 tabs atorvastatin 40 mg tablet 40 mg PO BEDTIME 04/13/23 08/15/23 History trifluridine 20 mg-tipiracil 8.19 2 tab PO DIRECTED #40 tabs 05/18/23 08/15/23 Rx mg tablet Disabled Parking Placard #1 ea 06/20/23 06/29/23 Rx Allergies Allergy/AdvReac Type Severity Reaction Status Date / Time Penicillins [PENICILLINS] Allergy Mild RASH Verified 08/15/23 13:16 Exam Vital Signs (past 8 hours): - 08/15/23 13:27 Temperature 97.5 F L Pulse Rate 64 Respiratory Rate 15 Blood Pressure 160/67 H Pulse Oximetry 99 Oxygen Delivery Method Room Air Oxygen Delivery Method Room Air Const General: No acute distress Resp Effort & Inspection: normal respiratory effort Assessment & Plan Assessment and plan (1) Lower gastrointestinal hemorrhage: Status: Acute Plan We reviewed the risks and benefits of EGD and colonoscopy to diagnose GI bleeding and he would like to proceed.
--- NOTE | 2023-08-15 15:07 | SUR.PHASEI ---
Airway removed approximately 1503. Patient coughed up mostly clear sputum.
--- NOTE | 2023-08-15 15:18 | SUR.PHASEI ---
Ephedrin given by anesthesia MUMTAZ Martínez.
[2023-08-15] MEDS: LACTATED RINGERS 1,000 ML 42 ML IV (15:25)
--- NOTE | 2023-08-15 15:26 | SUR.PHASEI ---
Another dose 5mg ephedrine given per anesthesia
--- NOTE | 2023-08-15 15:30 | P.OP.EGD&C_ITS ---
Operative Date/Time/Diagnoses Date of procedure: 08/15/23 Time of procedure: 15:30 Pre-op diagnosis: GI bleeding Post-op diagnosis: same Procedure & Clinicians Study performed: EGD and colonoscopy Same procedure as scheduled: Yes Surgeon: Maik Bowman Procedure Notes Procedure in detail: Surgeon: Maik Bowman MD Anesthesia: Tanya Aleman CRNA Procedure in detail: A timeout was performed. A bite blocked was placed and monitors were attached to the patient. The patient was positioned in the left lateral decubitus position. Sedation was administered. Once the patient was sedated the endoscope was inserted through the bite block and passed through the esophagus and stomach and into the duodenum. No abnormalities were seen. We then withdrew the scope into the stomach. No abnormalities were seen. The endoscope was retroflexed and no hiatal hernia was seen. The endoscope was s traightned and withdrawn into the esophagus. No abnormalities were seen. Findings: Normal EGD Next we repositioned the patient for a colonoscopy. We inserted the scope through the colostomy and advanced to the cecum. No abnormalities were seen in the cecum. We gradually withdrew and inspected the colon and found no source of bleeding and no abnormalities other than a few scattered diverticula. Findings: Normal colonoscopy EBL: 0 Scope withdrawal time: Not applicable Post-procedure Disposition: PACU
--- NOTE | 2023-08-15 15:32 | SUR.PHASEI ---
Patient may discharge with diastolic BP greater than 60 per MUMTAZ Martínez.
== END 2023-08-15 16:00 | disposition home or self-care (01) ==
PROVIDERS: PCP Family Medicine; Referring Provider Surgery; Visit Provider Surgery
PROC: 0DJ08ZZ Inspection of Upper Intestinal Tract, Via Natural or Artificial Opening Endoscopic (ICD-10-PCS; CPT 43235; principal; 2023-08-15 13:45)
PROC: 0DJD8ZZ Inspection of Lower Intestinal Tract, Via Natural or Artificial Opening Endoscopic (ICD-10-PCS; CPT 45378; 2023-08-15 13:45)
DX: K92.2 Gastrointestinal hemorrhage, unspecified (principal); K57.30 Diverticulosis of large intestine without perforation or abscess without bleeding
CPT/HCPCS: 45378; 43235; J1642; J2704

== ENCOUNTER 2023-11-17 20:07 | Inpatient (IN) | payer MEDICARE, OTHER, SELFPAY ==
[2022-08-14 11:17] VITALS: BMI 23.1
[2023-11-17] VITALS (12 sets, daily range): BP systolic 105–128; BP diastolic 52–76; PULSE 60–125; RESP 16–23; TEMP 30–35.8; O2SAT 98–100; BMI 22.1
--- NOTE | 2023-11-17 20:30 | PC.NURSE ---
see triage note for complaint, pt is noticed to be jaundiced skin turgor poor,
--- NOTE | 2023-11-17 20:36 | ED.GENADULT ---
HPI - General Adult General Chief complaint: Weakness Stated complaint: weakness Time Seen by Provider: 11/17/23 20:33 Source: patient, family and EMS Mode of arrival: EMS History of Present Illness HPI narrative: Patient is an 83-year-old male. Has a history of metastatic colon cancer. Is currently being followed by Oncology. At the beginning of the month was started on a new oral chemotherapy regimen. They were told by oncologist that it may cause his blood counts to decrease and may cause him to become dehydrated. They brought him into the emergency department today for weakness. Patient lives at home by himself. Patient's family is at Bedside. One of his sisters states that she calls him every evening. She tried to call him this evening he did not brain picker the phone. They went over to his house and found him kneeling on the floor leaning onto his couch. Patient was so weak that he could not stand up. Patient is also jaundice and this has been progressively worsening over the past several days. Patient states that he tried to get up from his chair today and became very lightheaded and weak. He did not fall but did have to get down onto the ground and then could not get up again. Potentially has been in this position for an extended period of time however other family member stated that they had contact with him earlier in the afternoon. Initially patient denied any pain however upon further questioning does report pain in his upper abdomen. He denies chest pain or shortness of breath. No vomiting. Denies headache. Was also reported that the patient was hypoglycemic by EMS. He did receive glucose prior to arrival and this potentially is helped his symptoms somewhat as well. Related Data Home Medications Medication Instructions Recorded Confirmed atorvastatin 40 mg tablet 40 mg PO BEDTIME 04/13/23 08/15/23 Previous Rx's Medication Instructions Recorded lidocaine-prilocaine 2.5 %-2.5 % 1 applic topical PRN PRN 06/08/22 topical cream Port/Catheter Care #300 grams amlodipine 10 mg tablet 10 mg PO BEDTIME #90 tabs 12/15/22 carvedilol 25 mg tablet 25 mg PO BID #180 tabs 12/15/22 clopidogrel 75 mg tablet (Plavix) 75 mg PO DAILY #90 tabs 12/15/22 pantoprazole 40 mg tablet,delayed 40 mg PO BID #180 tabs 12/15/22 release (Protonix) Disabled Parking Placard #1 ea 06/20/23 Allergies Allergy/AdvReac Type Severity Reaction Status Date / Time Penicillins [PENICILLINS] Allergy Mild RASH Verified 08/15/23 13:16 Review of Systems Review of Systems ROS Unobtainable: All systems reviewed & are unremarkable except as noted in HPI and below Patient History Medical History Enlarged prostate Numbness of foot Lower extremity pain Claudication Chronic atrial fibrillation Lumbar spine pain Urinary incontinence BPH (benign prostatic hyperplasia) Hemorrhoids Surgical History History of vasectomy Hx of bilateral cataract extraction Hx of vascular surgery (04/11/22) Presence of cardiac pacemaker (11/24/11) Family History Father Pneumonia Mother Hypertension Social History marital status: details: October 2022 household members: none lives independently: Yes occupational status: other Smoking Status: Current every day smoker quit status: not considering quitting second hand exposure: No alcohol intake: former substance use type: does not use Smoking Status: Current every day smoker tobacco type: cigarettes alcohol intake frequency: holidays/special occasions only Substance Use Type: does not use Exam Initial Vital Signs Initial Vital Signs: Vital Signs Pulse Rate 69 11/17/23 20:24 Respiratory Rate 16 11/17/23 20:24 Blood Pressure 125/60 11/17/23 20:24 Pulse Oximetry 100 11/17/23 20:24 Oxygen Delivery Method Room Air 11/17/23 20:24 Const General: ill appearing HENMA Head: normal to inspection and normocephalic Mouth: No moist mucous membranes (Dry mucous membranes) Eyes Other: Scleral icterus Resp Effort & Inspection: normal respiratory effort Auscultation: clear to auscultation bilaterally Cardio Rate: regular rate Rhythm: regular rhythm GI Other: Colostomy present left side of abdomen. Does have some upper abdominal discomfort. It is not distended. No guarding. Skin General: jaundice Neuro General: patient alert, patient awake and moves all extremities Extrem Other: No gross deformities Scores GCS True coma scale eye opening: Spontaneous [place] coma scale verbal response: Orientated True coma scale motor response: Obey commands [place] coma scale total score: 15 Course Orders Ordered: ED Orders 11/17/23 22:15 ABO RH Type Stat Acetaminophen Stat Ammonia (NH3) Stat Basic Metabolic Panel Stat Complete Blood Count AUTO DIFF Stat Ethanol (ETOH) Stat Hepatic (Liver) Panel Stat Lactate (Lactic Acid) Stat Lipase Stat PTT Partial Thromboplastin Thompson Stat Platelet Irradiated Stat Procalcitonin Stat Prothrombin Time INR Stat 11/17/23 23:54 CT abdomen pelvis wo con Stat 11/18/23 01:25 US abdomen limited Stat 11/18/23 04:40 Complete Blood Count AUTO DIFF Stat Comprehensive Metabolic Panel Stat Lactate (Lactic Acid) Stat Sodium Chloride (Normal Saline 0.9%) 1,000 mls @ 125 mls/hr IV CONT ANDRES Last Admin: 11/18/23 04:35 Dose: 125 mls/hr Documented By: Infusion: 11/18/23 04:35 Dose: Infused Documented By: Admin: 11/17/23 21:13 Dose: 125 mls/hr Documented By: LAZARO Discontinued Medications Sodium Chloride (Normal Saline 0.9%) 500 mls @ 500 mls/hr IV BOLUS ONE Stop: 11/18/23 01:05 Last Infusion: 11/18/23 01:06 Dose: Infused Documented By: Admin: 11/18/23 00:41 Dose: 500 mls/hr Documented By: LAZARO Vital Signs Vital signs: Vital Signs - 8 hr 11/17/23 22:00 11/17/23 22:00 11/17/23 22:30 Temperature Pulse Rate 65 Respiratory Rate Blood Pressure 122/60 110/52 L Pulse Oximetry 99 11/17/23 22:30 11/17/23 23:00 11/17/23 23:00 Temperature Pulse Rate 62 70 Respiratory Rate Blood Pressure 128/76 Pulse Oximetry 98 98 11/17/23 23:30 11/17/23 23:31 11/17/23 23:31 Temperature Pulse Rate 64 63 Respiratory Rate Blood Pressure 116/55 L Pulse Oximetry 99 99 11/18/23 00:00 11/18/23 00:01 11/18/23 00:01 Temperature Pulse Rate 65 64 Respiratory Rate Blood Pressure 103/51 L Pulse Oximetry 96 97 11/18/23 00:30 11/18/23 00:30 11/18/23 01:00 Temperature Pulse Rate 65 60 Respiratory Rate 19 16 Blood Pressure 118/57 L Pulse Oximetry 99 98 11/18/23 01:01 11/18/23 01:01 11/18/23 01:30 Temperature Pulse Rate 63 66 Respiratory Rate 18 24 Blood Pressure 92/44 L Pulse Oximetry 98 98 11/18/23 01:31 11/18/23 01:31 11/18/23 02:00 Temperature Pulse Rate 65 62 Respiratory Rate 29 H 26 H Blood Pressure 101/51 L Pulse Oximetry 98 98 11/18/23 02:01 11/18/23 02:01 11/18/23 02:30 Temperature Pulse Rate 62 73 Respiratory Rate 18 19 Blood Pressure 108/77 Pulse Oximetry 99 99 11/18/23 02:31 11/18/23 02:31 11/18/23 03:00 Temperature Pulse Rate 67 61 Respiratory Rate 20 28 H Blood Pressure 143/66 H Pulse Oximetry 99 100 11/18/23 03:01 11/18/23 03:01 11/18/23 03:27 Temperature 96.6 F L 96.6 F L Pulse Rate 67 63 Respiratory Rate 22 16 Blood Pressure 114/53 L 112/56 L Pulse Oximetry 99 11/18/23 03:30 11/18/23 03:30 11/18/23 03:47 Temperature Pulse Rate 64 Respiratory Rate 22 Blood Pressure 112/56 L 133/69 Pulse Oximetry 100 11/18/23 03:47 11/18/23 04:00 11/18/23 04:01 Temperature Pulse Rate 62 62 Respiratory Rate 25 H 20 Blood Pressure 107/54 L Pulse Oximetry 100 100 11/18/23 04:01 11/18/23 04:30 11/18/23 04:30 Temperature Pulse Rate 62 61 Respiratory Rate 24 18 Blood Pressure 124/60 Pulse Oximetry 100 100 11/18/23 04:45 11/18/23 05:00 11/18/23 05:01 Temperature 96.1 F L Pulse Rate 61 60 Respiratory Rate 16 19 Blood Pressure 124/60 137/61 Pulse Oximetry 100 11/18/23 05:01 Temperature Pulse Rate 60 Respiratory Rate 24 Blood Pressure Pulse Oximetry 99 Medical Decision Making Medical Records Medical records reviewed: Yes I reviewed the patient's medical records. Lab Data Lab results reviewed: Yes I reviewed the patient's lab results. 11/18/23 04:40 11/18/23 04:40 Labs: Lab Results 11/17/23 11/18/23 11/18/23 Range/Units 22:15 01:04 04:40 WBC 6.9 7.0 (4.5-11.0) X10^3/uL RBC 2.68 L 2.42 L (4.5-5.9) X10^6/uL Hgb 8.3 L 7.3 L (13.5-17.5) g/dL Hct 25.3 L 22.7 L (41-53) % MCV 94.6 93.7 (80-100) fL MCH 31.1 30.2 (26-34) PG MCHC 32.8 32.2 (30-36) % RDW 20.2 H 20.0 H (11.6-14.8) % Plt Count 10 L* 51 L (150-400) X10^3/uL Neut % (Auto) 89.0 H 88.7 H (50-75) % Lymph % (Auto) 4.5 L 5.1 L (25-40) % [place] % (Auto) 6.3 5.7 (3-14) % Eos % (Auto) 0.0 L 0.0 L (2-4) % Baso % (Auto) 0.2 0.5 (0-2) % Neut # (Auto) 6100 6200 (7775-7723) /uL Lymph # (Auto) 300 L 400 L (9231-9786) /uL [place] # (Auto) 400 400 (0-900) /uL Eos # (Auto) 0 0 (0-450) /uL Baso # (Auto) 0 0 (0-100) /uL Platelet Estimate Decreased on smear RBC Morphology See below Anisocytosis 1+ H PT 39.3 H (9.4-12.5) SECONDS INR 3.4 H (0.9-1.3) APTT 50 H (25.1-36.5) SECONDS Sodium 129 L 130 L (137-145) mmol/L Potassium 6.2 H 5.8 H (3.4-5.1) mmol/L Chloride 102 102 (98-107) mmol/L Carbon Dioxide 17 L 16 L (22-32) mmol/L BUN 50 H 52 H (9-20) mg/dL Creatinine 1.86 H 1.86 H (0.66-1.25) mg/dL Estimated GFR 36 L 36 L (>60) mL/min BUN/Creatinine Ratio 26.9 H 28.0 H (6-22) Glucose 114 H 104 (80-110) mg/dL Lactate 5.2 H* 4.0 H 3.5 H (0.7-2.1) mmol/L Calcium 7.4 L 6.8 L (8.4-10.2) mg/dL Total Bilirubin 17.1 H 16.3 H (0.2-1.3) mg/dL Conjugated Bilirubin 12.5 H (0.0-0.3) md/dL Unconjugated Bilirubin 1.6 H (0.0-1.1) mg/dL AST 267 H 268 H (17-59) IU/L ALT 58 H 59 H (<50) IU/L Alkaline Phosphatase 571 H 452 H (38-126) U/L Ammonia 16 (9-30) umol/L Total Protein 6.5 5.9 L (6.3-8.2) g/dL Albumin 2.0 L 1.9 L (3.5-5.0) g/dL Globulin 4.5 H 4.0 (1.7-4.1) g/dL Albumin/Globulin Ratio 0.4 L 0.5 L (1.0-2.8) Lipase 77 (23-300) U/L Procalcitonin 3.96 H (<0.5) ng/mL Acetaminophen < 10 (10-30) ug/mL Ethyl Alcohol < 10 ( - 10) mg/dL Blood Type B Positive Point of Care Testing Glucose POC 135 Point of care testing: Point of Care Testing Glucose POC [address] scan - abdomen/pelvis: Radiologist's Impression: PROCEDURE: CT ABDOMEN PELVIS WO CON INDICATIONS: Metastatic colon cancer with hyperbilirubinemia TECHNIQUE: Axial sections were acquired from the lung bases to the pubic symphysis. Coronal and sagittal reformats were performed. For radiation dose reduction, the following was used: automated exposure control, adjustment of mA and/or kV according to patient size. COMPARISON: [facility], CT, CT CHEST ABD PEL W CON, 04/27/2023, 10:45. [facility], CT, CT ANGIO ABDOMEN PELVIS, 08/04/2023, 10:52. [facility], CT, CT ABDOMEN PELVIS WO CON, 04/21/2022, 9:19. FINDINGS: Image quality: Diagnostic. Evaluation of the solid parenchymal organs is limited without IV contrast. Lower Chest: Left upper lobe pulmonary nodule measuring 1 cm, (3/2), previously 0.5 cm on 04/27/2023, and more remotely not seen on 02/23/2023. Suspicious. Small pericardial effusion. Pacemaker lead. Small hiatal hernia. URINARY: Right Kidney: No stones or hydronephrosis. Atrophic. Right Ureter: No hydroureter. Left Kidney: No stones or hydronephrosis. Low-density left renal cysts. Left Ureter: No hydroureter. Bladder: Normal wall thickness. No stones. ABDOMEN: Liver: Multiple hypodense lesions filling the liver. Overall these appear increased in size compared to CT 04/27/2023. Gallbladder: Decompressed. A few small calcified gallstones. Biliary ducts: No biliary dilation seen. No calcified stone in the duct. Pancreas: No ductal dilation. Spleen: Measures 15.9 cm in length. Mildly enlarged Adrenal Glands: No adrenal nodules. Stomach and Bowel: Rectal stump. Left colostomy. Diverticulosis. Normal appendix. No small bowel obstruction. Stomach is within normal limits. Peritoneum: No abnormal intraperitoneal fluid. Moderate to large volume of ascites. Ventral Wall: No hernia. Abdominal Nodes: No enlarged retroperitoneal or mesenteric lymph nodes. Vessels: Aorta and inferior vena cava are normal in size. Calcified plaque. PELVIS: Pelvic Organs: Prostatomegaly. Pelvic Nodes: Unremarkable. Miscellaneous: No inguinal hernias are seen. Scarring at the left groin. Bones: No suspicious osseous lesion. IMPRESSION: Evaluation of the solid parenchymal organs is limited without IV contrast. 1. Multiple hypodense hepatic lesions consistent with metastatic disease. These appear increased in size compared to 08/04/2023. 2. No biliary ductal dilatation is identified. 3. Small calcified gallstones. 4. Moderate to large volume of ascites, new. 5. Left colostomy. No bowel obstruction. 6. Atrophic right kidney. US - abdomen: Radiologist's Impression: Poorly visualized contracted gallbladder with no gross cholelithiasis or wall thickening Upper normal diameter visualized portion of common bile duct Heterogeneous liver presumably related to alone liver metastasis ECG Data Attestation: I personally reviewed and interpreted this ECG as follows: Interpretation: Atrially paced Ventricular rate is 62 MDM Narrative Medical decision making narrative: 83-year-old with metastatic colon cancer. Is jaundice. Has an elevated bilirubin and LFTs. CT abdomen pelvis and right upper quadrant ultrasound do not show any specific lesions that are obstructing the biliary ducts. This is concerning for intrahepatic biliary issues. CT scan also shows increase in size of the hepatic lesions. This is concerning given the fact that he has been on chemotherapy for the past couple weeks. Patient is thrombocytopenic. This improved with a transfusion of platelets. Baseline anemia. No active bleeding noted. Patient is alert oriented. Lactate improved with fluids. I did have a discussion with on-call Oncology. They stated that the medication that he is taking could potentially be causing his elevation in LFTs and bilirubin. He stated that this medication needs to be stopped and time will tell whether or not his transaminitis and hyperbilirubinemia and improve. This could also be because of his underlying metastatic liver lesions. There was no indication for a procedure such as an ERCP/stent placement. Because of this there was no reason for transfer. Patient requires admission to the hospital for hydration, transfusions as needed, electrolyte management. I did discuss goals of care with the patient. He is still full code but the family understands that there may not be more that we can offer. He understands that there most likely will be discussions with the inpatient providers about goals of care and potential hospice consultation. The patient and his sister at bedside expressed understanding of this. Discussed the case with Dr. Kelly who is on-call with the primary doctor who will admit for further evaluation and treatment. Discharge Plan Departure Patient Disposition: Admitted As Inpatient Clinical Impression: Thrombocytopenia, Metastatic colon cancer to liver, Hyperbilirubinemia, Acute kidney injury, Hyperkalemia Admit Date/Time: 11/18/23 05:27 Admit Provider: Rohit Kelly
--- NOTE | 2023-11-17 21:10 | PC.NURSE ---
unable to obtain blood from [facility], Dr Kamara informed
[2023-11-17] MEDS: SODIUM CHLORIDE 0.9% 1,000 ML 125 ML IV (21:13)
--- NOTE | 2023-11-17 22:00 | PC.NURSE ---
gary cabrera turned down
[2023-11-17 22:48] LABS: Add Manual Diff / Slide Review NO; Basophils Absolute Auto 0 /uL (0-100); Basophils Percent Auto 0.2 % (0-2); Eosinophils Absolute Auto 0 /uL (0-450); Hematocrit 25.3 % (41-53); Hemoglobin 8.3 g/dL (13.5-17.5); INR 3.4 (0.9-1.3); Lymphocytes Absolute Auto 300 /uL (1100-4500); Lymphocytes Percent Auto 4.5 % (25-40); Mean Corpuscular HGB Conc 32.8 % (30-36); Mean Corpuscular Hemoglobin 31.1 PG (26-34); Mean Corpuscular Volume 94.6 fL (80-100); Monocytes Absolute Auto 400 /uL (0-900); Monocytes Percent Auto 6.3 % (3-14); Neutrophils Absolute Auto 6100 /uL (1500-7000); Prothrombin Time 39.3 SECONDS (9.4-12.5); Red Blood Cell Count 2.68 X10^6/uL (4.5-5.9); Red Cell Distribution Width 20.2 % (11.6-14.8); White Blood Cell Count 6.9 X10^3/uL (4.5-11.0)
[2023-11-17 22:51] LABS: PTT Partial Thromboplastin Tim 50 SECONDS (25.1-36.5)
[2023-11-17 23:15] LABS: Platelet Count 10 X10^3/uL (150-400)
[2023-11-17 23:18] LABS: Anisocytosis 1+; Platelet Estimate Decreased on smear
[2023-11-17 23:37] LABS: Acetaminophen < 10 ug/mL (10-30); Alanine Aminotransferase 58 IU/L (<50); Albumin Globulin Ratio 0.4 (1.0-2.8); Alkaline Phosphatase 571 U/L (38-126); Ammonia (NH3) 16 umol/L (9-30); Aspartate Aminotransferase 267 IU/L (17-59); BUN Creatinine Ratio 26.9 (6-22); Bilirubin Conjugated 12.5 md/dL (0.0-0.3); Bilirubin Total 17.1 mg/dL (0.2-1.3); Bilirubin Unconjugated 1.6 mg/dL (0.0-1.1); Blood Urea Nitrogen 50 mg/dL (9-20); Calcium 7.4 mg/dL (8.4-10.2); Carbon Dioxide 17 mmol/L (22-32); Chloride 102 mmol/L (98-107); Estimated Glomerular Filt Rate 36 mL/min (>60); Ethanol (ETOH) < 10 mg/dL; Globulin 4.5 g/dL (1.7-4.1); Glucose 114 mg/dL (80-110); HEMOLYSIS < 15 (0-50); Lipase 77 U/L (23-300); Sodium 129 mmol/L (137-145); Total Protein 6.5 g/dL (6.3-8.2)
[2023-11-17 23:39] LABS: Lactate (Lactic Acid) 5.2 mmol/L (0.7-2.1)
[2023-11-17 23:40] LABS: Potassium 6.2 mmol/L (3.4-5.1)
[2023-11-17 23:48] LABS: Procalcitonin 3.96 ng/mL (<0.5)
--- NOTE | 2023-11-17 23:54 | DI.CT.S_ITS ---
PROCEDURE: CT ABDOMEN PELVIS WO CON INDICATIONS: Metastatic colon cancer with hyperbilirubinemia TECHNIQUE: Axial sections were acquired from the lung bases to the pubic symphysis. Coronal and sagittal reformats were performed. For radiation dose reduction, the following was used: automated exposure control, adjustment of mA and/or kV according to patient size. COMPARISON: [facility], CT, CT CHEST ABD PEL W CON, 04/27/2023, 10:45. [facility], CT, CT ANGIO ABDOMEN PELVIS, 08/04/2023, 10:52. [facility], CT, CT ABDOMEN PELVIS WO CON, 04/21/2022, 9:19. FINDINGS: Image quality: Diagnostic. Evaluation of the solid parenchymal organs is limited without IV contrast. Lower Chest: Left upper lobe pulmonary nodule measuring 1 cm, (3/2), previously 0.5 cm on 04/27/2023, and more remotely not seen on 02/23/2023. Suspicious. Small pericardial effusion. Pacemaker lead. Small hiatal hernia. URINARY: Right Kidney: No stones or hydronephrosis. Atrophic. Right Ureter: No hydroureter. Left Kidney: No stones or hydronephrosis. Low-density left renal cysts. Left Ureter: No hydroureter. Bladder: Normal wall thickness. No stones. ABDOMEN: Liver: Multiple hypodense lesions filling the liver. Overall these appear increased in size compared to CT 04/27/2023. Gallbladder: Decompressed. A few small calcified gallstones. Biliary ducts: No biliary dilation seen. No calcified stone in the duct. Pancreas: No ductal dilation. Spleen: Measures 15.9 cm in length. Mildly enlarged Adrenal Glands: No adrenal nodules. Stomach and Bowel: Rectal stump. Left colostomy. Diverticulosis. Normal appendix. No small bowel obstruction. Stomach is within normal limits. Peritoneum: No abnormal intraperitoneal fluid. Moderate to large volume of ascites. Ventral Wall: No hernia. Abdominal Nodes: No enlarged retroperitoneal or mesenteric lymph nodes. Vessels: Aorta and inferior vena cava are normal in size. Calcified plaque. PELVIS: Pelvic Organs: Prostatomegaly. Pelvic Nodes: Unremarkable. Miscellaneous: No inguinal hernias are seen. Scarring at the left groin. Bones: No suspicious osseous lesion. IMPRESSION: Evaluation of the solid parenchymal organs is limited without IV contrast. 1. Multiple hypodense hepatic lesions consistent with metastatic disease. These appear increased in size compared to 08/04/2023. 2. No biliary ductal dilatation is identified. 3. Small calcified gallstones. 4. Moderate to large volume of ascites, new. 5. Left colostomy. No bowel obstruction. 6. Atrophic right kidney. Dictated by: Deep Brown M.D. on 11/18/2023 at 0:57 Approved by: Deep Brown M.D. on 11/18/2023 at 1:15
[2023-11-18] VITALS (32 sets, daily range): BP systolic 92–143; BP diastolic 40–77; PULSE 60–75; RESP 16–29; TEMP 35.6–36.2; O2SAT 96–100; BMI 22.1
[2023-11-18 00:14] LABS: Reflexed Lactate in 2 Hours Y
--- NOTE | 2023-11-18 00:15 | PC.NURSE ---
Jean Claude duong
[2023-11-18] MEDS: SODIUM CHLORIDE 0.9% 500 ML IV (00:41)
--- NOTE | 2023-11-18 01:25 | DI.US.S_ITS ---
PROCEDURE: US ABDOMEN LIMITED INDICATIONS: Hyperbilirubinemia, right upper quadrant ultrasound for dila TECHNIQUE: Real-time scanning was performed of the abdominal and retroperitoneal organs, with image documentation. COMPARISON: [facility], CT, CT ABDOMEN PELVIS WO CON, 11/18/2023, 0:17. FINDINGS: Liver: Multiple hepatic metastatic mass lesions. Doppler evaluation shows appropriate directional flow in the portal and hepatic veins Gallbladder: Sonolucent without cholelithiasis. No gallbladder wall thickening. No pericholecystic fluid or Anglin's sign. Common Bile Duct: 7.7 mm. Pancreas: Unremarkable as visualized Right Kidney: Renal atrophy. No hydronephrosis. IMPRESSION: 1. Hepatic metastasis. Slightly dilated CBD 7.7 mm Approved by: Buddy Moore M.D. on 11/18/2023 at 11:35
--- NOTE | 2023-11-18 03:10 | PC.NURSE ---
US complete, assisted pt to stand at bedside to urinate, pt urinated about 100 ml dark tea colored urine
[2023-11-18] MEDS: SODIUM CHLORIDE 0.9% 1,000 ML 125 ML IV ×3 (04:35→21:19)
[2023-11-18 04:57] LABS: Add Manual Diff / Slide Review NO; Basophils Absolute Auto 0 /uL (0-100); Basophils Percent Auto 0.5 % (0-2); Eosinophils Absolute Auto 0 /uL (0-450); Hematocrit 22.7 % (41-53); Hemoglobin 7.3 g/dL (13.5-17.5); Lymphocytes Absolute Auto 400 /uL (1100-4500); Lymphocytes Percent Auto 5.1 % (25-40); Mean Corpuscular HGB Conc 32.2 % (30-36); Mean Corpuscular Hemoglobin 30.2 PG (26-34); Mean Corpuscular Volume 93.7 fL (80-100); Monocytes Absolute Auto 400 /uL (0-900); Monocytes Percent Auto 5.7 % (3-14); Neutrophils Absolute Auto 6200 /uL (1500-7000); Neutrophils Percent Auto 88.7 % (50-75); Platelet Count 51 X10^3/uL (150-400); Red Blood Cell Count 2.42 X10^6/uL (4.5-5.9)
[2023-11-18 05:08] LABS: Alanine Aminotransferase 59 IU/L (<50); Albumin 1.9 g/dL (3.5-5.0); Albumin Globulin Ratio 0.5 (1.0-2.8); Alkaline Phosphatase 452 U/L (38-126); Aspartate Aminotransferase 268 IU/L (17-59); Bilirubin Total 16.3 mg/dL (0.2-1.3); Blood Urea Nitrogen 52 mg/dL (9-20); Calcium 6.8 mg/dL (8.4-10.2); Carbon Dioxide 16 mmol/L (22-32); Chloride 102 mmol/L (98-107); Estimated Glomerular Filt Rate 36 mL/min (>60); Glucose 104 mg/dL (80-110); HEMOLYSIS < 15 (0-50); Sodium 130 mmol/L (137-145); Total Protein 5.9 g/dL (6.3-8.2)
[2023-11-18 05:09] LABS: Lactate (Lactic Acid) 3.5 mmol/L (0.7-2.1)
[2023-11-18 05:10] LABS: Potassium 5.8 mmol/L (3.4-5.1)
[2023-11-18 06:34] LABS: Reflexed Lactate in 2 Hours Y
[2023-11-18 07:30] LABS: Lactate 2HR (Lactic Acid Rflx) 3.2 mmol/L (0.7-2.1)
[2023-11-18] MEDS: PANTOPRAZOLE DR 40 MG TABLET PO ×2 (09:50→21:32)
--- NOTE | 2023-11-18 09:54 | PM.HP.1 ---
History of Present Illness History of Present Illness Date Patient Seen: 11/18/23 Time Patient Seen: 09:56 Chief complaint: weakness Narrative: 83 year old male with metastatic colon cancer on palliative chemotherapy through Oncology at [facility]. He lives alone and was found by family too weak to stand or care for himself. Usually checked on via telephone by family once a day and they were unable to contact him on the day they found him. They went and checked on him at home found him in his weakened state and brought him to the ER for evaluation In the ER he was found to be super weak with significant elevation of bilirubin (and obviously jaundiced) as well as his other LFTs. Remainder of his workup demonstrated perhaps some mild volume depletion/dehydration/acute kidney injury with slight bump in creatinine and BUN. Patient is significantly thrombocytopenic and more anemic than previous blood work done in July here at [facility] (presumably other labs were performed at [facility] but not available at this time) Patient started on palliative chemotherapy through Dr. Bourgeois on the 06 of November. He is now receiving regorafenib, 80 mg daily. Per Oncology notes he was to have a CBC and CMP performed weekly (at [facility], per patient request) but does not appear that has happened, unless labs were performed at [facility]. (will try and obtain all hematology and chemistries done at [facility] since October 30). In addition imaging done demonstrated increasing size of metastatic disease in the liver and lack of any actual tumor or mass causing clear biliary obstruction or dilatation. ER physician spoke with covering oncologist, who suggested that the regorafenib is a likely culprit in his anemia thrombocytopenia etcetera as well as his elevated LFTs and hyperbilirubinemia. However worsening disease in the liver itself from the colon cancer could also be a source of his worsening hepatic function and abnormal labs Recommendation was to hydrate him here control symptoms and keep him off his regorafenib as well as any other hepatic toxic medication. This may well be a hospice/palliative care type of situation Patient's colon cancer history includes presenting with intermittent left lower quadrant abdominal pain and weight loss evaluated with imaging and finally colonoscopy in ultimately went for surgery in April 2022 resulting in a colostomy being placed. Pathology demonstrated metastatic adenocarcinoma with evidence of disease in the liver at that time based on biopsy done at time of surgery. Patient was started on palliative chemotherapy with FOLFOX 6, after 3 cycles plan had to be altered and oxaliplatin was discontinued and Avastin was started. I have asked him was discontinued after 2 treatments due to rising creatinine. Imaging demonstrated enlarging metastatic disease in the liver and bevacizumab was added. Repeat imaging demonstrated continued worsening of disease. In March of 2023 he was started on Lonsurf while continuing on Avastin, Lonsurf dose had to be reduced in May 2023 due to toxicity. Patient then had painless bleeding from his colostomy and Avastin was put on hold. In September 2023 after discussions with the patient the Lonsurf and Avastin were discontinued because of evidence of disease progression suggesting ineffective nature of that treatment. It was at that point that it was decided to move forward with regorafenib which was started in early October as above. 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) Diverticulosis of intestine (01/15/14) Benign prostatic hyperplasia (01/15/14) Enlarged prostate Numbness of foot Lower extremity pain Claudication Chronic atrial fibrillation Lumbar spine pain Urinary incontinence Hemorrhoids Surgical History Hx of bilateral cataract extraction Hx of vascular surgery (04/11/22) Presence of cardiac pacemaker (11/24/11) History of vasectomy Family History Father Pneumonia Mother Hypertension Social History marital status: details: October 2022 household members: none lives independently: Yes occupational status: other Smoking Status: Current every day smoker quit status: not considering quitting second hand exposure: No alcohol intake: former substance use type: does not use Meds Home Medications and Allergies Home Medications Medication Instructions Recorded Confirmed Type carvedilol 25 mg tablet 25 mg PO BID #180 tabs 12/15/22 11/18/23 Rx clopidogrel 75 mg tablet (Plavix) 75 mg PO DAILY #90 tabs 12/15/22 11/18/23 Rx pantoprazole 40 mg tablet,delayed 40 mg PO BID #180 tabs 12/15/22 11/18/23 Rx release (Protonix) atorvastatin 40 mg tablet 40 mg PO BEDTIME 04/13/23 11/18/23 History Disabled Parking Placard #1 ea 06/20/23 11/18/23 Rx Allergies Allergy/AdvReac Type Severity Reaction Status Date / Time Penicillins [PENICILLINS] Allergy Mild RASH Verified 08/15/23 13:16 Review of Systems Review of Systems ROS: Yes All systems reviewed with the patient and are negative except as otherwise documented Exam Vital Signs (past 8 hours): - 11/18/23 02:00 11/18/23 02:01 11/18/23 02:01 Temperature Pulse Rate 62 62 Respiratory Rate 26 H 18 Blood Pressure 108/77 Pulse Oximetry 98 99 Oxygen Delivery Method Oxygen Flow Rate 11/18/23 02:30 11/18/23 02:31 11/18/23 02:31 Temperature Pulse Rate 73 67 Respiratory Rate 19 20 Blood Pressure 143/66 H Pulse Oximetry 99 99 Oxygen Delivery Method Oxygen Flow Rate 11/18/23 03:00 11/18/23 03:01 11/18/23 03:01 Temperature 96.6 F L Pulse Rate 61 67 Respiratory Rate 28 H 22 Blood Pressure 114/53 L Pulse Oximetry 100 99 Oxygen Delivery Method Oxygen Flow Rate 11/18/23 03:27 11/18/23 03:30 11/18/23 03:30 Temperature 96.6 F L Pulse Rate 63 64 Respiratory Rate 16 22 Blood Pressure 112/56 L 112/56 L Pulse Oximetry 100 Oxygen Delivery Method Oxygen Flow Rate 11/18/23 03:47 11/18/23 03:47 11/18/23 04:00 Temperature Pulse Rate 62 62 Respiratory Rate 25 H 20 Blood Pressure 133/69 Pulse Oximetry 100 100 Oxygen Delivery Method Oxygen Flow Rate 11/18/23 04:01 11/18/23 04:01 11/18/23 04:30 Temperature Pulse Rate 62 Respiratory Rate 24 Blood Pressure 107/54 L 124/60 Pulse Oximetry 100 Oxygen Delivery Method Oxygen Flow Rate 11/18/23 04:30 11/18/23 04:45 11/18/23 05:00 Temperature 96.1 F L Pulse Rate 61 61 60 Respiratory Rate 18 16 19 Blood Pressure 124/60 Pulse Oximetry 100 100 Oxygen Delivery Method Oxygen Flow Rate 11/18/23 05:01 11/18/23 05:01 11/18/23 05:30 Temperature Pulse Rate 60 65 Respiratory Rate 24 29 H Blood Pressure 137/61 Pulse Oximetry 99 100 Oxygen Delivery Method Oxygen Flow Rate 11/18/23 06:00 11/18/23 07:50 11/18/23 07:50 Temperature 96.7 F L Pulse Rate 70 Respiratory Rate 18 Blood Pressure 143/56 H Pulse Oximetry 99 99 Oxygen Delivery Method Room Air Room Air Oxygen Flow Rate 0 0 11/18/23 08:55 Temperature 97.0 F L Pulse Rate 68 Respiratory Rate 18 Blood Pressure 117/40 L Pulse Oximetry 98 Oxygen Delivery Method Oxygen Flow Rate Oxygen Delivery Method Room Air Oxygen Flow Rate 0 Narrative Exam Narrative: Obviously jaundiced elderly male lying in hospital bed somewhat somnolent but easily aroused HEENT-notable for scleral icterus Neck-no lymphadenopathy Lungs-clear Heart-regular rate and rhythm Abdomen-soft nontender Extremities-no cyanosis clubbing or edema Objective ECG Impression: Atrial paced rhythm, unchanged from previous Imaging CT scan - abdomen: Radiologist's impression: PROCEDURE: CT ABDOMEN PELVIS WO CON INDICATIONS: Metastatic colon cancer with hyperbilirubinemia TECHNIQUE: Axial sections were acquired from the lung bases to the pubic symphysis. Coronal and sagittal reformats were performed. For radiation dose reduction, the following was used: automated exposure control, adjustment of mA and/or kV according to patient size. COMPARISON: [facility], CT, CT CHEST ABD PEL W CON, 04/27/2023, 10:45. [facility], CT, CT ANGIO ABDOMEN PELVIS, 08/04/2023, 10:52. [facility], CT, CT ABDOMEN PELVIS WO CON, 04/21/2022, 9:19. FINDINGS: Image quality: Diagnostic. Evaluation of the solid parenchymal organs is limited without IV contrast. Lower Chest: Left upper lobe pulmonary nodule measuring 1 cm, (3/2), previously 0.5 cm on 04/27/2023, and more remotely not seen on 02/23/2023. Suspicious. Small pericardial effusion. Pacemaker lead. Small hiatal hernia. URINARY: Right Kidney: No stones or hydronephrosis. Atrophic. Right Ureter: No hydroureter. Left Kidney: No stones or hydronephrosis. Low-density left renal cysts. Left Ureter: No hydroureter. Bladder: Normal wall thickness. No stones. ABDOMEN: Liver: Multiple hypodense lesions filling the liver. Overall these appear increased in size compared to CT 04/27/2023. Gallbladder: Decompressed. A few small calcified gallstones. Biliary ducts: No biliary dilation seen. No calcified stone in the duct. Pancreas: No ductal dilation. Spleen: Measures 15.9 cm in length. Mildly enlarged Adrenal Glands: No adrenal nodules. Stomach and Bowel: Rectal stump. Left colostomy. Diverticulosis. Normal appendix. No small bowel obstruction. Stomach is within normal limits. Peritoneum: No abnormal intraperitoneal fluid. Moderate to large volume of ascites. Ventral Wall: No hernia. Abdominal Nodes: No enlarged retroperitoneal or mesenteric lymph nodes. Vessels: Aorta and inferior vena cava are normal in size. Calcified plaque. PELVIS: Pelvic Organs: Prostatomegaly. Pelvic Nodes: Unremarkable. Miscellaneous: No inguinal hernias are seen. Scarring at the left groin. Bones: No suspicious osseous lesion. IMPRESSION: Evaluation of the solid parenchymal organs is limited without IV contrast. 1. Multiple hypodense hepatic lesions consistent with metastatic disease. These appear increased in size compared to 08/04/2023. 2. No biliary ductal dilatation is identified. 3. Small calcified gallstones. 4. Moderate to large volume of ascites, new. 5. Left colostomy. No bowel obstruction. 6. Atrophic right kidney. Dictated by: Deep Brown M.D. on 11/18/2023 at 0:57 Approved by: Deep Brown M.D. on 11/18/2023 at 1:15 Labs 11/19/23 04:20 11/19/23 04:20 Labs: Laboratory Results - last 24 hr 11/17/23 11/18/23 11/18/23 22:15 01:04 04:40 WBC 6.9 7.0 RBC 2.68 L 2.42 L Hgb 8.3 L 7.3 L Hct 25.3 L 22.7 L MCV 94.6 93.7 MCH 31.1 30.2 MCHC 32.8 32.2 RDW 20.2 H 20.0 H Plt Count 10 L* 51 L Neut % (Auto) 89.0 H 88.7 H Lymph % (Auto) 4.5 L 5.1 L Bleckley % (Auto) 6.3 5.7 Eos % (Auto) 0.0 L 0.0 L Baso % (Auto) 0.2 0.5 Neut # (Auto) 6100 6200 Lymph # (Auto) 300 L 400 L Bleckley # (Auto) 400 400 Eos # (Auto) 0 0 Baso # (Auto) 0 0 Platelet Estimate Decreased on smear RBC Morphology See below Anisocytosis 1+ H PT 39.3 H INR 3.4 H APTT 50 H Sodium 129 L 130 L Potassium 6.2 H 5.8 H Chloride 102 102 Carbon Dioxide 17 L 16 L BUN 50 H 52 H Creatinine 1.86 H 1.86 H Estimated GFR 36 L 36 L BUN/Creatinine Ratio 26.9 H 28.0 H Glucose 114 H 104 Lactate 5.2 H* 4.0 H 3.5 H Calcium 7.4 L 6.8 L Total Bilirubin 17.1 H 16.3 H Conjugated Bilirubin 12.5 H Unconjugated Bilirubin 1.6 H AST 267 H 268 H ALT 58 H 59 H Alkaline Phosphatase 571 H 452 H Ammonia 16 Total Protein 6.5 5.9 L Albumin 2.0 L 1.9 L Globulin 4.5 H 4.0 Albumin/Globulin Ratio 0.4 L 0.5 L Lipase 77 Procalcitonin 3.96 H Acetaminophen < 10 Ethyl Alcohol < 10 Blood Type B Positive 11/18/23 07:02 WBC RBC Hgb Hct MCV MCH MCHC RDW Plt Count Neut % (Auto) Lymph % (Auto) Bleckley % (Auto) Eos % (Auto) Baso % (Auto) Neut # (Auto) Lymph # (Auto) Bleckley # (Auto) Eos # (Auto) Baso # (Auto) Platelet Estimate RBC Morphology Anisocytosis PT INR APTT Sodium Potassium Chloride Carbon Dioxide BUN Creatinine Estimated GFR BUN/Creatinine Ratio Glucose Lactate 3.2 H Calcium Total Bilirubin Conjugated Bilirubin Unconjugated Bilirubin AST ALT Alkaline Phosphatase Ammonia Total Protein Albumin Globulin Albumin/Globulin Ratio Lipase Procalcitonin Acetaminophen Ethyl Alcohol Blood Type Assessment & Plan Assessment & Plan narrative: 1. Abnormal LFTs with hyperbilirubinemia-this could certainly be secondary to his progressive neoplastic disease in his liver verses a toxic effect from his regorafenib. In either case there has no specific treatment at this time. He will have his regorafenib discontinued and he will be rehydrated as much as possible. Will hold off on any other drugs that might have some degree of hepatic toxicity and continue to monitor his LFTs. His protime is also somewhat elevated which in the setting of the thrombocytopenia is a bit concerning. Will continue to monitor this as well and administer vitamin K hoping that that will help, although with the degree of hyperbilirubinemia as evidence of liver dysfunction I am not convinced the vitamin K will make much of a difference 2. Anemia and thrombocytopenia-patient already received platelet transfusion in the emergency department. Patient's H&H is low but below threshold Oncology fell would be appropriate for transfusion of red blood cells. Will continue to monitor these and transfuse as necessary. These changes are almost certainly secondary to the regorafenib, which will not be continued at this time 3. Peripheral vascular disease-patient with known peripheral vascular disease status post stent placement. Chronically on clopidogrel as well as lipid lowering therapy as secondary prevention. Clopidogrel not appropriate at this time given his thrombocytopenia and statin therapy not appropriate given his hepatic dysfunction. Assuming liver function improves maybe able to resume the statin therapy and depending on his CBC at some point clopidogrel would likely be appropriate to resume but not during this hospitalization 4. Paroxysmal atrial fibrillation-patient with paroxysmal atrial fibrillation sick sinus syndrome status post pacemaker placement. He had his Eliquis discontinued sometime ago by Cardiology. Patient continues on carvedilol will continue this probably at lower dose given his hepatic dysfunction. Continue to monitor his vital signs etcetera. 5. Acute kidney injury-as above will be receiving IV fluids and will monitor his renal dysfunction. Patient with chronic renal failure stage 3 a as per chart 6. Infectious disease-patient with elevated procalcitonin and lactate but I do not believe there is an active infection. Both of these values can be affected by the significant liver disease and or metastatic adenocarcinoma. There has no evidence of infection patient's white blood cell count is at his baseline. He has been afebrile. He does not really have any clinical findings to suggest infection. His abdominal exam is benign as is his pulmonary exam. Imaging does not suggest an infectious process at this time. He does have potential sources of infection including his port in place as well as his new ascites. Blood cultures have been drawn and if they become positive or he does develop some other clinical sign of infection then broad-spectrum antibiotic therapy, or perhaps more directed therapy depending on clinical findings would be appropriate at that time. I am choosing not to place him on antibiotics at this time for the above reasons. 6. VTE prophylaxis-SCDs should be employed but patient not a candidate for any chemo prophylaxis involving any form of heparin given his thrombocytopenia. 7. Code status-discussion with patient he is previously expressed wishes to be a do not resuscitate in the event of a sudden cardiac or respiratory arrest. As I pointed out to him today patients with metastatic cancer such as he has if they were to have a sudden cardiac or respiratory arrest even with all resuscitative efforts chance of meaningful recovery as defined by ability to leave the hospital is extremely small and certainly even smaller would be the chance to returned to any sort of independent living situation. He confirms his desire for no resuscitation in the event of a sudden cardiac or respiratory arrest. His sister who is with him here in the room confirms that that would be his wishes and has been his wishes for an extended period of time, basically since his diagnosis of cancer and probably amplified with of his spouse within the last year 8. Weakness-will have Physical therapy see him. Hopefully this improves as we correct his acute kidney injury, and his hepatic function improves 9. Discharge planning-unclear whether not patient be able to return home to independent living where he has been previously. Unless there is a dramatic improvement in his overall level of function will likely need an alternative plan or plans for additional assistance including possibly 24/7 care in the home setting. Will also initiate a discussion regarding possible hospice care as another alternative. Apparently hospice has been introduced as a concept by Oncology at most recent visit, but patient has been resistant to that thus far. It seems like family is more appropriately aware of his end-stage disease and the extreme unlikely nature of any significant improvement in his status over time.
[2023-11-18] MEDS: carvediloL 12.5 MG TABLET 6.25 MG PO (11:04)
--- NOTE | 2023-11-18 11:18 | PT.IIE ---
Surgical History (Last Reviewed 11/18/23 @ 10:15 by Rohit Kelly MD) History of vasectomy Hx of bilateral cataract extraction Hx of vascular surgery (04/11/22) Presence of cardiac pacemaker (11/24/11) Medical History (Last Reviewed 11/18/23 @ 10:15 by Rohit Kelly MD) Benign prostatic hyperplasia (01/15/14) Chronic atrial fibrillation CKD (chronic kidney disease) stage 3, GFR 30-59 ml/min Claudication Colon cancer Diverticulosis of intestine (01/15/14) Enlarged prostate Hemorrhoids Hypertension Lower extremity pain Lumbar spine pain Metastatic colon cancer to liver Numbness of foot Peripheral arterial disease Presence of cardiac pacemaker (01/01/15) Sebaceous cyst (07/19/17) 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) Urinary incontinence Physical Therapy Inpatient Evaluation/Re-Eval M1 PT/OT-IP Prior Functional Status Start: 11/18/23 12:30 Freq: NEEDED Status: Active Protocol: Document 11/18/23 11:18 AB (Rec: 11/18/23 12:50 AB [id number]) Medical Review Prior Functional Status Medical History Reviewed Yes Communication inconsistent with answering questions; with confusion Mobility and Gait pt stated that he was modified independent with all mobilities and ambulation without AD Social History Household Members none Living Arrangements House Number of Floors (Floors) One Floor Number of Stairs To Enter/Railing? 1 step to enter Home Environment Standard Height Toilet,Tub/ Shower Home Equipment Straight Cane,Grab Bars In Shower Additional Social History Comment pt was not able to provide much info regarding home set up due to confusion M2 PT-IP Current Condition Start: 11/18/23 12:30 Freq: NEEDED Status: Active Protocol: Document 11/18/23 11:18 AB (Rec: 11/18/23 12:50 AB [id number]) Physical Therapy Current Condition Current Condition Evaluation Date 11/18/23 Treatment Diagnosis colon CA w/ liver mets; anemia w/thrombocytopenia; difficulty in walking Onset Date 11/18/23 M3 PT-IP Subjective Start: 11/18/23 12:30 Freq: NEEDED Status: Active Protocol: Document 11/18/23 11:18 AB (Rec: 11/18/23 12:50 AB [id number]) Subjective Physical Therapy Visit Type Type Initial Evaluation Visit Start Time 11:18 Visit Stop Time 11:50 Total Visit Minutes 32 Notes pt with low Hgb: 7.3 abd Hct 22.7. talked with nurse and stated that the doctor is not planning on any blood transfusion at this time and is cleared to do PT per doctor . also informed that pt received platelets already. Number of ACCOUNTS SUPERVISOR Visits 0 M4 PT-IP Mobility and Gait Start: 11/18/23 12:30 Freq: NEEDED Status: Active Protocol: Document 11/18/23 11:18 AB (Rec: 11/18/23 12:50 AB [id number]) PT-Bed Mobility Assessment Supine to Sit Supine to Sit Maximum Assistance,Head of Bed Elevated,Bedrails PT-Transfer Assessment Sit to and From Stand Sit to and from Stand Minimal Assistance,Moderate Assistance,1 Person Assistance ,Use of Upper Extremities Equipment Transfer Assistive Device Gait Belt,Front Wheeled Walker Orthotic/Prosthetic Devices or Brace: No Transfers Transfer Destination Toilet Transfer Technique ambulated Transfer Ability Level of Assist Minimal Assistance,1 Person Assistance,Use of Upper Extremities Comments Mobility Comments pt supine in bed and with confusion but able to follow directions but needs repeated instructions. BP in supine: 102/44. pt completed supine to sit max A and max cues. able to sit on EOB CGA. pt requiring increase and frequent rest breaks in between tasks. pt completed sit to stand min to mod A and cues for safety. pt is impulsive. ambulated to the toilet using FWW min A. required mod A for controlled sitting. pt required assist with brief management and min A for standing balance. completed sit to stand from the toilet mod A and max cues. ambulated to the chair using FWW min A. positioned pt on the chair. call light and table placed within reach. BP checked: 104/41. O2 sat 100. informed nurse that pt needs a chair alarm. Gait Assessment Gait Gait Assistance Required: Minimum Assistance Distance (Feet) 12 Able to Maintain Weight Bearing Status Yes During Gait Assistive Devices Assistive Device Gait Belt,Front Wheeled Walker Orthotic/Prosthetic Devices or Brace: No Gait Deviations General Gait Pattern Decreased Stride Length, Decreased Feet Clearance, Narrow Based Gait,Step-to Gait Factors Limiting Gait Function Factors Limiting Gait Function Decreased Activity Tolerance, Decreased Strength,Difficulty Following Directions,Limited Range of Motion,Poor Balance, Poor Safety Awareness PT-Balance Assessment Sitting Balance and Reactions Static Sitting Balance Ability Good Dynamic Sitting Balance Ability Fair Standing Balance and Reactions Static Standing Balance Ability Fair Dynamic Standing Balance Ability Fair Device Used FWW M5 PT-IP Objective Assessments Start: 11/18/23 12:30 Freq: NEEDED Status: Active Protocol: Document 11/18/23 11:18 AB (Rec: 11/18/23 12:50 AB [id number]) Orientation Orientation/Cognition Level of Alertness Confusional State Orientation Name Safety Awareness Decreased Safety Awareness Memory Description Short Term Impaired,Half-Way Impaired Gross Range of Motion Lower Extremity ROM Assessment Within Functional Limits Strength Lower Extremity Strength Hip 4-/5 Knee 4-/5 Muscle Tone Muscle Tone WNL Yes M6 PT-IP Treatment Start: 11/18/23 12:30 Freq: NEEDED Status: Active Protocol: Document 11/18/23 11:18 AB (Rec: 11/18/23 12:50 AB [id number]) Physical Therapy Treatment Education Education Provided Safety M7 PT-IP Assessment and Plan Start: 11/18/23 12:30 Freq: NEEDED Status: Active Protocol: Document 11/18/23 11:18 AB (Rec: 11/18/23 12:50 AB [id number]) PT Summary Assessment and Plan Potential Rehabilitation Potential Fair Status of Condition at Evaluation Unstable Summary Impairments Balance,Coordination,Sensation ,Cognition,Bed Mobility, Transfers,Gait,Activity Tolerance Assessment Summary pt is an 83 y/o M who presented to the ED due to weakness. Pt with dx of colon CA with liver mets and is undergoing chemotherapy. pt also found to have anemia with thrombocytopenia. pt requiring max A for bed mobility, min to mod A for transfers and min A for ambulation using FWW but only able to walk a short distance to the toilet. pt with decrease activity tolerance needing frequent and increase rest breaks in between tasks. pt will require 22/05 assist and will benefit from SNF rehab at this time. will continue to assess. Goals Bed Mobility Goal Standby Assistance Transfer Goal Standby Assistance,Front Wheeled Walker Gait Goal Standby Assistance,Front Wheel Walker Gait Distance 50 Other Goals improve bed mobility, transfers, ambulation using LRAD/without AD 200 ft mod I up/down 1 step using AD/ without AD SBA Days to Meet Goals 10 Frequency of Treatment Frequency Of Treatment Once a Day Treatment Plan Physical Therapy Treatment Plan Bed Mobility Training,Transfer Training,Gait Training, Therapeutic Exercise,Balance Retraining,Post Op Education, Discharge Planning,Hot or Cold Pack,Neuromuscular Re-ed, Coordination Retraining,Manual Therapy Precautions Other Precautions colostomy bag, chemo port Recommendations To Nursing Amount of Assist Needed 1 Person Assist Discharge Recommendations PT Discharge Recommendations SNF Rehab Transportation Needs at Discharge Wheelchair/Cabulance
[2023-11-18 12:34] LABS: Basophils Absolute Auto 0 /uL (0-100); Basophils Percent Auto 0.3 % (0-2); Eosinophils Absolute Auto 0 /uL (0-450); Eosinophils Percent Auto 0.2 % (2-4); Hematocrit 23.9 % (41-53); Hemoglobin 7.8 g/dL (13.5-17.5); Lymphocytes Absolute Auto 300 /uL (1100-4500); Lymphocytes Percent Auto 4.1 % (25-40); Mean Corpuscular HGB Conc 32.5 % (30-36); Mean Corpuscular Hemoglobin 30.7 PG (26-34); Mean Corpuscular Volume 94.5 fL (80-100); Monocytes Absolute Auto 600 /uL (0-900); Monocytes Percent Auto 7.7 % (3-14); Neutrophils Absolute Auto 6600 /uL (1500-7000); Neutrophils Percent Auto 87.7 % (50-75); Red Blood Cell Count 2.53 X10^6/uL (4.5-5.9); Red Cell Distribution Width 20.1 % (11.6-14.8); White Blood Cell Count 7.5 X10^3/uL (4.5-11.0)
--- NOTE | 2023-11-18 12:39 | CM.DANOTE ---
DCP: Case received, EMR reviewed and met with patient. Patient partially awake, but sister, Hernandez, was at bedside. Her phone number is: [phone]. She is from [facility], but has been staying in [place] near patient to assist with oncology appointments. Introduced self and role. Was able to obtain information regarding patient's baseline activity status at home, as well as his current living situation. DCP assessment completed with information currently available. Patient is an 83 year old male who admitted early this morning to the care of the hospitalist team. PCP: Dr. Peace. Payer: confirmed: Medicare/[employer]. Patient came to the hospital via ambulance secondary to increased weakness at home. Patient's family had tried to call patient, did not answer. Sister found patient kneeling by his chair, too weak to get up. EMS was then called. Patient has history of metastatic colon cancer, is being followed by Dr. Bourgeois at oncology at [facility]. He had just started on a new oral chemo at the beginning of this month. Oncologist had indicated that this could cause his blood levels to decrease, and cause dehydration. When EMS arrived, patient was noted to be hypoglycemic, and jaundiced, for he had elevated LFTs, and bilirubin. Patient was admitted for metastatic colon cancer to liver, hyperbilirubinemia, acute kidney injury, hyperkalemia. Met with patient and sister, Michael, in the room. As stated above, she is staying in [place], taking patient to oncology appointments. Patient has a son, Peter, goes by Thompson, who is DPOA. His phone number is: [phone]. Did speak to Thompson, he is currently in [place], but is from [place]. He mentioned his brother, Ted, who is planning on staying with patient on , for he will then have time off from work. [facility] Thompson gave his phone number, which is: [phone]. Shortly after conversation with Thompson, Ted called. Ted confirmed that he does plan to stay with his father. Asked him if there is any family members that can stay with patient prior to , for he may be more medically stable before then, stated, one of my aunts should be able to . Patient is supposed to work with [employer].[id number]. today as well. Asked Michael if she was present when Dr. Kelly came into the room, stated, she was. Asked her if hospice was mentioned, stated, it was, but don't think that Peter is ready for hospice yet, he should be, because his appetite is so poor. Son, Thompson, has not yet been updated on patient's medical condition as of yet. P: DCP will monitor closely. There are some discharge plan options. If patient needs rehab, can pursue halfway, but chemo meds would be barriers, due to the cost. Wound have to be off of chemo meds if skilled is the plan. Other plan is home with family, as long as he has family members to stay with him, prior to sonTed, arriving on , can do home health, as well. Other plan is home with hospice, if patient decides that this is the route he wants to go. Family has this [place] medical planner's number, and will continue to reach out for options. Mildred Barker RN/Product Specialist Discharge Planning/Care Management Advanced directive, confirm from FAMILY Start: 11/18/23 06:52 Freq: Q24H Status: Active Protocol: Document 11/18/23 07:50 BT (Rec: 11/18/23 07:55 BT [id number]) Advance Directive, confirm on record Time 07:50 Person contacted Pt sister Copy received No CM Discharge Assessment Start: 11/18/23 11:30 Freq: Status: Active Protocol: Document 11/18/23 11:35 VM (Rec: 11/18/23 11:55 VM [id number]) Discharge Planning Assessment Assigned Administrative Assistant Data Entry Mildred Barker RN/Product Specialist Advance Directives? Yes Advance Directives on File No History Provided By Patient,Medical Record Prior Living Arrangements House Household Members none Type of transporation used prior to Drives own vehicle admit Comment Patient has only been driving short distances, but sister takes him to oncology appointments. Independent with ADL's Yes Is patient alert and oriented? Yes Needs Assistance With Home Chores / Shopping Caregiver for Another No DME Already Rented / Owned FWW / Walker Barriers to Discharge Yes Comment Lives alone, declining health, falls. Discharge Plan Home Transportation Arrangement Son Referrals Initiated Home Health,Other Additional Comment There is a hospice possibility , but patient not yet ready for this. Whiteboard Updated in Patient Room with Yes name and ext. # of Administrative Assistant Data Entry Review Status In Process Next Review Type Continued Stay Review
[2023-11-18 12:51] LABS: Add Manual Diff / Slide Review SLIDE REVIEW; Anisocytosis 1+; Macrocytosis 1+; Microcytosis 1+; Platelet Count 26 X10^3/uL (150-400)
[2023-11-18 12:52] LABS: Hypersegmented Neutrophils 1+; Ovalocytes 1+; Rouleaux 1+; Target Cells 1+
[2023-11-19 03:55] VITALS: BP 132/47; PULSE 66; RESP 17; TEMP 35.7; O2SAT 98
[2023-11-19 05:20] LABS: Add Manual Diff / Slide Review NO; Basophils Absolute Auto 0 /uL (0-100); Basophils Percent Auto 0.2 % (0-2); Eosinophils Absolute Auto 0 /uL (0-450); Eosinophils Percent Auto 0.1 % (2-4); Hematocrit 22.9 % (41-53); Hemoglobin 7.5 g/dL (13.5-17.5); Lymphocytes Absolute Auto 300 /uL (1100-4500); Lymphocytes Percent Auto 4.6 % (25-40); Mean Corpuscular HGB Conc 32.6 % (30-36); Mean Corpuscular Hemoglobin 30.6 PG (26-34); Mean Corpuscular Volume 93.7 fL (80-100); Monocytes Absolute Auto 300 /uL (0-900); Monocytes Percent Auto 5.4 % (3-14); Neutrophils Absolute Auto 5600 /uL (1500-7000); Neutrophils Percent Auto 89.7 % (50-75); Red Blood Cell Count 2.44 X10^6/uL (4.5-5.9); Red Cell Distribution Width 20.3 % (11.6-14.8); White Blood Cell Count 6.3 X10^3/uL (4.5-11.0)
[2023-11-19 05:25] LABS: Alanine Aminotransferase 57 IU/L (<50); Albumin 1.8 g/dL (3.5-5.0); Albumin Globulin Ratio 0.4 (1.0-2.8); Alkaline Phosphatase 658 U/L (38-126); Aspartate Aminotransferase 175 IU/L (17-59); BUN Creatinine Ratio 24.1 (6-22); Bilirubin Total 17.7 mg/dL (0.2-1.3); Blood Urea Nitrogen 56 mg/dL (9-20); Calcium 6.8 mg/dL (8.4-10.2); Carbon Dioxide 17 mmol/L (22-32); Chloride 109 mmol/L (98-107); Estimated Glomerular Filt Rate 28 mL/min (>60); Globulin 4.3 g/dL (1.7-4.1); Glucose 61 mg/dL (80-110); HEMOLYSIS < 15 (0-50); Potassium 5.1 mmol/L (3.4-5.1); Sodium 134 mmol/L (137-145); Total Protein 6.1 g/dL (6.3-8.2)
[2023-11-19 05:29] LABS: Platelet Count 19 X10^3/uL (150-400)
[2023-11-19] MEDS: SODIUM CHLORIDE 0.9% 1,000 ML 125 ML IV (05:35)
[2023-11-19 05:39] LABS: Platelet Estimate Decreased on smear
[2023-11-19 05:40] LABS: Anisocytosis 1+
[2023-11-19 05:42] LABS: INR 2.3 (0.9-1.3); Prothrombin Time 26.5 SECONDS (9.4-12.5)
--- NOTE | 2023-11-19 06:27 | PC.NURSE ---
Addendum entered by Teri Stout R.N. 11/19/23 06:47: Received critical lab value @ 0600 of platelet count: 19. Per MD Kelly communication order: Only call for critical value for platelet count less than 10, or hgb less than 6.5, or hct less than 21%. Will continue to monitor. 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 Appears mildly confused but cooperative with care. Held bedtime carvedilol d/t soft BPs, otherwise VSS. Inspiratory & expiratory wheezes heard on auscultation; patient denies difficulty breathing/SOB, O2 saturation 100% on RA. Patient denies pain. OOB w/ 1 PA, gait belt, & FWW to bathroom. Patient experiencing incontinence, voiding small amounts throughout the night. Bladder scan showed >600cc, notified MD Kelly, coltilde ordered & placed. 700cc dark, brown urine out. IVF infusing as ordered through port on R chest. Fall precautions in place.
[2023-11-19 07:00] VITALS: O2SAT 99
[2023-11-19 08:01] VITALS: BP 102/41; PULSE 70; RESP 20; TEMP 35.8; O2SAT 99
--- NOTE | 2023-11-19 08:33 | PT-OP ANOTE ---
PT reviews labs this a.m. and Hgb and Platelets are trending downwards compared to last date and are 7.5 and 19 respectively. Will hold PT at this time.
[2023-11-19] MEDS: PANTOPRAZOLE DR 40 MG TABLET PO ×2 (09:07→20:32)
--- NOTE | 2023-11-19 10:16 | PM.PN.1 ---
Subjective Subjective Date Patient Seen: 11/19/23 Time Patient Seen: 10:17 Interval history: Patient is still very weak. Really unable to empty his bladder even stand safely to make a variant attempt. Urinary catheter was placed therefore. Had about 700 cc in his bladder. Hemoglobin hematocrit stable. Platelets drifting down, but not rapidly. Creatinine bumped up without concomitant increase in BUN. LFTs essentially unchanged although bilirubin has risen ever so slightly his transaminases are probably unchanged overall. Slight increase in alkaline phosphatase Overall patient is much more awake and alert appears to be feeling better doing better from a global sense. No new complaints or issues. Exam Vital Signs (past 8 hours): - 11/19/23 03:55 11/19/23 07:00 11/19/23 08:01 Temperature 96.3 F L 96.5 F L Pulse Rate 66 70 Respiratory Rate 17 20 Blood Pressure 132/47 L 102/41 L Pulse Oximetry 98 99 99 Oxygen Delivery Method Room Air Oxygen Flow Rate 0 0 Oxygen Delivery Method Room Air Oxygen Flow Rate 0 Objective Labs 11/19/23 04:20 11/19/23 04:20 Labs: Laboratory Results - last 24 hr 11/18/23 11/19/23 12:20 04:20 WBC 7.5 6.3 RBC 2.53 L 2.44 L Hgb 7.8 L 7.5 L Hct 23.9 L 22.9 L MCV 94.5 93.7 MCH 30.7 30.6 MCHC 32.5 32.6 RDW 20.1 H 20.3 H Plt Count 26 L* 19 L* Neut % (Auto) 87.7 H 89.7 H Lymph % (Auto) 4.1 L 4.6 L [place] % (Auto) 7.7 5.4 Eos % (Auto) 0.2 L 0.1 L Baso % (Auto) 0.3 0.2 Neut # (Auto) 6600 5600 Lymph # (Auto) 300 L 300 L [place] # (Auto) 600 300 Eos # (Auto) 0 0 Baso # (Auto) 0 0 Hypersegmented Neuts 1+ Platelet Estimate Decreased on smear RBC Morphology See below See below Anisocytosis 1+ H 1+ H Microcytosis 1+ H Macrocytosis 1+ H Target Cells 1+ H Ovalocytes 1+ H Rouleaux 1+ H PT 26.5 H D INR 2.3 H Sodium 134 L Potassium 5.1 Chloride 109 H Carbon Dioxide 17 L BUN 56 H Creatinine 2.32 H Estimated GFR 28 L BUN/Creatinine Ratio 24.1 H Glucose 61 L Calcium 6.8 L Total Bilirubin 17.7 H AST 175 H ALT 57 H Alkaline Phosphatase 658 H Total Protein 6.1 L Albumin 1.8 L Globulin 4.3 H Albumin/Globulin Ratio 0.4 L PFSH Medical History Metastatic colon cancer to liver CKD (chronic kidney disease) stage 3, GFR 30-59 ml/min Colon cancer Peripheral arterial disease Hypertension Sebaceous cyst (07/19/17) Presence of cardiac pacemaker (01/01/15) 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) Diverticulosis of intestine (01/15/14) Benign prostatic hyperplasia (01/15/14) Enlarged prostate Numbness of foot Lower extremity pain Claudication Chronic atrial fibrillation Lumbar spine pain Urinary incontinence Hemorrhoids Surgical History Hx of bilateral cataract extraction Hx of vascular surgery (04/11/22) Presence of cardiac pacemaker (11/24/11) History of vasectomy Family History Father Pneumonia Mother Hypertension Social History marital status: details: October 2022 household members: none lives independently: Yes occupational status: other Smoking Status: Current every day smoker quit status: not considering quitting second hand exposure: No alcohol intake: former substance use type: does not use Assessment & Plan Assessment & Plan narrative: 1. Abnormal LFTs-numbers are probably relatively stable. I had hoped for more improvement in his bilirubin after 24 hours off his meds and with appropriate hydration etcetera. No further therapy appropriate at this time continue with conservative management recheck numbers tomorrow 2. Anemia and thrombocytopenia-relatively stable. I would not transfuse platelets at this level if they drop below 10 or 15,000 without evidence of bleeding than he probably does need repeat platelet transfusion. If there is evidence of bleeding at any time with his numbers now under 30,000 I certainly would transfuse. No indication for red blood cell transfusion. Hopefully again without the toxic effect of his regorafenib, these numbers will begin to improve 3. Acute kidney injury-numbers are slightly worse than yesterday. Blood pressure drifted down to a lowish side. Plan to increase his maintenance IV fluids and will bolus with another 500 cc of normal saline in effort to try and reverse any prerenal azotemia that might exist. Rechecked tomorrow. 4. Infectious disease-again patient remains afebrile. White count stable. No growth from blood cultures. No antibiotics indicated at this time in my opinion. 5. Weakness-PT uncomfortable getting patient up and ambulating with platelet count as low as it is. Hopefully that will improve and he will be more of a candidate for more physical therapy over time 6. Discharge planning-seems likely to me patient will require either snf placement if he was a rehab candidate, or perhaps home with hospice if that is more appropriate. Another 24-48 hours of monitoring with the above interventions to determine more accurately his clinical course will help in the decision making.
[2023-11-19] MEDS: SODIUM CHLORIDE 0.9% 500 ML 1000 ML IV (10:32)
[2023-11-19 11:00] VITALS: BP 114/39; PULSE 66; RESP 20; TEMP 35.7; O2SAT 98
[2023-11-19] MEDS: SODIUM CHLORIDE 0.9% 1,000 ML 150 ML IV ×2 (13:40→20:32)
[2023-11-19 19:00] VITALS: BP 99/31; PULSE 63; RESP 20; TEMP 36; O2SAT 92
[2023-11-19 20:46] VITALS: BP 99/31; PULSE 63
[2023-11-19 22:50] LABS: Acinetobacter calcoa-baumannii Not Detected (Not Detect); Bacteroides fragilis Not Detected (Not Detect); Candida albicans Not Detected (Not Detect); Candida auris Not Detected (Not Detect); Candida glabrata Not Detected (Not Detect); Candida krusei Not Detected (Not Detect); Candida parapsilosis Not Detected (Not Detect); Candida tropicalis Not Detected (Not Detect); Cryptococcus neoformans/gatti Not Detected (Not Detect); Enterobacter cloacae complex Not Detected (Not Detect); Enterobacterales Not Detected (Not Detect); Enterococcus faecalis Not Detected (Not Detect); Enterococcus faecium Not Detected (Not Detect); Haemophilus influenzae Not Detected (Not Detect); Klebsiella aerogenes Not Detected (Not Detect); Listeria monocytogenes Not Detected (Not Detect); Neisseria meningitidis Not Detected (Not Detect); Proteus species Not Detected (Not Detect); Pseudomonas aeruginosa Not Detected (Not Detect); Salmonella species Not Detected (Not Detect); Serratia marcescens Not Detected (Not Detect); Staphylococcus epidermidis Not Detected (Not Detect); Staphylococcus lugdunensis Not Detected (Not Detect); Stenotrophomonas maltophilia Not Detected (Not Detect); Streptococcus agalactiae (Gr B Not Detected (Not Detect); Streptococcus pneumonia Not Detected (Not Detect); Streptococcus pyogenes (Gr A) Not Detected (Not Detect); Streptococcus species Not Detected (Not Detect)
[2023-11-19 23:18] LABS: Staphylococcus species Detected (Not Detect)
[2023-11-20] MEDS: SODIUM CHLORIDE 0.9% 1,000 ML 150 ML IV ×2 (03:07→14:39)
[2023-11-20 04:00] VITALS: BP 99/43; PULSE 64; RESP 24; TEMP 35.6; O2SAT 98
[2023-11-20 04:40] LABS: Add Manual Diff / Slide Review NO; Basophils Absolute Auto 0 /uL (0-100); Basophils Percent Auto 1.2 % (0-2); Eosinophils Absolute Auto 0 /uL (0-450); Eosinophils Percent Auto 0.1 % (2-4); Hematocrit 32.7 % (41-53); Hemoglobin 10.5 g/dL (13.5-17.5); Lymphocytes Absolute Auto 100 /uL (1100-4500); Mean Corpuscular Hemoglobin 30.6 PG (26-34); Mean Corpuscular Volume 95.6 fL (80-100); Monocytes Absolute Auto 100 /uL (0-900); Monocytes Percent Auto 3.7 % (3-14); Neutrophils Absolute Auto 3500 /uL (1500-7000); Red Blood Cell Count 3.43 X10^6/uL (4.5-5.9); Red Cell Distribution Width 20.8 % (11.6-14.8); White Blood Cell Count 3.8 X10^3/uL (4.5-11.0)
[2023-11-20 04:46] LABS: Platelet Count 13 X10^3/uL (150-400)
[2023-11-20 04:52] LABS: INR 2.3 (0.9-1.3); Prothrombin Time 27.1 SECONDS (9.4-12.5)
[2023-11-20 04:56] LABS: Alanine Aminotransferase 49 IU/L (<50); Albumin 1.7 g/dL (3.5-5.0); Albumin Globulin Ratio 0.4 (1.0-2.8); Alkaline Phosphatase 581 U/L (38-126); Aspartate Aminotransferase 128 IU/L (17-59); BUN Creatinine Ratio 25.1 (6-22); Bilirubin Total 15.7 mg/dL (0.2-1.3); Blood Urea Nitrogen 62 mg/dL (9-20); Carbon Dioxide 14 mmol/L (22-32); Chloride 111 mmol/L (98-107); Estimated Glomerular Filt Rate 26 mL/min (>60); Globulin 3.9 g/dL (1.7-4.1); Glucose 54 mg/dL (80-110); HEMOLYSIS 17 (0-50); Potassium 5.3 mmol/L (3.4-5.1); Sodium 134 mmol/L (137-145); Total Protein 5.6 g/dL (6.3-8.2)
[2023-11-20 05:03] LABS: Anisocytosis 1+; Platelet Estimate Decreased on smear
[2023-11-20 05:04] LABS: Macrocytosis 1+; Microcytosis 1+; Target Cells 1+
[2023-11-20 05:06] LABS: Ovalocytes 1+; Schistocytes 1+
[2023-11-20 05:07] LABS: Burr Cells 1+
[2023-11-20 05:08] LABS: Calcium 6.4 mg/dL (8.4-10.2)
--- NOTE | 2023-11-20 08:22 | P.PN_ITS ---
Subjective Subjective Date Patient Seen: 11/20/23 Time Patient Seen: 08:22 Interval history: Patient seen and evaluated this morning. His sisters at bedside. His son and family were here yesterday. Patient is still quite confused and disoriented. Answers questions but not necessarily appropriately. Does not appear to be in much pain. Family states less agitation and discomfort since placement of Kelly catheter. Patient is still quite jaundice. Blood pressures were a little bit soft last night. Reviewed laboratory tests. Discussed advance care planning with the patient's sister today. Have had numerous conversations with gym about long-term care plans. And has wanted to continue to work on treatment of his cancer palliatively. And wanted to hold off on hospice. I think hospice would be appropriate for this patient at this time. He has also had that conversation with his oncologist. His most recent medication that was started he is aware was 1 of his last options. And certainly his cause some devastating side effects. Exam Vital Signs (past 8 hours): - 11/20/23 04:00 Temperature 96.1 F L Pulse Rate 64 Respiratory Rate 24 Blood Pressure 99/43 L Pulse Oximetry 98 Oxygen Delivery Method Room Air Oxygen Flow Rate 0 Narrative Exam Narrative: Gen.: Patient is arousable. Not really responsive to questions or commands. HEENT: Face shows significant jaundice. Oral mucosa is moist Cardio: Heart shows regular rate and rhythm slight systolic murmur Respiratory: Mild increased work of breathing with some rhonchorous breath sounds Abdomen: Soft some mild tenderness on palpation some mild distention Extremities: Trace edema in the lower extremities warm dry perfused Neurologic: Patient is confused Objective Labs 11/20/23 04:06 11/20/23 04:06 Labs: Laboratory Results - last 24 hr 11/18/23 11/20/23 00:20 04:06 WBC 3.8 L RBC 3.43 L Hgb 10.5 L Hct 32.7 L MCV 95.6 MCH 30.6 MCHC 32.0 RDW 20.8 H Plt Count 13 L* Neut % (Auto) 92.0 H Lymph % (Auto) 3.0 L [place] % (Auto) 3.7 Eos % (Auto) 0.1 L Baso % (Auto) 1.2 Neut # (Auto) 3500 Lymph # (Auto) 100 L [place] # (Auto) 100 Eos # (Auto) 0 Baso # (Auto) 0 Platelet Estimate Decreased on smear RBC Morphology See below Anisocytosis 1+ H Microcytosis 1+ H Macrocytosis 1+ H Target Cells 1+ H Ovalocytes 1+ H Freer Cells 1+ H Schistocytes 1+ H PT 27.1 H INR 2.3 H Sodium 134 L Potassium 5.3 H Chloride 111 H Carbon Dioxide 14 L BUN 62 H Creatinine 2.47 H Estimated GFR 26 L BUN/Creatinine Ratio 25.1 H Glucose 54 L Calcium 6.4 L* Total Bilirubin 15.7 H AST 128 H ALT 49 Alkaline Phosphatase 581 H Total Protein 5.6 L Albumin 1.7 L Globulin 3.9 Albumin/Globulin Ratio 0.4 L A.calcoaceticus-baumannii cmplx PCR Not detected Bacteroides fragilis Not detected Dulce albicans (PCR) Not detected Dulce auris (PCR) Not detected C. glabrata (PCR) Not detected C. krusei (PCR) Not detected C. parapsilosis (PCR) Not detected C. tropicalis (PCR) Not detected C. neoform/gattii (PCR) Not detected Enterobacterales (PCR) Not detected E. cloacae complex PCR Not detected Enterococc faecalis PCR Not detected Enterococc faecium PCR Not detected E. coli (PCR) Not detected H. influenzae (PCR) Not detected Klebsiella aerogenes (PCR) Not detected Klebsiella oxytoca PCR Not detected Klebsiella pneumoniae Not detected List. monocytogenes PCR Not detected N. meningitidis (PCR) Not detected Proteus species (PCR) Not detected Salmonella spp. (PCR) Not detected Serratia marcescens PCR Not detected Staphylococcus sp PCR Detected Staph aureus (PCR) Not detected mecA/C & MREJ Resist Gene Not applicable mecA/C-Methicil Resis Gene Not applicable mcr-1 Colistin Res Gene PCR Not applicable Staph epidermidis (PCR) Not detected Staph lugdunensis PCR Not detected S. maltophilia (PCR) Not detected Streptococcus sp PCR Not detected Group A Strep (PCR) Not detected Strep agalactiae (PCR) Not detected Strep pneumoniae (PCR) Not detected P. 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) Diverticulosis of intestine (01/15/14) Benign prostatic hyperplasia (01/15/14) Enlarged prostate Numbness of foot Lower extremity pain Claudication Chronic atrial fibrillation Lumbar spine pain Urinary incontinence Hemorrhoids Surgical History Hx of bilateral cataract extraction Hx of vascular surgery (04/11/22) Presence of cardiac pacemaker (11/24/11) History of vasectomy Family History Father Pneumonia Mother Hypertension Social History marital status: details: October 2022 household members: none lives independently: Yes occupational status: other Smoking Status: Current every day smoker quit status: not considering quitting second hand exposure: No alcohol intake: former substance use type: does not use Assessment & Plan Assessment and plan (1) Metastatic colon cancer to liver: Status: Chronic Plan Metastatic colon cancer stage IV. Patient with colon cancer with metastatic disease to his liver. Patient undergoing treatment including surgery radiation and chemotherapy. Patient under treatment now for approximately 2 years. Acute hepatitis Abnormal LFTs-most likely cause is recent new chemotherapy medication. Liver enzymes are relatively stable today. Bilirubin is down a little bit. Chemotherapy medication has been stopped at this point. Awaiting to see if liver injury improves. Jaundice. Patient with bilirubin 17-18. Due to underlying acute liver failure. His bilirubin has gone down a little bit. He is quite yellow. Again possible side effects due to new chemotherapy medication. CT scan and ultrasound shows no signs of obstructive process. Chronic with acute Anemia and thrombocytopenia-certainly worsened by his chemotherapy. His hemoglobin hematocrit is stable. Required transfusions through treatment for his colon cancer. His platelet count is quite low. No signs of active bleeding. Continue to monitor CBC and platelet Acute encephalopathy. Due to underlying liver failure kidney failure patient is confused. Unable to answer questions appropriately. Acute kidney injury-patient has signs of acute kidney failure. Kelly catheters in place to monitor urine output. Electrolytes show increasing potassium. Will continue with IV fluid maintenance. And provide a fluid bolus this morning. To improve urine output and to help with potassium. Infectious disease patient with intermittent cough I think mild aspiration is happening due to his mental status and overall weakness. White blood cell count remains stable at this point and afebrile. He is to week and disoriented to participate in any type of swallow evaluation. I would certainly recommend swallow precautions. Atrial fibrillation with pacemaker. Patient not on anticoagulation his INR is prolonged because of his liver failure. He also had his blood thinner. Because of his ongoing difficulty with anemia and requiring transfusions and bleeding. Peripheral arterial disease. Chronic and stable. Disposition and plan. Long discussion with family members today about long-term care plan. Recommendations said this point will be home. His 2 sisters are readily available to help take care of him and his son will be available on . We will arrange for home with hospice. Code status is DNR. Continue to maximize patient comfort.
[2023-11-20 08:34] VITALS: BP 82/28; PULSE 64; RESP 18; TEMP 35.4; O2SAT 92
[2023-11-20] MEDS: PANTOPRAZOLE DR 40 MG TABLET PO (08:43)
[2023-11-20] MEDS: SODIUM CHLORIDE 0.9% 500 ML 1000 ML IV (08:47)
[2023-11-20 10:00] VITALS: BP 113/48; PULSE 77
--- NOTE | 2023-11-20 10:15 | PT-IP ANOTE ---
Per discussion at interdisciplinary rounds, PT to discharge orders at this time. Please re consult should goals of care change.
--- NOTE | 2023-11-20 11:08 | CM.DPC ---
DCP Cont. Reviewed EMR and team rounds for pt's medical status updates. Family have decided to elect hospice services. Faxed clinicals to [facility] for review. They did state that it would be about 2-days for admission per their schedule. They will review and call this REPATCHER back today to update.
[2023-11-20] MEDS: FUROSEMIDE 40 MG/4 ML VIAL IV (14:37)
[2023-11-20] MEDS: SCOPOLAMINE 1 PATCH TOP (16:10)
[2023-11-20 16:52] VITALS: BP 78/29; PULSE 67; RESP 18; TEMP 35.4; O2SAT 94
[2023-11-20] MEDS: MORPHINE 2 MG/ML INJ IV (18:00)
--- NOTE | 2023-11-20 19:17 | PC.NURSE ---
This evening patient's BP remained very low MD aware, IVF running at 150 ml/hr. Patient lying in bed slightly restless with audibly course lung sounds. Sister supportive at bedside said he seems uncomfortable, sounds like a rattle. MD Ok'd PRN morphine and ativan for patient's discomfort. Patient appeared more comfortable after receiving IV 2 mg morphine. Sister at bedside providing oral care and noted patient stopped breathing at 1851. Patient without a pulse. Notified MD Peace who spoke with gas charger and called patient's son
--- NOTE | 2023-11-20 22:22 | PC.NURSE ---
Patient picked up by [employer] at [id number]. Sister had taken home all personal belongings this evening.
--- NOTE | 2023-12-05 11:34 | P.DN_ITS ---
Discharge Summary Hospital Course Date of Admission: 11/18/23 05:27 Primary care provider: Zak Peace MD Consults: 11/18/23 05:35 Consult to Physician Routine Comment: Consulting Provider: Rohit Kelly Reason for consultation: admission Has provider been notified: Yes 11/18/23 05:59 Consult to Discharge Planning Routine Comment: Consult to Physical Therapy Evaluate & Treat Comment: Physician Instructions: Evaluate and Treat 11/18/23 06:52 Consult to Dietitian, Adult Routine Comment: Reason For Exam: unintentional weight loss, poor appetite Discharge Diagnosis: Metastatic colon cancer stage IV with metastatic disease to his liver Acute liver failure and hepatitis due to chemotherapy Severe jaundice due to underlying liver failure Acute on chronic anemia and thrombocytopenia Acute encephalopathy Acute kidney injury Atrial fibrillation with pacemaker implantation and on anticoagulation which was held due to bleeding Peripheral arterial disease Hospital Course: 83-year-old male with known metastatic colon cancer in on palliative care chemotherapy patient lives alone and was found to weak to stand or care for himself and brought him into the emergency department evaluation. In the emergency department he was weak confused significantly jaundiced. In the emergency department he had significant hyperbilirubinemia significant LFT derangement dehydration acute kidney injury thrombocytopenia anemia. Patient was started on palliative chemotherapy by Dr. Massey. On a number of new chemotherapy agents at 1 which maybe considered to cause his acute liver injury. He was admitted to the hospital for further evaluation of his liver injury and treatment of underlying dehydration kidney injury and liver failure. During the hospital stay patient had monitoring of his liver function kidney function and electrolytes. He was started on IV fluids. He has it his electrolytes kidney function urine output monitored. Patient had a Kelly catheter placed. Over the ensuing 24-48 hours he continued to have declining of his metrics was worsening of his liver function. He had mild improvement of his electrolytes and kidney function. But because of the fluids he became obviously increasing difficulty with shortness of breath and respiratory distress. During his hospital stay his family was at his bedside. Care goals and wishes of the patient and family were reviewed. Patient was kept comfortable without significant additional interventions. Patient is a no code and DNR. Has end- stage cancer. Continuing his hospital stay progressively patient became more weak and respiratory distress became worse. Patient then was transitioned to more comfort care with morphine and Ativan. An ultimately due to the complications of his liver failure kidney failure end-stage for metastatic colon cancer. Objective Labs 11/20/23 04:06 11/20/23 04:06
== END 2023-11-20 21:55 | disposition expired | DRG 374 ==
LOC: ED 11-18 01:17 → AC 11-18 05:28
PROVIDERS: Admitting Provider Internal Medicine; Emergency Provider Emergency Medicine; PCP Family Medicine; Referring Provider Emergency Medicine; Visit Provider Family Medicine
DX: C18.9 Malignant neoplasm of colon, unspecified (principal); G93.41 Metabolic encephalopathy; N17.9 Acute kidney failure, unspecified; C78.7 Secondary malignant neoplasm of liver and intrahepatic bile duct; B17.9 Acute viral hepatitis, unspecified; I48.0 Paroxysmal atrial fibrillation; F17.200 Nicotine dependence, unspecified, uncomplicated; D69.59 Other secondary thrombocytopenia; T50.995A Adverse effect of other drugs, medicaments and biological substances, initial encounter; I73.9 Peripheral vascular disease, unspecified; I49.5 Sick sinus syndrome; N18.30 Chronic kidney disease, stage 3 unspecified; I12.9 Hypertensive chronic kidney disease with stage 1 through stage 4 chronic kidney disease, or unspecified chronic kidney disease; D63.0 Anemia in neoplastic disease; K72.90 Hepatic failure, unspecified without coma; Z79.02 Long term (current) use of antithrombotics/antiplatelets; Z95.0 Presence of cardiac pacemaker; Z93.3 Colostomy status
CPT/HCPCS: 36415; 36430; 74176; 76705; 80048; 80053; 80076; 80320; 80329; 82140; 82962; 83605; 83690; 84145; 85025; 85610; 85730; 86900; 86901; 87040; 87077; 87154; 93005; 93010; 97163; 99223; 99233; 99285; G0480; J1940; J2270; P9035